=== PATIENT | male | born 1975 | race Hispanic/Latino ===

== ENCOUNTER 2022-10-10 19:33 | Inpatient (IN) | payer OTHER ==
[~2022-10-10] VITALS: Ht 154.9 cm; Wt 64.4 kg
[2022-10-10 21:52] LABS: BASOPHILS % (AUTO) 0.8 % (0.0-5.0); EOSINOPHILS % (AUTO) 1.4 % (0.0-8.0); HEMATOCRIT 35.3 % (42-54); LYMPHOCYTES % (AUTO) 22.4 % (21.0-51.0); MEAN CORPUSCULAR HEMOGLOBIN 28.6 pg (27.0-33.0); MEAN CORPUSCULAR HGB CONC 32.9 g/dL (32.0-36.0); MEAN CORPUSCULAR VOLUME 86.9 fL (79-99); MONOCYTES % (AUTO) 15.8 % (3.0-13.0); NEUTROPHILS % (AUTO) 57.5 % (40.0-77.0); PLATELET COUNT (AUTO) 124 K/uL (130-400); RED BLOOD CELL COUNT(AUTO) 4.06 MIL/uL (4.50-6.20); WHITE BLOOD COUNT (AUTO) 4.9 K/uL (4.8-10.8)
[2022-10-10 22:04] LABS: POTASSIUM 3.7 mmol/L (3.5-5.1)
[2022-10-10 22:06] LABS: INR 1.09 (0.85-1.15); PROTHROMBIN TIME 11.8 SEC (9.6-11.6)
[2022-10-10 22:08] LABS: ALBUMIN 1.9 g/dL (3.5-5.0); TOTAL PROTEIN, SERUM 8.1 g/dL (6.0-8.3)
[2022-10-10] MEDS ORDERED: IOHEXOL 350 MG/ML 100ML INFUS..BTL IV ONE (23:32)
[2022-10-11] MEDS ORDERED: HYDROCODONE/ACETAMINOPHEN 5/325 MG TAB PO PRN (00:30)
[2022-10-11] MEDS ORDERED: ACETAMINOPHEN 325 MG TAB PO PRN ×2 (00:30)
[2022-10-11] MEDS ORDERED: NITROGLYCERIN 0.4 MG SL TAB SL PRN (00:30)
[2022-10-11] MEDS ORDERED: ONDANSETRON 4MG INJ IV PRN (00:30)
[2022-10-11 00:48] LABS: HEMOGLOBIN A1C 4.8 % (4.0-6.0)
[2022-10-11 00:55] LABS: MAGNESIUM 1.6 mg/dL (1.80-2.40)
[2022-10-11] MEDS: 0.9%NACL 1000ML 1,000 ML IV SCH ×3 (00:59→19:52)
[2022-10-11] MEDS: MAGNESIUM 2GM PREMIX 50ML 50 ML IV SCH (03:44)
[2022-10-11 03:49] VITALS: BP 126/78
[2022-10-11] MEDS ORDERED: IPRATROPIUM/ALBUTEROL SULFATE 3 ML SOLUTION IH PRN (06:30)
[2022-10-11 08:05] LABS: ALBUMIN 1.8 g/dL (3.5-5.0); CREATININE 0.7 mg/dL (0.5-1.5); MAGNESIUM 1.8 mg/dL (1.80-2.40); POTASSIUM 3.8 mmol/L (3.5-5.1); TOTAL PROTEIN, SERUM 7.4 g/dL (6.0-8.3)
[2022-10-11 08:09] LABS: BASOPHILS % (AUTO) 0.8 % (0.0-5.0); EOSINOPHILS % (AUTO) 1.9 % (0.0-8.0); HEMATOCRIT 32.2 % (42-54); LYMPHOCYTES % (AUTO) 21.3 % (21.0-51.0); MEAN CORPUSCULAR HEMOGLOBIN 29.1 pg (27.0-33.0); MEAN CORPUSCULAR HGB CONC 33.2 g/dL (32.0-36.0); MEAN CORPUSCULAR VOLUME 87.5 fL (79-99); NEUTROPHILS % (AUTO) 61.3 % (40.0-77.0); PLATELET COUNT (AUTO) 113 K/uL (130-400); RED BLOOD CELL COUNT(AUTO) 3.68 MIL/uL (4.50-6.20); RED CELL DISTRIBUTION WIDTH 13.9 % (11.0-15.5); WHITE BLOOD COUNT (AUTO) 3.6 K/uL (4.8-10.8)
[2022-10-11 08:12] VITALS: BP 108/73
[2022-10-11] MEDS: ASPIRIN 81 MG EC TAB PO SCH (09:32)
[2022-10-11] MEDS: METOPROLOL TARTRATE 25 MG TAB PO SCH ×2 (09:32→20:46)
[2022-10-11] MEDS: FAMOTIDINE 20MG TAB PO SCH ×2 (09:32→20:46)
[2022-10-11 11:17] VITALS: BP 118/71
[2022-10-11] MEDS ORDERED: LORAZEPAM 2 MG/ML 1 ML VIAL IVP PRN (13:00)
[2022-10-11] MEDS ORDERED: CHLORDIAZEPOXIDE HCL 25 MG CAP PO PRN (13:00)
[2022-10-11] MEDS ORDERED: PHARMACY COMMUNICATION MISC PRN (13:00)
[2022-10-11 16:00] VITALS: BP 123/83
[2022-10-11 20:00] VITALS: BP 117/72
[2022-10-11] MEDS: HYDROCODONE/ACETAMINOPHEN 5/325 MG TAB PO PRN (20:47)
[2022-10-11 21:34] LABS: HEPATITIS A IGM ANTIBODY Non-Reactive (Nonreactive); HEPATITIS B CORE IGM ANTIBODY Non-Reactive (Negative); HEPATITIS B SURFACE ANTIGEN Non-Reactive (Nonreactive); HEPATITIS C ANTIBODY Non-Reactive (Nonreactive)
[2022-10-12] VITALS (18 sets, daily range): BP systolic 101–118; BP diastolic 49–80
[2022-10-12 05:29] LABS: EOSINOPHILS % (AUTO) 2.3 % (0.0-8.0); HEMATOCRIT 32.5 % (42-54); LYMPHOCYTES % (AUTO) 28.6 % (21.0-51.0); MEAN CORPUSCULAR HEMOGLOBIN 28.7 pg (27.0-33.0); MEAN CORPUSCULAR VOLUME 89.5 fL (79-99); MONOCYTES % (AUTO) 14.4 % (3.0-13.0); NEUTROPHILS % (AUTO) 51.8 % (40.0-77.0); PLATELET COUNT (AUTO) 126 K/uL (130-400); RED BLOOD CELL COUNT(AUTO) 3.63 MIL/uL (4.50-6.20); RED CELL DISTRIBUTION WIDTH 13.8 % (11.0-15.5); WHITE BLOOD COUNT (AUTO) 4.9 K/uL (4.8-10.8)
[2022-10-12 05:58] LABS: ALBUMIN 1.6 g/dL (3.5-5.0); CREATININE 0.7 mg/dL (0.5-1.5); POTASSIUM 3.5 mmol/L (3.5-5.1); TOTAL PROTEIN, SERUM 7.1 g/dL (6.0-8.3)
[2022-10-12] MEDS: 0.9%NACL 1000ML 1,000 ML IV SCH ×2 (06:50→17:26)
[2022-10-12] MEDS: FAMOTIDINE 20MG TAB PO SCH ×2 (09:00→21:01)
[2022-10-12] MEDS: FOLIC ACID 1 MG TABLET PO SCH (09:00)
[2022-10-12] MEDS: ASPIRIN 81 MG EC TAB PO SCH (09:00)
[2022-10-12] MEDS: MULTIVITAMIN TABLET PO SCH (09:00)
[2022-10-12] MEDS: METOPROLOL TARTRATE 25 MG TAB PO SCH ×2 (09:20→21:01)
[2022-10-12] MEDS: THIAMINE HCL 100 MG/ML 2ML VIAL IM SCH (09:20)
[2022-10-12] MEDS ORDERED: MORPHINE 2 MG SYG IVP PRN (12:07)
[2022-10-12] MEDS ORDERED: PROPOFOL 10 MG/ML 20ML VIAL IV ONE ×2 (17:50→19:06)
[2022-10-12] MEDS ORDERED: SUCCINYLCHOLINE 200MG/10ML SYR ONE (17:50)
[2022-10-12] MEDS ORDERED: LIDOCAINE PF 100MG/5ML (2%) SYRINGE 5ML ONE (17:50)
[2022-10-12] MEDS ORDERED: FENTANYL CITRATE PF 50 MCG/1 ML 2ML VIAL ONE ×2 (17:51→19:55)
[2022-10-12] MEDS ORDERED: ROCURONIUM 10MG/1ML SYR 10 MG/ML ML ONE (17:51)
[2022-10-12] MEDS ORDERED: MIDAZOLAM HCL 1 MG/ML 2ML VIAL ONE (17:51)
[2022-10-12] MEDS ORDERED: CEFAZOLIN SODIUM 2 GM VIAL IVPB ONE (18:10)
[2022-10-12] MEDS ORDERED: CEFAZOLIN SODIUM 2 GM VIAL ONE (18:17)
[2022-10-12] MEDS ORDERED: MEPERIDINE-PF 25 MG/ML SYG ONE (19:56)
[2022-10-12] MEDS ORDERED: IPRATROPIUM/ALBUTEROL SULFATE 3 ML SOLUTION IH SCH (20:00)
[2022-10-13] VITALS: BP 119/82
[2022-10-13] MEDS: HYDROCODONE/ACETAMINOPHEN 5/325 MG TAB PO PRN ×3 (01:03→16:30)
[2022-10-13] MEDS ORDERED: CEFAZOLIN SODIUM 2 GM VIAL IVPB SCH (02:00)
[2022-10-13 04:00] VITALS: BP 102/67
[2022-10-13 05:02] LABS: BASOPHILS % (AUTO) 0.7 % (0.0-5.0); EOSINOPHILS % (AUTO) 0.6 % (0.0-8.0); HEMATOCRIT 28.4 % (42-54); LYMPHOCYTES % (AUTO) 22.9 % (21.0-51.0); MEAN CORPUSCULAR HEMOGLOBIN 29.4 pg (27.0-33.0); MEAN CORPUSCULAR HGB CONC 33.1 g/dL (32.0-36.0); MEAN CORPUSCULAR VOLUME 88.8 fL (79-99); MONOCYTES % (AUTO) 13.6 % (3.0-13.0); NEUTROPHILS % (AUTO) 60.5 % (40.0-77.0); PLATELET COUNT (AUTO) 141 K/uL (130-400); WHITE BLOOD COUNT (AUTO) 8.6 K/uL (4.8-10.8)
[2022-10-13 05:28] LABS: ALBUMIN 1.6 g/dL (3.5-5.0); BILIRUBIN,DIRECT 1.3 mg/dL (0.0-0.3); POTASSIUM 3.8 mmol/L (3.5-5.1); TOTAL PROTEIN, SERUM 6.6 g/dL (6.0-8.3)
[2022-10-13 07:30] VITALS: BP 109/71
[2022-10-13] MEDS: METOPROLOL TARTRATE 25 MG TAB PO SCH ×2 (08:41→20:13)
[2022-10-13] MEDS: FAMOTIDINE 20MG TAB PO SCH ×2 (08:41→20:13)
[2022-10-13] MEDS: ASPIRIN 81 MG EC TAB PO SCH (08:41)
[2022-10-13] MEDS: FOLIC ACID 1 MG TABLET PO SCH (08:41)
[2022-10-13] MEDS: THIAMINE HCL 100 MG/ML 2ML VIAL IM SCH (08:41)
[2022-10-13] MEDS: MULTIVITAMIN TABLET PO SCH (08:41)
[2022-10-13 11:30] VITALS: BP 98/60
[2022-10-13 15:30] VITALS: BP 112/66
[2022-10-13] MEDS: CLINDAMYCIN IVPB 600MG/50ML 50 ML IV SCH (16:26)
[2022-10-13 20:00] VITALS: BP 105/71
[2022-10-14] VITALS: BP 120/67
[2022-10-14] MEDS: CLINDAMYCIN IVPB 600MG/50ML 50 ML IV SCH ×3 (00:36→17:17)
[2022-10-14] MEDS: HYDROCODONE/ACETAMINOPHEN 5/325 MG TAB PO PRN ×4 (00:46→20:52)
[2022-10-14 03:57] VITALS: BP 96/54
[2022-10-14 04:26] LABS: BASOPHILS % (AUTO) 0.8 % (0.0-5.0); EOSINOPHILS % (AUTO) 0.8 % (0.0-8.0); HEMATOCRIT 28.9 % (42-54); LYMPHOCYTES % (AUTO) 27.3 % (21.0-51.0); MEAN CORPUSCULAR HEMOGLOBIN 28.5 pg (27.0-33.0); MEAN CORPUSCULAR HGB CONC 32.2 g/dL (32.0-36.0); MEAN CORPUSCULAR VOLUME 88.7 fL (79-99); MONOCYTES % (AUTO) 12.3 % (3.0-13.0); NEUTROPHILS % (AUTO) 56.7 % (40.0-77.0); PLATELET COUNT (AUTO) 146 K/uL (130-400); RED BLOOD CELL COUNT(AUTO) 3.26 MIL/uL (4.50-6.20); RED CELL DISTRIBUTION WIDTH 13.8 % (11.0-15.5); WHITE BLOOD COUNT (AUTO) 8.5 K/uL (4.8-10.8)
[2022-10-14 05:01] LABS: ALBUMIN 1.7 g/dL (3.5-5.0); BILIRUBIN,DIRECT 1.2 mg/dL (0.0-0.3); CREATININE 0.9 mg/dL (0.5-1.5); POTASSIUM 3.6 mmol/L (3.5-5.1); TOTAL PROTEIN, SERUM 7.1 g/dL (6.0-8.3)
[2022-10-14] MEDS: MAGNESIUM 2GM PREMIX 50ML 50 ML IV SCH (05:45)
[2022-10-14 07:39] VITALS: BP 104/60
[2022-10-14] MEDS: ASPIRIN 81 MG EC TAB PO SCH (10:30)
[2022-10-14] MEDS: FAMOTIDINE 20MG TAB PO SCH ×2 (10:30→20:44)
[2022-10-14] MEDS: METOPROLOL TARTRATE 25 MG TAB PO SCH ×2 (10:30→20:47)
[2022-10-14] MEDS: FOLIC ACID 1 MG TABLET PO SCH (10:30)
[2022-10-14] MEDS: MULTIVITAMIN TABLET PO SCH (10:31)
[2022-10-14] MEDS: THIAMINE HCL 100 MG/ML 2ML VIAL IM SCH (10:31)
[2022-10-14] MEDS ORDERED: CLIN-141 PO (11:34)
[2022-10-14] MEDS ORDERED: MVIT PO (11:57)
[2022-10-14] MEDS ORDERED: METO25 PO (11:57)
[2022-10-14] MEDS ORDERED: AEC81 PO (11:57)
[2022-10-14 13:08] VITALS: BP 98/63
[2022-10-14 16:07] VITALS: BP 111/68
[2022-10-14 20:00] VITALS: BP 99/60
[2022-10-15] VITALS: BP 114/63
[2022-10-15] MEDS: CLINDAMYCIN IVPB 600MG/50ML 50 ML IV SCH (00:30)
[2022-10-15 04:00] VITALS: BP 110/73
[2022-10-15 04:45] LABS: BASOPHILS % (AUTO) 0.9 % (0.0-5.0); EOSINOPHILS % (AUTO) 3.7 % (0.0-8.0); LYMPHOCYTES % (AUTO) 29.9 % (21.0-51.0); MEAN CORPUSCULAR HEMOGLOBIN 29.2 pg (27.0-33.0); MEAN CORPUSCULAR HGB CONC 32.9 g/dL (32.0-36.0); MEAN CORPUSCULAR VOLUME 88.9 fL (79-99); MONOCYTES % (AUTO) 13.4 % (3.0-13.0); NEUTROPHILS % (AUTO) 48.9 % (40.0-77.0); PLATELET COUNT (AUTO) 168 K/uL (130-400); RED BLOOD CELL COUNT(AUTO) 3.15 MIL/uL (4.50-6.20); RED CELL DISTRIBUTION WIDTH 14.4 % (11.0-15.5)
[2022-10-15 05:08] LABS: ALBUMIN 1.7 g/dL (3.5-5.0); CREATININE 0.8 mg/dL (0.5-1.5); MAGNESIUM 1.9 mg/dL (1.80-2.40); POTASSIUM 3.4 mmol/L (3.5-5.1); TOTAL PROTEIN, SERUM 7.1 g/dL (6.0-8.3)
[2022-10-15 07:43] VITALS: BP 116/76
[2022-10-15] MEDS: HYDROCODONE/ACETAMINOPHEN 5/325 MG TAB PO PRN (08:05)
[2022-10-15] MEDS: ASPIRIN 81 MG EC TAB PO SCH (10:18)
[2022-10-15] MEDS: METOPROLOL TARTRATE 25 MG TAB PO SCH (10:18)
[2022-10-15] MEDS: FAMOTIDINE 20MG TAB PO SCH (10:19)
[2022-10-15] MEDS: MULTIVITAMIN TABLET PO SCH (10:19)
[2022-10-15 11:16] VITALS: BP 98/61
== END 2022-10-15 14:35 | disposition home or self-care (01) | DRG 480 ==
LOC: EDH 19:33 → EDHIP 19:34 → 4CH 10-11 02:02
PROVIDERS: ADMIT Internal Medicine; ATTEND Internal Medicine
PROC: 0QS604Z Reposition Right Upper Femur with Internal Fixation Device, Open Approach (ICD-10-PCS; principal; 2022-10-12 17:48)
DX: S72.141A Displaced intertrochanteric fracture of right femur, initial encounter for closed fracture (principal); J18.9 Pneumonia, unspecified organism; E87.1 Hypo-osmolality and hyponatremia; Z20.822 Contact with and (suspected) exposure to COVID-19; D69.6 Thrombocytopenia, unspecified; W11.XXXA Fall on and from ladder, initial encounter; Y93.89 Activity, other specified; Y92.89 Other specified places as the place of occurrence of the external cause; Y99.8 Other external cause status
CPT/HCPCS: 36415; 70450; 71250; 72190; 73503; 73552; 73562; 73590; 74176; 74177; 80048; 80053; 80061; 80074; 80076; 82550; 83036; 83735; 83874; 83880; 84145; 84484; 85025; 85610; 85730; 87040; 87635; 93005; 93306; 93356; 94640; 97039; G0378; J0330; J2001; J2175; J2250; J2704; J3010; J3411; J3475; J3490; Q9967

== ENCOUNTER 2023-01-13 22:05 | Inpatient (IN) | payer OTHER ==
[~2023-01-13] VITALS: Ht 157.5 cm; Wt 70.3 kg
[~2023-01-13 22:05] MED LIST: AEC81 PO; CLIN-141 PO; METO25 PO; MVIT PO
[2023-01-13] MEDS ORDERED: IBUPROFEN 600 MG TABLET PO ONE (23:30)
[2023-01-13] MEDS ORDERED: POTASSIUM CHLORIDE 10% ELIXIR 20 MEQ/15 ML UDCUP PO PRN (23:30)
[2023-01-13] MEDS ORDERED: ACETAMINOPHEN 325 MG TAB PO PRN ×2 (23:30)
[2023-01-13] MEDS ORDERED: KCL 20 MEQ ERTAB PO PRN (23:30)
[2023-01-13] MEDS ORDERED: POTASSIUM CHLORIDE 20MEQ/100ML 100 ML IV PRN ×2 (23:30)
[2023-01-13] MEDS ORDERED: MORPHINE 4 MG SYG ONE (23:40)
[2023-01-13] MEDS ORDERED: ONDANSETRON 4MG INJ ONE (23:40)
[2023-01-13] MEDS: LACTATED RINGERS 1000ML 1,000 ML IV SCH (23:56)
[2023-01-13] MEDS: MORPHINE 4 MG SYG IV PRN (23:56)
[2023-01-13] MEDS: ONDANSETRON 4MG INJ IV PRN (23:56)
[2023-01-14] VITALS (7 sets, daily range): BP systolic 100–132; BP diastolic 57–81; PULSE 71–86; RESP 16–20; O2SAT 96–97
[2023-01-14 00:02] LABS: EOSINOPHILS % (AUTO) 3.1 % (0.0-8.0); HEMATOCRIT 43.8 % (42-54); LYMPHOCYTES % (AUTO) 22.6 % (21.0-51.0); MEAN CORPUSCULAR HEMOGLOBIN 29.3 pg (27.0-33.0); MEAN CORPUSCULAR HGB CONC 32.9 g/dL (32.0-36.0); MEAN CORPUSCULAR VOLUME 89.2 fL (79-99); MONOCYTES % (AUTO) 5.4 % (3.0-13.0); PLATELET COUNT (AUTO) 188 K/uL (130-400); RED BLOOD CELL COUNT(AUTO) 4.91 MIL/uL (4.50-6.20); RED CELL DISTRIBUTION WIDTH 13.9 % (11.0-15.5); WHITE BLOOD COUNT (AUTO) 7.4 K/uL (4.8-10.8)
[2023-01-14 00:13] LABS: APPEARANCE,URINE CLEAR (CLEAR); BILIRUBIN,URINE NEGATIVE (NEGATIVE); COLOR,URINE LIGHT-YELLOW (YELLOW); GLUCOSE, URINE (UA) TRACE mg/dL (NEGATIVE); KETONES,URINE NEGATIVE (NEGATIVE); LEUKOCYTE ESTERASE ,URINE NEGATIVE Leu/uL (NEGATIVE); NITRATE,URINE NEGATIVE (NEGATIVE); OCCULT BLOOD,URINE NEGATIVE (NEGATIVE); PROTEIN,URINE NEGATIVE (NEGATIVE); UROBILINOGEN,URINE 0.2 mg/dL (0.2-1.0)
[2023-01-14 00:16] LABS: ALBUMIN 3.1 g/dL (3.5-5.0); CREATININE 0.7 mg/dL (0.5-1.5); MAGNESIUM 1.7 mg/dL (1.80-2.40); PHOSPHORUS 4.5 mg/dL (2.5-4.9); POTASSIUM 3.9 mmol/L (3.5-5.1); TOTAL PROTEIN, SERUM 7.7 g/dL (6.0-8.3)
[2023-01-14 00:19] LABS: INR 0.98 (0.85-1.15); PROTHROMBIN TIME 11.4 SEC (9.6-11.6)
[2023-01-14 00:21] LABS: MUCUS,URINE FEW LPF (None Seen); WBC,URINE 0-1 /HPF (0-1)
[2023-01-14] MEDS: MAGNESIUM 2GM PREMIX 50ML 50 ML IV PRN (04:09)
[2023-01-14] MEDS: MORPHINE 2 MG SYG IV PRN ×2 (04:43→16:24)
[2023-01-14 06:23] LABS: BASOPHILS % (AUTO) 0.7 % (0.0-5.0); EOSINOPHILS % (AUTO) 3.7 % (0.0-8.0); HEMATOCRIT 39.4 % (42-54); LYMPHOCYTES % (AUTO) 23.7 % (21.0-51.0); MEAN CORPUSCULAR HEMOGLOBIN 29.9 pg (27.0-33.0); MEAN CORPUSCULAR HGB CONC 33.2 g/dL (32.0-36.0); MONOCYTES % (AUTO) 8.1 % (3.0-13.0); PLATELET COUNT (AUTO) 152 K/uL (130-400); RED BLOOD CELL COUNT(AUTO) 4.38 MIL/uL (4.50-6.20); RED CELL DISTRIBUTION WIDTH 13.8 % (11.0-15.5); WHITE BLOOD COUNT (AUTO) 7.1 K/uL (4.8-10.8)
[2023-01-14 06:28] LABS: CREATININE 0.6 mg/dL (0.5-1.5)
[2023-01-14] MEDS: FAMOTIDINE 20MG VIAL IV SCH ×2 (09:57→20:33)
[2023-01-14] MEDS: ENOXAPARIN SODIUM 40 MG/0.4 ML SYRINGE SQ SCH (09:57)
[2023-01-14 10:10] LABS: ALBUMIN 2.9 g/dL (3.5-5.0); BILIRUBIN,DIRECT 0.3 mg/dL (0.0-0.3); TOTAL PROTEIN, SERUM 7.1 g/dL (6.0-8.3)
[2023-01-14] MEDS ORDERED: LORAZEPAM 2 MG/ML 1 ML VIAL IVP PRN (14:00)
[2023-01-14] MEDS ORDERED: CHLORDIAZEPOXIDE HCL 25 MG CAP PO PRN (14:00)
[2023-01-14] MEDS ORDERED: PHARMACY COMMUNICATION MISC PRN (14:00)
[2023-01-14] MEDS ORDERED: CEFAZOLIN SODIUM 2 GM VIAL IVPB PRN (15:00)
[2023-01-14] MEDS: MORPHINE 4 MG SYG IV PRN (20:33)
[2023-01-14] MEDS: LACTATED RINGERS 1000ML 1,000 ML IV SCH (20:34)
[2023-01-14 20:44] LABS: AMPHET/METH SCREEN,URINE NEGATIVE (NEGATIVE); BARBITURATE SCREEN, URINE NEGATIVE (NEGATIVE); BENZODIAZEPINES SCREEN,URINE NEGATIVE (NEGATIVE); CANNABINOID SCREEN,URINE NEGATIVE (NEGATIVE); COCAINE SCREEN,URINE NEGATIVE (NEGATIVE); OPIATE SCREEN,URINE POSITIVE (NEGATIVE); PHENCYCLIDINE SCREEN,URINE NEGATIVE (NEGATIVE)
[2023-01-15] VITALS (28 sets, daily range): BP systolic 110–139; BP diastolic 59–89; PULSE 66–94; RESP 15–20; O2SAT 96–99
[2023-01-15] MEDS: MORPHINE 4 MG SYG IV PRN ×2 (00:40→05:07)
[2023-01-15 05:04] LABS: BASOPHILS % (AUTO) 0.5 % (0.0-5.0); EOSINOPHILS % (AUTO) 8.9 % (0.0-8.0); LYMPHOCYTES % (AUTO) 23.5 % (21.0-51.0); MEAN CORPUSCULAR HEMOGLOBIN 29.7 pg (27.0-33.0); MEAN CORPUSCULAR HGB CONC 32.6 g/dL (32.0-36.0); MEAN CORPUSCULAR VOLUME 90.9 fL (79-99); NEUTROPHILS % (AUTO) 56.9 % (40.0-77.0); PLATELET COUNT (AUTO) 128 K/uL (130-400); RED BLOOD CELL COUNT(AUTO) 4.18 MIL/uL (4.50-6.20); RED CELL DISTRIBUTION WIDTH 13.6 % (11.0-15.5); WHITE BLOOD COUNT (AUTO) 6.5 K/uL (4.8-10.8)
[2023-01-15] MEDS: LACTATED RINGERS 1000ML 1,000 ML IV SCH (05:07)
[2023-01-15 05:15] LABS: INR 0.98 (0.85-1.15); PROTHROMBIN TIME 11.4 SEC (9.6-11.6)
[2023-01-15 05:17] LABS: PARTIAL THROMBOPLASTIN TIME 33.9 SEC (26.3-35.5)
[2023-01-15 05:26] LABS: ALBUMIN 2.4 g/dL (3.5-5.0); BILIRUBIN,DIRECT 0.4 mg/dL (0.0-0.3); CREATININE 0.7 mg/dL (0.5-1.5); MAGNESIUM 1.5 mg/dL (1.80-2.40); TOTAL PROTEIN, SERUM 6.3 g/dL (6.0-8.3)
[2023-01-15] MEDS: MAGNESIUM 2GM PREMIX 50ML 50 ML IV PRN (05:59)
[2023-01-15] MEDS: MORPHINE 2 MG SYG IV PRN (10:00)
[2023-01-15] MEDS: FAMOTIDINE 20MG VIAL IV SCH ×2 (10:00→20:46)
[2023-01-15] MEDS: THIAMINE HCL 100 MG, FOLIC ACID 1 MG, M.V.I. IV [ADULT] 10 ML in 0.9%NACL 1000ML 1,000 ML IV SCH (10:30)
[2023-01-15] MEDS ORDERED: KETAMINE 50MG/ML SYRINGE 50 MG/ML DISP.SYRIN ONE (10:43)
[2023-01-15] MEDS ORDERED: ROPIVACAINE 0.5% 5MG/ML 30ML IJ ONE ×2 (10:43→15:15)
[2023-01-15] MEDS ORDERED: PROPOFOL 10 MG/ML 20ML VIAL IV ONE (10:44)
[2023-01-15] MEDS ORDERED: SUCCINYLCHOLINE CHLORIDE 20 MG/ML 10 ML VIAL ONE (10:44)
[2023-01-15] MEDS ORDERED: FENTANYL CITRATE PF 50 MCG/1 ML 2ML VIAL ONE ×3 (10:44→15:19)
[2023-01-15] MEDS ORDERED: LIDOCAINE PF 100MG/5ML (2%) SYRINGE 5ML ONE (10:44)
[2023-01-15] MEDS ORDERED: MIDAZOLAM HCL 1 MG/ML 2ML VIAL ONE (10:45)
[2023-01-15] MEDS ORDERED: ROCURONIUM 10MG/1ML SYR 10 MG/ML ML ONE ×2 (10:46→13:22)
[2023-01-15] MEDS ORDERED: GLYCOPYRROLATE 1 MG/5 ML SYRINGE ONE ×2 (11:00→14:50)
[2023-01-15] MEDS ORDERED: CEFAZOLIN SODIUM 1 GM VIAL ONE (11:20)
[2023-01-15] MEDS ORDERED: PHENYLEPHRINE HCL 10 MG/ML 1ML VIAL IV ONE (13:30)
[2023-01-15 13:47] LABS: ABG BASE EXCESS -1.3 mmol/L (-2.0-3.0); ABG HCO3 24.4 mmol/L (21.0-28.0); ABG OXYGEN SATURATION 99.5 % (95.0-99.0); ABG PCO2 44 mmHg (35-48)
[2023-01-15] MEDS ORDERED: MEPERIDINE-PF 25 MG/ML SYG ONE (14:23)
[2023-01-15] MEDS ORDERED: NEOSTIGMINE 5MG/5ML SYR IV ONE (14:51)
[2023-01-15] MEDS ORDERED: ONDANSETRON 4MG INJ ONE (15:05)
[2023-01-15] MEDS ORDERED: LIDOCAINE HCL 1% 10 ML VIAL ONE (15:14)
[2023-01-15] MEDS ORDERED: POTASSIUM CHLORIDE 10% ELIXIR 20 MEQ/15 ML UDCUP PO PRN (15:30)
[2023-01-15] MEDS ORDERED: FERROUS FUMARATE 324 MG TABLET PO PRN (15:30)
[2023-01-15] MEDS ORDERED: 0.9%NACL 1000ML 1,000 ML IV SCH (15:30)
[2023-01-15] MEDS ORDERED: DIPHENHYDRAMINE HCL 25 MG CAPSULE PO PRN (15:30)
[2023-01-15] MEDS ORDERED: KCL 20 MEQ ERTAB PO PRN (15:30)
[2023-01-15] MEDS ORDERED: POTASSIUM CHLORIDE 20MEQ/100ML 100 ML IV PRN (15:30)
[2023-01-15] MEDS: ONDANSETRON 4MG INJ IV PRN (16:07)
[2023-01-15] MEDS: KETOROLAC 30MG VIAL (30MG/ML) IV PRN (17:09)
[2023-01-15] MEDS: CEFAZOLIN SODIUM 2 GM VIAL IVPB SCH (20:46)
[2023-01-15] MEDS: CALCIUM CARB 500MG PO PRN (20:47)
[2023-01-15] MEDS: CYCLOBENZAPRINE HCL 10 MG TABLET PO PRN (20:47)
[2023-01-15] MEDS: GABAPENTIN 100 MG CAPSULE PO SCH (20:47)
[2023-01-16] VITALS (8 sets, daily range): BP systolic 93–139; BP diastolic 53–76; PULSE 58–127; RESP 18–20; O2SAT 98
[2023-01-16] MEDS: HYDROCODONE/ACETAMINOPHEN 5/325 MG TAB PO PRN ×3 (01:15→19:31)
[2023-01-16] MEDS: CEFAZOLIN SODIUM 2 GM VIAL IVPB SCH (02:38)
[2023-01-16 04:55] LABS: BASOPHILS % (AUTO) 0.4 % (0.0-5.0); EOSINOPHILS % (AUTO) 2.8 % (0.0-8.0); HEMATOCRIT 25.8 % (42-54); LYMPHOCYTES % (AUTO) 24.1 % (21.0-51.0); MEAN CORPUSCULAR HEMOGLOBIN 29.8 pg (27.0-33.0); MEAN CORPUSCULAR HGB CONC 32.6 g/dL (32.0-36.0); MEAN CORPUSCULAR VOLUME 91.5 fL (79-99); MONOCYTES % (AUTO) 9.6 % (3.0-13.0); NEUTROPHILS % (AUTO) 61.3 % (40.0-77.0); PLATELET COUNT (AUTO) 108 K/uL (130-400); RED BLOOD CELL COUNT(AUTO) 2.82 MIL/uL (4.50-6.20); RED CELL DISTRIBUTION WIDTH 13.6 % (11.0-15.5); WHITE BLOOD COUNT (AUTO) 6.7 K/uL (4.8-10.8)
[2023-01-16 05:06] LABS: INR 1.01 (0.85-1.15); PROTHROMBIN TIME 11.7 SEC (9.6-11.6)
[2023-01-16 05:15] LABS: ALBUMIN 1.9 g/dL (3.5-5.0); BILIRUBIN,DIRECT 0.4 mg/dL (0.0-0.3); CREATININE 0.8 mg/dL (0.5-1.5); MAGNESIUM 1.6 mg/dL (1.80-2.40); TOTAL PROTEIN, SERUM 5.3 g/dL (6.0-8.3)
[2023-01-16] MEDS: TRAMADOL HCL 50 MG TABLET PO PRN (05:33)
[2023-01-16] MEDS: CALCIUM CARB 500MG PO PRN (05:33)
[2023-01-16] MEDS: MAGNESIUM 2GM PREMIX 50ML 50 ML IV PRN (05:33)
[2023-01-16] MEDS ORDERED: MAGNESIUM 2GM PREMIX 50ML 50 ML IV PRN (08:00)
[2023-01-16] MEDS ORDERED: CALCIUM CARB 500MG PO PRN (08:00)
[2023-01-16] MEDS: FAMOTIDINE 20MG VIAL IV SCH ×2 (08:20→19:29)
[2023-01-16] MEDS: GABAPENTIN 100 MG CAPSULE PO SCH ×3 (08:21→19:29)
[2023-01-16] MEDS: POLYETHYLENE GLYCOL 3350 17 GM POWD.PACK PO SCH (08:21)
[2023-01-16] MEDS ORDERED: COMPOUND IV REFRIGERATED 1 EACH IVSOLN MISC PRN (11:00)
[2023-01-16] MEDS: PSYLLIUM SEED 1 EACH PACKET PO SCH (11:58)
[2023-01-16] MEDS: THIAMINE HCL 100 MG, FOLIC ACID 1 MG, M.V.I. IV [ADULT] 10 ML in 0.9%NACL 1000ML 1,000 ML IV SCH (12:25)
[2023-01-16] MEDS: METOPROLOL TARTRATE 25 MG TAB PO SCH (23:35)
[2023-01-16] MEDS: KETOROLAC 30MG VIAL (30MG/ML) IV PRN (23:39)
[2023-01-16] MEDS: CYCLOBENZAPRINE HCL 10 MG TABLET PO PRN (23:39)
[2023-01-17] VITALS (9 sets, daily range): BP systolic 76–107; BP diastolic 47–72; PULSE 75–102; RESP 18–19; O2SAT 98–99
[2023-01-17 05:59] LABS: BASOPHILS % (AUTO) 0.9 % (0.0-5.0); EOSINOPHILS % (AUTO) 0.2 % (0.0-8.0); HEMATOCRIT 28.4 % (42-54); MEAN CORPUSCULAR HEMOGLOBIN 30.5 pg (27.0-33.0); MEAN CORPUSCULAR HGB CONC 32.7 g/dL (32.0-36.0); MEAN CORPUSCULAR VOLUME 93.1 fL (79-99); MONOCYTES % (AUTO) 10.4 % (3.0-13.0); NEUTROPHILS % (AUTO) 61.1 % (40.0-77.0); PLATELET COUNT (AUTO) 172 K/uL (130-400); RED BLOOD CELL COUNT(AUTO) 3.05 MIL/uL (4.50-6.20); RED CELL DISTRIBUTION WIDTH 14.2 % (11.0-15.5); WHITE BLOOD COUNT (AUTO) 12.8 K/uL (4.8-10.8)
[2023-01-17 06:10] LABS: INR 1.12 (0.85-1.15); PROTHROMBIN TIME 12.9 SEC (9.6-11.6)
[2023-01-17 06:22] LABS: ALBUMIN 2.4 g/dL (3.5-5.0); BILIRUBIN,DIRECT 0.8 mg/dL (0.0-0.3); CREATININE 1.7 mg/dL (0.5-1.5); POTASSIUM 4.4 mmol/L (3.5-5.1); TOTAL PROTEIN, SERUM 6.3 g/dL (6.0-8.3)
[2023-01-17] MEDS: METOPROLOL TARTRATE 25 MG TAB PO SCH ×2 (08:08→19:55)
[2023-01-17] MEDS: GABAPENTIN 100 MG CAPSULE PO SCH ×3 (10:08→19:55)
[2023-01-17] MEDS: POLYETHYLENE GLYCOL 3350 17 GM POWD.PACK PO SCH (10:08)
[2023-01-17] MEDS: FAMOTIDINE 20MG VIAL IV SCH ×2 (10:08→19:55)
[2023-01-17] MEDS: THIAMINE HCL 100 MG, FOLIC ACID 1 MG, M.V.I. IV [ADULT] 10 ML in 0.9%NACL 1000ML 1,000 ML IV SCH (10:09)
[2023-01-17] MEDS: ENOXAPARIN SODIUM 40 MG/0.4 ML SYRINGE SQ SCH (10:09)
[2023-01-17] MEDS ORDERED: MIDODRINE HCL 5 MG TABLET PO PRN (12:00)
[2023-01-17] MEDS: PSYLLIUM SEED 1 EACH PACKET PO SCH (12:32)
[2023-01-17] MEDS ORDERED: BISACODYL 5 MG TABLET.DR PO PRN (15:30)
[2023-01-17] MEDS: CALCIUM CARB 500MG PO PRN (19:59)
[2023-01-18] VITALS (8 sets, daily range): BP systolic 105–133; BP diastolic 60–75; PULSE 79–97; RESP 16–22; O2SAT 96
[2023-01-18 05:41] LABS: BASOPHILS % (AUTO) 0.6 % (0.0-5.0); EOSINOPHILS % (AUTO) 5.3 % (0.0-8.0); HEMATOCRIT 26.1 % (42-54); LYMPHOCYTES % (AUTO) 23.2 % (21.0-51.0); MEAN CORPUSCULAR HEMOGLOBIN 30.2 pg (27.0-33.0); MEAN CORPUSCULAR VOLUME 91.6 fL (79-99); NEUTROPHILS % (AUTO) 53.7 % (40.0-77.0); PLATELET COUNT (AUTO) 159 K/uL (130-400); RED BLOOD CELL COUNT(AUTO) 2.85 MIL/uL (4.50-6.20); RED CELL DISTRIBUTION WIDTH 14.6 % (11.0-15.5); WHITE BLOOD COUNT (AUTO) 7.2 K/uL (4.8-10.8)
[2023-01-18 05:56] LABS: INR 0.98 (0.85-1.15); PROTHROMBIN TIME 11.4 SEC (9.6-11.6)
[2023-01-18 06:41] LABS: ALBUMIN 2.3 g/dL (3.5-5.0); BILIRUBIN,DIRECT 0.6 mg/dL (0.0-0.3); CREATININE 0.9 mg/dL (0.5-1.5); POTASSIUM 3.7 mmol/L (3.5-5.1); TOTAL PROTEIN, SERUM 6.3 g/dL (6.0-8.3)
[2023-01-18] MEDS: POLYETHYLENE GLYCOL 3350 17 GM POWD.PACK PO SCH (09:00)
[2023-01-18] MEDS: METOPROLOL TARTRATE 25 MG TAB PO SCH (09:35)
[2023-01-18] MEDS: FAMOTIDINE 20MG VIAL IV SCH ×2 (09:35→20:56)
[2023-01-18] MEDS: GABAPENTIN 100 MG CAPSULE PO SCH ×3 (09:35→20:56)
[2023-01-18] MEDS: PSYLLIUM SEED 1 EACH PACKET PO SCH (12:09)
[2023-01-18] MEDS ORDERED: ENOXAPARIN SODIUM 40 MG/0.4 ML SYRINGE SQ ONE (12:42)
[2023-01-18] MEDS: ENOXAPARIN SODIUM 40 MG/0.4 ML SYRINGE SQ SCH (12:43)
[2023-01-18] MEDS: KETOROLAC 30MG VIAL (30MG/ML) IV PRN (13:09)
[2023-01-18] MEDS ORDERED: BISACODYL 10 MG SUPP.RECT RC PRN (15:30)
[2023-01-18] MEDS: TRAMADOL HCL 50 MG TABLET PO PRN (20:56)
[2023-01-19 04:00] VITALS: BP 113/74; PULSE 97; RESP 20
[2023-01-19 05:25] LABS: HEMATOCRIT 25.5 % (42-54); MEAN CORPUSCULAR HEMOGLOBIN 30.1 pg (27.0-33.0); MEAN CORPUSCULAR HGB CONC 31.8 g/dL (32.0-36.0); MEAN CORPUSCULAR VOLUME 94.8 fL (79-99); RED BLOOD CELL COUNT(AUTO) 2.69 MIL/uL (4.50-6.20); RED CELL DISTRIBUTION WIDTH 15.2 % (11.0-15.5); WHITE BLOOD COUNT (AUTO) 6.4 K/uL (4.8-10.8)
[2023-01-19 05:50] LABS: ALBUMIN 2.3 g/dL (3.5-5.0); CREATININE 0.9 mg/dL (0.5-1.5); POTASSIUM 3.6 mmol/L (3.5-5.1); TOTAL PROTEIN, SERUM 6.3 g/dL (6.0-8.3)
[2023-01-19 07:43] VITALS: BP 109/65; PULSE 82; RESP 19
[2023-01-19 07:45] VITALS: O2SAT 98
[2023-01-19] MEDS: FAMOTIDINE 20MG VIAL IV SCH (09:03)
[2023-01-19] MEDS: POLYETHYLENE GLYCOL 3350 17 GM POWD.PACK PO SCH (09:06)
[2023-01-19] MEDS: GABAPENTIN 100 MG CAPSULE PO SCH ×2 (09:07→14:27)
[2023-01-19] MEDS: ENOXAPARIN SODIUM 40 MG/0.4 ML SYRINGE SQ SCH (09:37)
[2023-01-19 11:34] VITALS: BP 120/73; PULSE 94; RESP 18
[2023-01-19] MEDS: PSYLLIUM SEED 1 EACH PACKET PO SCH (14:27)
== END 2023-01-19 17:32 | disposition home or self-care (01) | DRG 481 ==
LOC: EDH 22:05 → EDHIP 22:06 → 4DH 01-14 03:51
PROVIDERS: ADMIT Hospitalist; ATTEND Hospitalist
PROC: 0QP604Z Removal of Internal Fixation Device from Right Upper Femur, Open Approach (ICD-10-PCS; 2023-01-15)
PROC: 0QS604Z Reposition Right Upper Femur with Internal Fixation Device, Open Approach (ICD-10-PCS; principal; 2023-01-15 11:44)
DX: S72.141A Displaced intertrochanteric fracture of right femur, initial encounter for closed fracture (principal); D62 Acute posthemorrhagic anemia; M97.01XA Periprosthetic fracture around internal prosthetic right hip joint, initial encounter; E44.0 Moderate protein-calorie malnutrition; Z20.822 Contact with and (suspected) exposure to COVID-19; E83.42 Hypomagnesemia; I10 Essential (primary) hypertension; W01.0XXA Fall on same level from slipping, tripping and stumbling without subsequent striking against object, initial encounter; Y93.89 Activity, other specified; Z79.82 Long term (current) use of aspirin; Y92.89 Other specified places as the place of occurrence of the external cause; Y99.8 Other external cause status; Z68.28 Body mass index [BMI] 28.0-28.9, adult
CPT/HCPCS: 36415; 36600; 73502; 73552; 73562; 80048; 80053; 80076; 80305; 81001; 82140; 82435; 82803; 82947; 83605; 83735; 84100; 84132; 84295; 85018; 85025; 85027; 85610; 85730; 86850; 86900; 86901; 87040; 87635; 93005; 97039; G0378; J0330; J0690; J1650; J1885; J2001; J2175; J2250; J2270; J2371; J2405; J2704; J2710; J2795; J3010; J3411; J3475; J3490; J7030

== ENCOUNTER 2023-11-24 20:43 | Inpatient (IN) | payer OTHER ==
[~2023-11-24] VITALS: Ht 154.9 cm; Wt 70.9 kg
[2023-11-24 01:00] VITALS: BP 127/80; PULSE 81; RESP 19
[~2023-11-24 20:43] MED LIST changes: -CLIN-141 PO
[2023-11-24 22:01] LABS: BASOPHILS # (AUTO) 0.05 K/uL (0.00-0.20); BASOPHILS % (AUTO) 0.5 % (0.0-5.0); EOSINOPHILS # (AUTO) 0.18 K/uL (0.00-0.70); HEMATOCRIT 42.8 % (42-54); IMMATURE GRANULOCYTE ABSOLUTE 0.13 K/uL (0-1); LYMPHOCYTES # (AUTO) 2.9 K/uL (1.0-4.8); LYMPHOCYTES % (AUTO) 31.2 % (21.0-51.0); MEAN CORPUSCULAR HEMOGLOBIN 27.8 pg (27.0-33.0); MEAN CORPUSCULAR HGB CONC 32.5 g/dL (32.0-36.0); MEAN CORPUSCULAR VOLUME 85.6 fL (79-99); MONOCYTES % (AUTO) 10.6 % (3.0-13.0); NEUTROPHILS % (AUTO) 54.3 % (40.0-77.0); PLATELET COUNT (AUTO) 199 K/uL (130-400); RED CELL DISTRIBUTION WIDTH 13.9 % (11.0-15.5); WHITE BLOOD COUNT (AUTO) 9.2 K/uL (4.8-10.8)
[2023-11-24 22:08] LABS: CREATININE 1.1 mg/dL (0.5-1.3); POTASSIUM 3.3 mmol/L (3.5-5.1)
[2023-11-24 22:15] LABS: SARS-CoV-2, RNA, NAAT NEGATIVE SARS CoV-2 (NEGATIVE)
[2023-11-24 22:47] LABS: ABG HCO3 21.7 mmol/L (21.0-28.0); ABG OXYGEN SATURATION 97.3 % (95.0-99.0); ABG PCO2 38 mmHg (35-48); ABG PH 7.376 (7.35-7.450); PO2, ARTERIAL BG 96.6 mmHg (83.0-108.0); VENT MODE, BG ROOMAIR (ROOM AIR)
[2023-11-24 22:50] LABS: INFLUENZA TYPE A Negative For Type A (NEGATIVE); INFLUENZA TYPE B Negative For Type B (NEGATIVE)
[2023-11-24] MEDS: FUROSEMIDE 40MG VIAL IV ONE (23:19)
[2023-11-24] MEDS ORDERED: SOLU-MEDROL 125MG VIAL IVP ONE (23:30)
[2023-11-24] MEDS ORDERED: IPRATROPIUM/ALBUTEROL SULFATE 3 ML SOLUTION IH ONE (23:30)
[2023-11-25] VITALS (16 sets, daily range): BP systolic 107–124; BP diastolic 62–73; PULSE 58–84; RESP 18–20; O2SAT 94–98
[2023-11-25] MEDS ORDERED: ONDANSETRON 4MG INJ IV PRN
[2023-11-25] MEDS ORDERED: POTASSIUM CHLORIDE 20MEQ/100ML 100 ML IV PRN
[2023-11-25] MEDS ORDERED: MAGNESIUM 2GM PREMIX 50ML 50 ML IV PRN
[2023-11-25] MEDS ORDERED: ACETAMINOPHEN 325 MG TAB PO PRN ×2
[2023-11-25] MEDS ORDERED: POTASSIUM CHLORIDE 10% ELIXIR 20 MEQ/15 ML UDCUP PO PRN
[2023-11-25] MEDS: KCL 20 MEQ ERTAB PO PRN (00:10)
[2023-11-25] MEDS: IPRATROPIUM/ALBUTEROL SULFATE 3 ML SOLUTION IH SCH (02:07)
[2023-11-25 04:04] LABS: BASOPHILS # (AUTO) 0.03 K/uL (0.00-0.20); BASOPHILS % (AUTO) 0.6 % (0.0-5.0); EOSINOPHILS # (AUTO) 0.02 K/uL (0.00-0.70); EOSINOPHILS % (AUTO) 0.4 % (0.0-8.0); HEMATOCRIT 44.9 % (42-54); IMMATURE GRANULOCYTE ABSOLUTE 0.11 K/uL (0-1); LYMPHOCYTES # (AUTO) 0.9 K/uL (1.0-4.8); LYMPHOCYTES % (AUTO) 17.5 % (21.0-51.0); MEAN CORPUSCULAR HGB CONC 32.1 g/dL (32.0-36.0); MEAN CORPUSCULAR VOLUME 87.2 fL (79-99); MONOCYTES # (AUTO) 0.3 K/uL (0.1-1.0); MONOCYTES % (AUTO) 6.6 % (3.0-13.0); NEUTROPHILS # (AUTO) 3.8 K/uL (1.8-7.7); NEUTROPHILS % (AUTO) 72.8 % (40.0-77.0); PLATELET COUNT (AUTO) 178 K/uL (130-400); RED BLOOD CELL COUNT(AUTO) 5.15 MIL/uL (4.50-6.20); RED CELL DISTRIBUTION WIDTH 13.8 % (11.0-15.5); WHITE BLOOD COUNT (AUTO) 5.2 K/uL (4.8-10.8)
[2023-11-25 04:27] LABS: ALBUMIN 3.7 g/dL (3.5-5.0); BILIRUBIN,TOTAL 0.7 mg/dL (0.2-1.0); POTASSIUM 4.4 mmol/L (3.5-5.1); TOTAL PROTEIN, SERUM 8.1 g/dL (6.0-8.3)
[2023-11-25 04:32] LABS: B-TYPE NATRIURETIC PEPTIDE 408 pg/mL (0-100)
[2023-11-25] MEDS: FAMOTIDINE 20MG TAB PO SCH (10:17)
[2023-11-25] MEDS: FUROSEMIDE 20MG VIAL IV SCH (10:17)
[2023-11-25] MEDS: ENOXAPARIN SODIUM 30 MG/0.3 ML SQ SCH (10:18)
[2023-11-26] VITALS (15 sets, daily range): BP systolic 103–115; BP diastolic 60–73; PULSE 68–95; RESP 17–20; O2SAT 94–97
[2023-11-26 04:48] LABS: HEMATOCRIT 47.3 % (42-54); MEAN CORPUSCULAR HEMOGLOBIN 28.5 pg (27.0-33.0); MEAN CORPUSCULAR HGB CONC 32.1 g/dL (32.0-36.0); MEAN CORPUSCULAR VOLUME 88.7 fL (79-99); RED BLOOD CELL COUNT(AUTO) 5.33 MIL/uL (4.50-6.20); WHITE BLOOD COUNT (AUTO) 8.3 K/uL (4.8-10.8)
[2023-11-26 04:56] LABS: CREATININE 1.2 mg/dL (0.5-1.3); POTASSIUM 3.3 mmol/L (3.5-5.1)
[2023-11-26] MEDS ORDERED: CHLORDIAZEPOXIDE HCL 25 MG CAP PO PRN (09:30)
[2023-11-26] MEDS ORDERED: PHARMACY COMMUNICATION MISC PRN (09:30)
[2023-11-26 09:59] LABS: RETICULOCYTE % (AUTO) 2.69 % (0.42-2.23)
[2023-11-26 10:20] LABS: AMPHET/METH SCREEN,URINE NEGATIVE (NEGATIVE); BARBITURATE SCREEN, URINE NEGATIVE (NEGATIVE); BENZODIAZEPINES SCREEN,URINE NEGATIVE (NEGATIVE); CANNABINOID SCREEN,URINE NEGATIVE (NEGATIVE); COCAINE SCREEN,URINE NEGATIVE (NEGATIVE); OPIATE SCREEN,URINE NEGATIVE (NEGATIVE); PHENCYCLIDINE SCREEN,URINE NEGATIVE (NEGATIVE)
[2023-11-26 10:39] LABS: % IRON SATURATION 16.7 % (30-44)
[2023-11-26] MEDS: LACTATED RINGERS 1000ML 1,000 ML IV SCH (11:33)
[2023-11-26] MEDS: AZITHROMYCIN 500MG+NS 250ML 250 ML IVPB SCH (11:33)
[2023-11-26] MEDS ORDERED: IOHEXOL 350 MG/ML 100ML INFUS..BTL IV ONE (11:35)
[2023-11-27] VITALS (11 sets, daily range): BP systolic 103–119; BP diastolic 60–85; PULSE 72–85; RESP 18–21; O2SAT 93–97
[2023-11-27 05:12] LABS: HEMATOCRIT 47.1 % (42-54); MEAN CORPUSCULAR HEMOGLOBIN 27.9 pg (27.0-33.0); MEAN CORPUSCULAR HGB CONC 31.4 g/dL (32.0-36.0); MEAN CORPUSCULAR VOLUME 88.7 fL (79-99); RED BLOOD CELL COUNT(AUTO) 5.31 MIL/uL (4.50-6.20); RED CELL DISTRIBUTION WIDTH 14.1 % (11.0-15.5); WHITE BLOOD COUNT (AUTO) 7.5 K/uL (4.8-10.8)
[2023-11-27 05:34] LABS: CREATININE 1.3 mg/dL (0.5-1.3)
[2023-11-27] MEDS: FOLIC ACID 1 MG TABLET PO SCH (08:21)
[2023-11-27] MEDS: THIAMINE HCL 100 MG/ML 2ML VIAL IM SCH (08:22)
[2023-11-27] MEDS: MULTIVITAMIN TABLET PO SCH (08:22)
[2023-11-27] MEDS: IPRATROPIUM/ALBUTEROL SULFATE 3 ML SOLUTION IH SCH (18:30)
[2023-11-28] VITALS (12 sets, daily range): BP systolic 102–128; BP diastolic 64–78; PULSE 66–95; RESP 18–20; O2SAT 92–98
[2023-11-28 05:39] LABS: BASOPHILS # (AUTO) 0.05 K/uL (0.00-0.20); BASOPHILS % (AUTO) 0.7 % (0.0-5.0); EOSINOPHILS % (AUTO) 5.8 % (0.0-8.0); HEMATOCRIT 45.1 % (42-54); IMMATURE GRANULOCYTE ABSOLUTE 0.15 K/uL (0-1); LYMPHOCYTES # (AUTO) 1.7 K/uL (1.0-4.8); LYMPHOCYTES % (AUTO) 24.8 % (21.0-51.0); MEAN CORPUSCULAR HEMOGLOBIN 28.1 pg (27.0-33.0); MEAN CORPUSCULAR HGB CONC 31.9 g/dL (32.0-36.0); MEAN CORPUSCULAR VOLUME 87.9 fL (79-99); MONOCYTES # (AUTO) 0.7 K/uL (0.1-1.0); MONOCYTES % (AUTO) 10.7 % (3.0-13.0); NEUTROPHILS # (AUTO) 3.9 K/uL (1.8-7.7); NEUTROPHILS % (AUTO) 55.8 % (40.0-77.0); PLATELET COUNT (AUTO) 181 K/uL (130-400); RED BLOOD CELL COUNT(AUTO) 5.13 MIL/uL (4.50-6.20); RED CELL DISTRIBUTION WIDTH 13.9 % (11.0-15.5); WHITE BLOOD COUNT (AUTO) 6.9 K/uL (4.8-10.8)
[2023-11-28 05:48] LABS: CREATININE 0.8 mg/dL (0.5-1.3); POTASSIUM 4.1 mmol/L (3.5-5.1)
[2023-11-29] VITALS (8 sets, daily range): BP systolic 103–121; BP diastolic 60–75; PULSE 78–88; RESP 18–20; O2SAT 95–96
[2023-11-29 06:09] LABS: BASOPHILS # (AUTO) 0.06 K/uL (0.00-0.20); BASOPHILS % (AUTO) 0.9 % (0.0-5.0); EOSINOPHILS # (AUTO) 0.44 K/uL (0.00-0.70); EOSINOPHILS % (AUTO) 6.6 % (0.0-8.0); HEMATOCRIT 45.4 % (42-54); LYMPHOCYTES # (AUTO) 1.7 K/uL (1.0-4.8); LYMPHOCYTES % (AUTO) 25.3 % (21.0-51.0); MEAN CORPUSCULAR HEMOGLOBIN 27.9 pg (27.0-33.0); MEAN CORPUSCULAR HGB CONC 31.7 g/dL (32.0-36.0); MEAN CORPUSCULAR VOLUME 87.8 fL (79-99); MONOCYTES # (AUTO) 0.8 K/uL (0.1-1.0); MONOCYTES % (AUTO) 11.2 % (3.0-13.0); NEUTROPHILS # (AUTO) 3.7 K/uL (1.8-7.7); NEUTROPHILS % (AUTO) 54.5 % (40.0-77.0); PLATELET COUNT (AUTO) 179 K/uL (130-400); RED BLOOD CELL COUNT(AUTO) 5.17 MIL/uL (4.50-6.20); RED CELL DISTRIBUTION WIDTH 13.8 % (11.0-15.5); WHITE BLOOD COUNT (AUTO) 6.7 K/uL (4.8-10.8)
[2023-11-29 06:17] LABS: BILIRUBIN,TOTAL 0.6 mg/dL (0.2-1.0); CREATININE 0.8 mg/dL (0.5-1.3); POTASSIUM 3.8 mmol/L (3.5-5.1); TOTAL PROTEIN, SERUM 6.6 g/dL (6.0-8.3)
[2023-11-29] MEDS ORDERED: FAMO20TA8 PO (12:40)
[2023-11-29] MEDS ORDERED: AZIT500T4 PO (12:40)
[2023-11-29] MEDS ORDERED: IPRA3AMP24 IH (12:41)
[2023-11-29] MEDS ORDERED: FURO20TA4 PO (12:41)
[2023-11-29] MEDS ORDERED: MVIT PO (12:41)
== END 2023-11-29 15:40 | disposition home or self-care (01) | DRG 189 ==
LOC: EDH 20:43 → INTOOBSV 20:44 → EDHIP 20:44 → OBSVTOIN 20:44 → 3CH 11-25 00:42
PROVIDERS: ADMIT Internal Medicine; ATTEND Internal Medicine
DX: J96.01 Acute respiratory failure with hypoxia (principal); J18.9 Pneumonia, unspecified organism; J98.11 Atelectasis; Z20.822 Contact with and (suspected) exposure to COVID-19; I11.0 Hypertensive heart disease with heart failure; F10.20 Alcohol dependence, uncomplicated; I50.9 Heart failure, unspecified; J40 Bronchitis, not specified as acute or chronic; I27.20 Pulmonary hypertension, unspecified; Z82.49 Family history of ischemic heart disease and other diseases of the circulatory system
CPT/HCPCS: 36415; 36600; 71045; 71270; 80048; 80053; 80305; 82607; 82728; 82803; 83735; 83880; 84145; 85025; 85027; 85378; 87635; 87804; 87880; 93306; 93970; 94640; 94664; 94760; 96374; A4606; G0378; J0456; J1650; J1940; J3411; Q9967

== ENCOUNTER 2024-01-31 19:08 | Inpatient (IN) | payer SELFPAY ==
[~2024-01-31] VITALS: Ht 154.9 cm; Wt 68.1 kg
[~2024-01-31 19:08] MED LIST changes: -AEC81 PO; +AZIT500T4 PO; +FAMO20TA8 PO; +FURO20TA4 PO; +IPRA3AMP24 IH
[2024-01-31 20:02] LABS: BASOPHILS # (AUTO) 0.04 K/uL (0.00-0.20); BASOPHILS % (AUTO) 0.7 % (0.0-5.0); EOSINOPHILS # (AUTO) 0.24 K/uL (0.00-0.70); EOSINOPHILS % (AUTO) 4.4 % (0.0-8.0); HEMATOCRIT 41.1 % (42-54); IMMATURE GRANULOCYTE ABSOLUTE 0.02 K/uL (0-1); LYMPHOCYTES # (AUTO) 1.7 K/uL (1.0-4.8); LYMPHOCYTES % (AUTO) 30.9 % (21.0-51.0); MEAN CORPUSCULAR HGB CONC 32.1 g/dL (32.0-36.0); MEAN CORPUSCULAR VOLUME 87.1 fL (79-99); MONOCYTES # (AUTO) 0.6 K/uL (0.1-1.0); MONOCYTES % (AUTO) 11.8 % (3.0-13.0); NEUTROPHILS # (AUTO) 2.8 K/uL (1.8-7.7); NEUTROPHILS % (AUTO) 51.8 % (40.0-77.0); PLATELET COUNT (AUTO) 153 K/uL (130-400); RED BLOOD CELL COUNT(AUTO) 4.72 MIL/uL (4.50-6.20); RED CELL DISTRIBUTION WIDTH 14.2 % (11.0-15.5); WHITE BLOOD COUNT (AUTO) 5.4 K/uL (4.8-10.8)
[2024-01-31 20:16] LABS: SARS-CoV-2, RNA, NAAT NEGATIVE SARS CoV-2 (NEGATIVE)
[2024-01-31 20:17] LABS: POTASSIUM 3.4 mmol/L (3.5-5.1)
[2024-01-31 20:22] LABS: INFLUENZA TYPE A Negative For Type A (NEGATIVE); INFLUENZA TYPE B Negative For Type B (NEGATIVE)
[2024-01-31 20:24] LABS: ALBUMIN 3.6 g/dL (3.5-5.0); BILIRUBIN,TOTAL 0.9 mg/dL (0.2-1.0); TOTAL PROTEIN, SERUM 7.8 g/dL (6.0-8.3)
[2024-01-31 20:25] LABS: B-TYPE NATRIURETIC PEPTIDE 568 pg/mL (0-100)
[2024-01-31] MEDS: FUROSEMIDE 40MG VIAL IV ONE (21:35)
[2024-01-31] MEDS: KCL 20 MEQ ERTAB PO ONE (21:49)
[2024-01-31] MEDS: ALBUTEROL 0.083% 2.5 MG/3 ML INH IH PRN (21:53)
[2024-01-31] MEDS: IpraTROPium 0.5 MG/2.5 ML INH IH PRN (21:53)
[2024-01-31 21:55] LABS: ABG BASE EXCESS -3.8 mmol/L (-2.0-3.0); ABG HCO3 20.7 mmol/L (21.0-28.0); ABG OXYGEN SATURATION 94.9 % (95.0-99.0); ABG PCO2 36 mmHg (35-48); ABG PH 7.376 (7.35-7.450); DEVICE COMMENT LEFT RADIAL; PO2, ARTERIAL BG 75.1 mmHg (83.0-108.0)
[2024-01-31 21:58] VITALS: PULSE 85; RESP 18; O2SAT 96
[2024-01-31 21:59] VITALS: PULSE 85; RESP 18
[2024-01-31] MEDS ORDERED: DEXTROSE 50%-WATER 50 ML DISP.SYRIN IV PRN (22:00)
[2024-01-31] MEDS ORDERED: LACTULOSE 20 GM/30 ML UDCUP PO PRN (22:00)
[2024-01-31] MEDS ORDERED: acetaMINOPHEN 650 MG SUPPOSITORY RC PRN (22:00)
[2024-01-31] MEDS ORDERED: TEMAZEPAM 15 MG CAPSULE PO PRN (22:00)
[2024-01-31] MEDS ORDERED: ONDANSETRON 4MG INJ IVP PRN (22:00)
[2024-01-31] MEDS ORDERED: doCUSate SODIUM 100 MG CAP PO PRN (22:00)
[2024-01-31] MEDS ORDERED: hydrALAZine 20MG/ML VIAL IV PRN (22:00)
[2024-01-31] MEDS ORDERED: POTASSIUM CHLORIDE 20MEQ/100ML 100 ML IV PRN (22:00)
[2024-01-31] MEDS ORDERED: GLUCAGON 1MG KIT 1 MG ML IM PRN (22:00)
[2024-02-01] VITALS (14 sets, daily range): BP systolic 112–132; BP diastolic 71–82; PULSE 71–89; RESP 18–22; O2SAT 95–97
[2024-02-01] MEDS: HYDROcodone/APAP 5/325 1 TAB TABLET PO ONE (00:22)
[2024-02-01] MEDS ORDERED: MAGNESIUM 2GM PREMIX 50ML 50 ML IV SCH (00:30)
[2024-02-01] MEDS ORDERED: NITROGLYCERIN 0.4 MG SL TAB SL PRN (04:00)
[2024-02-01 04:55] LABS: BASOPHILS # (AUTO) 0.03 K/uL (0.00-0.20); BASOPHILS % (AUTO) 0.6 % (0.0-5.0); EOSINOPHILS # (AUTO) 0.27 K/uL (0.00-0.70); EOSINOPHILS % (AUTO) 5.4 % (0.0-8.0); HEMATOCRIT 40.2 % (42-54); IMMATURE GRANULOCYTE ABSOLUTE 0.02 K/uL (0-1); LYMPHOCYTES # (AUTO) 1.5 K/uL (1.0-4.8); LYMPHOCYTES % (AUTO) 29.7 % (21.0-51.0); MEAN CORPUSCULAR HEMOGLOBIN 27.7 pg (27.0-33.0); MEAN CORPUSCULAR HGB CONC 31.6 g/dL (32.0-36.0); MEAN CORPUSCULAR VOLUME 87.8 fL (79-99); MONOCYTES # (AUTO) 0.7 K/uL (0.1-1.0); NEUTROPHILS # (AUTO) 2.5 K/uL (1.8-7.7); NEUTROPHILS % (AUTO) 49.9 % (40.0-77.0); PLATELET COUNT (AUTO) 143 K/uL (130-400); RED BLOOD CELL COUNT(AUTO) 4.58 MIL/uL (4.50-6.20); RED CELL DISTRIBUTION WIDTH 14.2 % (11.0-15.5)
[2024-02-01 05:13] LABS: HEMOGLOBIN A1C 5.8 % (4.0-6.0)
[2024-02-01 05:20] LABS: CREATININE 1.1 mg/dL (0.5-1.3); MAGNESIUM 1.8 mg/dL (1.80-2.40); PHOSPHORUS 3.7 mg/dL (2.5-4.9); POTASSIUM 4.1 mmol/L (3.5-5.1); THYROID STIMULATING HORMONE 3.43 uIU/mL (0.36-3.74)
[2024-02-01] MEDS: INSULIN humuLIN R 100 UNIT/ML 3ML SQ SCH (06:13)
[2024-02-01] MEDS: FAMOTIDINE 20MG TAB PO SCH (08:28)
[2024-02-01] MEDS: ENOXAPARIN SODIUM 40 MG/0.4 ML SYRINGE SQ SCH (08:28)
[2024-02-01] MEDS: ASPIRIN 81MG CHEW TAB PO SCH (08:28)
[2024-02-01] MEDS: FUROSEMIDE 40MG VIAL IV SCH (08:28)
[2024-02-01] MEDS: MAGNESIUM 2GM PREMIX 50ML 50 ML IV PRN (08:29)
[2024-02-01 15:42] LABS: AMPHET/METH SCREEN,URINE NEGATIVE (NEGATIVE); BARBITURATE SCREEN, URINE NEGATIVE (NEGATIVE); BENZODIAZEPINES SCREEN,URINE NEGATIVE (NEGATIVE); CANNABINOID SCREEN,URINE NEGATIVE (NEGATIVE); COCAINE SCREEN,URINE NEGATIVE (NEGATIVE); OPIATE SCREEN,URINE NEGATIVE (NEGATIVE); PHENCYCLIDINE SCREEN,URINE NEGATIVE (NEGATIVE)
[2024-02-01] MEDS ORDERED: IOHEXOL-350 75 ML VIAL IV ONE (16:00)
[2024-02-01] MEDS: ATORVASTATIN 40 MG TABLET PO SCH (20:34)
[2024-02-02] VITALS (11 sets, daily range): BP systolic 105–123; BP diastolic 62–78; PULSE 71–88; RESP 18–20; O2SAT 94–98
[2024-02-02 03:45] LABS: HEMATOCRIT 40.6 % (42-54); MEAN CORPUSCULAR HEMOGLOBIN 27.9 pg (27.0-33.0); MEAN CORPUSCULAR HGB CONC 31.8 g/dL (32.0-36.0); MEAN CORPUSCULAR VOLUME 87.7 fL (79-99); RED BLOOD CELL COUNT(AUTO) 4.63 MIL/uL (4.50-6.20); RED CELL DISTRIBUTION WIDTH 14.2 % (11.0-15.5)
[2024-02-02 04:06] LABS: ALBUMIN 3.4 g/dL (3.5-5.0); BILIRUBIN,TOTAL 0.9 mg/dL (0.2-1.0); CREATININE 1.2 mg/dL (0.5-1.3); MAGNESIUM 1.8 mg/dL (1.80-2.40); POTASSIUM 3.4 mmol/L (3.5-5.1); TOTAL PROTEIN, SERUM 7.5 g/dL (6.0-8.3)
[2024-02-02] MEDS: KCL 20 MEQ ERTAB PO PRN (05:14)
[2024-02-02] MEDS ORDERED: METO50TA18 PO (08:31)
[2024-02-02] MEDS: KCL 20 MEQ ERTAB PO ONE (09:30)
[2024-02-02] MEDS ORDERED: LACE ASSESSMENT (SCORE > 11) MISC SCH (14:30)
[2024-02-03] VITALS (15 sets, daily range): BP systolic 103–123; BP diastolic 62–76; PULSE 71–91; RESP 17–20; O2SAT 87–99
[2024-02-03 03:46] LABS: HEMATOCRIT 40.8 % (42-54); MEAN CORPUSCULAR HEMOGLOBIN 27.3 pg (27.0-33.0); MEAN CORPUSCULAR HGB CONC 31.1 g/dL (32.0-36.0); MEAN CORPUSCULAR VOLUME 87.7 fL (79-99); RED BLOOD CELL COUNT(AUTO) 4.65 MIL/uL (4.50-6.20); RED CELL DISTRIBUTION WIDTH 13.9 % (11.0-15.5); WHITE BLOOD COUNT (AUTO) 5.6 K/uL (4.8-10.8)
[2024-02-03 03:58] LABS: ALBUMIN 3.2 g/dL (3.5-5.0); BILIRUBIN,TOTAL 0.8 mg/dL (0.2-1.0); CREATININE 1.1 mg/dL (0.5-1.3); MAGNESIUM 1.8 mg/dL (1.80-2.40); POTASSIUM 3.4 mmol/L (3.5-5.1); TOTAL PROTEIN, SERUM 7.3 g/dL (6.0-8.3)
[2024-02-03] MEDS: KCL 20 MEQ ERTAB PO ONE (08:52)
[2024-02-04] VITALS (10 sets, daily range): BP systolic 93–116; BP diastolic 54–72; PULSE 60–81; RESP 18–19; O2SAT 94–100
[2024-02-04 04:52] LABS: MEAN CORPUSCULAR HEMOGLOBIN 27.6 pg (27.0-33.0); MEAN CORPUSCULAR HGB CONC 31.6 g/dL (32.0-36.0); MEAN CORPUSCULAR VOLUME 87.4 fL (79-99); RED BLOOD CELL COUNT(AUTO) 4.92 MIL/uL (4.50-6.20); RED CELL DISTRIBUTION WIDTH 13.6 % (11.0-15.5); WHITE BLOOD COUNT (AUTO) 5.6 K/uL (4.8-10.8)
[2024-02-04 05:25] LABS: ALBUMIN 3.2 g/dL (3.5-5.0); BILIRUBIN,TOTAL 0.8 mg/dL (0.2-1.0); CREATININE 0.9 mg/dL (0.5-1.3); MAGNESIUM 1.9 mg/dL (1.80-2.40); POTASSIUM 3.2 mmol/L (3.5-5.1); TOTAL PROTEIN, SERUM 7.3 g/dL (6.0-8.3)
[2024-02-05] VITALS (9 sets, daily range): BP systolic 104–137; BP diastolic 67–78; PULSE 73–94; RESP 16–20; O2SAT 89–94
[2024-02-05 04:59] LABS: HEMATOCRIT 45.6 % (42-54); MEAN CORPUSCULAR HEMOGLOBIN 27.1 pg (27.0-33.0); MEAN CORPUSCULAR HGB CONC 31.1 g/dL (32.0-36.0); RED BLOOD CELL COUNT(AUTO) 5.24 MIL/uL (4.50-6.20); RED CELL DISTRIBUTION WIDTH 13.5 % (11.0-15.5); WHITE BLOOD COUNT (AUTO) 6.2 K/uL (4.8-10.8)
[2024-02-05 05:15] LABS: CREATININE 1.2 mg/dL (0.5-1.3); POTASSIUM 3.6 mmol/L (3.5-5.1)
[2024-02-06] VITALS (8 sets, daily range): BP systolic 99–115; BP diastolic 68–80; PULSE 82–94; RESP 18; O2SAT 94–96
[2024-02-07] VITALS (13 sets, daily range): BP systolic 105–123; BP diastolic 57–84; PULSE 71–101; RESP 18–30; O2SAT 94–97
[2024-02-07 04:48] LABS: BASOPHILS # (AUTO) 0.07 K/uL (0.00-0.20); EOSINOPHILS # (AUTO) 0.57 K/uL (0.00-0.70); EOSINOPHILS % (AUTO) 8.1 % (0.0-8.0); HEMATOCRIT 46.8 % (42-54); IMMATURE GRANULOCYTE ABSOLUTE 0.04 K/uL (0-1); LYMPHOCYTES # (AUTO) 2.3 K/uL (1.0-4.8); LYMPHOCYTES % (AUTO) 32.6 % (21.0-51.0); MEAN CORPUSCULAR HEMOGLOBIN 27.4 pg (27.0-33.0); MEAN CORPUSCULAR HGB CONC 32.3 g/dL (32.0-36.0); MEAN CORPUSCULAR VOLUME 84.9 fL (79-99); MONOCYTES # (AUTO) 0.9 K/uL (0.1-1.0); MONOCYTES % (AUTO) 12.5 % (3.0-13.0); NEUTROPHILS # (AUTO) 3.2 K/uL (1.8-7.7); NEUTROPHILS % (AUTO) 45.2 % (40.0-77.0); PLATELET COUNT (AUTO) 193 K/uL (130-400); RED BLOOD CELL COUNT(AUTO) 5.51 MIL/uL (4.50-6.20); RED CELL DISTRIBUTION WIDTH 13.3 % (11.0-15.5)
[2024-02-07 04:58] LABS: CREATININE 1.1 mg/dL (0.5-1.3); PHOSPHORUS 4.4 mg/dL (2.5-4.9); POTASSIUM 4.4 mmol/L (3.5-5.1)
[2024-02-07] MEDS: LIDOCAINE HCL 2% VISCOUS 15 ML UDCUP PO ONE (10:08)
[2024-02-07] MEDS: MIDAZOLAM HCL 1 MG/ML 2ML VIAL IVP ONE ×2 (11:17)
[2024-02-07] MEDS: FENTanyl CITRate PF 50 MCG/1 ML 2ML VIAL IVP ONE (11:18)
[2024-02-07 12:27] LABS: ALBUMIN 3.6 g/dL (3.5-5.0); BILIRUBIN,DIRECT 0.3 mg/dL (0.0-0.3); BILIRUBIN,TOTAL 0.8 mg/dL (0.2-1.0)
[2024-02-08] VITALS: BP 102/62; PULSE 88; RESP 19
[2024-02-08 03:49] LABS: BASOPHILS # (AUTO) 0.06 K/uL (0.00-0.20); BASOPHILS % (AUTO) 0.9 % (0.0-5.0); EOSINOPHILS # (AUTO) 0.58 K/uL (0.00-0.70); EOSINOPHILS % (AUTO) 8.6 % (0.0-8.0); HEMATOCRIT 47.8 % (42-54); IMMATURE GRANULOCYTE ABSOLUTE 0.03 K/uL (0-1); LYMPHOCYTES # (AUTO) 1.8 K/uL (1.0-4.8); LYMPHOCYTES % (AUTO) 26.9 % (21.0-51.0); MEAN CORPUSCULAR HEMOGLOBIN 27.3 pg (27.0-33.0); MEAN CORPUSCULAR HGB CONC 31.2 g/dL (32.0-36.0); MEAN CORPUSCULAR VOLUME 87.5 fL (79-99); MONOCYTES # (AUTO) 0.6 K/uL (0.1-1.0); MONOCYTES % (AUTO) 9.5 % (3.0-13.0); NEUTROPHILS # (AUTO) 3.6 K/uL (1.8-7.7); NEUTROPHILS % (AUTO) 53.7 % (40.0-77.0); PLATELET COUNT (AUTO) 185 K/uL (130-400); RED BLOOD CELL COUNT(AUTO) 5.46 MIL/uL (4.50-6.20); RED CELL DISTRIBUTION WIDTH 13.2 % (11.0-15.5); WHITE BLOOD COUNT (AUTO) 6.8 K/uL (4.8-10.8)
[2024-02-08 03:59] LABS: CREATININE 1.2 mg/dL (0.5-1.3); POTASSIUM 3.3 mmol/L (3.5-5.1)
[2024-02-08 04:00] VITALS: BP 105/60; PULSE 68; RESP 20
[2024-02-08 07:52] VITALS: BP 109/68; PULSE 83; RESP 18
[2024-02-08 11:53] VITALS: BP 100/68; PULSE 79; RESP 20
[2024-02-08 16:06] VITALS: BP 106/67; PULSE 74; RESP 16
[2024-02-08 20:00] VITALS: BP 113/80; PULSE 79; RESP 18; O2SAT 93
[2024-02-09] VITALS (12 sets, daily range): BP systolic 105–126; BP diastolic 63–85; PULSE 70–90; RESP 16–17; O2SAT 100
[2024-02-09 04:36] LABS: BASOPHILS # (AUTO) 0.06 K/uL (0.00-0.20); BASOPHILS % (AUTO) 0.9 % (0.0-5.0); EOSINOPHILS # (AUTO) 0.58 K/uL (0.00-0.70); HEMATOCRIT 48.3 % (42-54); IMMATURE GRANULOCYTE ABSOLUTE 0.04 K/uL (0-1); LYMPHOCYTES # (AUTO) 1.8 K/uL (1.0-4.8); LYMPHOCYTES % (AUTO) 27.8 % (21.0-51.0); MEAN CORPUSCULAR HEMOGLOBIN 27.6 pg (27.0-33.0); MEAN CORPUSCULAR HGB CONC 31.9 g/dL (32.0-36.0); MEAN CORPUSCULAR VOLUME 86.6 fL (79-99); MONOCYTES # (AUTO) 0.6 K/uL (0.1-1.0); MONOCYTES % (AUTO) 9.2 % (3.0-13.0); NEUTROPHILS # (AUTO) 3.4 K/uL (1.8-7.7); NEUTROPHILS % (AUTO) 52.5 % (40.0-77.0); PLATELET COUNT (AUTO) 179 K/uL (130-400); RED BLOOD CELL COUNT(AUTO) 5.58 MIL/uL (4.50-6.20); RED CELL DISTRIBUTION WIDTH 13.2 % (11.0-15.5); WHITE BLOOD COUNT (AUTO) 6.4 K/uL (4.8-10.8)
[2024-02-09 04:42] LABS: POTASSIUM 3.3 mmol/L (3.5-5.1)
[2024-02-09] MEDS: POTASSIUM CHLORIDE 10% ELIXIR 20 MEQ/15 ML UDCUP PO PRN (07:12)
[2024-02-09] MEDS ORDERED: FENTanyl CITRate PF 50 MCG/1 ML 2ML VIAL ONE (09:51)
[2024-02-09] MEDS ORDERED: MIDAZOLAM HCL 1 MG/ML 2ML VIAL ONE (09:51)
[2024-02-09] MEDS ORDERED: LIDOCAINE HCL 1% 20 ML VIAL ONE (11:28)
[2024-02-09] MEDS ORDERED: NITROGLYCERIN 50MG VIAL ONE (11:29)
[2024-02-09] MEDS ORDERED: HEParin-NS 1,000 UNIT/500 ML 1,000 ML IV ONE (11:29)
[2024-02-09] MEDS ORDERED: IOHEXOL 350 MG/ML 100ML INFUS..BTL IV ONE (11:29)
[2024-02-09] MEDS: 0.9%NACL 1000ML 1,000 ML IV SCH (11:48)
[2024-02-09] MEDS: acetaMINOPHEN 325 MG TAB PO PRN (11:49)
[2024-02-09] MEDS ORDERED: LEVO750T39 PO (16:08)
[2024-02-09] MEDS ORDERED: FURO40TA5 PO (16:08)
== END 2024-02-09 17:30 | disposition home or self-care (01) | DRG 287 ==
LOC: EDH 19:08 → EDHIP 19:09 → 2AH 02-01 00:04 → 4BH 02-03 14:25
PROVIDERS: ADMIT Internal Medicine; ATTEND Internal Medicine
PROC: 4A023N8 Measurement of Cardiac Sampling and Pressure, Bilateral, Percutaneous Approach (ICD-10-PCS; principal; 2024-02-09)
PROC: B2111ZZ Fluoroscopy of Multiple Coronary Arteries using Low Osmolar Contrast (ICD-10-PCS; 2024-02-09)
PROC: B2151ZZ Fluoroscopy of Left Heart using Low Osmolar Contrast (ICD-10-PCS; 2024-02-09)
DX: I27.20 Pulmonary hypertension, unspecified (principal); I13.0 Hypertensive heart and chronic kidney disease with heart failure and stage 1 through stage 4 chronic kidney disease, or unspecified chronic kidney disease; N17.9 Acute kidney failure, unspecified; Z20.822 Contact with and (suspected) exposure to COVID-19; N18.1 Chronic kidney disease, stage 1; J44.9 Chronic obstructive pulmonary disease, unspecified; E87.6 Hypokalemia; I50.9 Heart failure, unspecified; I07.1 Rheumatic tricuspid insufficiency; E87.70 Fluid overload, unspecified; R74.8 Abnormal levels of other serum enzymes; D64.9 Anemia, unspecified; R73.9 Hyperglycemia, unspecified; Z79.899 Other long term (current) drug therapy
CPT/HCPCS: 36415; 36600; 71045; 71270; 80048; 80053; 80076; 80305; 82550; 82803; 82948; 83036; 83735; 83880; 84100; 84443; 84484; 85025; 85027; 85378; 87635; 87804; 87880; 93005; 93306; 93312; 93325; 93460; 93970; 94640; 94664; 94760; 99156; 99157; C1760; C1769; C1894; G0378; J1644; J1650; J1815; J1940; J2250; J3010; J3475; J3490; Q9967; A4216; C1751; Q9965

== ENCOUNTER 2024-05-18 21:49 | Inpatient (IN) | payer SELFPAY ==
[~2024-05-18] VITALS: Ht 154.9 cm; Wt 73.0 kg
[~2024-05-18 21:49] MED LIST changes: -AZIT500T4 PO; -FURO20TA4 PO; +FURO40TA5 PO; -IPRA3AMP24 IH; +LEVO750T40 PO; -METO25 PO; +METO50TA18 PO
[2024-05-18 22:17] LABS: BASOPHILS # (AUTO) 0.04 K/uL (0.00-0.20); BASOPHILS % (AUTO) 0.5 % (0.0-5.0); EOSINOPHILS # (AUTO) 0.43 K/uL (0.00-0.70); EOSINOPHILS % (AUTO) 5.3 % (0.0-8.0); HEMATOCRIT 41.3 % (42-54); IMMATURE GRANULOCYTE ABSOLUTE 0.04 K/uL (0-1); LYMPHOCYTES # (AUTO) 1.2 K/uL (1.0-4.8); LYMPHOCYTES % (AUTO) 14.4 % (21.0-51.0); MEAN CORPUSCULAR HEMOGLOBIN 27.4 pg (27.0-33.0); MEAN CORPUSCULAR VOLUME 85.7 fL (79-99); MONOCYTES # (AUTO) 0.7 K/uL (0.1-1.0); MONOCYTES % (AUTO) 8.2 % (3.0-13.0); NEUTROPHILS # (AUTO) 5.8 K/uL (1.8-7.7); NEUTROPHILS % (AUTO) 71.1 % (40.0-77.0); PLATELET COUNT (AUTO) 148 K/uL (130-400); RED BLOOD CELL COUNT(AUTO) 4.82 MIL/uL (4.50-6.20); RED CELL DISTRIBUTION WIDTH 14.8 % (11.0-15.5); WHITE BLOOD COUNT (AUTO) 8.1 K/uL (4.8-10.8)
[2024-05-18] MEDS: LACTATED RINGERS 1000ML 1,000 ML IV ONE (22:20)
[2024-05-18 22:31] LABS: INR 1.11 (0.85-1.15); PROTHROMBIN TIME 11.9 SEC (9.6-11.6)
[2024-05-18 22:32] LABS: PARTIAL THROMBOPLASTIN TIME 29.1 SEC (26.3-35.5)
[2024-05-18 22:38] LABS: CREATININE 1.2 mg/dL (0.5-1.3); POTASSIUM 3.1 mmol/L (3.5-5.1)
[2024-05-18 22:40] LABS: MAGNESIUM 1.8 mg/dL (1.80-2.40)
[2024-05-18 22:44] LABS: B-TYPE NATRIURETIC PEPTIDE 558 pg/mL (0-100)
[2024-05-18] MEDS: Solu-medROL 125MG VIAL IVP ONE (22:45)
--- NOTE | 2024-05-18 22:53 | HMCIMG ---
CHEST 1VW HISTORY: Cough COMPARISON: None FINDINGS: A frontal projection of the chest was obtained. Mild bilateral pulmonary infiltrates are seen may be related to mild pulmonary vascular congestion with possible superimposed pneumonitis. The heart is normal in size. Degenerative changes are seen. No evidence of aortic calcification is seen. IMPRESSION: 1. Mild bilateral pulmonary infiltrates are seen may be related to mild pulmonary vascular congestion with possible superimposed pneumonitis.
[2024-05-18 22:54] VITALS: PULSE 90; RESP 19; O2SAT 99
[2024-05-18] MEDS: IpraTROPium/alBUTERol SULFATE 3 ML SOLUTION IH ONE (22:54)
[2024-05-18] MEDS: PoTASSium chloRIDE 20MEQ/100ML 100 ML IV SCH (23:06)
[2024-05-18] MEDS: PoTASSium BIcarbonate/CIT AC 25 MEQ TABLET.EFF PO ONE (23:06)
--- NOTE | 2024-05-18 23:08 | HMCIMG ---
CT HEAD/BRAIN W/O CONTRAST HISTORY: Status post fall COMPARISON: None TECHNIQUE: Multiple sequential axial images of the head were obtained from the base of the skull through vertex. Patient was not given contrast through intravenous route. FINDINGS: Posterior scalp soft tissue swelling is seen. The ventricles and extraventricular CSF spaces are nondilated for patient's age. There is no midline shift, mass effect or herniation. No acute intracranial bleed is seen. Visualized portion of the paranasal sinuses are grossly within normal limits. IMPRESSION: 1. No acute intracranial bleed is seen. Posterior scalp soft tissue swelling. CT was performed with one or more following dose reduction techniques: automated exposure control, adjustment of the mA and kv according to patient's size, or use of a iterative reconstruction technique.
[2024-05-18 23:12] LABS: SARS-CoV-2, RNA, NAAT NEGATIVE SARS CoV-2 (NEGATIVE)
[2024-05-18 23:15] LABS: INFLUENZA TYPE A Negative For Type A (NEGATIVE); INFLUENZA TYPE B Negative For Type B (NEGATIVE)
[2024-05-18 23:21] LABS: APPEARANCE,URINE CLEAR (CLEAR); BILIRUBIN,URINE NEGATIVE (NEGATIVE); COLOR,URINE LIGHT-YELLOW (YELLOW); GLUCOSE, URINE (UA) NEGATIVE (NEGATIVE); KETONES,URINE NEGATIVE (NEGATIVE); LEUKOCYTE ESTERASE ,URINE NEGATIVE Leu/uL (NEGATIVE); NITRATE,URINE NEGATIVE (NEGATIVE); OCCULT BLOOD,URINE NEGATIVE (NEGATIVE); PROTEIN,URINE NEGATIVE (NEGATIVE); UROBILINOGEN,URINE 0.2 mg/dL (0.2-1.0)
[2024-05-18 23:25] LABS: ADD UA MICROSCOPIC NO
--- NOTE | 2024-05-18 23:26 | ERN ---
General Chief Complaint: Trauma Activation Stated Complaint: FALL, SOB, CHEST PAIN Time Seen by MD: 21:54 Source: patient History of Present Illness Initial Comments 48-YEAR-OLD MALE COMING IN TO BE EVALUATED AFTER HE HAD A SYNCOPAL EPISODE YESTERDAY. PER PATIENT HE FELL YESTERDAY BEFORE FEELING VERY WEAK FELL DOWN. HE HAS BEEN HAVING A COUGH AND HE ATTRIBUTES THIS COUGH TO TEMPORARILY PASSING OUT. Allergies: Coded Allergies: No Known Allergies (Unverified Allergy, Unknown, 10/10/22) Home Meds Active Scripts Furosemide (Furosemide) 40 Mg Tablet, 1 TAB PO DAILY for 30 Days, #30 TAB 1 Refill Prov:JAEL LEO TAR POT WORKER 04/15/24 Levofloxacin (Levofloxacin) 750 Mg Tablet, 750 MG PO DAILY, #7 TAB Prov:AMY SALINAS MD 02/09/24 Furosemide (Furosemide) 40 Mg Tablet, 40 MG PO Q24H, #30 TAB Prov:AMY SALINAS MD 02/09/24 Multivitamins,Therapeutic (Multivitamin Tablet) 400 Mcg Tab, 1 TAB PO DAILY, #60 TAB Prov:ROOSEVELT KIM TRASH COLLECTOR 11/29/23 Famotidine (Famotidine) 20 Mg Tablet, 20 MG PO BID, #60 TAB Prov:ROOSEVELT KIM TRASH COLLECTOR 11/29/23 Reported Medications Metoprolol Tartrate (Metoprolol Tartrate) 50 Mg Tablet, 50 MG PO BID, TAB 02/02/24 Past Medical History Past Medical History: CHF, COPD, Hypertension, Other Medical History Other: RESPIRATORY FAILURE, POOR HISTORIAN Past Surgical History: Other Surgical History Other: RT HIP, RT LEG Social History Social History: Negative, Lives with family ROS Dictation CONSTITUTIONAL: NO CHILLS, NO FEVER, NO WEAKNESS, NO DIAPHORESIS, NO MALAISE. HEAD/FACE: NO SIGNS OF TRAUMA. EENT: NO EYE PAIN, NO BLURRED VISION, NO TEARING, NO DOUBLE VISION, NO EAR PAIN, NO EAR DISCHARGE, NO NOSE PAIN, NO NASAL CONGESTION, NO THROAT PAIN, NO THROAT SWELLING, NO MOUTH PAIN. RESPIRATORY: NO COUGH, NO ORTHOPNEA, NO SOB, NO STRIDOR, NO WHEEZING. CARDIOVASCULAR: NO CHEST PAIN, NO EDEMA, NO PALPITATIONS, NO SYNCOPE. GASTROINTESTINAL/ABDOMINAL: NO ABDOMINAL PAIN, NO CONSTIPATION, NO DIARRHEA, NO NAUSEA, NO VOMITING. GENITOURINARY: NO ABNORMAL DISCHARGE, NO DYSURIA, NO FREQUENT URINATION, NO HEMATURIA. NO COMPLAINTS OF PAIN IN THE GENITALS. MUSCULOSKELETAL: NO BACK PAIN, NO GOUT, NO JOINT PAIN, NO JOINT SWELLING, NO MUSCLE PAIN, NO MUSCLE STIFFNESS, NO NECK PAIN. INTEGUMENTARY: NO CHANGE IN COLOR, NO CHANGE IN HAIR/NAILS, NO DRYNESS, NO LESION, NO LUMPS, NO RASH. NEUROLOGICAL/PSYCH: NO ANXIETY, NOT DEPRESSED, NO EMOTIONAL PROBLEM, NO HEADACHE, NO NUMBNESS, NO PRE-EXISTING DEFICIT, NO HISTORY OF SEIZURES, NO TREMORS, NO WEAKNESS. HEMATOLOGIC/LYMPHATIC: NOT ANEMIC, NO HISTORY OF BLOOD CLOTS, NO APPARENT BLEEDING, NO BRUISING, GLANDS NOT SWOLLEN. ALL SYSTEMS NEGATIVE, EXCEPT NOTED. Physical Exam Physical Exam Dictation VITAL SIGNS: REVIEWED. GENERAL APPEARANCE: ALERT, ORIENTED X3, NO ACUTE DISTRESS, OBESE. HEAD AND FACE: NON-TRAUMATIC. EYES: PERRL, PINK CONJUNCTIVAS, EYELID NO TRAUMA, ANTERIOR CHAMBER CLEAR. EARS: PINNAS INTACT AND NO SIGNS OF TRAUMA OR ERYTHEMA. EAR CANALS CLEAR AND NO DISCHARGE. TMS NO ERYTHEMA. NOSE: NO DISCHARGE, NO BLEEDING. OROPHARYNX: MOUTH NORMAL, TEETH NO CARIES, TONGUE PINK. PHARYNX CLEAR, NO ERYTHEMA. TONSILS NO EXUDATES, NO ABSCESSES NOTED. MUCOUS MEMBRANE MOIST. NECK: SUPPLE, NON-TENDER, NO THYROMEGALY, NO MASSES, NO JVD, NO BRUITS. BREAST: DEFERRED. CHEST: NO TENDERNESS, NO CREPITUS, NO PARADOXICAL MOVEMENT, NO RETRACTIONS. LUNGS: CLEAR, WELL-VENTILATED, SYMMETRIC, RALES, NO WHEEZING, RHONCHI, NO STRIDOR, GOOD BREATH SOUNDS BILATERALLY. HEART: REGULAR RATE, REGULAR RHYTHM, NO MURMUR, NO GALLOPS. VASCULAR: NO PERIPHERAL EDEMA. ABDOMEN: SOFT, POSITIVE BOWEL SOUNDS, NONDISTENDED, NO GUARDING, NONTENDER, NO REBOUND, NO MASSES NO HEPATOMEGALY, NO SPLENOMEGALY, NO CORLEY'S SIGN, NO HERNIA S. RECTAL: DEFERRED. GENITAL: DEFERRED. NEUROLOGICAL: NORMAL SPEECH, GROSS MOTOR FUNCTION INTACT, GROSS SENSORY FUNCTION INTACT. MUSCULOSKELETAL: NECK NONTENDER, FULL RANGE OF MOTION, BACK NONTENDER, FULL RANGE OF MOTION. EXTREMITIES: NONTENDER, FULL RANGE OF MOTION. SKIN: COLOR PINK, DRY, NO TURGOR, NO RASH, NO LACERATIONS, NO ABRASIONS, NO CONTUSIONS. LYMPHATICS: DEFERRED. Results Laboratory and Microbiology Lab and Micro Result Laboratory Tests Test 05/18/24 22:06 05/18/24 22:50 05/18/24 23:10 White Blood Count 8.1 K/uL (4.8-10.8) Red Blood Count 4.82 MIL/uL (4.50-6.20) Hemoglobin 13.2 g/dL (14.0-18.0) L Hematocrit 41.3 % (42-54) L Mean Corpuscular Volume 85.7 fL (79-99) Mean Corpuscular Hemoglobin 27.4 pg (27.0-33.0) Mean Corpuscular Hemoglobin Concent 32.0 g/dL (32.0-36.0) Red Cell Distribution Width 14.8 % (11.0-15.5) Platelet Count 148 K/uL (130-400) Mean Platelet Volume 10.1 fL (7.5-10.5) Immature Granulocyte % (Auto) 0.5 % (0-1) Neutrophils (%) (Auto) 71.1 % (40.0-77.0) Lymphocytes (%) (Auto) 14.4 % (21.0-51.0) L Monocytes (%) (Auto) 8.2 % (3.0-13.0) Eosinophils (%) (Auto) 5.3 % (0.0-8.0) Basophils (%) (Auto) 0.5 % (0.0-5.0) Neutrophils # (Auto) 5.8 K/uL (1.8-7.7) Lymphocytes # (Auto) 1.2 K/uL (1.0-4.8) Monocytes # (Auto) 0.7 K/uL (0.1-1.0) Eosinophils # (Auto) 0.43 K/uL (0.00-0.70) Basophils # (Auto) 0.04 K/uL (0.00-0.20) Absolute Immature Granulocyte (auto 0.04 K/uL (0-1) Nucleated Red Blood Cells 0.0 % (0.0-0.19) Prothrombin Time 11.9 SEC (9.6-11.6) H Prothromb Time International Ratio 1.11 (0.85-1.15) Activated Partial Thromboplast Time 29.1 SEC (26.3-35.5) Sodium Level 136 mmol/L (136-145) Potassium Level 3.1 mmol/L (3.5-5.1) L Chloride Level 100 mmol/L (101-111) L Carbon Dioxide Level 26 mmol/L (21-32) Blood Urea Nitrogen 10 mg/dL (7-18) Creatinine 1.2 mg/dL (0.5-1.3) Glomerular Filtration Rate Calc 74 mL/min (>90) Random Glucose 108 mg/dL (70-105) H Total Calcium 8.4 mg/dL (8.5-10.1) L Magnesium Level 1.80 mg/dL (1.80-2.40) Total Creatine Kinase 300 U/L (21-232) #H Troponin I High Sensitivity 20 ng/L (4-75) B-Type Natriuretic Peptide 558 pg/mL (0-100) H Influenza Type A Antigen Negative For Type A Influenza Type B Antigen Negative For Type B SARS-CoV-2, RNA, NAAT NEGATIVE SARS CoV-2 Urine Color LIGHT-YELLOW (YELLOW) Urine Appearance CLEAR (CLEAR) Urine pH 6.0 (5.0-8.0) Urine Specific [place] 1.005 (1.001-1.031) Urine Protein NEGATIVE mg/dL (NEGATIVE) Urine Glucose (UA) NEGATIVE mg/dL (NEGATIVE) Urine Ketones NEGATIVE mg/dL (NEGATIVE) Urine Occult Blood NEGATIVE (NEGATIVE) Urine Nitrate NEGATIVE (NEGATIVE) Urine Bilirubin NEGATIVE mg/dL (NEGATIVE) Urine Urobilinogen 0.2 mg/dL (0.2-1.0) Urine Leukocyte Esterase NEGATIVE Efren/uL Labs Reviewed?: Yes EKG/XRAY/US/CT/MRI EKG Comment 05/18/2024 TIME 9:57 P.M. VENTRICULAR RATE 98 SINUS RHYTHM ME [address] WAVE ELEVATION OR DEPRESSION X-RAY Comment [id number] [id number] IMAGING REPORT Signed PATIENT: EDUARDO CLEARY MR#: [id number] : 1975 SEX: M AGE: 48 LOCATION: [facility] ORDER 57 STATUS: REG ER [facility] REPORT#: [id number] SERVICE 54 REASON: cough ORDERING PHYSICIAN: DENISE METZGER MD PROCEDURE: CXR1VW - CHEST 1VW CHEST 1VW HISTORY: Cough COMPARISON: None FINDINGS: A frontal projection of the chest was obtained. Mild bilateral pulmonary infiltrates are seen may be related to mild pulmonary vascular congestion with possible superimposed pneumonitis. The heart is normal in size. Degenerative changes are seen. No evidence of aortic calcification is seen. IMPRESSION: 1. Mild bilateral pulmonary infiltrates are seen may be related to mild pulmonary vascular congestion with possible superimposed pneumonitis. DICTATED BY: LORI MALDONADO MD DATE: 05/18/242241 ELECTRONICALLY SIGNED BY: LORI MALDONADO MD DATE: 05/18/242252 CT Scan Comment [address] [place] [id number] IMAGING REPORT Signed PATIENT: EDUARDO CLEARY MR#: [id number] : 1975 SEX: M AGE: 48 LOCATION: [facility] ORDER 57 STATUS: REG REPORT#: [id number] SERVICE 54 REASON: fall ORDERING PHYSICIAN: DENISE METZGER MD PROCEDURE: HEAD WO - CT HEAD/BRAIN W/O CONTRAST CT HEAD/BRAIN W/O CONTRAST HISTORY: Status post fall COMPARISON: None TECHNIQUE: Multiple sequential axial images of the head were obtained from the base of the skull through vertex. Patient was not given contrast through intravenous route. FINDINGS: Posterior scalp soft tissue swelling is seen. The ventricles and extraventricular CSF spaces are nondilated for patient's age. There is no midline shift, mass effect or herniation. No acute intracranial bleed is seen. Visualized portion of the paranasal sinuses are grossly within normal limits. IMPRESSION: 1. No acute intracranial bleed is seen. Posterior scalp soft tissue swelling. CT was performed with one or more following dose reduction techniques: automated exposure control, adjustment of the mA and kv according to patient's size, or use of a iterative reconstruction technique. DICTATED BY: LORI MALDONADO MD DATE: 05/18/242303 ELECTRONICALLY SIGNED BY: LORI MALDONADO MD DATE: 05/18/242307 MDM MDM: DIFFERENTIAL DIAGNOSIS: SYNCOPE AND COLLAPSE, PULMONARY INFILTRATES, CHF, RATIONALE: TESTS CONSIDERED AND ORDERED SECONDARY TO SHARED DECISION MAKING INCLUDE: LABS, ECG AND RADIOLOGY PREVIOUS OUTSIDE RECORDS REVIEWED: OLD ER VISITS. RISK OF COMPLICATION AND/OR MORBIDITY OR MORTALITY OF PATIENT MANAGEMENT: NONE MEDICATIONS-PER MEDICATION RECONCILIATION NEED FOR HOSPITALIZATION: PATIENT DOES MEET CRITERIA FOR HOSPITALIZATION. NEED FOR EMERGENCY MAJOR/MINOR SURGERY: NO THERE ARE NO SOCIAL CONCERNS WITH THIS PATIENT. PRESCRIPTION DRUG MANAGEMENT PRESCRIPTIONS WILL INCLUDE SYMPTOMATIC CARE PATIENT'S PRIOR EXTERNAL MEDICAL RECORDS FROM OTHER ER VISITS WERE REVIEWED BY ME INDICATED. PRIOR TESTING AND RESULTS FROM PREVIOUS VISITS WERE REVIEWED. PRIOR TESTS WERE TAKEN INTO ACCOUNT WITH MEDICAL DECISION MAKING AND RESOURCE UTILIZATION, INDEPENDENT HISTORIAN/HISTORIANS WERE USED TO OBTAIN COMPLETE MEDICAL HISTORY. I INDEPENDENTLY INTERPRETED THE TEST THAT WERE PERFORMED, RESULTS WERE REVIEWED BY ME AND CONSIDERED FINDINGS ON RADIOLOGY IF ORDERED. MEDICAL MANAGEMENT AND EXAMINATION INTERPRETATION DISCUSSIONS WERE HAD BY ME WITH OTHER QUALIFIED HEALTHCARE PROFESSIONALS INDICATED FOR THE PATIENT'S CARE. PATIENT IS A 48-YEAR-OLD MALE COMING IN TO BE EVALUATED AFTER HE HAD A SYNCOPAL EPISODE DAY BEFORE. PATIENT STATES THAT HE REMEMBERS COUGHING AND PASSING OUT. HE STATES HE WAS SOME ONLY COMPLAINT OF COUGH. PATIENT WILL BE ADMITTED UNDER THE CARE OF HOSPITALIST GROUP FOR ONGOING MANAGEMENT OF SYNCOPE. ED Course Orders Procedure Category Date Status Time Cbc With Differential LAB 05/18/24 Complete 21:55 Prothrombin Time With LAB 05/18/24 Complete INR 21:55 B-Type Natriuretic LAB 05/18/24 Complete Peptide 21:55 Chest 1vw RAD 05/18/24 Resulted 21:55 12 Lead Ekg Tracing- EKG 05/18/24 Logged Technical 21:55 Lactated Ringers PHA 05/18/24 Complete 1000ml (Lactated 22:00 Magnesium LAB 05/18/24 Complete 21:55 Creatine Kinase, Total LAB 05/18/24 Complete 21:55 Troponin I High LAB 05/18/24 Complete Sensitivity 21:55 Urinalysis Profile LAB 05/18/24 Complete 21:55 Partial LAB 05/18/24 Complete Thromboplastin Time 21:55 Basic Metabolic Panel LAB 05/18/24 Complete 21:55 Ct Head/Brain W/O CT 05/18/24 Resulted Contrast 21:55 Ipratropium/Albuterol PHA 05/18/24 Complete Neb (Duoneb) 23:00 Methylprednisolone PHA 05/18/24 Complete Succ 125mg (Solu-Medr 23:00 Covid Rna Naat LAB 05/18/24 Complete 22:34 Influenza Type A & B, LAB 05/18/24 Complete Rapid 22:34 Furosemide 40mg Vial PHA 05/18/24 Complete (Lasix 40mg Vial) 23:00 Potassium Bicarb/Cit PHA 05/18/24 Complete Ac 25meq (K-Lyte Ta 23:00 Potassium Chloride PHA 05/18/24 In Process 20meq/100ml ([place] 23:00 Vital Signs(Adult CPOE 05/18/24 Transmitted Hospitalist) 23:32 Nurse To Enter Home CPOE 05/18/24 Transmitted Medication 23:32 Admit Orders ADM 05/18/24 Transmitted 23:32 Edm Admit Bridge Order ADM 05/18/24 Transmitted 23:32 Current Medications Medications (Trade) Dose Ordered Sig/Ben Route PRN Reason Start Time Stop Time Status Last Admin Dose Admin Albuterol (DUOneb) 1 udvial ONCE ONCE IH 05/18/24 23:00 05/18/24 23:01 DC 05/18/24 22:54 Furosemide (LASix 40MG VIAL) 40 mg ONCE ONCE IV 05/18/24 23:00 05/18/24 23:01 DC Lactated Ringer's 1,000 ml @ 0 mls/hr ONCE ONCE IV 05/18/24 22:00 05/18/24 22:01 DC 05/18/24 22:20 Methylprednisolone Sodium Succinate (Solu-medROL 125MG) 125 mg ONCE ONCE IVP 05/18/24 23:00 05/18/24 23:01 DC 05/18/24 22:45 Potassium Bicarbonate (K-Lyte Tablet Eff 25 Meq Tablet.eff) 50 meq ONCE ONCE PO 05/18/24 23:00 05/18/24 23:01 DC 05/18/24 23:06 Potassium Chloride 100 ml @ 50 mls/hr PROTOCOL IV 05/18/24 23:00 06/17/24 22:59 05/18/24 23:06 Vital Signs Date Time Temp Pulse Resp B/P (MAP) Pulse Ox O2 Delivery O2 Flow Rate FiO2 05/18/24 22:54 90 19 Nasal Cannula 2.0 28 05/18/24 22:54 90 19 05/18/24 21:51 99.3 97 30 112/78 91 Room Air HEART Score Response (Comments) Value History: High suspicion (+2) 2 EKG: Normal 0 Age: 45-65yrs (+1) 1 Risk Factors: 1-2 risk factors (+1) 1 Initial Troponin: Normal limit (0) 0 HEART Score Risk: Low Risk for MACE (1-3) Total 4 Critical Care Note Comments CRITICAL CARE PROCEDURE NOTE AUTHORIZED AND PERFORMED BY: ME TOTAL CRITICAL CARE TIME: APPROXIMATELY 36 MINUTES DUE TO A HIGH PROBABILITY OF CLINICALLY SIGNIFICANT, LIFE THREATENING DETERIORATION, THE PATIENT REQUIRED MY HIGHEST LEVEL OF PREPAREDNESS TO INTERVENE EMERGENTLY AND I PERSONALLY SPENT THIS CRITICAL CARE TIME DIRECTLY AND PERSONALLY MANAGING THE PATIENT. THIS CRITICAL CARE TIME INCLUDED OBTAINING A HISTORY; EXAMINING THE PATIENT; PULSE OXIMETRY; ORDERING AND REVIEW OF STUDIES; ARRANGING URGENT TREATMENT WITH DEVELOPMENT OF A MANAGEMENT PLAN; EVALUATION OF PATIENT'S RESPONSE TO TREATMENT; FREQUENT REASSESSMENT; AND, DISCUSSIONS WITH OTHER PROVIDERS. THIS CRITICAL CARE TIME WAS PERFORMED TO ASSESS AND MANAGE THE HIGH PROBABILITY OF IMMINENT, LIFE-THREATENING DETERIORATION THAT COULD RESULT IN MULTI-ORGAN FAILURE. IT WAS EXCLUSIVE OF SEPARATELY BILLABLE PROCEDURES AND TREATING OTHER PATIENTS AND TEACHING TIME. PLEASE SEE MDM SECTION AND THE REST OF THE NOTE FOR FURTHER INFORMATION ON PATIENT ASSESSMENT AND TREATMENT. DX & DISP Disposition: Inpatient Decision to Admit Time: 23:30 Departure Impression: Primary Impression: Syncope and collapse Additional Impression: Acute on chronic diastolic CHF (congestive heart failure) Condition: Stable Referrals: SELF,REFERRAL (PCP) DENISE METZGER MD May 18, 2024 23:25
--- NOTE | 2024-05-18 23:33 | HP ---
[facility] Date of Service: May 18, 2024 Time of Service: 23:33 PCP: Self-referral HISTORY OF PRESENT ILLNESS: This is a 48-year-old male with past medical history of CHF and hypertension who presents to the ED for complaints of syncopal episode yesterday morning around 9:00 a.m.Patient states he was outside his house when was having a cough fit and he suddenly felt short of breath,felt weak and passed out .Patient states he fell backward.As per patient has been having persistent cough and shortness of breath edema to both lower extremities. is concerned that patyient is having seizure like episode because she noticed that patient's both hands are clenching and rigid and patient was shaky and had a tongue biting as well.Patient didnt come to the ED because he felt okay but towards the end of the day he felt very short of breath and weak so he decided to come to the ED for evaluation. Seen and examined patient in the ED awake,alert and coherent,moving all extremities and following commands.Patient denies headache,fever,chest pain,palpitation,abdominal pain,nausea and vomiting. Vital signs temperature 98.1 heart rate 73 blood pressure 115/80 saturation 96% on 2 L nasal cannula. Labs: WBC 8.1, hemoglobin 13.2, hematocrit 41.3 platelet count 148. Potassium 3.1 chloride 100 glucose 108, total calcium 8.4 magnesium 1.8 total CK 300 troponin 20 BNP 558 ECG result revealed sinus rhythm heart rate 98 chest x-ray result revealed mild bilateral pulmonary infiltrates are seen may be related to mild pulmonary vascular congestion with possible superimposed pneumonitis. CT head without contrast result revealed no acute intracranial bleed is seen posterior scalp soft tissue swelling. While in the ER patient received Rocephin 1 g IV azithromycin IV potassium replacement, furosemide 40 mg IV, Solu-Medrol 125 mg IV albuterol treatment and 1 L LR bolus given. We will admit patient for further medical management. REVIEW OF SYSTEMS CONSTITUTIONAL: Denies fevers, chills, or night sweats. No unintentional weight loss reported. NEUROLOGICAL: Denies headache, amaurosis fugax, motor weakness, sensory deficit, vertigo/spinning sensation, gait abnormalities, or tremors. ENT: No hearing loss, otalgia, otorrhea, rhinitis, rhinorrhea, hoarseness, or sore throat. CARDIOVASCULAR: Denies any exertional angina, dyspnea on exertion, orthopnea, paroxysmal nocturnal dyspnea, palpitations, life-threatening arrhythmias, claudication. PULMONARY: Complain of shortness of breaths productive cough Denies hemoptysis, pleuritic chest pain. SLEEP: Denies morning headaches, daytime somnolence or napping. Denies difficulty falling asleep, staying asleep, waking from sleep. Denies knowledge of snoring. GASTROINTESTINAL: Denies any type of dysphagia to either liquids or solids. Denies nausea, vomiting, pyrosis, early satiety, abdominal pain, diarrhea, constipation, or changes in stool consistency or caliber. Denies coffee-ground emesis, hematemesis, hematochezia, or melanotic stools. GENITOURINARY: Denies frequency, urgency, nocturia, hematuria or incontinence (Storage/Irritative symptoms.) Low urinary stream, straining to void, urinary intermittency or hesitancy, splitting of the voiding stream, terminal dribbling. ENDOCRINOLOGIC: Denies polyuria, polydipsia, polyphagia or heat/cold intolerances. HEMATOLOGIC: Denies thrombophilia/previous clots, or coagulopathy/bleeding disorders. ONCOLOGIC: Denies personal history of malignancy. DERMATOLOGIC: Denies rashes or pruritus. PSYCHIATRIC: Denies any suicidal or homicidal ideation. Denies hallucinations. PAST MEDICAL HISTORY: [CHF and hypertension ] PAST SURGICAL HISTORY: [Right hip surgery, right hip hardware removal by Dr. Lieberman January 15, 2023, right femur fracture ORIF by Dr. Sanchez October 06, 2022 ] PAST SOCIAL HISTORY: [Patient lives with . Patient denies cigarette and recreational drug use. Patient states he drinks three beers per day and he used to smoke one pack a day and quit 16 years ago ] FAMILY HISTORY: [Diabetes and cardiovascular disease ] Coded Allergies: No Known Allergies (Unverified Allergy, Unknown, 10/10/22) PHYSICAL EXAM GENERAL APPEARANCE: The patient is awake, alert, and oriented, in no acute cardiopulmonary distress. NEUROLOGICAL: Cranial nerves II-XII grossly intact. Motor is 5/5 in bilateral upper and lower extremities proximal to distal. No sensory deficits. HEENT: Face is symmetric. Pupils are equal and reactive. Extraocular movements are intact. NECK: Supple. No JVD. No thyromegaly. No submental, submandibular, pre-/ postauricular, occipital or supraclavicular lymphadenopathy. CHEST: Normal chest expansion. No Telemetry. LUNGS: Absence of any rales, rhonchi or any wheezing. CARDIOVASCULAR: Regular. S1 and S2 normal. No appreciable rubs, murmurs or gallops. ABDOMEN: Soft, nontender, and nondistended. There is no rebound, voluntary guarding, or rigidity. : Deferred. No Carpio. EXTREMITIES: Trace of edema to bilateral lower extremities SKIN: No skin breakdown. Vital Sign (Last 24 Hours) 05/18/24 21:51 Temp 99.3 B/P (MAP) 112/78 Pulse Ox 91 LABS: Laboratory: Test 05/18/24 23:10 05/18/24 22:50 05/18/24 22:06 Range/Units Urine Color LIGHT-YELLOW YELLOW Urine Appearance CLEAR CLEAR Urine pH 6.0 5.0-8.0 Urine Specific [place] 1.005 1.001-1.031 Urine Protein NEGATIVE NEGATIVE mg/dL Urine Glucose (UA) NEGATIVE NEGATIVE mg/dL Urine Ketones NEGATIVE NEGATIVE mg/dL Urine Occult Blood NEGATIVE NEGATIVE Urine Nitrate NEGATIVE NEGATIVE Urine Bilirubin NEGATIVE NEGATIVE mg/dL Urine Urobilinogen 0.2 0.2-1.0 mg/dL Urine Leukocyte Esterase NEGATIVE NEGATIVE Efren/uL Influenza Type A Antigen Negative For Type A NEGATIVE Influenza Type B Antigen Negative For Type B NEGATIVE SARS-CoV-2, RNA, NAAT NEGATIVE SARS CoV-2 NEGATIVE White Blood Count 8.1 4.8-10.8 K/uL Red Blood Count 4.82 4.50-6.20 MIL/uL Hemoglobin 13.2 L 14.0-18.0 g/dL Hematocrit 41.3 L 42-54 % Mean Corpuscular Volume 85.7 79-99 fL Mean Corpuscular Hemoglobin 27.4 27.0-33.0 pg Mean Corpuscular Hemoglobin Concent 32.0 32.0-36.0 g/dL Red Cell Distribution Width 14.8 11.0-15.5 % Platelet Count 148 130-400 K/uL Mean Platelet Volume 10.1 7.5-10.5 fL Immature Granulocyte % (Auto) 0.5 0-1 % Neutrophils (%) (Auto) 71.1 40.0-77.0 % Lymphocytes (%) (Auto) 14.4 L 21.0-51.0 % Monocytes (%) (Auto) 8.2 3.0-13.0 % Eosinophils (%) (Auto) 5.3 0.0-8.0 % Basophils (%) (Auto) 0.5 0.0-5.0 % Neutrophils # (Auto) 5.8 1.8-7.7 K/uL Lymphocytes # (Auto) 1.2 1.0-4.8 K/uL Monocytes # (Auto) 0.7 0.1-1.0 K/uL Eosinophils # (Auto) 0.43 0.00-0.70 K/uL Basophils # (Auto) 0.04 0.00-0.20 K/uL Absolute Immature Granulocyte (auto 0.04 0-1 K/uL Nucleated Red Blood Cells 0.0 0.0-0.19 % Prothrombin Time 11.9 H 9.6-11.6 SEC Prothromb Time International Ratio 1.11 0.85-1.15 Activated Partial Thromboplast Time 29.1 26.3-35.5 SEC Sodium Level 136 136-145 mmol/L Potassium Level 3.1 L 3.5-5.1 mmol/L Chloride Level 100 L 101-111 mmol/L Carbon Dioxide Level 26 21-32 mmol/L Blood Urea Nitrogen 10 7-18 mg/dL Creatinine 1.2 0.5-1.3 mg/dL Glomerular Filtration Rate Calc 74 >90 mL/min Random Glucose 108 H 70-105 mg/dL Total Calcium 8.4 L 8.5-10.1 mg/dL Magnesium Level 1.80 1.80-2.40 mg/dL Total Creatine Kinase 300 #H 21-232 U/L Troponin I High Sensitivity 20 4-75 ng/L B-Type Natriuretic Peptide 558 H 0-100 pg/mL Current Medications Medications (Trade) Dose Ordered Sig/Ben Route PRN Reason Start Time Stop Time Status Last Admin Dose Admin Potassium Chloride 100 ml @ 50 mls/hr PROTOCOL IV 05/18/24 23:00 06/17/24 22:59 05/18/24 23:06 50 MLS/HR DIAGNOSTICS / RADIOLOGY: [ ] ASSESSMENT: Syncope and collapse versus seizure episode POA Status post fall injury at home POA Acute on chronic CHF POA Acute respiratory failure Normocytic normochromic anemia POA Electrolyte derangement POA Suspected community-acquired pneumonia POA Hypertension POA PLAN: We will admit patient in PCCU We will start patient on heart healthy diet We will start patient on furosemide 20 mg IV b.i.d. We will start patient on Rocephin and azithromycin for broad-spectrum coverage for pneumonia We will start on Famotidine 20 mg p.o. bid for GI prophylaxis We will replace electrolytes as needed per protocol May continue oxygen supplementation and DuoNeb treatment We will add p.r.n. medication for fever cough nausea and vomiting We will request daily weight strict I&O and fluid restriction 1.5 L per day We will request neuro check every 4 hours per nursing Fall precaution We will check labs in a.m May consult Tele neurology We will seek Cardiology consultation Further recommendations to follow depending upon hospitalization course Case discussed with the attending MD and came up with the above treatment and plan of care ADVANCED CARE PLANNING 1. Which of the following were discussed? Hospice Care - No Therapeutic options - Yes Advance Directives - No Other discussions - 2. Discussed with who? Patient and Xin Ngo 3. Voluntary nature of this service was explained to the patient? Yes 4. Amount of time spent - _22 5. Reviewed by Physician? (if this service was performed by NPP) Yes ATTESTATION BY PHYSICIAN I have seen and examined the patient. I reviewed the documentation, medical decision making, and treatment plan as noted by the mid-level provider above. I agree with the findings and plan of care. Reynaldo Olmos MD, ROSEMARIE P IT SOFTWARE ENGINEER May 18, 2024 23:33 REYNALDO OLMOS MD May 20, 2024 20:35
[2024-05-18] MEDS: furoSEMIDE 40MG VIAL IV ONE (23:54)
[2024-05-18] MEDS: cefTRIAXone 1G VIAL IVPB ONE (23:54)
[2024-05-18] MEDS: AZITHROMYCIN 500MG+NS 250ML 250 ML IVPB STA (23:54)
[2024-05-19] VITALS (14 sets, daily range): BP systolic 106–123; BP diastolic 70–89; PULSE 64–100; RESP 16–20; TEMP 97.8–98.3; O2SAT 94–98
[2024-05-19] MEDS ORDERED: acetaMINOPHEN 325 MG TAB PO PRN (01:00)
[2024-05-19] MEDS ORDERED: NITROGLYCERIN 0.4 MG SL TAB SL PRN (01:00)
[2024-05-19] MEDS ORDERED: PoTASSium chl 10% ELIXIR 20MEQ 20 MEQ/15 ML UDCUP PO PRN (01:00)
[2024-05-19] MEDS ORDERED: PoTASSium chloRIDE 20MEQ/100ML 100 ML IV PRN (01:00)
[2024-05-19] MEDS ORDERED: ondanSETRON 4MG INJ IV PRN (01:00)
--- NOTE | 2024-05-19 01:37 | EKG ---
[facility] Test Date: 2024-05-18 Test Time: 21:57:17 Pat Name: EDUARDO CLEARY Department: [facility] Room: 232 Gender: M Front Office Attendant: [id number] : 1975 Requested By: DENISE METZGER Order Number: [id number] Reading MD: Radha Peter Measurements Intervals [place] Rate: 98 P: 40 MD: 182 QRS: 122 QRSD: 120 T: -28 QT: 365 QTc: 465 Interpretive Statements Sinus rhythm Nonspecific intraventricular conduction delay Inferior infarct, age indeterminate Borderline ST elevation, lateral leads Compared to ECG 02/01/2024 05:53:03 Intraventricular conduction delay now present Myocardial infarct finding now present ST (T wave) deviation now present Right ventricular hypertrophy no longer present Electronically Signed On 05-19-2024 11:36:12 TEACHERS AIDE by Radha Peter Please click the below link to view image of tracing.
--- NOTE | 2024-05-19 01:43 | NUR ---
REPORT RECEIVED FROM NAUN ESTRADA.
[2024-05-19] MEDS: IpraTROPium/alBUTERol SULFATE 3 ML SOLUTION IH SCH (01:47)
[2024-05-19 04:45] LABS: BASOPHILS # (AUTO) 0.01 K/uL (0.00-0.20); BASOPHILS % (AUTO) 0.2 % (0.0-5.0); EOSINOPHILS # (AUTO) 0.02 K/uL (0.00-0.70); EOSINOPHILS % (AUTO) 0.4 % (0.0-8.0); HEMATOCRIT 40.5 % (42-54); IMMATURE GRANULOCYTE ABSOLUTE 0.04 K/uL (0-1); LYMPHOCYTES # (AUTO) 0.5 K/uL (1.0-4.8); LYMPHOCYTES % (AUTO) 9.2 % (21.0-51.0); MEAN CORPUSCULAR HEMOGLOBIN 27.4 pg (27.0-33.0); MEAN CORPUSCULAR HGB CONC 31.9 g/dL (32.0-36.0); MONOCYTES # (AUTO) 0.1 K/uL (0.1-1.0); MONOCYTES % (AUTO) 1.4 % (3.0-13.0); NEUTROPHILS % (AUTO) 88.1 % (40.0-77.0); PLATELET COUNT (AUTO) 133 K/uL (130-400); RED BLOOD CELL COUNT(AUTO) 4.71 MIL/uL (4.50-6.20); WHITE BLOOD COUNT (AUTO) 5.6 K/uL (4.8-10.8)
[2024-05-19 05:06] LABS: ALBUMIN 3.4 g/dL (3.5-5.0); BILIRUBIN,TOTAL 1.1 mg/dL (0.2-1.0); CREATININE 1.1 mg/dL (0.5-1.3); MAGNESIUM 1.7 mg/dL (1.80-2.40); POTASSIUM 4.1 mmol/L (3.5-5.1); TOTAL PROTEIN, SERUM 7.4 g/dL (6.0-8.3)
[2024-05-19 05:27] LABS: B-TYPE NATRIURETIC PEPTIDE 445 pg/mL (0-100)
--- NOTE | 2024-05-19 07:47 | NUR ---
0508 Admited from ER to room 232. Oriented to room, call light, environment. Call light and needed items placed readily at hand. Encouraged to call prn.
[2024-05-19] MEDS ORDERED: hydrALAZine 20MG/ML VIAL IV PRN (08:00)
--- NOTE | 2024-05-19 08:05 | PN ---
[facility] PROGRESS NOTE Date of Service: May 19, 2024 Time of Service: 08:01 SUBJECTIVE: [ ] Seen and examined in room 232 PCP self-referral Admitting date 05/18/2024 Today on bedside evaluation patient was found awake alert and oriented x 3. The power chart reviewed, vital signs, laboratory tests, imaging test and medications have been reviewed. Latest vitals are stable, satting 98% on2 L nasal cannula. CBC is stable with a white count of 5.6 with negative left shift neutrophils 88.1, sodium 135, magnesium 1.7, BNP 445. Continue DuoNebs, continue IS, pending respiratory cultures, continue strict I&Os, daily weights, fluid restriction 1.5 L/daily. Continue IV Rocephin and azithromycin. We will follow Dr. Yousif's recommendations. REVIEW OF SYSTEMS CONSTITUTIONAL: Denies fevers, chills, or night sweats. No unintentional weight loss reported. NEUROLOGICAL: Denies headache, amaurosis fugax, motor weakness, sensory deficit, vertigo/spinning sensation, gait abnormalities, or tremors. ENT: No hearing loss, otalgia, otorrhea, rhinitis, rhinorrhea, hoarseness, or sore throat. CARDIOVASCULAR: Denies any exertional angina, dyspnea on exertion, orthopnea, paroxysmal nocturnal dyspnea, palpitations, life-threatening arrhythmias, claudication. PULMONARY: Complain of shortness of breaths productive cough Denies hemoptysis, pleuritic chest pain. SLEEP: Denies morning headaches, daytime somnolence or napping. Denies difficulty falling asleep, staying asleep, waking from sleep. Denies knowledge of snoring. GASTROINTESTINAL: Denies any type of dysphagia to either liquids or solids. Denies nausea, vomiting, pyrosis, early satiety, abdominal pain, diarrhea, constipation, or changes in stool consistency or caliber. Denies coffee-ground emesis, hematemesis, hematochezia, or melanotic stools. GENITOURINARY: Denies frequency, urgency, nocturia, hematuria or incontinence (Storage/Irritative symptoms.) Low urinary stream, straining to void, urinary intermittency or hesitancy, splitting of the voiding stream, terminal dribbling. ENDOCRINOLOGIC: Denies polyuria, polydipsia, polyphagia or heat/cold intolerances. HEMATOLOGIC: Denies thrombophilia/previous clots, or coagulopathy/bleeding disorders. ONCOLOGIC: Denies personal history of malignancy. DERMATOLOGIC: Denies rashes or pruritus. PSYCHIATRIC: Denies any suicidal or homicidal ideation. Denies hallucinations. PHYSICAL EXAM GENERAL APPEARANCE: The patient is awake, alert, and oriented, in no acute cardiopulmonary distress. NEUROLOGICAL: Cranial nerves II-XII grossly intact. Motor is 5/5 in bilateral upper and lower extremities proximal to distal. No sensory deficits. HEENT: Face is symmetric. Pupils are equal and reactive. Extraocular movements are intact. NECK: Supple. No JVD. No thyromegaly. No submental, submandibular, pre- /postauricular, occipital or supraclavicular lymphadenopathy. CHEST: Normal chest expansion. No Telemetry. LUNGS: Absence of any rales, rhonchi or any wheezing. CARDIOVASCULAR: Regular. S1 and S2 normal. No appreciable rubs, murmurs or ga llops. ABDOMEN: Soft, nontender, and nondistended. There is no rebound, voluntary guarding, or rigidity. : Deferred. No Carpio. EXTREMITIES: Trace of edema to bilateral lower extremities SKIN: No skin breakdown. Vital Signs (last 8hr) Date Time Temp Pulse Resp B/P (MAP) Pulse Ox O2 Delivery O2 Flow Rate FiO2 05/19/24 07:36 N/Cannula Low lpm 1.0 05/19/24 07:25 71 20 05/19/24 06:15 98 Nasal Cannula* 2 28 05/19/24 05:58 64 18 115/80 98 Nasal Cannula 2.0 05/19/24 05:08 98.2 77 20 119/89 98 Nasal Cannula 2.0 05/19/24 04:21 98.4 76 19 107/71 99 Nasal Cannula* 2 28 05/19/24 02:37 73 18 115/80 96 Nasal Cannula* 2 28 05/19/24 01:47 96 20 05/19/24 01:08 98.1 72 18 127/60 97 Nasal Cannula* 3 32 05/19/24 00:11 98.4 78 18 122/65 97 Room Air* 0 21 LABS: Laboratory: Test 05/19/24 04:38 05/18/24 23:10 05/18/24 22:50 05/18/24 22:06 Range/Units White Blood Count 5.6 # 4.8-10.8 K/uL Red Blood Count 4.71 4.50-6.20 MIL/uL Hemoglobin 12.9 L 14.0-18.0 g/dL Hematocrit 40.5 L 42-54 % Mean Corpuscular Volume 86.0 79-99 fL Mean Corpuscular Hemoglobin 27.4 27.0-33.0 pg Mean Corpuscular Hemoglobin Concent 31.9 L 32.0-36.0 g/dL Red Cell Distribution Width 15.0 11.0-15.5 % Platelet Count 133 130-400 K/uL Mean Platelet Volume 10.1 7.5-10.5 fL Immature Granulocyte % (Auto) 0.7 0-1 % Neutrophils (%) (Auto) 88.1 H 40.0-77.0 % Lymphocytes (%) (Auto) 9.2 L 21.0-51.0 % Monocytes (%) (Auto) 1.4 L 3.0-13.0 % Eosinophils (%) (Auto) 0.4 0.0-8.0 % Basophils (%) (Auto) 0.2 0.0-5.0 % Neutrophils # (Auto) 5.0 1.8-7.7 K/uL Lymphocytes # (Auto) 0.5 L 1.0-4.8 K/uL Monocytes # (Auto) 0.1 0.1-1.0 K/uL Eosinophils # (Auto) 0.02 0.00-0.70 K/uL Basophils # (Auto) 0.01 0.00-0.20 K/uL Absolute Immature Granulocyte (auto 0.04 0-1 K/uL Nucleated Red Blood Cells 0.0 0.0-0.19 % White Cell Morphology Comment See comments Sodium Level 135 L 136-145 mmol/L Potassium Level 4.1 3.5-5.1 mmol/L Chloride Level 100 L 101-111 mmol/L Carbon Dioxide Level 27 21-32 mmol/L Blood Urea Nitrogen 10 7-18 mg/dL Creatinine 1.1 0.5-1.3 mg/dL Glomerular Filtration Rate Calc 82 >90 mL/min Random Glucose 156 H 70-105 mg/dL Total Calcium 8.0 L 8.5-10.1 mg/dL Magnesium Level 1.70 L 1.80-2.40 mg/dL Total Bilirubin 1.1 H 0.2-1.0 mg/dL Aspartate Amino Transf (AST/SGOT) 29 10-37 U/L Alanine Aminotransferase (ALT/SGPT) 17 12-78 U/L Alkaline Phosphatase 181 H 50-136 U/L Troponin I High Sensitivity 10 4-75 ng/L B-Type Natriuretic Peptide 445 H 0-100 pg/mL Total Protein 7.4 6.0-8.3 g/dL Albumin 3.4 L 3.5-5.0 g/dL Urine Color LIGHT-YELLOW YELLOW Urine Appearance CLEAR CLEAR Urine pH 6.0 5.0-8.0 Urine Specific [place] 1.005 1.001-1.031 Urine Protein NEGATIVE NEGATIVE mg/dL Urine Glucose (UA) NEGATIVE NEGATIVE mg/dL Urine Ketones NEGATIVE NEGATIVE mg/dL Urine Occult Blood NEGATIVE NEGATIVE Urine Nitrate NEGATIVE NEGATIVE Urine Bilirubin NEGATIVE NEGATIVE mg/dL Urine Urobilinogen 0.2 0.2-1.0 mg/dL Urine Leukocyte Esterase NEGATIVE NEGATIVE Efren/uL Influenza Type A Antigen Negative For Type A NEGATIVE Influenza Type B Antigen Negative For Type B NEGATIVE SARS-CoV-2, RNA, NAAT NEGATIVE SARS CoV-2 NEGATIVE Prothrombin Time 11.9 H 9.6-11.6 SEC Prothromb Time International Ratio 1.11 0.85-1.15 Activated Partial Thromboplast Time 29.1 26.3-35.5 SEC Total Creatine Kinase 300 #H 21-232 U/L Current Medications Medications (Trade) Dose Ordered Sig/Ben Route PRN Reason Start Time Stop Time Status Last Admin Dose Admin Acetaminophen (TYLenol 325MG TAB) 650 mg Q4H PRN PO MILD PAIN (1-3) 05/19/24 01:00 06/18/24 00:59 Acetaminophen (TYLenol 325MG TAB) 650 mg Q6H PRN PO TEMPERATURE GREATER THAN 101.5 05/19/24 01:00 06/18/24 00:59 Albuterol (DUOneb) 1 udvial [id number] 05/19/24 02:00 05/19/24 07:41 DC 05/19/24 07:35 1 UDVIAL Albuterol (DUOneb) 1 udvial [id number] 05/19/24 12:00 06/18/24 01:59 Azithromycin 250 ml @ 250 mls/hr Q24H IVPB 05/20/24 00:30 05/30/24 00:29 Azithromycin 250 ml @ 250 mls/hr Q24H STAT IVPB 05/18/24 23:38 05/19/24 00:40 DC 05/18/24 23:54 250 MLS/HR Ceftriaxone Sodium (ROCEphine 1G INJ) 1 gm Q24H IVPB 05/20/24 00:30 05/30/24 00:29 Famotidine (Pepcid 20mg Tab) 20 mg BID PO 05/19/24 09:00 06/18/24 08:59 Furosemide (LASix 20MG VIAL) 20 mg BID IV 05/19/24 09:00 06/18/24 08:59 Guaifenesin/ Dextromethorphan (RobiTUSSin DM 200/20MG 10ML) 10 ml Q4H PRN PO COUGH 05/19/24 01:00 06/18/24 00:59 Hydralazine HCl (APRESOLine 20MG INJ) 20 mg Q6H PRN IV ADMINISTER FOR SBP > 160 05/19/24 08:00 06/18/24 07:59 Magnesium Sulfate 50 ml @ 0 mls/hr PROTOCOL PRN IV OTHER [SEE ORDER COMMENTS] 05/19/24 01:00 06/18/24 00:59 Nitroglycerin (Nitrostat) 0.4 mg PROTOCOL PRN SL CHEST PAIN 05/19/24 01:00 06/18/24 00:59 Ondansetron HCl (zoFRAN 4MG INJ) 4 mg Q6H PRN IV NAUSEA/VOMITING 05/19/24 01:00 06/18/24 00:59 Potassium Chloride 100 ml @ 50 mls/hr PROTOCOL IV 05/18/24 23:00 05/19/24 00:56 DC 05/18/24 23:06 50 MLS/HR Potassium Chloride 100 ml @ 100 mls/hr AD PRN IV POTASSIUM PROTOCOL 05/19/24 01:00 06/18/24 00:59 Potassium Chloride (K-Dur/Klor-Con 20meq) 20 meq AD PRN PO POTASSIUM PROTOCOL 05/19/24 01:00 06/18/24 00:59 Potassium Chloride (KCl 10% Elixir 20meq/15ml) 20 meq AD PRN PO POTASSIUM PROTOCOL 05/19/24 01:00 06/18/24 00:59 DIAGNOSTICS / RADIOLOGY: [ ] ASSESSMENT: Syncope and collapse versus seizure episode POA Status post fall injury at home POA Acute respiratory failure 2/2 HF, POA Acute on suspected chronic diastolic HF POA Normocytic normochromic anemia POA Electrolyte derangement POA Suspected pneumonitis, POA Hypertension POA PLAN: Continue admission in PCCU Continue heart healthy diet Continue furosemide 20 mg IV b.i.d. Continue Rocephin and azithromycin for broad-spectrum coverage for pneumonia We will replace electrolytes as needed per protocol Continue O2 supplementation to keep O2 saturations above 92%, currently satting 95% on 1 L nasal cannula Wean off O2 as tolerated. Decrease O2 by 0.5 L/min every shift. Document accurately supplemental oxygen. Continue IS hourly Continue DuoNebs Continue daily weight, strict I&O and fluid restriction 1.5 L per day neuro check every 4 hours per nursing Continue Fall precaution Cardiology consulted Monitor a.m. labs PRN Treatment - Add when necessary meds for nausea, vomiting, pain, const ipation, insomnia. DVT/GI prophylaxis- Continue SCDs and famotidine at current doses. Full CODE STATUS This document was generated in part using voice recognition software, occasional wrong word or sound alike substitutions may have occurred due to the inherent limitations of voice recognition software. Read the chart carefully and recognize using context, where the substitutions have occurred. Although every effort was made to edit the content, soil biology teacher and typing errors may occur 48-year-old male who fell and struck his head posteriorly with brief loss of consciousness. Patient is family members at the bedside who said that he had for seizure-like episodes with shaking of his arms and legs his eyes rolled back in his head which lasted for less than a minute each. There was tongue biting but no loss of bladder or bowel control This was after the fall with a head injury. Patient has two sisters who have epilepsy. On exam vital signs stable afebrile Examination of the skull reveals mild contusion posteriorly with minimal tenderness to palpation HEENT no visible bite sanches on the tongue. Assessment and plan to add to above likely seizure disorder we will go ahead and place the patient on seizure precaution and request tele neuro consult for antiseizure medications further orders to follow as needed. JAMILA MADERA May 19, 2024 08:05 REYNALDO OLMOS MD May 19, 2024 22:53
[2024-05-19] MEDS: furoSEMIDE 20MG VIAL IV SCH (09:12)
[2024-05-19] MEDS: FAMOTIDINE 20MG TAB PO SCH (09:12)
[2024-05-19] MEDS ORDERED: IpraTROPium/alBUTERol SULFATE 3 ML SOLUTION IH SCH (12:00)
[2024-05-19 15:20] LABS: AMPHET/METH SCREEN,URINE NEGATIVE (NEGATIVE); BARBITURATE SCREEN, URINE NEGATIVE (NEGATIVE); BENZODIAZEPINES SCREEN,URINE NEGATIVE (NEGATIVE); CANNABINOID SCREEN,URINE NEGATIVE (NEGATIVE); COCAINE SCREEN,URINE NEGATIVE (NEGATIVE); OPIATE SCREEN,URINE NEGATIVE (NEGATIVE); PHENCYCLIDINE SCREEN,URINE NEGATIVE (NEGATIVE)
--- NOTE | 2024-05-19 17:50 | NUR ---
DC PLAN VISITED WITH PATIENT. PATIENT LIVES WITH SPOUSE. INDEPENDENT ABLE TO PERFORM ADL'S. PATIENT HAS NO SERVICES OR DME'S. FEELS SAFE TO RETURN HOME. GAVE LOW INCOME CLINIC INFO AND ADVISE TO TRY TO GET PCP. Addendum: 05/19/24 at 1751 by PETRA ONEILL RN CM Amended: Links added.
--- NOTE | 2024-05-19 18:39 | EKG ---
[facility] Test Date: 2024-05-19 Test Time: 18:36:58 Pat Name: EDUARDO CLEARY Department: [facility] Room: 232 1 Gender: M Sensory Scientist: : 1975 Requested By: CARMINA MORELOS Order Number: [id number] Reading MD: Radha Peter Measurements Intervals [place] Rate: 93 P: 0 WV: 154 QRS: 150 QRSD: 108 T: -20 QT: 380 QTc: 472 Interpretive Statements Normal sinus rhythm Right ventricular hypertrophy Inferior infarct , age undetermined ST & T wave abnormality, consider anterior ischemia Compared to ECG 05/18/2024 21:57:17 Right ventricular hypertrophy now present Possible ischemia now present Intraventricular conduction delay no longer present Myocardial infarct finding still present ST (T wave) deviation still present Electronically Signed On 05-20-2024 01:26:17 FIXTURE REPAIRER FABRICATOR by Radha Peter Please click the below link to view image of tracing.
--- NOTE | 2024-05-19 19:59 | NUR ---
GREGORIO GLASS PROCESSING WORKER STATED THERE WAS A PSEUDOANEURYSM TO RIGHT GROIN. PENDING FINAL REPORT.
--- NOTE | 2024-05-19 20:45 | NUR ---
ATTEMPT MADE TO CONTACT DR. MORELOS THRU ANSWERING SERVICE.
[2024-05-19] MEDS: MAGNESIUM 2GM PREMIX 50ML 50 ML IV PRN (20:51)
[2024-05-19] MEDS: guaiFENesin-DM 200/20MG 10ML PO PRN (20:57)
--- NOTE | 2024-05-19 21:42 | HMCIMG ---
US VENOUS DOPPLER BILATERAL CLINICAL HISTORY: SWELLING COMPARISON: None FINDINGS: Bilateral lower extremity venous Doppler ultrasound was performed. The greater saphenous, common femoral, deep femoral, femoral , popliteal veins are widely patent and easily compressible with the ultrasound probe. Calf veins appear normal as well. There is normal response to compression and augmentation. IMPRESSION: Normal bilateral lower extremity venous Doppler ultrasound.
--- NOTE | 2024-05-19 21:42 | HMCIMG ---
US SOFT TISSUE GROIN HISTORY: RIGHT GROIN SWELLING R/O PSEUDOANEURYSM COMPARISON: None FINDINGS: Right carotid evaluation demonstrates a 5 x 3.2 x 2.3 cm pseudoaneurysm with a 5 mm diameter neck. The neck length was not measured. 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
--- NOTE | 2024-05-19 21:44 | HMCIMG ---
US ARTERIAL BILAT LOW EXT DUPL HISTORY: Swelling COMPARISON: None TECHNIQUE: Bilateral lower extremity arterial Doppler ultrasound study was performed. FINDINGS: Normal triphasic arterial waveforms are noted in the common femoral, deep femoral, superficial femoral, popliteal, posterior tibial and dorsalis pedal arteries. On the right, the peak systolic velocity of the common femoral artery is 117 cm/s, the proximal femoral artery is 79 cm/s, the mid femoral artery is 85 cm/s, the distal femoral artery is 1:30 cm/s, the popliteal artery is 104 cm/s, the anterior tibial artery is 70 cm/s, the posterior tibial artery artery is 68 cm/s. On the left, the peak systolic velocity of the common femoral artery is 111 cm/s, the proximal femoral artery is 129 cm/s, the mid femoral artery is 109 cm/s, the distal femoral artery is 148 cm/s, the popliteal artery is 96 cm/s, the anterior tibial artery is 76 cm/s, the posterior tibial artery artery is 103 cm/s. IMPRESSION: Patent outflow and runoff to the bilateral lower extremities.
--- NOTE | 2024-05-19 22:08 | NUR ---
@2135PM SPOKE TO DR MORELOS VIA TELEPHONE. MADE AWARE OF FINDINGS OF GROIN ULTRASOUND. STATED NO NEW ORDERS FOR NOW. HE WILL REVIEW IN AM.
--- NOTE | 2024-05-19 23:09 | NUR ---
@2240PM DR. OLMOS ROUNDED. ORDERED SEIZURE PRECAUTIONS. STATED TO ORDER TELE NEURO, ATIVAN 2MG IV PUSH X1 IF SEIZURE ACTIVITY, MAY REPEAT DOSE IN 10 MINUTES X1.
--- NOTE | 2024-05-19 23:11 | NUR ---
@1900PM DR. TAMY ALMAZAN. ORDERED ECHOCARDIOGRAM, VENOUS ULTRASOUND TO LOWER EXTREMITIES, ARTERIAL ULTRASOUND TO LOWER EXTREMITIES.
[2024-05-20] VITALS (11 sets, daily range): BP systolic 103–119; BP diastolic 69–89; PULSE 20–97; RESP 16–20; TEMP 96.6–98; O2SAT 95–98
--- NOTE | 2024-05-20 00:58 | NUR ---
SPOKE TO SHIREEN THOMPSON MD NEUROLOGIST VIA TELE NEURO. ASSESSED PATIENT. RECOMMENDS MRI OF BRAIN WITH AND WITHOUT CONTRAST AND EEG. STATED WILL MAKE RECOMMENDATIONS ON NOTE. WILL NOTIFY HOSPITALIST PRACTITIONER.
[2024-05-20] MEDS: cefTRIAXone 1G VIAL IVPB SCH (01:01)
--- NOTE | 2024-05-20 01:07 | CONS ---
CONSULT NOTE: [facility] # Demographics Consult Type: General Neurology Patient Location: Inpatient First Name: eduardo Last Name: pasquale Date of : 05/27/1976 Age: 47 Gender: Male Facility: [facility] Time of Initial Page (Central Time): 05/20/2024, 04:54 Time of Return Call (Central Time): 05/20/2024, 04:54 Phone Only Consult: 2 witnessed brief seizure Keppra 1500 mg IV x 1 then 500 mg BID Proceed with diagnostics per initial note. Phone Agreement: - phone consult deemed mutually sufficient for patient care # Plan Other: - If patient has any neurological deterioration please call me back immediately # Demographics First Name: eduardo Last Name: pasquale Facility: [facility] # Demographics Consult Type: General Neurology Patient Location: Inpatient First Name: EDUARDO Last Name: PASQUALE Date of : 1975 Age: 48 Gender: Male Facility: [facility] Time of Initial Page (Central Time): 05/19/2024, 23:46 Time of Return Call (Central Time): 05/19/2024, 23:46 # HPI History: 48 yo man with HTN, CHF, COPD admitted on 05/18 with syncope vs seizure. First event occurred 05/18 at 09:00 am in setting of coughing spell when he became woozy/dizzy and passed out with head trauma. Later that evening he had a total of 4 seizure like events witnessed by . She describes eyes rolled back, clenched fists, violent shaking and tongue biting lasting < 2 minutes. No prodrome or warning. At least 2 occurred while laying down. Although he was confused about what happened, there was no real postictal period. No prior history of seizure, new medications, recent illnesses, stroke or AIR SAMPLER infection. No recurrence in hospital. BP 112 on arrival. Glucose normal. # Exam Time of Exam (Central Time): 05/20/2024, 00:42 Mental Status: - awake - alert and oriented x 3 - follows commands Language: - normal speech Cranial Nerves: - normal Motor: - normal strength Cerebellar: - normal cerebellar exam # PMH-FH-SH Social History: - daily drinker - no drugs recently cut back on alcohol but no history withdrawal # Data Glucose: 156 Creatinine: 1.1 Other Labs: drug screen negative Head CT: - no bleed - per radiologist read posterior scalp soft tissue swelling # Assessment Impression: New onset seizure--possibly due to head trauma. It is unusual not to have more of a postictal period raising possibility of convulsive syncope, though patient had no prodrome and occurred while supine # Plan Labs: - B12 - TSH Imaging: (urgency: routine): - MRI Brain with AND without contrast Diagnostic Test: - EEG Medication: - Defer AED til after EEG (unless recurrent seizure), then start Keppra 500 mg PO BID Other: - If patient has any neurological deterioration please call me back immediately - seizure precautions Additional Recommendations: - Orthostatic vitals - Telemetry monitoring - Avoid dehydration - Monitor for alcohol withdrawal - F/U with outpatient neurology Disposition: continue admission # Logistics Attestation of consult completion: The patient is located at: [facility]. Facility staff participated in the visit. I performed this telemedicine visit from my offsite office utilizing interactive 2 way audio and visual telecommunication technology. Total time spent in telemedicine encounter: I spent 30 minutes reviewing clinical data and/or imaging, obtaining history, examining the patient, communicating with the onsite care team, and in preparation of this report. # Demographics First Name: EDUARDO Last Name: PASQUALE Facility: [facility] SHIREEN THOMPSON MD May 20, 2024 01:07
[2024-05-20] MEDS: AZITHROMYCIN 500MG+NS 250ML 250 ML IVPB SCH (01:33)
--- NOTE | 2024-05-20 01:57 | NUR ---
NOTIFIED JIMMY AYALA NP OF TELE NEURO RECOMMENDATIONS FOR EEG AND MRI OF HEAD WITH AND WITHOUT CONTRAST. PER SCRUB TECH, DARSHANA TO PROCEED WITH RECOMMENDATIONS. ORDERED TESTS TO BE DONE IN AM.
[2024-05-20] MEDS: LORazepam 2 MG/ML 1 ML VIAL IVP PRN (04:31)
[2024-05-20 04:55] LABS: BASOPHILS # (AUTO) 0.02 K/uL (0.00-0.20); BASOPHILS % (AUTO) 0.3 % (0.0-5.0); EOSINOPHILS # (AUTO) 0.06 K/uL (0.00-0.70); EOSINOPHILS % (AUTO) 0.9 % (0.0-8.0); HEMATOCRIT 39.4 % (42-54); IMMATURE GRANULOCYTE ABSOLUTE 0.04 K/uL (0-1); LYMPHOCYTES # (AUTO) 1.1 K/uL (1.0-4.8); LYMPHOCYTES % (AUTO) 16.9 % (21.0-51.0); MEAN CORPUSCULAR HEMOGLOBIN 27.3 pg (27.0-33.0); MEAN CORPUSCULAR HGB CONC 31.5 g/dL (32.0-36.0); MEAN CORPUSCULAR VOLUME 86.6 fL (79-99); MONOCYTES # (AUTO) 0.7 K/uL (0.1-1.0); MONOCYTES % (AUTO) 9.6 % (3.0-13.0); NEUTROPHILS # (AUTO) 4.8 K/uL (1.8-7.7); NEUTROPHILS % (AUTO) 71.7 % (40.0-77.0); PLATELET COUNT (AUTO) 143 K/uL (130-400); RED BLOOD CELL COUNT(AUTO) 4.55 MIL/uL (4.50-6.20); RED CELL DISTRIBUTION WIDTH 15.2 % (11.0-15.5); WHITE BLOOD COUNT (AUTO) 6.8 K/uL (4.8-10.8)
[2024-05-20 05:16] LABS: CREATININE 1.1 mg/dL (0.5-1.3); POTASSIUM 3.7 mmol/L (3.5-5.1)
[2024-05-20 05:22] LABS: B-TYPE NATRIURETIC PEPTIDE 504 pg/mL (0-100)
--- NOTE | 2024-05-20 05:37 | NUR ---
@6425am NOTIFIED JIMMY AYALA NP OF TELE NUERO RECOMMENDATIONS. TO GIVE KEPPRA 1,500MG IV X1 LOADING DOSE, THEN START ON KEPPRA 500MG PO BID. PER TELE NEURO DOC SHE CAN ONLY RECOMMEND BUT ATTENDING PHYSICIAN NEEDS TO ORDER MEDICATION. PER JIMMY AYALA NP DARSHANA TO ORDER MEDICATIONS.
[2024-05-20] MEDS: leveTIRACEtam 500 MG/5 ML SD V 1,500 MG in 0.9%NACL 100ML 100 ML IV ONE (05:50)
--- NOTE | 2024-05-20 06:31 | NUR ---
@0426AM AT THIS TIME SAW PATIENT COMING OUT OF PATIENT ROOM AND WALKING TOWARDS NURSES STATION. PT STATED " HE IS HAVING A SEIZURE". WHEN I STEPPED INTO ROOM NOTED PATIENT WITH SEIZURE ACTIVITY LASTING ABOUT 10 SECONDS IN DURATION. EYES WERE ROLLED BACK, PATIENT WITH SHAKING EPISODE. PLACED ON OXYGEN AT 2 LITERS PER MINUTE FOR COMFORT. SEIZURE PADS IN PLACE. NO INJURY SUSTAINED FROM SEIZURE. NO LOSS OF BOWEL OR BLADDER FUNCTION. @ @0432AM ADMINISTERED PRN ATIVAN. SHORTLY AFTER, ABOUT 5 MINUTES PATIENT BEGAN TO HAVE ANOTHER SEIZURE WHICH ONLY LASTED SIX SECONDS IN DURATION. EYES ROLLED BACK. NO LOSS OF BLADDER OR BOWEL FUNCTION. @0445AM PLACED CALL TO HOSPITALIST GROUP. SPOKE TO JIMMY AYALA NP. REQUESTED TO NOTIFY TELE [facility] OF SEIZURE ACTIVITY AND RECOMMENDATIONS FOR SEIZURE MEDICATION. @0524AM AFTER SPEKING TO SHIREEN THOMPSON MD. RECOMMENDED KEPPRA 1,500MG IV 1, THEN START ON KEPPRA 500MG BID.
[2024-05-20] MEDS: PoTASSium chloRIDE 20MEQ ER 20 MEQ ERTAB PO PRN (08:26)
[2024-05-20] MEDS: leveTIRACEtam 500 MG TABLET PO SCH (08:26)
--- NOTE | 2024-05-20 11:03 | HMCIMG ---
MR BRAIN WWO CON HISTORY: Seizures COMPARISON: None TECHNIQUE: MRI of the brain was performed utilizing multiple pulse sequences in axial, coronal and sagittal planes. Patient was given 50 cc of Clariscan through intravenous route. FINDINGS: There are motion artifacts degrading the image quality. There are bilateral mastoid effusion. The ventricles and extraventricular CSF spaces are nondilated for patient's age. There is no midline shift, mass effect or herniation. No subacute hemorrhage is seen. No MR evidence of acute infarct is seen in the diffusion weighted images. Cerebellar tonsils are in normal position. No evidence of mucoperiosteal thickening is seen of the visualized paranasal sinuses. No MR evidence of a mass lesion is seen in this noncontrast study. IMPRESSION: 1. No MR evidence of acute infarct is seen in the diffusion weighted images. Vision artifacts degrading the image quality. Bilateral mastoid effusion.
[2024-05-20] MEDS ORDERED: GADOTERATE MEGLUMINE 10 MMOL/20 ML VIAL IV ONE (12:02)
[2024-05-20] MEDS: PoTASSium chloRIDE 20MEQ ER 20 MEQ ERTAB PO ONE (12:32)
--- NOTE | 2024-05-20 12:32 | PN ---
[facility] PROGRESS NOTE Date of Service: May 20, 2024 Time of Service: 12:32 SUBJECTIVE: [ ] Seen and examined in room 232 PCP self-referral Admitting date 05/18/2024 Today on bedside evaluation patient was found awake alert and oriented x 3. The power chart reviewed, vital signs, laboratory tests, imaging test and medications have been reviewed. Latest vitals are stable, satting 98% on2 L nasal cannula. CBC is stable with a white count of 5.6 with negative left shift neutrophils 88.1, sodium 135, magnesium 1.7, BNP 445. Continue DuoNebs, continue IS, pending respiratory cultures, continue strict I&Os, daily weights, fluid restriction 1.5 L/daily. Continue IV Rocephin and azithromycin. We will follow Dr. Yousif's recommendations. 05/20 the patient has been seen and examined during my rounding, he is on Keppra IV, alert oriented x3, per discussion with the nurse, had short episode of s eizure today, no loss of consciousness, BP 119/89, afebrile, saturating normal on room air. Results of MRI unremarkable, no evidence of acute infarct, discussed with the patient. No family members at bedside. REVIEW OF SYSTEMS CONSTITUTIONAL: Denies fevers, chills, or night sweats. No unintentional weight loss reported. NEUROLOGICAL: Denies headache, amaurosis fugax, motor weakness, sensory deficit, vertigo/spinning sensation, gait abnormalities, or tremors. ENT: No hearing loss, otalgia, otorrhea, rhinitis, rhinorrhea, hoarseness, or so re throat. CARDIOVASCULAR: Denies any exertional angina, dyspnea on exertion, orthopnea, paroxysmal nocturnal dyspnea, palpitations, life-threatening arrhythmias, claudication. PULMONARY: Complain of shortness of breaths productive cough Denies hemoptysis, pleuritic chest pain. SLEEP: Denies morning headaches, daytime somnolence or napping. Denies difficulty falling asleep, staying asleep, waking from sleep. Denies knowledge of snoring. GASTROINTESTINAL: Denies any type of dysphagia to either liquids or solids. Denies nausea, vomiting, pyrosis, early satiety, abdominal pain, diarrhea, constipation, or changes in stool consistency or caliber. Denies coffee-ground emesis, hematemesis, hematochezia, or melanotic stools. GENITOURINARY: Denies frequency, urgency, nocturia, hematuria or incontinence (Storage/Irritative symptoms.) Low urinary stream, straining to void, urinary intermittency or hesitancy, splitting of the voiding stream, terminal dribbling. ENDOCRINOLOGIC: Denies polyuria, polydipsia, polyphagia or heat/cold intolerances. HEMATOLOGIC: Denies thrombophilia/previous clots, or coagulopathy/bleeding disorders. ONCOLOGIC: Denies personal history of malignancy. DERMATOLOGIC: Denies rashes or pruritus. PSYCHIATRIC: Denies any suicidal or homicidal ideation. Denies hallucinations. PHYSICAL EXAM GENERAL APPEARANCE: The patient is awake, alert, and oriented, in no acute cardiopulmonary distress. NEUROLOGICAL: Cranial nerves II-XII grossly intact. Motor is 5/5 in bilateral upper and lower extremities proximal to distal. No sensory deficits. HEENT: Face is symmetric. Pupils are equal and reactive. Extraocular movements are intact. NECK: Supple. No JVD. No thyromegaly. No submental, submandibular, pre- /postauricular, occipital or supraclavicular lymphadenopathy. CHEST: Normal chest expansion. No Telemetry. LUNGS: Absence of any rales, rhonchi or any wheezing. CARDIOVASCULAR: Regular. S1 and S2 normal. No appreciable rubs, murmurs or gallops. ABDOMEN: Soft, nontender, and nondistended. There is no rebound, voluntary guarding, or rigidity. : Deferred. No Carpio. EXTREMITIES: Trace of edema to bilateral lower extremities SKIN: No skin breakdown. Vital Signs (last 8hr) Date Time Temp Pulse Resp B/P (MAP) Pulse Ox O2 Delivery O2 Flow Rate FiO2 05/20/24 12:08 96.6 77 19 119/89 95 Room Air 05/20/24 07:55 97 Nasal Cannula* 1 24 05/20/24 07:22 97.9 75 20 107/71 97 Nasal Cannula 2.0 05/20/24 07:14 73 18 N/Cannula Low lpm 1.0 24 LABS: Laboratory: Test 05/20/24 04:26 05/19/24 04:38 05/18/24 23:10 05/18/24 22:50 Range/Units White Blood Count 6.8 4.8-10.8 K/uL Red Blood Count 4.55 4.50-6.20 MIL/uL Hemoglobin 12.4 L 14.0-18.0 g/dL Hematocrit 39.4 L 42-54 % Mean Corpuscular Volume 86.6 79-99 fL Mean Corpuscular Hemoglobin 27.3 27.0-33.0 pg Mean Corpuscular Hemoglobin Concent 31.5 L 32.0-36.0 g/dL Red Cell Distribution Width 15.2 11.0-15.5 % Platelet Count 143 130-400 K/uL Mean Platelet Volume 10.5 7.5-10.5 fL Immature Granulocyte % (Auto) 0.6 0-1 % Neutrophils (%) (Auto) 71.7 40.0-77.0 % Lymphocytes (%) (Auto) 16.9 L 21.0-51.0 % Monocytes (%) (Auto) 9.6 3.0-13.0 % Eosinophils (%) (Auto) 0.9 0.0-8.0 % Basophils (%) (Auto) 0.3 0.0-5.0 % Neutrophils # (Auto) 4.8 1.8-7.7 K/uL Lymphocytes # (Auto) 1.1 1.0-4.8 K/uL Monocytes # (Auto) 0.7 0.1-1.0 K/uL Eosinophils # (Auto) 0.06 0.00-0.70 K/uL Basophils # (Auto) 0.02 0.00-0.20 K/uL Absolute Immature Granulocyte (auto 0.04 0-1 K/uL Nucleated Red Blood Cells 0.0 0.0-0.19 % Sodium Level 143 136-145 mmol/L Potassium Level 3.7 3.5-5.1 mmol/L Chloride Level 106 101-111 mmol/L Carbon Dioxide Level 29 21-32 mmol/L Blood Urea Nitrogen 16 7-18 mg/dL Creatinine 1.1 0.5-1.3 mg/dL Glomerular Filtration Rate Calc 82 >90 mL/min Random Glucose 124 H 70-105 mg/dL Total Calcium 8.0 L 8.5-10.1 mg/dL B-Type Natriuretic Peptide 504 H 0-100 pg/mL White Cell Morphology Comment See comments Magnesium Level 1.70 L 1.80-2.40 mg/dL Total Bilirubin 1.1 H 0.2-1.0 mg/dL Aspartate Amino Transf (AST/SGOT) 29 10-37 U/L Alanine Aminotransferase (ALT/SGPT) 17 12-78 U/L Alkaline Phosphatase 181 H 50-136 U/L Troponin I High Sensitivity 10 4-75 ng/L Total Protein 7.4 6.0-8.3 g/dL Albumin 3.4 L 3.5-5.0 g/dL Urine Color LIGHT-YELLOW YELLOW Urine Appearance CLEAR CLEAR Urine pH 6.0 5.0-8.0 Urine Specific [place] 1.005 1.001-1.031 Urine Protein NEGATIVE NEGATIVE mg/dL Urine Glucose (UA) NEGATIVE NEGATIVE mg/dL Urine Ketones NEGATIVE NEGATIVE mg/dL Urine Occult Blood NEGATIVE NEGATIVE Urine Nitrate NEGATIVE NEGATIVE Urine Bilirubin NEGATIVE NEGATIVE mg/dL Urine Urobilinogen 0.2 0.2-1.0 mg/dL Urine Leukocyte Esterase NEGATIVE NEGATIVE Efren/uL Urine Opiates Screen NEGATIVE NEGATIVE Urine Barbiturates Screen NEGATIVE NEGATIVE Urine Phencyclidine Screen NEGATIVE NEGATIVE Urine Amphetamines Screen NEGATIVE NEGATIVE Urine Benzodiazepines Screen NEGATIVE NEGATIVE Urine Cocaine Screen NEGATIVE NEGATIVE Urine Marijuana (THC) Screen NEGATIVE NEGATIVE Influenza Type A Antigen Negative For Type A NEGATIVE Influenza Type B Antigen Negative For Type B NEGATIVE SARS-CoV-2, RNA, NAAT NEGATIVE SARS CoV-2 NEGATIVE Test 05/18/24 22:06 Range/Units Prothrombin Time 11.9 H 9.6-11.6 SEC Prothromb Time International Ratio 1.11 0.85-1.15 Activated Partial Thromboplast Time 29.1 26.3-35.5 SEC Total Creatine Kinase 300 #H 21-232 U/L Current Medications Medications (Trade) Dose Ordered Sig/Ben Route PRN Reason Start Time Stop Time Status Last Admin Dose Admin Acetaminophen (TYLenol 325MG TAB) 650 mg Q4H PRN PO MILD PAIN (1-3) 05/19/24 01:00 06/18/24 00:59 Acetaminophen (TYLenol 325MG TAB) 650 mg Q6H PRN PO TEMPERATURE GREATER THAN 101.5 05/19/24 01:00 06/18/24 00:59 Albuterol (DUOneb) 1 udvial [id number] IH 05/19/24 02:00 05/19/24 07:41 DC 05/19/24 07:35 1 UDVIAL Albuterol (DUOneb) 1 udvial Q6H PRN IH SHORTNESS OF BREATH 05/19/24 08:00 06/18/24 07:59 Albuterol (DUOneb) 1 udvial [id number] IH 05/19/24 12:00 05/19/24 11:02 DC Azithromycin 250 ml @ 250 mls/hr Q24H IVPB 05/20/24 00:30 05/30/24 00:29 05/20/24 01:33 250 MLS/HR Azithromycin 250 ml @ 250 mls/hr Q24H STAT IVPB 05/18/24 23:38 05/19/24 00:40 DC 05/18/24 23:54 250 MLS/HR Ceftriaxone Sodium (ROCEphine 1G INJ) 1 gm Q24H IVPB 05/20/24 00:30 05/30/24 00:29 05/20/24 01:01 1 GM Famotidine (Pepcid 20mg Tab) 20 mg BID PO 05/19/24 09:00 06/18/24 08:59 05/20/24 08:26 20 MG Furosemide (LASix 20MG VIAL) 20 mg BID IV 05/19/24 09:00 06/18/24 08:59 05/20/24 08:27 20 MG Guaifenesin/ Dextromethorphan (RobiTUSSin DM 200/20MG 10ML) 10 ml Q4H PRN PO COUGH 05/19/24 01:00 06/18/24 00:59 05/19/24 20:57 10 ML Hydralazine HCl (APRESOLine 20MG INJ) 20 mg Q6H PRN IV ADMINISTER FOR SBP > 160 05/19/24 08:00 06/18/24 07:59 Levetiracetam (kepPRA 500 MG TABLET) 500 mg BID PO 05/20/24 09:00 06/19/24 08:59 05/20/24 08:26 500 MG Lorazepam (AtiVAN) 2 mg AD PRN IVP SEIZURE 05/19/24 23:00 05/26/24 22:59 05/20/24 04:31 2 MG Magnesium Sulfate 50 ml @ 0 mls/hr PROTOCOL PRN IV OTHER [SEE ORDER COMMENTS] 05/19/24 01:00 06/18/24 00:59 05/19/24 20:51 25 MLS/HR Nitroglycerin (Nitrostat) 0.4 mg PROTOCOL PRN SL CHEST PAIN 05/19/24 01:00 06/18/24 00:59 Ondansetron HCl (zoFRAN 4MG INJ) 4 mg Q6H PRN IV NAUSEA/VOMITING 05/19/24 01:00 06/18/24 00:59 Potassium Chloride 100 ml @ 50 mls/hr PROTOCOL IV 05/18/24 23:00 05/19/24 00:56 DC 05/18/24 23:06 50 MLS/HR Potassium Chloride 100 ml @ 100 mls/hr AD PRN IV POTASSIUM PROTOCOL 05/19/24 01:00 06/18/24 00:59 Potassium Chloride (K-Dur/Klor-Con 20meq) 20 meq AD PRN PO POTASSIUM PROTOCOL 05/19/24 01:00 06/18/24 00:59 05/20/24 08:26 20 MEQ Potassium Chloride (KCl 10% Elixir 20meq/15ml) 20 meq AD PRN PO POTASSIUM PROTOCOL 05/19/24 01:00 06/18/24 00:59 DIAGNOSTICS / RADIOLOGY: [ ] ASSESSMENT: Syncope and collapse versus seizure episode POA Status post fall injury at home POA Acute respiratory failure 2/2 HF, POA Acute on suspected chronic diastolic HF POA Normocytic normochromic anemia POA Electrolyte derangement POA Suspected pneumonitis, POA Hypertension POA Possible seizures PLAN: Continue admission in PCCU Continue heart healthy diet Continue furosemide 20 mg IV b.i.d. Continue Rocephin and azithromycin for broad-spectrum coverage for pneumonia Continue to replace electrolytes IV per protocol Continue O2 supplementation to keep O2 saturations above 92%, currently satting 95% on 1 L nasal cannula Wean off O2 as tolerated. Decrease O2 by 0.5 L/min every shift. Document accurately supplemental oxygen. Continue IS hourly Continue DuoNebs Continue daily weight, strict I&O and fluid restriction 1.5 L per day neuro check every 4 hours per nursing Continue Fall precaution Cardiology consulted, follow input and recommendation Monitor a.m. labs PRN Treatment - Add when necessary meds for nausea, vomiting, pain, constipation, insomnia. DVT/GI prophylaxis- Continue SCDs and famotidine at current doses. Full CODE STATUS Plan of action discussed patient, all questions answered, agreed and understood the information provided. Total PCU greater 30 minutes. YARITZA TANG MD May 20, 2024 12:32
--- NOTE | 2024-05-20 12:33 | CONS ---
CARDIOLOGY CONSULTATION HISTORY OF PRESENT ILLNESS: This pleasant 48-year-old gentleman. He is well known to me. He underwent left heart catheterization a few months ago. He was admitted to the hospital with shortness of breath, found to have severe pulmonary hypertension with unknown cause. He underwent left heart catheterization, found to have minimal plaques in his LAD. Other vessels were small. The right coronary artery was dominant, it had no significant lesions. His right ventricular pressures were high and he was diagnosed with pulmonary hypertension with a pulmonary capillary wedge pressure of 64. He has done relatively well and has subsequently been admitted for episodes of shortness of breath. He is now admitted with shortness of breath followed by a syncopal episode. He does not remember the details; however, his notes that he was found on the floor. He did not know why he hit the floor. He has no recall of what happened. Apparently, this has happened twice. He has no prodrome, but he does have a family history of seizure disorder. His family did not notice any seizure-like activity. No posturing. No loss of bowel or bladder control. He seconds after his fall. He does have an electrocardiogram, which is nonischemic, but it shows finding of hypertension. He has a very large left atrium, but he is in sinus rhythm. He has RVH. He has had no significant chest discomfort. He has noted some swelling in his lower extremities that has been present for quite some time. He has exacerbations and worsens, he now has a cough. He says the cough is worse after his fall. I suspect he may have aspirated as well. He is ruled out for a stroke. Currently, he is comfortable and has no other significant issues. He is a poor historian. All of his history is obtained from his . Apparently, he has been compliant on his medications according to his . REVIEW OF SYSTEMS: Otherwise, difficult to determine. HEENT: Unremarkable. VITAL SIGNS: His blood pressure is currently 112/77. NECK: Neck veins are moderately elevated to about 7. I could not detect significant changes in venous pressures. LUNGS: Distant, but there are no crackles or wheezes. HEART: Regular. There is a soft midsystolic murmur. There is no S3. Point of maximum impulse is not displaced. There is some fixed splitting of the second sound. ABDOMEN: Obese. EXTREMITIES: He has a soft tissue swelling near the femoral artery, but does not appear to be aneurysmal. Nevertheless, it bothers him. He has some mild scrotal swelling. EXTREMITIES: His lower extremities have 1-2+ edema. Pulses are palpated. All extremities are warm. CURRENT LABORATORY: His white count is 5.6, H and H are 12.9 and 40. INR is 1.1. Chemistries: Sodium 135, potassium is 4.1, glucose 158. Total CK was elevated, likely due to his fall, but his troponins are not elevated. BNP is elevated, I suspect secondary to right heart failure. CURRENT MEDICATIONS: Include antibiotics; furosemide, which has helped the swelling; hydrochlorothiazide; hydralazine on a p.r.n. basis; and others. Chest x-ray shows bilateral pulmonary infiltrates and findings consistent with pneumonia, I suspect this is aspiration. ASSESSMENT AND PLAN: Syncope in a patient with what appears to be relatively severe pulmonary hypertension. I have discussed with him and recommended a pulmonary consult previously for his pulmonary hypertension. He may need specific therapy, whether this is secondary or primary is not clearly known, but I suspect this is primary, thus, a workup for primary pulmonary hypertension is in order. I discussed the above with him. In addition given 2 episodes of syncope that do not appear to be embolic, I have recommended that he be monitored. If nothing is found on the monitor, then he have an implantable loop recorder. He agrees. For now, he will be diuresed. His pneumonia will be treated. Thank you for allowing me to participate in management of this gentleman. He will be followed with you. TID: [id number] RECEIPT: [id number]
--- NOTE | 2024-05-20 13:24 | HMCSR ---
APPROVED REPORT EXAM: Two-dimensional and M-mode echocardiogram with Doppler and color Doppler. INDICATION ICD: pulmonary hypertension 2D Dimensions RVDd6.3 cmLVEF(%)64.0 (>50%)LVED Vol(simp.)58.4 mL IVSd0.8 (0.7-1.1cm)FS(%)34 %LVES Vol(simp.)23.8 mL LVDd3.8 (3.8-5.6cm)LA (2D)3.7 (1.6-4.0cm)LVEF(%, simp.)59 % PWd0.9 (0.7-1.1cm)Ao Root(2D)3.1 (2.0-3.7cm)LA ESV INDEX (4CH)12.60 mL/m2 IVSs0.9 cmLVOT diam2.2 (1.8-2.4cm)LA ESV INDEX (2CH)21.30 mL/m2 LVDs2.5 (2.5-4.0cm)IVC diam2.4 cmLA ESV INDEX (BP)17.10 mL/m2 PWs1.2 cm M-Mode Dimensions EPSS0.8 cm LA (MM)3.7 (1.6-4.0cm) Ao Root(MM)2.8 (2.0-3.7cm) Aortic Valve AoV VTI0.2 mAo Mean GR2.0 mmHgLVOT VTI0.14 m CATHERINE (VMAX)2.6 cm2AVA (VTI) 2.6 cm2 Mitral Valve MV E Vmax51.9 cm/sDECEL Ccpl407 ms MV A Vmax44.1 cm/sP 1/2 T63 ms E/A ratio1.2MVA (PHT)3.5 cm2 Pulmonary Valve PI End Naomy. Art 126.2 cm/s Tricuspid Valve TR Vmax3.4 m/sRAP (EST) 15 pyKeHBEW78.7 mmHg TR Peak GR45.7 mmHg Left Ventricle The left ventricle is normal size. D shaped left ventricle in systole suggesting right ventricular pr essure overload. Flattened septum consistent with right ventricular volume and/or pressure overload. There is normal left ventricular wall thickness. LVEF is 55-60%. The left ventricular diastolic funct ion is normal. Right Ventricle The right ventricle is severely dilated. Right ventricular systolic function is severely reduced. Atria The left atrium size is normal. The right atrium is severely dilated. Aortic Valve The aortic valve is normal in structure. No aortic regurgitation is present. There is no aortic valvu lar stenosis. Mitral Valve The mitral valve is normal in structure. There is no mitral valve regurgitation noted. There is no mi tral valve stenosis. Tricuspid Valve The tricuspid valve is normal in structure. There is moderate tricuspid valve regurgitation noted. Ri ght ventricular systolic pressure is estimage at 61mmHg. Pulmonic Valve The pulmonary valve is normal in structure. There is trivial pulmonic valvular regurgitation. Great Vessels The aortic root is normal in size. The inferior vena cava is mild to moderately dilated with a decrea se in inspiratory collapse. Pericardium Small pericardial effusion. Conclusion The left ventricle is normal size. D shaped left ventricle in systole suggesting right ventricular pressure overload. LVEF is 55-60%. The right ventricle is severely dilated. Right ventricular systolic function is severely reduced. The right atrium is severely dilated. There is moderate tricuspid valve regurgitation noted. Right ventricular systolic pressure is estimage at 61mmHg.
--- NOTE | 2024-05-20 15:26 | CONS ---
CONSULT NOTE: [facility] EEG Note # Demographics Type of EEG Read: - Routine EEG - without video Patient Location: Inpatient First Name: EDUARDO Last Name: MADIHA Date of : 1975 Age: 48 Gender: Male Facility: [facility] Time of Initial Page (Central Time): 05/20/2024, 10:12 Time of Return Call (Central Time): 05/20/2024, 10:13 # EEG Interpretation Start Time of EEG Read (Central Time): 05/20/2024, 09:06 Stop Time of EEG Read (Central Time): 05/20/2024, 09:32 Duration: 0h 26m Technical Details: - The EEG electrodes were placed using the standard International 10-20 system of electrode placement. Video and an accessory EKG lead were used during the course of this study. - This study was recorded using the [employer] EEG software Indication: - seizure - syncope # Description Photic Stimulation: Performed Hyperventilation: NOT performed Phases Captured: - awake - sleep mostly asleep Symmetry: symmetric Posterior Dominant Rhythm: absent Predominant Frequencies: - beta (>15 Hz) - abundant (50-89%) Superimposed Frequencies: - non-posterior dominant alpha (8-12 Hz) - frequent (10-49%) Amplitude: normal Reactivity: unclear Variability: yes Continuity: continuous EKG: NSR # Abnormalities Stimulation: - photic stimulation does NOT cause abnormalities Epileptiform Abnormalities: - NOT present Focal Slowing: no Seizure: - NOT present Artifact: Myogenic and electrode artifact rendered this EEG suboptimal in quality, thus limiting interpretation. If clinical concerns remain, repeat EEG should be considered. # Impression Impression: normal # Clinical Correlation Clinical Correlation: A normal EEG does not exclude nor support the diagnosis of epilepsy. # Logistics Telemedicine: remote EEG review: EEG reviewed remotely # Demographics First Name: EDUARDO Last Name: MADIHA Facility: [facility] JAIRO PARADA MD May 20, 2024 15:26
--- NOTE | 2024-05-20 20:31 | NUR ---
AT THIS TIME PAGED BENCHMARK TO NOTIFY OF PULMONOLOGY CONSULT. Addendum: 05/21/24 at 3925 by ARACELY HERRING RN RN spoke to yris ghotra np during shift. stated am practicioner will see patient.
[2024-05-21] VITALS (11 sets, daily range): BP systolic 94–132; BP diastolic 60–90; PULSE 62–99; RESP 18–20; TEMP 97.1–98.8; O2SAT 88–100
--- NOTE | 2024-05-21 02:09 | PN ---
SUBJECTIVE: He is currently stable. There is no family with him, but he has no complaints. His echo has been reviewed. He continued to worsen in terms of his pulmonary hypertension and his pulmonary pressures greater than 60 with severe tricuspid regurgitation. He has a thick right ventricle as well. He is being worked up for seizure disorder. There has been so far no significant ectopy. ____ still remains a cardiac cause of his syncope. If no cause is found on monitoring by Monday, a loop recorder with some time prior to his discharge should be offered. He has otherwise had no issues. There are no changes in his electrocardiogram and he otherwise is feeling well. No further passing out, but he has not been out of bed. TID: [id number] RECEIPT: [id number]
[2024-05-21 04:43] LABS: HEMATOCRIT 39.4 % (42-54); MEAN CORPUSCULAR HEMOGLOBIN 27.5 pg (27.0-33.0); MEAN CORPUSCULAR HGB CONC 31.2 g/dL (32.0-36.0); MEAN CORPUSCULAR VOLUME 87.9 fL (79-99); RED BLOOD CELL COUNT(AUTO) 4.48 MIL/uL (4.50-6.20); RED CELL DISTRIBUTION WIDTH 15.1 % (11.0-15.5); WHITE BLOOD COUNT (AUTO) 5.2 K/uL (4.8-10.8)
[2024-05-21 05:04] LABS: ALBUMIN 3.3 g/dL (3.5-5.0); BILIRUBIN,TOTAL 0.6 mg/dL (0.2-1.0); CREATININE 1.1 mg/dL (0.5-1.3); MAGNESIUM 2.1 mg/dL (1.80-2.40); POTASSIUM 3.7 mmol/L (3.5-5.1)
[2024-05-21] MEDS: acetaMINOPHEN 325 MG TAB PO PRN (05:48)
[2024-05-21] MEDS: IpraTROPium/alBUTERol SULFATE 3 ML SOLUTION IH PRN (07:46)
[2024-05-21] MEDS ORDERED: IOHEXOL-350 75 ML VIAL IV ONE (09:51)
--- NOTE | 2024-05-21 10:30 | HMCIMG ---
CT CHEST PE PROTOCOL WWO CONT HISTORY: Shortness of breath COMPARISON: None TECHNIQUE: CT angiography of the chest was performed. The study was performed using angiographic technique with maximum intensity projection reconstruction images. Patient was given 75 cc of Omnipaque through intravenous route. FINDINGS: No CT evidence of filling defect is seen to suggest pulmonary embolus. No CT evidence of aortic dissection is seen. Prominent interstitial markings are seen with early infiltrates not excluded. Small pericardial effusion is seen. There is mild to moderate right pleural effusion. The heart is enlarged. No evidence of adrenal mass is seen. Degenerative changes of the spine are noted. Fatty changes of the liver are noted. Tiny ascites is seen. IMPRESSION: 1. No CT evidence of acute pulmonary embolus is seen. Small to moderate right pleural effusion and small pericardial effusion. Tiny ascites is seen. CT was performed with one or more following dose reduction techniques: automated exposure control, adjustment of the mA and kv according to patient's size, or use of a iterative reconstruction technique.
--- NOTE | 2024-05-21 10:50 | NUR ---
ASKED PATIENT TO ASK FAMILY TO BRING HOME MEDICATIONS TO INPUT IN SYSTEM
--- NOTE | 2024-05-21 12:03 | PN ---
[facility] PROGRESS NOTE Date of Service: May 21, 2024 Time of Service: 12:03 SUBJECTIVE: [ ] Seen and examined in room 232 PCP self-referral Admitting date 05/18/2024 Today on bedside evaluation patient was found awake alert and oriented x 3. The power chart reviewed, vital signs, laboratory tests, imaging test and medications have been reviewed. Latest vitals are stable, satting 98% on2 L nasal cannula. CBC is stable with a white count of 5.6 with negative left shift neutrophils 88.1, sodium 135, magnesium 1.7, BNP 445. Continue DuoNebs, continue IS, pending respiratory cultures, continue strict I&Os, daily weights, fluid restriction 1.5 L/daily. Continue IV Rocephin and azithromycin. We will follow Dr. Yousif's recommendations. 05/20 the patient has been seen and examined during my rounding, he is on Keppra IV, alert oriented x3, per discussion with the nurse, had short episode of s eizure today, no loss of consciousness, BP 119/89, afebrile, saturating normal on room air. Results of MRI unremarkable, no evidence of acute infarct, discussed with the patient. No family members at bedside. 05/21 the patient has been seen and examined during my rounding, comfortably in bed, no acute events overnight, remains hemodynamically stable, no episodes of seizure activity throughout the night. Results of EEG unremarkable, discussed with the patient. REVIEW OF SYSTEMS CONSTITUTIONAL: Denies fevers, chills, or night sweats. No unintentional weight loss reported. NEUROLOGICAL: Denies headache, amaurosis fugax, motor weakness, sensory deficit, vertigo/spinning sensation, gait abnormalities, or tremors. ENT: No hearing loss, otalgia, otorrhea, rhinitis, rhinorrhea, hoarseness, or so re throat. CARDIOVASCULAR: Denies any exertional angina, dyspnea on exertion, orthopnea, paroxysmal nocturnal dyspnea, palpitations, life-threatening arrhythmias, claudication. PULMONARY: Complain of shortness of breaths productive cough Denies hemoptysis, pleuritic chest pain. SLEEP: Denies morning headaches, daytime somnolence or napping. Denies difficulty falling asleep, staying asleep, waking from sleep. Denies knowledge of snoring. GASTROINTESTINAL: Denies any type of dysphagia to either liquids or solids. Denies nausea, vomiting, pyrosis, early satiety, abdominal pain, diarrhea, constipation, or changes in stool consistency or caliber. Denies coffee-ground emesis, hematemesis, hematochezia, or melanotic stools. GENITOURINARY: Denies frequency, urgency, nocturia, hematuria or incontinence (Storage/Irritative symptoms.) Low urinary stream, straining to void, urinary intermittency or hesitancy, splitting of the voiding stream, terminal dribbling. ENDOCRINOLOGIC: Denies polyuria, polydipsia, polyphagia or heat/cold intolerances. HEMATOLOGIC: Denies thrombophilia/previous clots, or coagulopathy/bleeding disorders. ONCOLOGIC: Denies personal history of malignancy. DERMATOLOGIC: Denies rashes or pruritus. PSYCHIATRIC: Denies any suicidal or homicidal ideation. Denies hallucinations. PHYSICAL EXAM GENERAL APPEARANCE: The patient is awake, alert, and oriented, in no acute cardiopulmonary distress. NEUROLOGICAL: Cranial nerves II-XII grossly intact. Motor is 5/5 in bilateral upper and lower extremities proximal to distal. No sensory deficits. HEENT: Face is symmetric. Pupils are equal and reactive. Extraocular movements are intact. NECK: Supple. No JVD. No thyromegaly. No submental, submandibular, pre- /postauricular, occipital or supraclavicular lymphadenopathy. CHEST: Normal chest expansion. No Telemetry. LUNGS: Absence of any rales, rhonchi or any wheezing. CARDIOVASCULAR: Regular. S1 and S2 normal. No appreciable rubs, murmurs or gallops. ABDOMEN: Soft, nontender, and nondistended. There is no rebound, voluntary guarding, or rigidity. : Deferred. No [place]. EXTREMITIES: Trace of edema to bilateral lower extremities SKIN: No skin breakdown. Vital Signs (last 8hr) Date Time Temp Pulse Resp B/P (MAP) Pulse Ox O2 Delivery O2 Flow Rate FiO2 05/21/24 11:58 97.7 62 20 94/60 96 Room Air 05/21/24 11:34 80 20 05/21/24 10:23 97 Nasal Cannula* 1 05/21/24 07:47 82 18 N/Cannula Low lpm 1.0 05/21/24 07:46 82 18 05/21/24 07:42 98.8 63 20 112/66 99 Room Air 05/21/24 04:54 98.8 71 20 107/74 95 Room Air LABS: Laboratory: Test 05/21/24 08:20 05/21/24 04:21 05/20/24 04:26 05/19/24 22:06 Range/Units D-Dimer Quantitative (PE/DVT) 2207 *H 0-500 ng/mL White Blood Count 5.2 4.8-10.8 K/uL Red Blood Count 4.48 L 4.50-6.20 MIL/uL Hemoglobin 12.3 L 14.0-18.0 g/dL Hematocrit 39.4 L 42-54 % Mean Corpuscular Volume 87.9 79-99 fL Mean Corpuscular Hemoglobin 27.5 27.0-33.0 pg Mean Corpuscular Hemoglobin Concent 31.2 L 32.0-36.0 g/dL Red Cell Distribution Width 15.1 11.0-15.5 % Platelet Count 134 130-400 K/uL Mean Platelet Volume 10.4 7.5-10.5 fL Nucleated Red Blood Cells 0.0 0.0-0.19 % Sodium Level 141 136-145 mmol/L Potassium Level 3.7 3.5-5.1 mmol/L Chloride Level 104 101-111 mmol/L Carbon Dioxide Level 30 21-32 mmol/L Blood Urea Nitrogen 21 H 7-18 mg/dL Creatinine 1.1 0.5-1.3 mg/dL Glomerular Filtration Rate Calc 82 >90 mL/min Random Glucose 98 70-105 mg/dL Total Calcium 8.3 L 8.5-10.1 mg/dL Magnesium Level 2.10 1.80-2.40 mg/dL Total Bilirubin 0.6 0.2-1.0 mg/dL Aspartate Amino Transf (AST/SGOT) 25 10-37 U/L Alanine Aminotransferase (ALT/SGPT) 20 12-78 U/L Alkaline Phosphatase 154 H 50-136 U/L Total Protein 7.0 6.0-8.3 g/dL Albumin 3.3 L 3.5-5.0 g/dL Immature Granulocyte % (Auto) 0.6 0-1 % Neutrophils (%) (Auto) 71.7 40.0-77.0 % Lymphocytes (%) (Auto) 16.9 L 21.0-51.0 % Monocytes (%) (Auto) 9.6 3.0-13.0 % Eosinophils (%) (Auto) 0.9 0.0-8.0 % Basophils (%) (Auto) 0.3 0.0-5.0 % Neutrophils # (Auto) 4.8 1.8-7.7 K/uL Lymphocytes # (Auto) 1.1 1.0-4.8 K/uL Monocytes # (Auto) 0.7 0.1-1.0 K/uL Eosinophils # (Auto) 0.06 0.00-0.70 K/uL Basophils # (Auto) 0.02 0.00-0.20 K/uL Absolute Immature Granulocyte (auto 0.04 0-1 K/uL B-Type Natriuretic Peptide 504 H 0-100 pg/mL Prolactin 13.2 3.9-22.7 ng/mL Current Medications Medications (Trade) Dose Ordered Sig/Ben Route PRN Reason Start Time Stop Time Status Last Admin Dose Admin Acetaminophen (TYLenol 325MG TAB) 650 mg Q4H PRN PO MILD PAIN (1-3) 05/19/24 01:00 06/18/24 00:59 05/21/24 05:48 650 MG Acetaminophen (TYLenol 325MG TAB) 650 mg Q6H PRN PO TEMPERATURE GREATER THAN 101.5 05/19/24 01:00 06/18/24 00:59 Albuterol (DUOneb) 1 udvial [id number] IH 05/19/24 02:00 05/19/24 07:41 DC 05/19/24 07:35 1 UDVIAL Albuterol (DUOneb) 1 udvial Q6H PRN IH SHORTNESS OF BREATH 05/19/24 08:00 06/18/24 07:59 05/21/24 11:33 1 UDVIAL Albuterol (DUOneb) 1 udvial [id number] IH 05/19/24 12:00 05/19/24 11:02 DC Azithromycin 250 ml @ 250 mls/hr Q24H IVPB 05/20/24 00:30 05/30/24 00:29 05/21/24 00:43 250 MLS/HR Azithromycin 250 ml @ 250 mls/hr Q24H STAT IVPB 05/18/24 23:38 05/19/24 00:40 DC 05/18/24 23:54 250 MLS/HR Ceftriaxone Sodium (ROCEphine 1G INJ) 1 gm Q24H IVPB 05/20/24 00:30 05/30/24 00:29 05/21/24 00:03 1 GM Famotidine (Pepcid 20mg Tab) 20 mg BID PO 05/19/24 09:00 06/18/24 08:59 05/21/24 08:12 20 MG Furosemide (LASix 20MG VIAL) 20 mg BID IV 05/19/24 09:00 06/18/24 08:59 05/21/24 08:12 20 MG Guaifenesin/ Dextromethorphan (RobiTUSSin DM 200/20MG 10ML) 10 ml Q4H PRN PO COUGH 05/19/24 01:00 06/18/24 00:59 05/20/24 21:11 10 ML Hydralazine HCl (APRESOLine 20MG INJ) 20 mg Q6H PRN IV ADMINISTER FOR SBP > 160 05/19/24 08:00 06/18/24 07:59 Levetiracetam (kepPRA 500 MG TABLET) 500 mg BID PO 05/20/24 09:00 06/19/24 08:59 05/21/24 08:12 500 MG Lorazepam (AtiVAN) 2 mg AD PRN IVP SEIZURE 05/19/24 23:00 05/26/24 22:59 05/20/24 04:31 2 MG Magnesium Sulfate 50 ml @ 0 mls/hr PROTOCOL PRN IV OTHER [SEE ORDER COMMENTS] 05/19/24 01:00 06/18/24 00:59 05/19/24 20:51 25 MLS/HR Nitroglycerin (Nitrostat) 0.4 mg PROTOCOL PRN SL CHEST PAIN 05/19/24 01:00 06/18/24 00:59 Ondansetron HCl (zoFRAN 4MG INJ) 4 mg Q6H PRN IV NAUSEA/VOMITING 05/19/24 01:00 06/18/24 00:59 Potassium Chloride 100 ml @ 50 mls/hr PROTOCOL IV 05/18/24 23:00 05/19/24 00:56 DC 05/18/24 23:06 50 MLS/HR Potassium Chloride 100 ml @ 100 mls/hr AD PRN IV POTASSIUM PROTOCOL 05/19/24 01:00 06/18/24 00:59 Potassium Chloride (K-Dur/Klor-Con 20meq) 20 meq AD PRN PO POTASSIUM PROTOCOL 05/19/24 01:00 06/18/24 00:59 05/21/24 08:14 20 MEQ Potassium Chloride (KCl 10% Elixir 20meq/15ml) 20 meq AD PRN PO POTASSIUM PROTOCOL 05/19/24 01:00 06/18/24 00:59 DIAGNOSTICS / RADIOLOGY: [ ] ASSESSMENT: Syncope and collapse versus seizure episode POA Status post fall injury at home POA Acute respiratory failure 2/2 HF, POA Acute on suspected chronic diastolic HF POA Normocytic normochromic anemia POA Electrolyte derangement POA Suspected pneumonitis, POA Hypertension POA Possible seizures Large right groin pseudoaneurysm PLAN: Continue admission in PCCU Continue heart healthy diet Continue furosemide 20 mg IV b.i.d. Continue Rocephin and azithromycin for broad-spectrum coverage for pneumonia Continue to replace electrolytes IV per protocol Continue O2 supplementation to keep O2 saturations above 92%, currently satting 95% on 1 L nasal cannula Wean off O2 as tolerated. Decrease O2 by 0.5 L/min every shift. Document accurately supplemental oxygen. Continue IS hourly Continue DuoNebs Continue daily weight, strict I&O and fluid restriction 1.5 L per day neuro check every 4 hours per nursing Continue Fall precaution Cardiology consulted, follow input and recommendation Monitor a.m. labs PRN Treatment - Add when necessary meds for nausea, vomiting, pain, constipation, insomnia. DVT/GI prophylaxis- Continue SCDs and famotidine at current doses. Full CODE STATUS Disposition: Plan for left heart catheterization on implantable loop recorder tomorrow by type proof reproducer. The patient with a pseudo aneurysmal to the right groin area, we will request CV surgery consultation. EEG unremarkable, continue Keppra per Neurology recommendation. Plan of action discussed with the patient, all questions answered. Total PCU greater 30 minutes. YARITZA TANG MD May 21, 2024 12:03
--- NOTE | 2024-05-21 18:33 | CONS ---
[facility] CONSULTATION NOTE Date Patient Seen: May 21, 2024 Time of Visit: 18:33 Supervising Physician: Jean Paul Vuong MD Reason for Consultation: Pulmonary HTN Primary Care Physician: Self ReferraL Outpatient Specialists: Inpatient Consults: Attending: Keyla shaffer PROBLEM LIST: Acute hypoxic respiratory failure, POA Small to moderate right pleural effusion, POA Small pericardial effusion, POA Severe pulmonary hypertension, POA RVSP of 60 mm Hg pending rt and lt Heart Cath Syncope and collapse POA Normocytic and normochromic anemia, POA Electrolyte derangement, POA Suspected pneumonitis, POA Hypertension, POA Possible seizure, POA r/o EEG unremarkable, continue Keppra per Neurology Marked right groin pseudoaneurysm, POA Tiny ascites, POA Former heavy smoker, quit 16 years ago HPI: This is a 48 obese year old male with a past medical history of CHF and hypertension who presented to the ED on 05/18/24 for complaints of syncopal episode and a proximally nine in the morning. Patient reports this happened after cough spell in which progressed to shortness of breath calcium to pass out as per patient. Patient was admitted by catalyst team to PCCU for syncopal episode versus suspected seizure. Tele neurology was consulted which recommended EEG that was unremarkable, into start Keppra 500 p.o. b.i.d.. No further episodes during this hospitalization of any seizure-like activity. When we were consulted for severe pulmonary hypertension. on 2D echo on 05/20/24 which showed an RVSP of 60.7 mm Hg the left ventricle is normal size, D shaped left ventricle in systole suggesting right ventricle pressure overload. LVEF is 55-60% the right ventricle is severely dilated there is moderate tricuspid valve regurgitation noted right ventricular systolic pressure is estimated at 61 mm Hg. CTA of the chest for PE protocol was performed today with no evidence of acute pulmonary embolism. Small moderate right pleural effusion and small pericardial effusion. Tiny ascites seen. Patient assessed in room 232 awake alert and oriented x3 on 1 L via nasal cannula saturating 97% hemodynamically stable with blood pressure 132/87 heart rate in the 80s respiratory of 20 breaths per minute with no apparent distress. Patient has been afebrile since admission. On laboratory WBCs are 5.2 H&H is 12.3/39.4 platelet count is normal. Chemistries sodium 141 BUN 21 creatinine 1.1 GFR of 82 albumin 3.3. On sputum culture oral ritchie. We will await to left and right heart catheterization for further recommendations which is already planned for tomorrow per Cardiology. For now patient continue on Lasix 20 mg b.i.d. IV push. Patient may also continue on CAP coverage as already is with Rocephin and azithromycin. PAST MEDICAL HX: CHF Hypertension PAST SURGICAL HX: Right hip surgery Right hip hardware removal by Dr. Lieberman on 01/15/23 Right femur fracture or by Dr. Sanchez in 10/06/22 SOCIAL HISTORY: Lives with Former heavy tobacco smoker for many years approximately one pack a day quit 16 years ago. Drinks three beers daily Coded Allergies: No Known Allergies (Unverified Allergy, Unknown, 10/10/22) REVIEW OF SYSTEMS: 12 point ROS reviewed with patient. Pertinent positives mentioned above. Otherwise negative. PHYSICAL EXAM: GENERAL: alert, weak, awake oriented x 3 HEENT: EOMI, Sclera non icteric, moist mucosa NECK: Supple, no JVD, trachea midline LUNGS: Clear breath sounds bilaterally. No wheezes HEART: Regular rate and rhythm. Normal S1 and S2, without murmurs ABD: Abdomen soft, nontender. Bowel sounds present EXT: No clubbing cyanosis or edema NEURO: Alert and oriented to person, follows commands Vital Signs (last 8hr) Date Time Temp Pulse Resp B/P (MAP) Pulse Ox O2 Delivery O2 Flow Rate FiO2 05/21/24 17:08 98.6 99 20 132/87 97 Room Air 05/21/24 11:58 97.7 62 20 94/60 96 Room Air 05/21/24 11:34 80 20 LABS: Hematology Labs: Test 05/21/24 04:21 05/20/24 04:26 Range/Units White Blood Count 5.2 4.8-10.8 K/uL Red Blood Count 4.48 L 4.50-6.20 MIL/uL Hemoglobin 12.3 L 14.0-18.0 g/dL Hematocrit 39.4 L 42-54 % Mean Corpuscular Volume 87.9 79-99 fL Mean Corpuscular Hemoglobin 27.5 27.0-33.0 pg Mean Corpuscular Hemoglobin Concent 31.2 L 32.0-36.0 g/dL Red Cell Distribution Width 15.1 11.0-15.5 % Platelet Count 134 130-400 K/uL Mean Platelet Volume 10.4 7.5-10.5 fL Nucleated Red Blood Cells 0.0 0.0-0.19 % Immature Granulocyte % (Auto) 0.6 0-1 % Neutrophils (%) (Auto) 71.7 40.0-77.0 % Lymphocytes (%) (Auto) 16.9 L 21.0-51.0 % Monocytes (%) (Auto) 9.6 3.0-13.0 % Eosinophils (%) (Auto) 0.9 0.0-8.0 % Basophils (%) (Auto) 0.3 0.0-5.0 % Neutrophils # (Auto) 4.8 1.8-7.7 K/uL Lymphocytes # (Auto) 1.1 1.0-4.8 K/uL Monocytes # (Auto) 0.7 0.1-1.0 K/uL Eosinophils # (Auto) 0.06 0.00-0.70 K/uL Basophils # (Auto) 0.02 0.00-0.20 K/uL Absolute Immature Granulocyte (auto 0.04 0-1 K/uL Chemistry Labs: Test 05/21/24 04:21 05/20/24 04:26 05/19/24 22:06 Range/Units Sodium Level 141 136-145 mmol/L Potassium Level 3.7 3.5-5.1 mmol/L Chloride Level 104 101-111 mmol/L Carbon Dioxide Level 30 21-32 mmol/L Blood Urea Nitrogen 21 H 7-18 mg/dL Creatinine 1.1 0.5-1.3 mg/dL Glomerular Filtration Rate Calc 82 >90 mL/min Random Glucose 98 70-105 mg/dL Total Calcium 8.3 L 8.5-10.1 mg/dL Magnesium Level 2.10 1.80-2.40 mg/dL Total Bilirubin 0.6 0.2-1.0 mg/dL Aspartate Amino Transf (AST/SGOT) 25 10-37 U/L Alanine Aminotransferase (ALT/SGPT) 20 12-78 U/L Alkaline Phosphatase 154 H 50-136 U/L Total Protein 7.0 6.0-8.3 g/dL Albumin 3.3 L 3.5-5.0 g/dL B-Type Natriuretic Peptide 504 H 0-100 pg/mL Prolactin 13.2 3.9-22.7 ng/mL Coagulation Labs: Test 05/21/24 08:20 Range/Units D-Dimer Quantitative (PE/DVT) 2207 *H 0-500 ng/mL DIAGNOSTICS / RADIOLOGY RESULTS: IMAGING REPORT Signed PATIENT: EDUARDO CLEARY MR#: [id number] : 1975 SEX: M AGE: 48 LOCATION: 2AH ORDER 4 STATUS: ADM IN REPORT#: [id number] SERVICE REASON: R/O PE ORDERING PHYSICIAN: ROLAN ROBERSON PROCEDURE: CHES PE - CT CHEST PE PROTOCOL WWO CONT CT CHEST PE PROTOCOL WWO CONT HISTORY: Shortness of breath COMPARISON: None TECHNIQUE: CT angiography of the chest was performed. The study was performed using angiographic technique with maximum intensity projection reconstruction images. Patient was given 75 cc of Omnipaque through intravenous route. FINDINGS: No CT evidence of filling defect is seen to suggest pulmonary embolus. No CT evidence of aortic dissection is seen. Prominent interstitial markings are seen with early infiltrates not excluded. Small pericardial effusion is seen. There is mild to moderate right pleural effusion. The heart is enlarged. No evidence of adrenal mass is seen. Degenerative changes of the spine are noted. Fatty changes of the liver are noted. Tiny ascites is seen. IMPRESSION: 1. No CT evidence of acute pulmonary embolus is seen. Small to moderate right pleural effusion and small pericardial effusion. Tiny ascites is seen. CT was performed with one or more following dose reduction techniques: automated exposure control, adjustment of the mA and kv according to patient's size, or use of a iterative reconstruction technique. DICTATED BY: LORI MALDONADO MD DATE: 05/21/24 1019 ELECTRONICALLY SIGNED BY: LORI MALDONADO MD DATE: 05/21/24 1030 PLAN await left and rt heart cath which is planned for tomorrow per Cardiology for now line diuresis with Lasix 20 mg IV q.12 hours. Sildenafil not recommended due to this is likely not group 1 pulmonary hypertension NEURO: Minimize central acting medications as possible. Maintain fall precautions, adequate lighting during the day Seizure precautions Continue AED per neurology recommendations PULMONARY: Supplemental 02 as needed. Maintain aspiration precautions at all times Singulair 10 mg p.o. q.h.s. Pulmicort q.12 hours Duo nebs p.r.n. CARDIOVASCULAR: Follow hemodynamics. Vital signs per facility protocol Telemetry monitoring Lasix 20 mg IV q.12 hours GI & NUTRITION: Continue with nutritional support. Continue stool softeners and laxatives as needed. KIDNEYS & ELECTROLYTES: Strict monitoring of intake, output and overall fluid balance. Avoid nephrotoxic medications to the extent possible. Medications to be dosed according to renal function. Monitor electrolytes and replace as needed ENDOCRINE: Maintain blood glucose between 100-180 at all times. Hypoglycemia protocol in place INFECTIOUS DISEASE: Trend temperature, WBC and procalcitonin level Follow cultures, deescalate antibiotics as soon as possible. Panculture if new onset fever Cap coverage with Rocephin and azithromycin ONCOLOGY/HEMATOLOGY/COAGULATION: Monitor for s/s of bleeding Monitor hemoglobin, coagulation studies as needed SKIN: Pressure ulcer prevention per facility protocol Specialty mattress ORTHO/REHAB: Continue PT/OT Prophylaxis: Continue GI and DVT prophylaxis Code Status: Full Resuscitation Disposition: Per primary team. Other: Total patient care time exceeds 35 minutes excluding all procedures. ROLAN ROBERSON [facility] May 21, 2024 18:33
[2024-05-21] MEDS: cefTRIAXone 1G VIAL IVPB SCH (23:11)
[2024-05-22] VITALS (25 sets, daily range): BP systolic 107–126; BP diastolic 62–94; PULSE 64–80; RESP 13–23; TEMP 97.7–98.2; O2SAT 94–100
--- NOTE | 2024-05-22 00:01 | CONS ---
HISTORY OF PRESENT ILLNESS: This is a 48-year-old gentleman who underwent a cardiac catheterization back in January and has developed a right groin pseudoaneurysm, measuring 3.2 x 2.3 cm. The patient is to have a cardiac catheterization tomorrow to rule out pulmonary hypertension. PHYSICAL EXAMINATION: He has got a pulsatile mass, but no acute pain and no hematoma. IMPRESSION: I have had the opportunity to review the films and the history and my recommendation is to repeat the ultrasound to make sure that the ultrasound is still patent and attempt a thrombin injection. If this fails, then surgery should be indicated. TID: [id number] RECEIPT: [id number]
[2024-05-22 04:37] LABS: HEMATOCRIT 38.8 % (42-54); MEAN CORPUSCULAR HEMOGLOBIN 27.3 pg (27.0-33.0); MEAN CORPUSCULAR HGB CONC 31.2 g/dL (32.0-36.0); MEAN CORPUSCULAR VOLUME 87.4 fL (79-99); RED BLOOD CELL COUNT(AUTO) 4.44 MIL/uL (4.50-6.20); WHITE BLOOD COUNT (AUTO) 5.5 K/uL (4.8-10.8)
[2024-05-22 04:54] LABS: ALBUMIN 3.3 g/dL (3.5-5.0); BILIRUBIN,TOTAL 0.7 mg/dL (0.2-1.0); CREATININE 1.2 mg/dL (0.5-1.3); INR 1.08 (0.85-1.15); POTASSIUM 3.9 mmol/L (3.5-5.1); PROTHROMBIN TIME 11.6 SEC (9.6-11.6)
[2024-05-22 04:56] LABS: PARTIAL THROMBOPLASTIN TIME 28.4 SEC (26.3-35.5)
[2024-05-22] MEDS: BUDESONIDE 0.5 MG/2 ML INH IH SCH (06:48)
[2024-05-22] MEDS: metoCLOPRAmide 10 MG/2 ML VIAL IVP ONE (09:03)
[2024-05-22] MEDS: monteLUKAST sodIUM 10 MG TAB PO SCH (09:04)
--- NOTE | 2024-05-22 10:42 | PN ---
[facility] PROGRESS NOTE Date of Service: May 22, 2024 Time of Service: 10:42 SUBJECTIVE: [ ] Seen and examined in room 232 PCP self-referral Admitting date 05/18/2024 Today on bedside evaluation patient was found awake alert and oriented x 3. The power chart reviewed, vital signs, laboratory tests, imaging test and medications have been reviewed. Latest vitals are stable, satting 98% on2 L nasal cannula. CBC is stable with a white count of 5.6 with negative left shift neutrophils 88.1, sodium 135, magnesium 1.7, BNP 445. Continue DuoNebs, continue IS, pending respiratory cultures, continue strict I&Os, daily weights, fluid restriction 1.5 L/daily. Continue IV Rocephin and azithromycin. We will follow Dr. Yousif's recommendations. 05/20 the patient has been seen and examined during my rounding, he is on Keppra IV, alert oriented x3, per discussion with the nurse, had short episode of s eizure today, no loss of consciousness, BP 119/89, afebrile, saturating normal on room air. Results of MRI unremarkable, no evidence of acute infarct, discussed with the patient. No family members at bedside. 05/21 the patient has been seen and examined during my rounding, comfortably in bed, no acute events overnight, remains hemodynamically stable, no episodes of seizure activity throughout the night. Results of EEG unremarkable, discussed with the patient. REVIEW OF SYSTEMS CONSTITUTIONAL: Denies fevers, chills, or night sweats. No unintentional weight loss reported. NEUROLOGICAL: Denies headache, amaurosis fugax, motor weakness, sensory deficit, vertigo/spinning sensation, gait abnormalities, or tremors. ENT: No hearing loss, otalgia, otorrhea, rhinitis, rhinorrhea, hoarseness, or so re throat. CARDIOVASCULAR: Denies any exertional angina, dyspnea on exertion, orthopnea, paroxysmal nocturnal dyspnea, palpitations, life-threatening arrhythmias, claudication. PULMONARY: Complain of shortness of breaths productive cough Denies hemoptysis, pleuritic chest pain. SLEEP: Denies morning headaches, daytime somnolence or napping. Denies difficulty falling asleep, staying asleep, waking from sleep. Denies knowledge of snoring. GASTROINTESTINAL: Denies any type of dysphagia to either liquids or solids. Denies nausea, vomiting, pyrosis, early satiety, abdominal pain, diarrhea, constipation, or changes in stool consistency or caliber. Denies coffee-ground emesis, hematemesis, hematochezia, or melanotic stools. GENITOURINARY: Denies frequency, urgency, nocturia, hematuria or incontinence (Storage/Irritative symptoms.) Low urinary stream, straining to void, urinary intermittency or hesitancy, splitting of the voiding stream, terminal dribbling. ENDOCRINOLOGIC: Denies polyuria, polydipsia, polyphagia or heat/cold intolerances. HEMATOLOGIC: Denies thrombophilia/previous clots, or coagulopathy/bleeding disorders. ONCOLOGIC: Denies personal history of malignancy. DERMATOLOGIC: Denies rashes or pruritus. PSYCHIATRIC: Denies any suicidal or homicidal ideation. Denies hallucinations. PHYSICAL EXAM GENERAL APPEARANCE: The patient is awake, alert, and oriented, in no acute cardiopulmonary distress. NEUROLOGICAL: Cranial nerves II-XII grossly intact. Motor is 5/5 in bilateral upper and lower extremities proximal to distal. No sensory deficits. HEENT: Face is symmetric. Pupils are equal and reactive. Extraocular movements are intact. NECK: Supple. No JVD. No thyromegaly. No submental, submandibular, pre- /postauricular, occipital or supraclavicular lymphadenopathy. CHEST: Normal chest expansion. No Telemetry. LUNGS: Absence of any rales, rhonchi or any wheezing. CARDIOVASCULAR: Regular. S1 and S2 normal. No appreciable rubs, murmurs or gallops. ABDOMEN: Soft, nontender, and nondistended. There is no rebound, voluntary guarding, or rigidity. : Deferred. No [place]. EXTREMITIES: Trace of edema to bilateral lower extremities SKIN: No skin breakdown. Vital Signs (last 8hr) Date Time Temp Pulse Resp B/P (MAP) Pulse Ox O2 Delivery O2 Flow Rate FiO2 05/22/24 07:00 98.2 73 22 118/77 99 Nasal Cannula 2.0 05/22/24 06:51 72 18 05/22/24 06:51 72 18 N/Cannula Low lpm 3.0 05/22/24 03:50 97.7 74 20 121/81 98 Room Air LABS: Laboratory: Test 05/22/24 04:25 05/21/24 08:20 Range/Units White Blood Count 5.5 4.8-10.8 K/uL Red Blood Count 4.44 L 4.50-6.20 MIL/uL Hemoglobin 12.1 L 14.0-18.0 g/dL Hematocrit 38.8 L 42-54 % Mean Corpuscular Volume 87.4 79-99 fL Mean Corpuscular Hemoglobin 27.3 27.0-33.0 pg Mean Corpuscular Hemoglobin Concent 31.2 L 32.0-36.0 g/dL Red Cell Distribution Width 15.0 11.0-15.5 % Platelet Count 123 L 130-400 K/uL Mean Platelet Volume 9.9 7.5-10.5 fL Nucleated Red Blood Cells 0.0 0.0-0.19 % Prothrombin Time 11.6 9.6-11.6 SEC Prothromb Time International Ratio 1.08 0.85-1.15 Activated Partial Thromboplast Time 28.4 26.3-35.5 SEC Sodium Level 142 136-145 mmol/L Potassium Level 3.9 3.5-5.1 mmol/L Chloride Level 105 101-111 mmol/L Carbon Dioxide Level 31 21-32 mmol/L Blood Urea Nitrogen 21 H 7-18 mg/dL Creatinine 1.2 0.5-1.3 mg/dL Glomerular Filtration Rate Calc 74 >90 mL/min Random Glucose 107 H 70-105 mg/dL Total Calcium 8.3 L 8.5-10.1 mg/dL Magnesium Level 2.00 1.80-2.40 mg/dL Total Bilirubin 0.7 0.2-1.0 mg/dL Aspartate Amino Transf (AST/SGOT) 26 10-37 U/L Alanine Aminotransferase (ALT/SGPT) 21 12-78 U/L Alkaline Phosphatase 164 H 50-136 U/L Total Protein 7.0 6.0-8.3 g/dL Albumin 3.3 L 3.5-5.0 g/dL D-Dimer Quantitative (PE/DVT) 2207 *H 0-500 ng/mL Current Medications Medications (Trade) Dose Ordered Sig/Ben Route PRN Reason Start Time Stop Time Status Last Admin Dose Admin Acetaminophen (TYLenol 325MG TAB) 650 mg Q4H PRN PO MILD PAIN (1-3) 05/19/24 01:00 06/18/24 00:59 05/21/24 05:48 650 MG Acetaminophen (TYLenol 325MG TAB) 650 mg Q6H PRN PO TEMPERATURE GREATER THAN 101.5 05/19/24 01:00 06/18/24 00:59 Albuterol (DUOneb) 1 udvial [id number] IH 05/19/24 02:00 05/19/24 07:41 DC 05/19/24 07:35 1 UDVIAL Albuterol (DUOneb) 1 udvial Q6H PRN IH SHORTNESS OF BREATH 05/19/24 08:00 06/18/24 07:59 05/22/24 06:48 1 UDVIAL Albuterol (DUOneb) 1 udvial [id number] IH 05/19/24 12:00 05/19/24 11:02 DC Azithromycin 250 ml @ 250 mls/hr Q24H IVPB 05/20/24 00:30 05/30/24 00:29 05/21/24 23:11 250 MLS/HR Azithromycin 250 ml @ 250 mls/hr Q24H STAT IVPB 05/18/24 23:38 05/19/24 00:40 DC 05/18/24 23:54 250 MLS/HR Budesonide (Pulmicort 0.5 Mg/2ml) 0.5 mg BIDRESP IH 05/22/24 06:00 06/21/24 05:59 05/22/24 06:48 0.5 MG Ceftriaxone Sodium (ROCEphine 1G INJ) 1 gm Q24H IVPB 05/20/24 00:30 05/21/24 18:52 DC 05/21/24 00:03 1 GM Ceftriaxone Sodium (ROCEphine 1G INJ) 2 gm Q24H IVPB 05/22/24 00:30 05/22/24 08:57 DC 05/21/24 23:11 2 GM Ceftriaxone Sodium (Rocephin 2gm Inj) 2 gm Q24H IVPB 05/23/24 00:30 06/01/24 00:29 Famotidine (Pepcid 20mg Tab) 20 mg BID PO 05/19/24 09:00 06/18/24 08:59 05/22/24 09:04 20 MG Furosemide (LASix 20MG VIAL) 20 mg BID IV 05/19/24 09:00 06/18/24 08:59 12/4/24 09:03 20 MG Guaifenesin/ Dextromethorphan (RobiTUSSin DM 200/20MG 10ML) 10 ml Q4H PRN PO COUGH 05/19/24 01:00 06/18/24 00:59 05/22/24 02:33 10 ML Hydralazine HCl (APRESOLine 20MG INJ) 20 mg Q6H PRN IV ADMINISTER FOR SBP > 160 05/19/24 08:00 06/18/24 07:59 Levetiracetam (kepPRA 500 MG TABLET) 500 mg BID PO 05/20/24 09:00 06/19/24 08:59 05/22/24 09:04 500 MG Lorazepam (AtiVAN) 2 mg AD PRN IVP SEIZURE 05/19/24 23:00 05/26/24 22:59 05/20/24 04:31 2 MG Magnesium Sulfate 50 ml @ 0 mls/hr PROTOCOL PRN IV OTHER [SEE ORDER COMMENTS] 05/19/24 01:00 06/18/24 00:59 05/19/24 20:51 25 MLS/HR Montelukast Sodium (SinguLAIR) 10 mg DAILY PO 05/22/24 09:00 06/21/24 08:59 05/22/24 09:04 10 MG Nitroglycerin (Nitrostat) 0.4 mg PROTOCOL PRN SL CHEST PAIN 05/19/24 01:00 06/18/24 00:59 Ondansetron HCl (zoFRAN 4MG INJ) 4 mg Q6H PRN IV NAUSEA/VOMITING 05/19/24 01:00 06/18/24 00:59 Potassium Chloride 100 ml @ 50 mls/hr PROTOCOL IV 05/18/24 23:00 05/19/24 00:56 DC 05/18/24 23:06 50 MLS/HR Potassium Chloride 100 ml @ 100 mls/hr AD PRN IV POTASSIUM PROTOCOL 05/19/24 01:00 06/18/24 00:59 Potassium Chloride (K-Dur/Klor-Con 20meq) 20 meq AD PRN PO POTASSIUM PROTOCOL 05/19/24 01:00 06/18/24 00:59 05/21/24 23:11 20 MEQ Potassium Chloride (KCl 10% Elixir 20meq/15ml) 20 meq AD PRN PO POTASSIUM PROTOCOL 05/19/24 01:00 06/18/24 00:59 DIAGNOSTICS / RADIOLOGY: [ ] ASSESSMENT: Syncope and collapse versus seizure episode POA Status post fall injury at home POA Acute respiratory failure 2/2 HF, POA Acute on suspected chronic diastolic HF POA Normocytic normochromic anemia POA Electrolyte derangement POA Suspected pneumonitis, POA Hypertension POA Possible seizures Large right groin pseudoaneurysm PLAN: Continue admission in PCCU Continue heart healthy diet Continue furosemide 20 mg IV b.i.d. Continue Rocephin and azithromycin for broad-spectrum coverage for pneumonia Continue to replace electrolytes IV per protocol Continue O2 supplementation to keep O2 saturations above 92%, currently satting 95% on 1 L nasal cannula Wean off O2 as tolerated. Decrease O2 by 0.5 L/min every shift. Document accurately supplemental oxygen. Continue IS hourly Continue DuoNebs Continue daily weight, strict I&O and fluid restriction 1.5 L per day neuro check every 4 hours per nursing Continue Fall precaution Cardiology consulted, follow input and recommendation Monitor a.m. labs PRN Treatment - Add when necessary meds for nausea, vomiting, pain, constipation, insomnia. DVT/GI prophylaxis- Continue SCDs and famotidine at current doses. Full CODE STATUS Disposition: Plan for left heart catheterization on implantable loop recorder tomorrow by visual artist. The patient with a pseudo aneurysmal to the right groin area, we will request CV surgery consultation. EEG unremarkable, continue Keppra per Neurology recommendation. Plan of action discussed with the patient, all questions answered. Total PCU greater 30 minutes. YARITZA TANG MD May 22, 2024 10:42
--- NOTE | 2024-05-22 14:46 | PN ---
[facility] PROGRESS NOTE Date Patient Seen: May 22, 2024 Time of Visit: 1107 Supervising Physician: Dr. [place] Primary Care Physician: Self ReferraL Outpatient Specialists: Inpatient Consults: Attending: Keyla team PROBLEM LIST: Acute hypoxic respiratory failure, POA Small to moderate right pleural effusion, POA Small pericardial effusion, POA Severe pulmonary hypertension, POA RVSP of 60 mm Hg pending rt and lt Heart Cath Syncope and collapse POA Normocytic and normochromic anemia, POA Electrolyte derangement, POA Suspected pneumonitis, POA Hypertension, POA Possible seizure, POA r/o EEG unremarkable, continue Keppra per Neurology Marked right groin pseudoaneurysm, POA Tiny ascites, POA Former heavy smoker, quit 16 years ago INTERVAL HISTORY: 05/22 patient was seen and examined at bedside no family present. Patient is awake alert able to answer simple questions appropriately patient currently on2 L nasal cannula appears to be tolerating well. Patient does not use home oxygen. Patient denies any chest pain or shortness of breadth. Patient denies nausea abdominal pain. Patient is currently pending left heart catheterization to be done today. We will continue to follow patient with left heart catheter ization results. REVIEW OF SYSTEMS: 12 point ROS reviewed with patient. Pertinent positives mentioned above. Otherwise negative. PHYSICAL EXAM: GENERAL: alert, weak, awake oriented x 3 HEENT: EOMI, Sclera non icteric, moist mucosa NECK: Supple, no JVD, trachea midline LUNGS: Clear breath sounds bilaterally. No wheezes HEART: Regular rate and rhythm. Normal S1 and S2, without murmurs ABD: Abdomen soft, nontender. Bowel sounds present EXT: No clubbing cyanosis or edema NEURO: Alert and oriented to person, follows commands Vital Signs (last 8hr) Date Time Temp Pulse Resp B/P (MAP) Pulse Ox O2 Delivery O2 Flow Rate FiO2 05/22/24 11:26 100 Nasal Cannula* 3 32 05/22/24 11:00 98.2 64 22 115/62 98 Nasal Cannula 2.0 05/22/24 07:00 98.2 73 22 118/77 99 Nasal Cannula 2.0 05/22/24 06:51 72 18 05/22/24 06:51 72 18 N/Cannula Low lpm 3.0 LABS: Hematology Labs: Test 05/22/24 04:25 Range/Units White Blood Count 5.5 4.8-10.8 K/uL Red Blood Count 4.44 L 4.50-6.20 MIL/uL Hemoglobin 12.1 L 14.0-18.0 g/dL Hematocrit 38.8 L 42-54 % Mean Corpuscular Volume 87.4 79-99 fL Mean Corpuscular Hemoglobin 27.3 27.0-33.0 pg Mean Corpuscular Hemoglobin Concent 31.2 L 32.0-36.0 g/dL Red Cell Distribution Width 15.0 11.0-15.5 % Platelet Count 123 L 130-400 K/uL Mean Platelet Volume 9.9 7.5-10.5 fL Nucleated Red Blood Cells 0.0 0.0-0.19 % Chemistry Labs: Test 05/22/24 04:25 Range/Units Sodium Level 142 136-145 mmol/L Potassium Level 3.9 3.5-5.1 mmol/L Chloride Level 105 101-111 mmol/L Carbon Dioxide Level 31 21-32 mmol/L Blood Urea Nitrogen 21 H 7-18 mg/dL Creatinine 1.2 0.5-1.3 mg/dL Glomerular Filtration Rate Calc 74 >90 mL/min Random Glucose 107 H 70-105 mg/dL Total Calcium 8.3 L 8.5-10.1 mg/dL Magnesium Level 2.00 1.80-2.40 mg/dL Total Bilirubin 0.7 0.2-1.0 mg/dL Aspartate Amino Transf (AST/SGOT) 26 10-37 U/L Alanine Aminotransferase (ALT/SGPT) 21 12-78 U/L Alkaline Phosphatase 164 H 50-136 U/L Total Protein 7.0 6.0-8.3 g/dL Albumin 3.3 L 3.5-5.0 g/dL Coagulation Labs: Test 05/22/24 04:25 05/21/24 08:20 Range/Units Prothrombin Time 11.6 9.6-11.6 SEC Prothromb Time International Ratio 1.08 0.85-1.15 Activated Partial Thromboplast Time 28.4 26.3-35.5 SEC D-Dimer Quantitative (PE/DVT) 2207 *H 0-500 ng/mL DIAGNOSTICS / RADIOLOGY RESULTS: na PLAN await left and rt heart cath which is planned for tomorrow per Cardiology, scheduled for today 05/22/2024 for now line diuresis with Lasix 20 mg IV q.12 hours. Sildenafil not recommended due to this is likely not group 1 pulmonary hypertension NEURO: Minimize central acting medications as possible. Maintain fall precautions, adequate lighting during the day Seizure precautions Continue AED per neurology recommendations PULMONARY: Supplemental 02 as needed. Maintain aspiration precautions at all times Singulair 10 mg p.o. q.h.s. Pulmicort q.12 hours Duo nebs p.r.n. CARDIOVASCULAR: Follow hemodynamics. Vital signs per facility protocol Telemetry monitoring Lasix 20 mg IV q.12 hours GI & NUTRITION: Continue with nutritional support. Continue stool softeners and laxatives as needed. KIDNEYS & ELECTROLYTES: Strict monitoring of intake, output and overall fluid balance. Avoid nephrotoxic medications to the extent possible. Medications to be dosed according to renal function. Monitor electrolytes and replace as needed ENDOCRINE: Maintain blood glucose between 100-180 at all times. Hypoglycemia protocol in place INFECTIOUS DISEASE: Trend temperature, WBC and procalcitonin level Follow cultures, deescalate antibiotics as soon as possible. Panculture if new onset fever Cap coverage with Rocephin and azithromycin ONCOLOGY/HEMATOLOGY/COAGULATION: Monitor for s/s of bleeding Monitor hemoglobin, coagulation studies as needed SKIN: Pressure ulcer prevention per facility protocol Specialty mattress ORTHO/REHAB: Continue PT/OT Prophylaxis: Continue GI and DVT prophylaxis Code Status: Full Resuscitation Disposition: Per primary team. Other: Case discussed with supervising physician plan of care agreed MARTITA PENDLETON May 22, 2024 14:46
[2024-05-22] MEDS ORDERED: MIDAZOLAM HCL 1 MG/ML 2ML VIAL ONE (16:21)
[2024-05-22] MEDS ORDERED: LIDOCAINE HCL 400MG/20ML VIAL ONE ×3 (16:21→18:38)
[2024-05-22] MEDS ORDERED: IOHEXOL-350 50ML VIAL IV ONE (16:21)
[2024-05-22] MEDS ORDERED: IOHEXOL 350 MG/ML 100ML INFUS..BTL IV ONE (16:21)
[2024-05-22] MEDS ORDERED: FENTanyl CITRate PF 50 MCG/1 ML 2ML VIAL ONE (16:21)
[2024-05-22] MEDS ORDERED: HEParin 10,000 UNIT/10ML (1,000 UNIT/ML) VIAL ONE (16:22)
[2024-05-22] MEDS ORDERED: VERAPAMIL HCL 2.5 MG/ML VIAL ONE (16:22)
[2024-05-22] MEDS ORDERED: HEParin-NS 1,000 UNIT/500 ML 1,000 ML IV ONE (16:22)
[2024-05-22] MEDS ORDERED: NITROGLYCERIN 50MG VIAL ONE (16:46)
[2024-05-22] MEDS ORDERED: HEParin-NS 1,000 UNIT/500 ML 500 ML IV ONE ×2 (17:56→18:24)
[2024-05-22] MEDS: 0.9%NACL 10ML VIAL IVP SCH (18:30)
--- NOTE | 2024-05-22 19:59 | HMCIMG ---
CHEST 1VW HISTORY: Respiratory failure COMPARISON: None FINDINGS: A frontal projection of the chest was obtained. Mild bilateral pulmonary infiltrates are seen may be related to mild pulmonary vascular congestion with possible superimposed pneumonitis. The heart is enlarged. Degenerative changes are seen. No evidence of aortic calcification is seen. IMPRESSION: 1. Mild bilateral pulmonary infiltrates are seen may be related to mild pulmonary vascular congestion with possible superimposed pneumonitis.
--- NOTE | 2024-05-22 20:54 | CCATH ---
CARDIOLOGY PROCEDURE PROCEDURES: 1. Left heart catheterization with selective coronary artery angiography. 2. Right heart catheterization with measurements of pulmonary capillary wedge pressure and pulmonary pressures. INDICATIONS: This is a pleasant 48-year-old gentleman who has had 2 admissions for heart failure. He was subsequently treated and felt better and was discharged. He is now treated again with severe shortness of breath and inability to walk more than several feet. An echocardiogram previously had showed moderate pulmonary hypertension with normal left ventricular systolic function. However, on his current admission, pulmonary pressures appeared to be increased. In addition, he has a D-shaped septum with evidence of RV overload. He was brought at this time for evaluation. He also has a history of syncope of unknown etiology and will require an implantable loop recorder. He has had no dysrhythmia while in the hospital. DESCRIPTION OF PROCEDURE: After informed consent was obtained, including all risks, options and alternatives, he was prepped and draped in the usual fashion. Entry into the right radial artery was made without difficulty with ultrasound guidance. A sheath was placed. A previously placed IV was placed in the arm. It was exchanged out for a sheath and right heart catheterization was placed with intention to leave it overnight for titration of possible medications. Left heart catheterization was carried out. He was found to have no significant epicardial disease in the right coronary arteries, but very slow flow. Left heart catheterization was carried out. Initial injection showed diffuse disease of the distal LAD and moderate proximal disease of a very large circumflex. Additional lesions were done, which again confirmed the above. However, on the third injection, the patient had developed ventricular fibrillation requiring DC cardioversion. The patient tolerated the procedure well. He was ambulated and had no sequelae after the event. However, because of the VT event, LV gram was not done and no further images of the coronaries were done ____ likely to find any lesion, which should be amenable to treatment as the images were relatively benign in appearance. Other than the above, the patient tolerated the procedure well. He is going to the Intensive Care Unit where anti-pulmonary hypertension drugs will be initiated. Case was discussed with ____. Other than the brief VF, there were no complications. TID: [id number] RECEIPT: [id number]
[2024-05-22] MEDS: SILDENAFIL CITRATE 20 MG TABLET PO SCH (21:49)
[2024-05-23] VITALS (38 sets, daily range): BP systolic 96–131; BP diastolic 59–81; PULSE 63–106; RESP 15–34; TEMP 98.1–99.4; O2SAT 95–97
[2024-05-23] MEDS: CEFTRIAXONE 2GM VIAL IVPB SCH (01:17)
[2024-05-23 03:55] LABS: HEMATOCRIT 40.3 % (42-54); MEAN CORPUSCULAR HEMOGLOBIN 27.3 pg (27.0-33.0); MEAN CORPUSCULAR HGB CONC 31.3 g/dL (32.0-36.0); MEAN CORPUSCULAR VOLUME 87.4 fL (79-99); RED BLOOD CELL COUNT(AUTO) 4.61 MIL/uL (4.50-6.20); RED CELL DISTRIBUTION WIDTH 14.9 % (11.0-15.5)
[2024-05-23 04:17] LABS: ALBUMIN 3.4 g/dL (3.5-5.0); MAGNESIUM 2.2 mg/dL (1.80-2.40); POTASSIUM 3.9 mmol/L (3.5-5.1)
[2024-05-23] MEDS: AZITHROMYCIN 500MG+NS 250ML 250 ML IVPB SCH (04:44)
--- NOTE | 2024-05-23 09:13 | PN ---
[facility] PROGRESS NOTE Date Patient Seen: May 23, 2024 Time of Visit: 09:12 Supervising Physician: Rd Montana MD Primary Care Physician: Self ReferraL Outpatient Specialists: Inpatient Consults: Attending: Keyla team PROBLEM LIST: Acute hypoxic respiratory failure, POA Small to moderate right pleural effusion, POA Small pericardial effusion, POA Severe pulmonary hypertension, POA RVSP of 60 mm Hg S/P left and right heart catheterization yesterday with a an episode of V-tach status post DC cardioversion 05/22/24 S/P Roderfield-Naresh catheter placement 05/22/24 Wedge pressure of 4 Syncope and collapse POA Normocytic and normochromic anemia, POA Electrolyte derangement, POA Suspected pneumonitis, POA Hypertension, POA Possible seizure, POA r/o EEG unremarkable, continue Keppra per Neurology Marked right groin pseudoaneurysm, POA Tiny ascites, POA Former heavy smoker, quit 16 years ago PLAN Nitric oxide not available for vaso reactivity test. For now Sildenafil 20 mg p.o. q.8 hours in attempt to decrease pulmonary hypertension Monitor pulmonary hypertension per Roderfield-Naresh, we will follow pulmonary pressures and if decrease in the next few days patient may be discharged and follow up outpatient at pulmonary hypertension Center. This has been explained to patient and he is in agreement with plan of care. Maintain O2 sats above 92% Monitor respiratory status Continue Lasix INTERVAL HISTORY: 05/22 patient was seen and examined at bedside no family present. Patient is awake alert able to answer simple questions appropriately patient currently on2 L nasal cannula appears to be tolerating well. Patient does not use home oxygen. Patient denies any chest pain or shortness of breadth. Patient denies nausea abdominal pain. Patient is currently pending left heart catheterization to be done today. We will continue to follow patient with left heart catheterization results. 05/23/24-patient is awake alert and oriented x3, denies any chest pain, increased shortness of breath or palpitations. He has no complaints at this time. I explained to patient with Dr. Yousif at bedside the findings and plan of care patient is in agreement transferred to the ICU post loop recorder and Roderfield-Naresh placement per cardiology. Patient is status post left and right heart catheterization yesterday with a an episode of V-tach status post DC cardioversion. Per Cardiology report patient had a wedge pressure of 4. Currently with a Roderfield-Naresh pulmonary pressure 91/24, CVP of 8, heart rate 94 sinus rhythm with a blood pressure of 106/67 saturating 94% with 2 L via nasal cannula. Patient has had good urine output 3 L in the last 24 hours. On CBC white count is normal H&H is 12.6/40.3 platelet count is [id number] decreased from yesterday which was 123 1000. Chemistry unremarkable. Chest x-ray with mild pulmonary vascular congestion and mild right pleural effusion. We will try sildenafil 20 mg p.o. q.8 hours and monitor pulmonary pressors for now here in the ICU. REVIEW OF SYSTEMS: Const: No fever, fatigue or weight changes Eyes:[ no recent vision problems] ENT: [No congestion, ear pain, or sore throat] C/V: [no chest pain, palpitations or edema] Resp: No cough, congestion, wheezing yes to dyspnea with minimal exertion GI: [No abdominal pain, nausea, vomiting, constipation, or diarrhea] : [No incontinence of or dysuria] M/S: [No joint or pain swelling] Skin: [No rash] Neuro: [no headache, focal numbness, or weakness, dizziness or seizures] Psych: [no depression or anxiety] Heme: [no abnormal bruising or bleeding] Lymph: [no swollen glands] PHYSICAL EXAM: GENERAL: alert, weak, awake oriented x 3 HEENT: EOMI, Sclera non icteric, moist mucosa NECK: Supple, no JVD, trachea midline LUNGS: Clear breath sounds bilaterally. No wheezes HEART: Regular rate and rhythm. Normal S1 and S2, without murmurs ABD: Abdomen soft, nontender. Bowel sounds present EXT: No clubbing cyanosis or edema, right upper extremity Roderfield-Naresh NEURO: Alert and oriented to person, follows commands Vital Signs (last 8hr) Date Time Temp Pulse Resp B/P (MAP) Pulse Ox O2 Delivery O2 Flow Rate FiO2 05/23/24 07:21 71 18 N/Cannula Low lpm 2.0 05/23/24 07:18 71 15 05/23/24 06:30 67 20 110/79 (89) 95 28 05/23/24 06:00 69 20 111/79 (90) 95 28 05/23/24 05:30 68 19 110/78 (89) 95 05/23/24 05:00 67 19 106/71 (83) 96 28 05/23/24 04:30 63 18 113/71 (85) 96 28 05/23/24 04:00 98.1 67 19 108/69 (82) 95 28 05/23/24 04:00 95 Nasal Cannula* 3 32 05/23/24 03:30 68 20 109/70 (83) 94 28 05/23/24 03:00 71 17 105/75 (85) 94 28 05/23/24 02:30 65 18 97/65 (76) 96 28 05/23/24 02:00 67 19 100/72 (81) 95 28 05/23/24 01:30 68 19 100/73 (82) 95 28 LABS: Hematology Labs: Test 05/23/24 03:44 Range/Units White Blood Count 5.0 4.8-10.8 K/uL Red Blood Count 4.61 4.50-6.20 MIL/uL Hemoglobin 12.6 L 14.0-18.0 g/dL Hematocrit 40.3 L 42-54 % Mean Corpuscular Volume 87.4 79-99 fL Mean Corpuscular Hemoglobin 27.3 27.0-33.0 pg Mean Corpuscular Hemoglobin Concent 31.3 L 32.0-36.0 g/dL Red Cell Distribution Width 14.9 11.0-15.5 % Platelet Count 121 L 130-400 K/uL Mean Platelet Volume 10.6 H 7.5-10.5 fL Nucleated Red Blood Cells 0.0 0.0-0.19 % Chemistry Labs: Test 05/23/24 03:44 Range/Units Sodium Level 142 136-145 mmol/L Potassium Level 3.9 3.5-5.1 mmol/L Chloride Level 105 101-111 mmol/L Carbon Dioxide Level 32 21-32 mmol/L Blood Urea Nitrogen 17 7-18 mg/dL Creatinine 1.0 0.5-1.3 mg/dL Glomerular Filtration Rate Calc 92 >90 mL/min Random Glucose 94 70-105 mg/dL Total Calcium 8.9 8.5-10.1 mg/dL Magnesium Level 2.20 1.80-2.40 mg/dL Total Bilirubin 1.0 # 0.2-1.0 mg/dL Aspartate Amino Transf (AST/SGOT) 24 10-37 U/L Alanine Aminotransferase (ALT/SGPT) 15 # 12-78 U/L Alkaline Phosphatase 147 H 50-136 U/L Total Protein 7.0 6.0-8.3 g/dL Albumin 3.4 L 3.5-5.0 g/dL Coagulation Labs: Test 05/22/24 04:25 Range/Units Prothrombin Time 11.6 9.6-11.6 SEC Prothromb Time International Ratio 1.08 0.85-1.15 Activated Partial Thromboplast Time 28.4 26.3-35.5 SEC DIAGNOSTICS / RADIOLOGY RESULTS: IMAGING REPORT Signed PATIENT: EDUARDO CLEARY MR#: [id number] : 1975 SEX: M AGE: 48 LOCATION: [facility] ORDER 2300 STATUS: ADM IN REPORT#: [id number] SERVICE [id number] REASON: hypoxic resp failure ORDERING PHYSICIAN: ROLAN ROBERSON PROCEDURE: CXR1VW - CHEST 1VW CHEST 1VW HISTORY: Respiratory failure COMPARISON: None FINDINGS: A frontal projection of the chest was obtained. Mild bilateral pulmonary infiltrates are seen may be related to mild pulmonary vascular congestion with possible superimposed pneumonitis. The heart is enlarged. Degenerative changes are seen. No evidence of aortic calcification is seen. IMPRESSION: 1. Mild bilateral pulmonary infiltrates are seen may be related to mild pulmonary vascular congestion with possible superimposed pneumonitis. DICTATED BY: LORI MALDONADO MD DATE: 05/22/241955 ELECTRONICALLY SIGNED BY: LORI MALDONADO MD DATE: 05/22/241958 PLAN Nitric oxide not available for vaso reactivity test. For now Sildenafil 20 mg p.o. q.8 hours in attempt to decrease pulmonary hypertension Monitor pulmonary hypertension per Roderfield-Naresh, we will follow pulmonary pressures and if decrease in the next few days patient may be discharged and follow up outpatient at pulmonary hypertension Center. This has been explained to patient and he is in agreement with plan of care. Maintain O2 sats above 92% Monitor respiratory status Continue Lasix NEURO: Minimize central acting medications as possible. Fall Precautions. Well lighted room through the day and minimize interruptions through the night to prevent acute delirium. PULMONARY: Supplemental 02 as needed Titrate Fio2 to keep Spo2 > or = 90% DuoNebs and CPT as needed IS hourly while awake for pulmonary hygiene Out of bed to chair as tolerated VAP Bundle CARDIOVASCULAR: Follow hemodynamics. Titrate vasopressor to keep MAP >65 or systolic blood pressure >95mmHg Pulmonary pressure monitoring per Roderfield-Naresh Drips: None LINES: PIV Roderfield-Naresh catheter GI & NUTRITION: Continue nutritional support Aspirations precautions Prokinetic agents and laxatives as needed KIDNEYS & ELECTROLYTES: Strict monitoring of intake and output Daily weights Avoid nephrotoxic agents Monitor electrolytes and replace as needed Goal urine output of 30mL/hr or 0.5mL/kg/hr Urine output: 3 L Fluid Balance: -2.7 L ENDOCRINE: Maintain blood glucose between 100-180 at all times. Insulin sliding scale for blood glucose management INFECTIOUS DISEASE: Trend temperature. Maurice-culture if febrile. Micro: [ ] Sputum culture 05/20/24 normal oropharyngeal Antibiotics: [ ] Rocephin Azithromycin HEMATOLOGY & COAGULATION: Monitor H&H. Keep Hgb > 7 Transfuse 1 unit of PRBC for Hgb < 7 Transfuse 1 pack of platelets of platelets < 20, 000 Watch for any signs and symptoms of bleeding SKIN: Pressure ulcer prevention per facility protocol Rehab: PT/OT Prophylaxis: GI: Pepcid DVT: SCD Code Status: Full Resuscitation Disposition: ICU Other: Total patient care time exceeds 35 minutes excluding all procedures. Case was discussed and seen with my supervising physician. The above plan was formulated and agreed upon. ROLAN ROBERSON May 23, 2024 09:13
--- NOTE | 2024-05-23 09:14 | PN ---
[facility] PROGRESS NOTE Date of Service: May 23, 2024 Time of Service: 09:14 SUBJECTIVE: [ ] Seen and examined in room 232 PCP self-referral Admitting date 05/18/2024 Today on bedside evaluation patient was found awake alert and oriented x 3. The power chart reviewed, vital signs, laboratory tests, imaging test and medications have been reviewed. Latest vitals are stable, satting 98% on2 L nasal cannula. CBC is stable with a white count of 5.6 with negative left shift neutrophils 88.1, sodium 135, magnesium 1.7, BNP 445. Continue DuoNebs, continue IS, pending respiratory cultures, continue strict I&Os, daily weights, fluid restriction 1.5 L/daily. Continue IV Rocephin and azithromycin. We will follow Dr. Yousif's recommendations. 05/20 the patient has been seen and examined during my rounding, he is on Keppra IV, alert oriented x3, per discussion with the nurse, had short episode of s eizure today, no loss of consciousness, BP 119/89, afebrile, saturating normal on room air. Results of MRI unremarkable, no evidence of acute infarct, discussed with the patient. No family members at bedside. 05/21 the patient has been seen and examined during my rounding, comfortably in bed, no acute events overnight, remains hemodynamically stable, no episodes of seizure activity throughout the night. Results of EEG unremarkable, discussed with the patient. 05/23 the patient has been seen and examined during my rounding earlier this morning, the patient is currently in the ICU, he is alert oriented x3, hemodynamically stable, on supplemental oxygen via nasal cannula at 2 L, saturating 98%. The patient underwent successful left heart catheterization yes terday by Cardiovascular physician, with the finding of severe pulmonary hypertension, reason for why the patient was upgraded to the ICU, he is has been evaluated by pulmonary physician, [place]-Naresh catheter inserted, the patient is started on sildenafil. He denied chest pain, shortness shortness for breath, no nausea, no vomiting, no abdominal discomfort. REVIEW OF SYSTEMS CONSTITUTIONAL: Denies fevers, chills, or night sweats. No unintentional weight loss reported. NEUROLOGICAL: Denies headache, amaurosis fugax, motor weakness, sensory deficit, vertigo/spinning sensation, gait abnormalities, or tremors. ENT: No hearing loss, otalgia, otorrhea, rhinitis, rhinorrhea, hoarseness, or sore throat. CARDIOVASCULAR: Denies any exertional angina, dyspnea on exertion, orthopnea, paroxysmal nocturnal dyspnea, palpitations, life-threatening arrhythmias, claudication. PULMONARY: Complain of shortness of breaths productive cough Denies hemoptysis, pleuritic chest pain. SLEEP: Denies morning headaches, daytime somnolence or napping. Denies difficulty falling asleep, staying asleep, waking from sleep. Denies knowledge of snoring. GASTROINTESTINAL: Denies any type of dysphagia to either liquids or solids. Denies nausea, vomiting, pyrosis, early satiety, abdominal pain, diarrhea, constipation, or changes in stool consistency or caliber. Denies coffee-ground emesis, hematemesis, hematochezia, or melanotic stools. GENITOURINARY: Denies frequency, urgency, nocturia, hematuria or incontinence (Storage/Irritative symptoms.) Low urinary stream, straining to void, urinary intermittency or hesitancy, splitting of the voiding stream, terminal dribbling. ENDOCRINOLOGIC: Denies polyuria, polydipsia, polyphagia or heat/cold intolerances. HEMATOLOGIC: Denies thrombophilia/previous clots, or coagulopathy/bleeding disorders. ONCOLOGIC: Denies personal history of malignancy. DERMATOLOGIC: Denies rashes or pruritus. PSYCHIATRIC: Denies any suicidal or homicidal ideation. Denies hallucinations. PHYSICAL EXAM GENERAL APPEARANCE: The patient is awake, alert, and oriented, in no acute cardiopulmonary distress. NEUROLOGICAL: Cranial nerves II-XII grossly intact. Motor is 5/5 in bilateral upper and lower extremities proximal to distal. No sensory deficits. HEENT: Face is symmetric. Pupils are equal and reactive. Extraocular movements are intact. NECK: Supple. No JVD. No thyromegaly. No submental, submandibular, pre- /postauricular, occipital or supraclavicular lymphadenopathy. CHEST: Normal chest expansion. No Telemetry. LUNGS: Absence of any rales, rhonchi or any wheezing. CARDIOVASCULAR: Regular. S1 and S2 normal. No appreciable rubs, murmurs or gallops. ABDOMEN: Soft, nontender, and nondistended. There is no rebound, voluntary guarding, or rigidity. : Deferred. No [place]. EXTREMITIES: Trace of edema to bilateral lower extremities SKIN: No skin breakdown. Vital Signs (last 8hr) Date Time Temp Pulse Resp B/P (MAP) Pulse Ox O2 Delivery O2 Flow Rate FiO2 05/23/24 07:21 71 18 N/Cannula Low lpm 2.0 05/23/24 07:18 71 15 05/23/24 06:30 67 20 110/79 (89) 95 28 05/23/24 06:00 69 20 111/79 (90) 95 28 05/23/24 05:30 68 19 110/78 (89) 95 28 05/23/24 05:00 67 19 106/71 (83) 96 28 05/23/24 04:30 63 18 113/71 (85) 96 05/23/24 04:00 98.1 67 19 108/69 (82) 95 05/23/24 04:00 95 Nasal Cannula* 3 32 05/23/24 03:30 68 20 109/70 (83) 94 05/23/24 03:00 71 17 105/75 (85) 94 28 05/23/24 02:30 65 18 97/65 (76) 96 05/23/24 02:00 67 19 100/72 (81) 95 28 05/23/24 01:30 68 19 100/73 (82) 95 28 LABS: Laboratory: Test 05/23/24 03:44 05/22/24 04:25 Range/Units White Blood Count 5.0 4.8-10.8 K/uL Red Blood Count 4.61 4.50-6.20 MIL/uL Hemoglobin 12.6 L 14.0-18.0 g/dL Hematocrit 40.3 L 42-54 % Mean Corpuscular Volume 87.4 79-99 fL Mean Corpuscular Hemoglobin 27.3 27.0-33.0 pg Mean Corpuscular Hemoglobin Concent 31.3 L 32.0-36.0 g/dL Red Cell Distribution Width 14.9 11.0-15.5 % Platelet Count 121 L 130-400 K/uL Mean Platelet Volume 10.6 H 7.5-10.5 fL Nucleated Red Blood Cells 0.0 0.0-0.19 % Sodium Level 142 136-145 mmol/L Potassium Level 3.9 3.5-5.1 mmol/L Chloride Level 105 101-111 mmol/L Carbon Dioxide Level 32 21-32 mmol/L Blood Urea Nitrogen 17 7-18 mg/dL Creatinine 1.0 0.5-1.3 mg/dL Glomerular Filtration Rate Calc 92 >90 mL/min Random Glucose 94 70-105 mg/dL Total Calcium 8.9 8.5-10.1 mg/dL Magnesium Level 2.20 1.80-2.40 mg/dL Total Bilirubin 1.0 # 0.2-1.0 mg/dL Aspartate Amino Transf (AST/SGOT) 24 10-37 U/L Alanine Aminotransferase (ALT/SGPT) 15 # 12-78 U/L Alkaline Phosphatase 147 H 50-136 U/L Total Protein 7.0 6.0-8.3 g/dL Albumin 3.4 L 3.5-5.0 g/dL Prothrombin Time 11.6 9.6-11.6 SEC Prothromb Time International Ratio 1.08 0.85-1.15 Activated Partial Thromboplast Time 28.4 26.3-35.5 SEC Current Medications Medications (Trade) Dose Ordered Sig/Ben Route PRN Reason Start Time Stop Time Status Last Admin Dose Admin Acetaminophen (TYLenol 325MG TAB) 650 mg Q4H PRN PO MILD PAIN (1-3) 05/19/24 01:00 06/18/24 00:59 05/21/24 05:48 650 MG Acetaminophen (TYLenol 325MG TAB) 650 mg Q6H PRN PO TEMPERATURE GREATER THAN 101.5 05/19/24 01:00 06/18/24 00:59 Albuterol (DUOneb) 1 udvial T3IFBNS IH 05/19/24 02:00 05/19/24 07:41 DC 05/19/24 07:35 1 UDVIAL Albuterol (DUOneb) 1 udvial Q6H PRN IH SHORTNESS OF BREATH 05/19/24 08:00 06/18/24 07:59 05/22/24 06:48 1 UDVIAL Albuterol (DUOneb) 1 udvial T5URPHV IH 05/19/24 12:00 05/19/24 11:02 DC Azithromycin 250 ml @ 250 mls/hr Q24H IVPB 05/20/24 00:30 05/22/24 22:40 DC 05/21/24 23:11 250 MLS/HR Azithromycin 250 ml @ 250 mls/hr Q24H IVPB 05/23/24 04:00 05/30/24 03:59 05/23/24 04:44 250 MLS/HR Azithromycin 250 ml @ 250 mls/hr Q24H STAT IVPB 05/18/24 23:38 05/19/24 00:40 DC 05/18/24 23:54 250 MLS/HR Budesonide (Pulmicort 0.5 Mg/2ml) 0.5 mg BIDRESP IH 05/22/24 06:00 06/21/24 05:59 05/23/24 07:18 0.5 MG Ceftriaxone Sodium (ROCEphine 1G INJ) 1 gm Q24H IVPB 05/20/24 00:30 05/21/24 18:52 DC 05/21/24 00:03 1 GM Ceftriaxone Sodium (ROCEphine 1G INJ) 2 gm Q24H IVPB 05/22/24 00:30 05/22/24 08:57 DC 05/21/24 23:11 2 GM Ceftriaxone Sodium (Rocephin 2gm Inj) 2 gm Q24H IVPB 05/23/24 00:30 06/01/24 00:29 05/23/24 01:17 2 GM Famotidine (Pepcid 20mg Tab) 20 mg BID PO 05/19/24 09:00 06/18/24 08:59 05/22/24 21:50 20 MG Furosemide (LASix 20MG VIAL) 20 mg BID IV 05/19/24 09:00 06/18/24 08:59 05/22/24 22:29 20 MG Guaifenesin/ Dextromethorphan (RobiTUSSin DM 200/20MG 10ML) 10 ml Q4H PRN PO COUGH 05/19/24 01:00 06/18/24 00:59 05/22/24 02:33 10 ML Hydralazine HCl (APRESOLine 20MG INJ) 20 mg Q6H PRN IV ADMINISTER FOR SBP > 160 05/19/24 08:00 06/18/24 07:59 Levetiracetam (kepPRA 500 MG TABLET) 500 mg BID PO 05/20/24 09:00 06/19/24 08:59 05/22/24 21:49 500 MG Lorazepam (AtiVAN) 2 mg AD PRN IVP SEIZURE 05/19/24 23:00 05/26/24 22:59 05/20/24 04:31 2 MG Magnesium Sulfate 50 ml @ 0 mls/hr PROTOCOL PRN IV OTHER [SEE ORDER COMMENTS] 05/19/24 01:00 06/18/24 00:59 05/19/24 20:51 25 MLS/HR Montelukast Sodium (SinguLAIR) 10 mg DAILY PO 05/22/24 09:00 06/21/24 08:59 05/22/24 09:04 10 MG Nitroglycerin (Nitrostat) 0.4 mg PROTOCOL PRN SL CHEST PAIN 05/19/24 01:00 05/22/24 18:32 DC Ondansetron HCl (zoFRAN 4MG INJ) 4 mg Q6H PRN IV NAUSEA/VOMITING 05/19/24 01:00 06/18/24 00:59 Potassium Chloride 100 ml @ 50 mls/hr PROTOCOL IV 05/18/24 23:00 05/19/24 00:56 DC 05/18/24 23:06 50 MLS/HR Potassium Chloride 100 ml @ 100 mls/hr AD PRN IV POTASSIUM PROTOCOL 05/19/24 01:00 06/18/24 00:59 Potassium Chloride (K-Dur/Klor-Con 20meq) 20 meq AD PRN PO POTASSIUM PROTOCOL 05/19/24 01:00 06/18/24 00:59 05/21/24 23:11 20 MEQ Potassium Chloride (KCl 10% Elixir 20meq/15ml) 20 meq AD PRN PO POTASSIUM PROTOCOL 05/19/24 01:00 06/18/24 00:59 Sildenafil Citrate (Revatio) 20 mg TID PO 05/22/24 21:00 06/21/24 20:59 05/22/24 21:49 20 MG Sodium Chloride (NS Flush 10ml) 10 ml Q8H IVP 05/22/24 18:30 06/21/24 18:29 05/23/24 02:30 10 ML DIAGNOSTICS / RADIOLOGY: [ ] ASSESSMENT: Syncope and collapse versus seizure episode POA Status post fall injury at home POA Acute respiratory failure 2/2 HF, POA Acute on suspected chronic diastolic HF POA Normocytic normochromic anemia POA Electrolyte derangement POA Suspected pneumonitis, POA Hypertension POA Possible seizures Large right groin pseudoaneurysm Severe pulmonary hypertension PLAN: Patient has been downgraded to the ICU Continue heart healthy diet Continue monitor technician Continue Rocephin and azithromycin for broad-spectrum coverage for pneumonia Continue to replace electrolytes IV per protocol Continue O2 supplementation to keep O2 saturations above 92%, currently satting 95% on 1 L nasal cannula Wean off O2 as tolerated. Decrease O2 by 0.5 L/min every shift. Document accurately supplemental oxygen. Continue IS hourly Continue DuoNebs Continue daily weight, strict I&O and fluid restriction 1.5 L per day neuro check every 4 hours per nursing Continue Fall precaution Cardiology consulted, follow input and recommendation Monitor a.m. labs PRN Treatment - Add when necessary meds for nausea, vomiting, pain, constipation, insomnia. DVT/GI prophylaxis- Continue SCDs and famotidine at current doses. Full CODE STATUS Disposition: Patient upgraded to the ICU, status post left heart catheterization 07/23/2023 with severe pulmonary hypertension, patient was one scans catheter in place, pulmonary consultation requested, the patient is started on sildenafil. Continue to follow Cardiology and Pulmonary input and recommendations. Follow vascular input and recommendation in terms of growing p seudo aneurysma. Plan of action discussed with the patient, all questions answered. Total ICU greater 30 minutes. YARITZA TANG MD May 23, 2024 09:14
[2024-05-23] MEDS: LIDOCAINE 1%-EPI 1:100,000 20 ML VIAL IJ ONE (13:30)
[2024-05-23] MEDS: SILDENAFIL CITRATE 20 MG TABLET PO SCH (18:16)
--- NOTE | 2024-05-23 18:17 | PN ---
SUBJECTIVE: This gentlemen is a patient of Dr. Yousif, underwent a cardiac catheterization with pulmonary hypertension protocol. He does have a right groin pseudoaneurysm, which has been there for the last 4/5 months. He is asymptomatic. I talked to him and it does not hurt him. RECOMMENDATION: My recommendation is to proceed with thrombin injection to try to obliterate the pseudoaneurysm. TID: [id number] RECEIPT: [id number]
[2024-05-23] MEDS: HEParin-NS 1,000 UNIT/500 ML 500 ML IV SCH (23:48)
[2024-05-24] VITALS (27 sets, daily range): BP systolic 95–113; BP diastolic 53–69; PULSE 68–99; RESP 18–33; TEMP 98–98.8; O2SAT 93–98
--- NOTE | 2024-05-24 00:08 | NUR ---
[id number] Report given to nurse Kyle. Patient status unchanged. Care of patient endorsed to Kyle
--- NOTE | 2024-05-24 00:23 | PN ---
SUBJECTIVE: He is currently doing well. He has no complaints. He was started on sildenafil. However, his pulmonary pressures have yet to change. He has no evidence of short of breath. He does have a very low pulmonary capillary wedge pressure secondary to restricted flow into the LV. He is preparing to have trials of various vasoactive drugs to reduce his pulmonary hypertension. Other issues, he has a small pseudoaneurysm, which was quite small and currently asymptomatic. Given his high venous pressures, fixing this surgically would be difficult. Given his asymptomatic status, we would defer this process for the time being. PHYSICAL EXAMINATION: VITAL SIGNS: His blood pressure is 110/78. LUNGS: Clear. HEART: Regular. EXTREMITIES: He has no significant edema. PLAN: Further plan as per the sourcing specialist. TID: [id number] RECEIPT: [id number]
--- NOTE | 2024-05-24 10:49 | PN ---
[facility] PROGRESS NOTE Date Patient Seen: May 24, 2024 Time of Visit: 10:49 Supervising Physician: Rd Montana MD Primary Care Physician: Self ReferraL Outpatient Specialists: Inpatient Consults: Attending: Keyla team PROBLEM LIST: Acute hypoxic respiratory failure, POA Small to moderate right pleural effusion, POA Small pericardial effusion, POA Severe pulmonary hypertension, POA RVSP of 60 mm Hg S/P left and right heart catheterization yesterday with a an episode of V-tach status post DC cardioversion 05/22/24 S/P [place]resh catheter placement 05/22/24 Wedge pressure of 4 Syncope and collapse POA Normocytic and normochromic anemia, POA Electrolyte derangement, POA Suspected pneumonitis, POA Hypertension, POA Possible seizure, POA r/o EEG unremarkable, continue Keppra per Neurology Marked right groin pseudoaneurysm, POA Tiny ascites, POA Former heavy smoker, quit 16 years ago PLAN Nitric oxide not available for vaso reactivity test. For now Sildenafil 20 mg p.o. q.8 hours DC [place] Naresh autoimmune work up HIV test hepatitis panel 6min walk before DC follow up outpatient at pulmonary Dr Loc Mujica MD in 1-2 weeks This has been explained to patient and he is in agreement with plan of care. Maintain O2 sats above 92% Monitor respiratory status Continue Lasix PO INTERVAL HISTORY: 05/22 patient was seen and examined at bedside no family present. Patient is awake alert able to answer simple questions appropriately patient currently on2 L nasal cannula appears to be tolerating well. Patient does not use home oxygen. Patient denies any chest pain or shortness of breadth. Patient denies nausea abdominal pain. Patient is currently pending left heart catheterization to be done today. We will continue to follow patient with left heart catheterization results. 05/23/24-patient is awake alert and oriented x3, denies any chest pain, increased shortness of breath or palpitations. He has no complaints at this time. I explained to patient with Dr. Yousif at bedside the findings and plan of care patient is in agreement transferred to the ICU post loop recorder and [place]-Naresh placement per cardiology. Patient is status post left and right heart catheterization yesterday with a an episode of V-tach status post DC cardioversion. Per Cardiology report patient had a wedge pressure of 4. Currently with a [place] pulmonary pressure 91/24, CVP of 8, heart rate 94 sinus rhythm with a blood pressure of 106/67 saturating 94% with 2 L via nasal cannula. Patient has had good urine output 3 L in the last 24 hours. On CBC white count is normal H&H is 12.6/40.3 platelet count is [id number] decreased from yesterday which was 123 1000. Chemistry unremarkable. Chest x-ray with mild pulmonary vascular congestion and mild right pleural effusion. We will try sildenafil 20 mg p.o. q.8 hours and monitor pulmonary pressors for now here in the ICU. 05/24-no major overnight events per RN. Patient is awake alert and oriented x3 on 2 L of O2 saturating 95% heart rate in the 80s respiratory rate of 23 unlabored, hemodynamically stable with a blood pressure of 105/60 this morning. Pulmonary pressure between 60s and 70s today decreased from yesterday which was 90s via swan Naresh. If okay with Cardiology we may discontinue [place] catheter. Patient diuresing well with 3 L of output with a balance of-3.1 L today you may start weaning Lasix from IV to p.o.. On laboratory today CBC unremarkable. Chemistry had a potassium of 3.4 covered per protocol carbon di oxide of 34 BUN 17 creatinine of 1.0 and GFR of 92 glucose 137 mg/dL with alkaline phosphatase of 177 albumin 3.2 ferritin level 34. HIV antibody nonreactive. Patient may downgrade to PCCU once swan Naresh catheter is removed. REVIEW OF SYSTEMS: Const: No fever, fatigue or weight changes Eyes:[ no recent vision problems] ENT: [No congestion, ear pain, or sore throat] C/V: [no chest pain, palpitations or edema] Resp: No cough, congestion, wheezing yes to dyspnea with minimal exertion GI: [No abdominal pain, nausea, vomiting, constipation, or diarrhea] : [No incontinence of or dysuria] M/S: [No joint or pain swelling] Skin: [No rash] Neuro: [no headache, focal numbness, or weakness, dizziness or seizures] Psych: [no depression or anxiety] Heme: [no abnormal bruising or bleeding] Lymph: [no swollen glands] PHYSICAL EXAM: GENERAL: alert, weak, awake oriented x 3 HEENT: EOMI, Sclera non icteric, moist mucosa NECK: Supple, no JVD, trachea midline LUNGS: Clear breath sounds bilaterally. No wheezes HEART: Regular rate and rhythm. Normal S1 and S2, without murmurs ABD: Abdomen soft, nontender. Bowel sounds present EXT: No clubbing cyanosis or edema, right upper extremity [place] NEURO: Alert and oriented to person, follows commands Vital Signs (last 8hr) Date Time Temp Pulse Resp B/P (MAP) Pulse Ox O2 Delivery O2 Flow Rate FiO2 05/24/24 07:24 68 18 05/24/24 07:23 68 18 N/Cannula Low lpm 2.0 28 05/24/24 06:00 72 20 98/58 (71) 97 28 05/24/24 05:00 68 19 95/61 (72) 96 28 05/24/24 04:00 95 Nasal Cannula* 3 32 05/24/24 04:00 98.8 72 20 99/54 (69) 98 28 05/24/24 03:00 80 21 99/64 (76) 96 28 LABS: Hematology Labs: Test 05/23/24 03:44 Range/Units White Blood Count 5.0 4.8-10.8 K/uL Red Blood Count 4.61 4.50-6.20 MIL/uL Hemoglobin 12.6 L 14.0-18.0 g/dL Hematocrit 40.3 L 42-54 % Mean Corpuscular Volume 87.4 79-99 fL Mean Corpuscular Hemoglobin 27.3 27.0-33.0 pg Mean Corpuscular Hemoglobin Concent 31.3 L 32.0-36.0 g/dL Red Cell Distribution Width 14.9 11.0-15.5 % Platelet Count 121 L 130-400 K/uL Mean Platelet Volume 10.6 H 7.5-10.5 fL Nucleated Red Blood Cells 0.0 0.0-0.19 % Chemistry Labs: Test 05/23/24 11:36 05/23/24 03:44 Range/Units Whole Blood Glucose 104 70-110 MG/DL Sodium Level 142 136-145 mmol/L Potassium Level 3.9 3.5-5.1 mmol/L Chloride Level 105 101-111 mmol/L Carbon Dioxide Level 32 21-32 mmol/L Blood Urea Nitrogen 17 7-18 mg/dL Creatinine 1.0 0.5-1.3 mg/dL Glomerular Filtration Rate Calc 92 >90 mL/min Random Glucose 94 70-105 mg/dL Total Calcium 8.9 8.5-10.1 mg/dL Magnesium Level 2.20 1.80-2.40 mg/dL Total Bilirubin 1.0 # 0.2-1.0 mg/dL Aspartate Amino Transf (AST/SGOT) 24 10-37 U/L Alanine Aminotransferase (ALT/SGPT) 15 # 12-78 U/L Alkaline Phosphatase 147 H 50-136 U/L Total Protein 7.0 6.0-8.3 g/dL Albumin 3.4 L 3.5-5.0 g/dL DIAGNOSTICS / RADIOLOGY RESULTS: IMAGING REPORT Signed PATIENT: EDUARDO CLEARY MR#: [id number] : 1975 SEX: M AGE: 48 LOCATION: [facility] ORDER [id number] STATUS: ADM IN REPORT#: [id number] SERVICE 1044 REASON: hypoxic resp failure ORDERING PHYSICIAN: ROLAN ROBERSON PROCEDURE: [id number] - CHEST 1VW CHEST 1VW HISTORY: Hypoxic respiratory failure COMPARISON: 05/22/2024 FINDINGS: A frontal projection of the chest was obtained. Mild bilateral pulmonary infiltrates are seen may be related to mild pulmonary vascular congestion with possible superimposed pneumonitis. The heart is borderline enlarged. Degenerative changes are seen. No evidence of aortic calcification is seen. IMPRESSION: 1. Mild bilateral pulmonary infiltrates are seen may be related to mild pulmonary vascular congestion with possible superimposed pneumonitis. DICTATED BY: LORI MALDONADO MD DATE: 05/24/24 1129 ELECTRONICALLY SIGNED BY: LORI MALDONADO MD DATE: 05/24/24 1133 PLAN NEURO: Minimize central acting medications as possible. Fall Precautions. Well lighted room through the day and minimize interruptions through the night to prevent acute delirium. PULMONARY: Supplemental 02 as needed Titrate Fio2 to keep Spo2 > or = 90% DuoNebs and CPT as needed IS hourly while awake for pulmonary hygiene Out of bed to chair as tolerated VAP Bundle CARDIOVASCULAR: Follow hemodynamics. Titrate vasopressor to keep MAP >65 or systolic blood pressure >95mmHg Pulmonary pressure monitoring per [place] Drips: None LINES: PIV [place] catheter GI & NUTRITION: Continue nutritional support Aspirations precautions Prokinetic agents and laxatives as needed KIDNEYS & ELECTROLYTES: Strict monitoring of intake and output Daily weights Avoid nephrotoxic agents Monitor electrolytes and replace as needed Goal urine output of 30mL/hr or 0.5mL/kg/hr ENDOCRINE: Maintain blood glucose between 100-180 at all times. Insulin sliding scale for blood glucose management INFECTIOUS DISEASE: Trend temperature. Maurice-culture if febrile. Micro: [ ] Sputum culture 05/20/24 normal oropharyngeal Antibiotics: [ ] Rocephin Azithromycin HEMATOLOGY & COAGULATION: Monitor H&H. Keep Hgb > 7 Transfuse 1 unit of PRBC for Hgb < 7 Transfuse 1 pack of platelets of platelets < 20, 000 Watch for any signs and symptoms of bleeding SKIN: Pressure ulcer prevention per facility protocol Rehab: PT/OT Prophylaxis: GI: Pepcid DVT: SCD Code Status: Full Resuscitation Disposition: ICU Other: Total patient care time exceeds 35 minutes excluding all procedures. Case was discussed and seen with my supervising physician. The above plan was formulated and agreed upon. ROLAN ROBERSON [facility] May 24, 2024 10:49
[2024-05-24 10:58] LABS: BASOPHILS # (AUTO) 0.02 K/uL (0.00-0.20); BASOPHILS % (AUTO) 0.4 % (0.0-5.0); EOSINOPHILS # (AUTO) 0.32 K/uL (0.00-0.70); EOSINOPHILS % (AUTO) 5.9 % (0.0-8.0); HEMATOCRIT 40.8 % (42-54); IMMATURE GRANULOCYTE ABSOLUTE 0.04 K/uL (0-1); LYMPHOCYTES % (AUTO) 18.9 % (21.0-51.0); MEAN CORPUSCULAR HEMOGLOBIN 27.4 pg (27.0-33.0); MEAN CORPUSCULAR HGB CONC 31.9 g/dL (32.0-36.0); MEAN CORPUSCULAR VOLUME 85.9 fL (79-99); MONOCYTES # (AUTO) 0.7 K/uL (0.1-1.0); MONOCYTES % (AUTO) 12.7 % (3.0-13.0); NEUTROPHILS # (AUTO) 3.4 K/uL (1.8-7.7); NEUTROPHILS % (AUTO) 61.4 % (40.0-77.0); PLATELET COUNT (AUTO) 126 K/uL (130-400); RED BLOOD CELL COUNT(AUTO) 4.75 MIL/uL (4.50-6.20); RED CELL DISTRIBUTION WIDTH 14.6 % (11.0-15.5); WHITE BLOOD COUNT (AUTO) 5.5 K/uL (4.8-10.8)
[2024-05-24 11:07] LABS: ALBUMIN 3.2 g/dL (3.5-5.0); BILIRUBIN,TOTAL 0.8 mg/dL (0.2-1.0); POTASSIUM 3.4 mmol/L (3.5-5.1)
--- NOTE | 2024-05-24 11:32 | HMCIMG ---
CHEST 1VW HISTORY: Hypoxic respiratory failure COMPARISON: 05/22/2024 FINDINGS: A frontal projection of the chest was obtained. Mild bilateral pulmonary infiltrates are seen may be related to mild pulmonary vascular congestion with possible superimposed pneumonitis. The heart is borderline enlarged. Degenerative changes are seen. No evidence of aortic calcification is seen. IMPRESSION: 1. Mild bilateral pulmonary infiltrates are seen may be related to mild pulmonary vascular congestion with possible superimposed pneumonitis.
--- NOTE | 2024-05-24 11:48 | PN ---
[facility] PROGRESS NOTE Date of Service: May 24, 2024 Time of Service: 11:45 SUBJECTIVE: [ ] Seen and examined in room 232 PCP self-referral Admitting date 05/18/2024 Today on bedside evaluation patient was found awake alert and oriented x 3. The power chart reviewed, vital signs, laboratory tests, imaging test and medications have been reviewed. Latest vitals are stable, satting 98% on2 L nasal cannula. CBC is stable with a white count of 5.6 with negative left shift neutrophils 88.1, sodium 135, magnesium 1.7, BNP 445. Continue DuoNebs, continue IS, pending respiratory cultures, continue strict I&Os, daily weights, fluid restriction 1.5 L/daily. Continue IV Rocephin and azithromycin. We will follow Dr. Yousif's recommendations. 05/20 the patient has been seen and examined during my rounding, he is on Keppra IV, alert oriented x3, per discussion with the nurse, had short episode of s eizure today, no loss of consciousness, BP 119/89, afebrile, saturating normal on room air. Results of MRI unremarkable, no evidence of acute infarct, discussed with the patient. No family members at bedside. 05/21 the patient has been seen and examined during my rounding, comfortably in bed, no acute events overnight, remains hemodynamically stable, no episodes of seizure activity throughout the night. Results of EEG unremarkable, discussed with the patient. 05/23 the patient has been seen and examined during my rounding earlier this morning, the patient is currently in the ICU, he is alert oriented x3, hemodynamically stable, on supplemental oxygen via nasal cannula at 2 L, saturating 98%. The patient underwent successful left heart catheterization yes terday by Cardiovascular physician, with the finding of severe pulmonary hypertension, reason for why the patient was upgraded to the ICU, he is has been evaluated by pulmonary physician, [place]-Naresh catheter inserted, the patient is started on sildenafil. He denied chest pain, shortness shortness for breath, no nausea, no vomiting, no abdominal discomfort. 05/24 the patient has been seen and examined during my rounding earlier this morning, he remains admitted to the ICU, he is status post interval placement of [place]-Naresh catheter, still with a elevated PA wedge pressures. He is currently on supplemental oxygen via nasal cannula at 2 L, saturating 98%, he remains alert oriented x3, no chest pain, no shortness a breath, no nausea, no vomiting. No family members at bedside during my visit. REVIEW OF SYSTEMS CONSTITUTIONAL: Denies fevers, chills, or night sweats. No unintentional weight loss reported. NEUROLOGICAL: Denies headache, amaurosis fugax, motor weakness, sensory deficit, vertigo/spinning sensation, gait abnormalities, or tremors. ENT: No hearing loss, otalgia, otorrhea, rhinitis, rhinorrhea, hoarseness, or sore throat. CARDIOVASCULAR: Denies any exertional angina, dyspnea on exertion, orthopnea, paroxysmal nocturnal dyspnea, palpitations, life-threatening arrhythmias, claudication. PULMONARY: Complain of shortness of breaths productive cough Denies hemoptysis, pleuritic chest pain. SLEEP: Denies morning headaches, daytime somnolence or napping. Denies diff iculty falling asleep, staying asleep, waking from sleep. Denies knowledge of snoring. GASTROINTESTINAL: Denies any type of dysphagia to either liquids or solids. Denies nausea, vomiting, pyrosis, early satiety, abdominal pain, diarrhea, constipation, or changes in stool consistency or caliber. Denies coffee-ground emesis, hematemesis, hematochezia, or melanotic stools. GENITOURINARY: Denies frequency, urgency, nocturia, hematuria or incontinence (Storage/Irritative symptoms.) Low urinary stream, straining to void, urinary intermittency or hesitancy, splitting of the voiding stream, terminal dribbling. ENDOCRINOLOGIC: Denies polyuria, polydipsia, polyphagia or heat/cold in tolerances. HEMATOLOGIC: Denies thrombophilia/previous clots, or coagulopathy/bleeding disorders. ONCOLOGIC: Denies personal history of malignancy. DERMATOLOGIC: Denies rashes or pruritus. PSYCHIATRIC: Denies any suicidal or homicidal ideation. Denies hallucinations. PHYSICAL EXAM GENERAL APPEARANCE: The patient is awake, alert, and oriented, in no acute cardiopulmonary distress. NEUROLOGICAL: Cranial nerves II-XII grossly intact. Motor is 5/5 in bilateral upper and lower extremities proximal to distal. No sensory deficits. HEENT: Face is symmetric. Pupils are equal and reactive. Extraocular movements are intact. NECK: Supple. No JVD. No thyromegaly. No submental, submandibular, pre- /postauricular, occipital or supraclavicular lymphadenopathy. CHEST: Normal chest expansion. No Telemetry. LUNGS: Absence of any rales, rhonchi or any wheezing. CARDIOVASCULAR: Regular. S1 and S2 normal. No appreciable rubs, murmurs or gallops. ABDOMEN: Soft, nontender, and nondistended. There is no rebound, voluntary guarding, or rigidity. : Deferred. No [place]io. EXTREMITIES: Trace of edema to bilateral lower extremities SKIN: No skin breakdown. Vital Signs (last 8hr) Date Time Temp Pulse Resp B/P (MAP) Pulse Ox O2 Delivery O2 Flow Rate FiO2 05/24/24 07:24 68 18 05/24/24 07:23 68 18 N/Cannula Low lpm 2.0 28 05/24/24 06:00 72 20 98/58 (71) 97 28 05/24/24 05:00 68 19 95/61 (72) 96 28 05/24/24 04:00 95 Nasal Cannula* 3 32 05/24/24 04:00 98.8 72 20 99/54 (69) 98 28 LABS: Laboratory: Test 05/24/24 10:25 05/23/24 11:36 05/23/24 03:44 Range/Units White Blood Count 5.5 4.8-10.8 K/uL Red Blood Count 4.75 4.50-6.20 MIL/uL Hemoglobin 13.0 L 14.0-18.0 g/dL Hematocrit 40.8 L 42-54 % Mean Corpuscular Volume 85.9 79-99 fL Mean Corpuscular Hemoglobin 27.4 27.0-33.0 pg Mean Corpuscular Hemoglobin Concent 31.9 L 32.0-36.0 g/dL Red Cell Distribution Width 14.6 11.0-15.5 % Platelet Count 126 L 130-400 K/uL Mean Platelet Volume 10.8 H 7.5-10.5 fL Immature Granulocyte % (Auto) 0.7 0-1 % Neutrophils (%) (Auto) 61.4 40.0-77.0 % Lymphocytes (%) (Auto) 18.9 L 21.0-51.0 % Monocytes (%) (Auto) 12.7 3.0-13.0 % Eosinophils (%) (Auto) 5.9 0.0-8.0 % Basophils (%) (Auto) 0.4 0.0-5.0 % Neutrophils # (Auto) 3.4 1.8-7.7 K/uL Lymphocytes # (Auto) 1.0 1.0-4.8 K/uL Monocytes # (Auto) 0.7 0.1-1.0 K/uL Eosinophils # (Auto) 0.32 0.00-0.70 K/uL Basophils # (Auto) 0.02 0.00-0.20 K/uL Absolute Immature Granulocyte (auto 0.04 0-1 K/uL Nucleated Red Blood Cells 0.0 0.0-0.19 % Sodium Level 145 136-145 mmol/L Potassium Level 3.4 L 3.5-5.1 mmol/L Chloride Level 104 101-111 mmol/L Carbon Dioxide Level 34 H 21-32 mmol/L Blood Urea Nitrogen 17 7-18 mg/dL Creatinine 1.0 0.5-1.3 mg/dL Glomerular Filtration Rate Calc 92 >90 mL/min Random Glucose 137 H 70-105 mg/dL Total Calcium 8.7 8.5-10.1 mg/dL Total Bilirubin 0.8 0.2-1.0 mg/dL Aspartate Amino Transf (AST/SGOT) 31 10-37 U/L Alanine Aminotransferase (ALT/SGPT) 23 12-78 U/L Alkaline Phosphatase 177 H 50-136 U/L Total Protein 7.0 6.0-8.3 g/dL Albumin 3.2 L 3.5-5.0 g/dL Whole Blood Glucose 104 70-110 MG/DL Magnesium Level 2.20 1.80-2.40 mg/dL Current Medications Medications (Trade) Dose Ordered Sig/Ben Route PRN Reason Start Time Stop Time Status Last Admin Dose Admin Acetaminophen (TYLenol 325MG TAB) 650 mg Q4H PRN PO MILD PAIN (1-3) 05/19/24 01:00 06/18/24 00:59 05/21/24 05:48 650 MG Acetaminophen (TYLenol 325MG TAB) 650 mg Q6H PRN PO TEMPERATURE GREATER THAN 101.5 05/19/24 01:00 06/18/24 00:59 Albuterol (DUOneb) 1 udvial [id number] IH 05/19/24 02:00 05/19/24 07:41 DC 05/19/24 07:35 1 UDVIAL Albuterol (DUOneb) 1 udvial Q6H PRN IH SHORTNESS OF BREATH 05/19/24 08:00 06/18/24 07:59 05/22/24 06:48 1 UDVIAL Albuterol (DUOneb) 1 udvial [id number] IH 05/19/24 12:00 05/19/24 11:02 DC Azithromycin 250 ml @ 250 mls/hr Q24H IVPB 05/20/24 00:30 05/22/24 22:40 DC 05/21/24 23:11 250 MLS/HR Azithromycin 250 ml @ 250 mls/hr Q24H IVPB 05/23/24 04:00 05/30/24 03:59 05/24/24 05:03 250 MLS/HR Azithromycin 250 ml @ 250 mls/hr Q24H STAT IVPB 05/18/24 23:38 05/19/24 00:40 DC 05/18/24 23:54 250 MLS/HR Budesonide (Pulmicort 0.5 Mg/2ml) 0.5 mg BIDRESP IH 05/22/24 06:00 06/21/24 05:59 05/24/24 07:24 0.5 MG Ceftriaxone Sodium (ROCEphine 1G INJ) 1 gm Q24H IVPB 05/20/24 00:30 05/21/24 18:52 DC 05/21/24 00:03 1 GM Ceftriaxone Sodium (ROCEphine 1G INJ) 2 gm Q24H IVPB 05/22/24 00:30 05/22/24 08:57 DC 05/21/24 23:11 2 GM Ceftriaxone Sodium (Rocephin 2gm Inj) 2 gm Q24H IVPB 05/23/24 00:30 06/01/24 00:29 05/24/24 00:22 2 GM Famotidine (Pepcid 20mg Tab) 20 mg BID PO 05/19/24 09:00 06/18/24 08:59 05/24/24 09:39 20 MG Furosemide (LASix 20MG TAB) 20 mg DAILY PO 05/25/24 09:00 06/24/24 08:59 Furosemide (LASix 20MG VIAL) 20 mg BID IV 05/19/24 09:00 05/24/24 10:50 DC 05/24/24 09:40 20 MG Guaifenesin/ Dextromethorphan (RobiTUSSin DM 200/20MG 10ML) 10 ml Q4H PRN PO COUGH 05/19/24 01:00 06/18/24 00:59 05/22/24 02:33 10 ML Heparin Sodium/ Sodium Chloride 500 ml @ 0 mls/hr AD IV 05/23/24 19:30 06/22/24 19:29 05/23/24 23:48 0 MLS/HR Hydralazine HCl (APRESOLine 20MG INJ) 20 mg Q6H PRN IV ADMINISTER FOR SBP > 160 05/19/24 08:00 06/18/24 07:59 Levetiracetam (kepPRA 500 MG TABLET) 500 mg BID PO 05/20/24 09:00 06/19/24 08:59 05/24/24 09:39 500 MG Lorazepam (AtiVAN) 2 mg AD PRN IVP SEIZURE 05/19/24 23:00 05/26/24 22:59 05/20/24 04:31 2 MG Magnesium Sulfate 50 ml @ 0 mls/hr PROTOCOL PRN IV OTHER [SEE ORDER COMMENTS] 05/19/24 01:00 06/18/24 00:59 05/19/24 20:51 25 MLS/HR Montelukast Sodium (SinguLAIR) 10 mg DAILY PO 05/22/24 09:00 06/21/24 08:59 05/24/24 09:40 10 MG Nitroglycerin (Nitrostat) 0.4 mg PROTOCOL PRN SL CHEST PAIN 05/19/24 01:00 05/22/24 18:32 DC Ondansetron HCl (zoFRAN 4MG INJ) 4 mg Q6H PRN IV NAUSEA/VOMITING 05/19/24 01:00 06/18/24 00:59 Potassium Chloride 100 ml @ 50 mls/hr PROTOCOL IV 05/18/24 23:00 05/19/24 00:56 DC 05/18/24 23:06 50 MLS/HR Potassium Chloride 100 ml @ 100 mls/hr AD PRN IV POTASSIUM PROTOCOL 05/19/24 01:00 06/18/24 00:59 Potassium Chloride (K-Dur/Klor-Con 20meq) 20 meq AD PRN PO POTASSIUM PROTOCOL 05/19/24 01:00 06/18/24 00:59 05/21/24 23:11 20 MEQ Potassium Chloride (KCl 10% Elixir 20meq/15ml) 20 meq AD PRN PO POTASSIUM PROTOCOL 05/19/24 01:00 06/18/24 00:59 Sildenafil Citrate (Revatio) 20 mg Q8H PO 05/23/24 17:00 06/21/24 20:59 05/24/24 09:40 20 MG Sildenafil Citrate (Revatio) 20 mg TID PO 05/22/24 21:00 05/23/24 09:16 DC 05/23/24 09:15 20 MG Sodium Chloride (NS Flush 10ml) 10 ml Q8H IVP 05/22/24 18:30 06/21/24 18:29 05/24/24 09:49 10 ML DIAGNOSTICS / RADIOLOGY: [ ] ASSESSMENT: Syncope and collapse versus seizure episode POA Status post fall injury at home POA Acute respiratory failure 2/2 HF, POA Acute on suspected chronic diastolic HF POA Normocytic normochromic anemia POA Electrolyte derangement POA Suspected pneumonitis, POA Hypertension POA Possible seizures Large right groin pseudoaneurysm Severe pulmonary hypertension Status post left heart catheterization 05/22/2024 PLAN: Patient has been downgraded to the ICU Continue heart healthy diet Continue pvc monitor Continue Rocephin and azithromycin for broad-spectrum coverage for pneumonia Continue to replace electrolytes IV per protocol Continue O2 supplementation to keep O2 saturations above 92%, currently satting 95% on 1 L nasal cannula Wean off O2 as tolerated. Decrease O2 by 0.5 L/min every shift. Document accurately supplemental oxygen. Continue IS hourly Continue DuoNebs Continue daily weight, strict I&O and fluid restriction 1.5 L per day neuro check every 4 hours per nursing Continue Fall precaution Cardiology consulted, follow input and recommendation Monitor a.m. labs PRN Treatment - Add when necessary meds for nausea, vomiting, pain, constipation, insomnia. DVT/GI prophylaxis- Continue SCDs and famotidine at current doses. Full CODE STATUS Disposition: Patient remains upgraded to the ICU, status post interval placement of [place]-Naresh catheter for monitoring of pulmonary artery pressure as the patient with severe pulmonary arterial hypertension on [facility] done 05/22/2024. Patient evaluated by critical Care, started on sildenafil 20 mg p.o. q.8 hours. Patient also furosemide 20 mg p.o. daily. PA pressure still elevated. Continue to follow recommendations. Continue to follow Cardiology input and rec ommendations. Plan of action discussed with the patient, all questions answered. Total ICU greater 30 minutes. YARITZA TANG MD May 24, 2024 11:48
[2024-05-24 11:53] LABS: B-TYPE NATRIURETIC PEPTIDE 152 pg/mL (0-100)
[2024-05-24 15:26] LABS: HIV 1&2 ANTIBODY Non-Reactive (Negative); HIV-1 p24 Antigen Non-Reactive (Negative)
--- NOTE | 2024-05-24 17:46 | NUR ---
[id number] Yousif, pending response. [phone] Karl Yousif office at this time, no answer, voicemail not available. [phone] Yousif's office at this time, spoke with Faith, states she will inform Dr. Yousif of request for follow up on [place] Naresh catheter, pending call back.
[2024-05-24 19:51] LABS: HEPATITIS A IGM ANTIBODY Non-Reactive (Nonreactive)
[2024-05-24 19:52] LABS: HEPATITIS B CORE IGM ANTIBODY Non-Reactive (Negative); HEPATITIS B SURFACE ANTIGEN Non-Reactive (Nonreactive); HEPATITIS C ANTIBODY Non-Reactive (Nonreactive)
[2024-05-25] VITALS (20 sets, daily range): BP systolic 93–121; BP diastolic 55–75; PULSE 61–91; RESP 18–26; TEMP 97.9–98.9; O2SAT 96–98
[2024-05-25] MEDS: SILDENAFIL CITRATE 20 MG TABLET PO SCH (00:35)
--- NOTE | 2024-05-25 01:10 | PN ---
He is currently stable. He has no significant shortness of breath. His blood pressure has been stable. He seems to be tolerating without difficulty. His pulmonary pressures had been elevated briefly, but have normalized. They are now relatively back at baseline. His [place]-Naresh catheter will be removed, as he is currently asymptomatic, and we will titrate his pulmonary hypertension drugs as an outpatient. There is no change in his exam and the patient is comfortable. TID: [id number] RECEIPT: [id number]
--- NOTE | 2024-05-25 08:25 | PN ---
[facility] PROGRESS NOTE Date of Service: May 25, 2024 Time of Service: 08:24 SUBJECTIVE: [ ] Seen and examined in room 232 PCP self-referral Admitting date 05/18/2024 Today on bedside evaluation patient was found awake alert and oriented x 3. The power chart reviewed, vital signs, laboratory tests, imaging test and medications have been reviewed. Latest vitals are stable, satting 98% on2 L nasal cannula. CBC is stable with a white count of 5.6 with negative left shift neutrophils 88.1, sodium 135, magnesium 1.7, BNP 445. Continue DuoNebs, continue IS, pending respiratory cultures, continue strict I&Os, daily weights, fluid restriction 1.5 L/daily. Continue IV Rocephin and azithromycin. We will follow Dr. Yousif's recommendations. 05/20 the patient has been seen and examined during my rounding, he is on Keppra IV, alert oriented x3, per discussion with the nurse, had short episode of s eizure today, no loss of consciousness, BP 119/89, afebrile, saturating normal on room air. Results of MRI unremarkable, no evidence of acute infarct, discussed with the patient. No family members at bedside. 05/21 the patient has been seen and examined during my rounding, comfortably in bed, no acute events overnight, remains hemodynamically stable, no episodes of seizure activity throughout the night. Results of EEG unremarkable, discussed with the patient. 05/23 the patient has been seen and examined during my rounding earlier this morning, the patient is currently in the ICU, he is alert oriented x3, hemodynamically stable, on supplemental oxygen via nasal cannula at 2 L, saturating 98%. The patient underwent successful left heart catheterization yes terday by Cardiovascular physician, with the finding of severe pulmonary hypertension, reason for why the patient was upgraded to the ICU, he is has been evaluated by pulmonary physician, [place]-Naresh catheter inserted, the patient is started on sildenafil. He denied chest pain, shortness shortness for breath, no nausea, no vomiting, no abdominal discomfort. 05/24 the patient has been seen and examined during my rounding earlier this morning, he remains admitted to the ICU, he is status post interval placement of [place]-Naresh catheter, still with a elevated PA wedge pressures. He is currently on supplemental oxygen via nasal cannula at 2 L, saturating 98%, he remains alert oriented x3, no chest pain, no shortness a breath, no nausea, no vomiting. No family members at bedside during my visit. REVIEW OF SYSTEMS CONSTITUTIONAL: Denies fevers, chills, or night sweats. No unintentional weight loss reported. NEUROLOGICAL: Denies headache, amaurosis fugax, motor weakness, sensory deficit, vertigo/spinning sensation, gait abnormalities, or tremors. ENT: No hearing loss, otalgia, otorrhea, rhinitis, rhinorrhea, hoarseness, or sore throat. CARDIOVASCULAR: Denies any exertional angina, dyspnea on exertion, orthopnea, paroxysmal nocturnal dyspnea, palpitations, life-threatening arrhythmias, claudication. PULMONARY: Complain of shortness of breaths productive cough Denies hemoptysis, pleuritic chest pain. SLEEP: Denies morning headaches, daytime somnolence or napping. Denies diff iculty falling asleep, staying asleep, waking from sleep. Denies knowledge of snoring. GASTROINTESTINAL: Denies any type of dysphagia to either liquids or solids. Denies nausea, vomiting, pyrosis, early satiety, abdominal pain, diarrhea, constipation, or changes in stool consistency or caliber. Denies coffee-ground emesis, hematemesis, hematochezia, or melanotic stools. GENITOURINARY: Denies frequency, urgency, nocturia, hematuria or incontinence (Storage/Irritative symptoms.) Low urinary stream, straining to void, urinary intermittency or hesitancy, splitting of the voiding stream, terminal dribbling. ENDOCRINOLOGIC: Denies polyuria, polydipsia, polyphagia or heat/cold in tolerances. HEMATOLOGIC: Denies thrombophilia/previous clots, or coagulopathy/bleeding disorders. ONCOLOGIC: Denies personal history of malignancy. DERMATOLOGIC: Denies rashes or pruritus. PSYCHIATRIC: Denies any suicidal or homicidal ideation. Denies hallucinations. PHYSICAL EXAM GENERAL APPEARANCE: The patient is awake, alert, and oriented, in no acute cardiopulmonary distress. NEUROLOGICAL: Cranial nerves II-XII grossly intact. Motor is 5/5 in bilateral upper and lower extremities proximal to distal. No sensory deficits. HEENT: Face is symmetric. Pupils are equal and reactive. Extraocular movements are intact. NECK: Supple. No JVD. No thyromegaly. No submental, submandibular, pre- /postauricular, occipital or supraclavicular lymphadenopathy. CHEST: Normal chest expansion. No Telemetry. LUNGS: Absence of any rales, rhonchi or any wheezing. CARDIOVASCULAR: Regular. S1 and S2 normal. No appreciable rubs, murmurs or gallops. ABDOMEN: Soft, nontender, and nondistended. There is no rebound, voluntary guarding, or rigidity. : Deferred. No Carpio. EXTREMITIES: Trace of edema to bilateral lower extremities SKIN: No skin breakdown. Vital Signs (last 8hr) Date Time Temp Pulse Resp B/P (MAP) Pulse Ox O2 Delivery O2 Flow Rate FiO2 05/25/24 07:29 67 18 05/25/24 07:28 66 18 N/Cannula Low lpm 2.0 28 05/25/24 07:00 64 19 93/63 (73) 98 28 05/25/24 06:00 65 18 102/74 (83) 98 28 05/25/24 05:00 74 23 101/67 (78) 97 28 05/25/24 04:00 96 Nasal Cannula* 2 28 05/25/24 04:00 98.4 61 21 94/55 (68) 99 28 05/25/24 03:00 70 20 102/64 (77) 97 28 05/25/24 02:00 70 22 111/64 (80) 98 28 05/25/24 01:00 75 20 109/63 (78) 98 28 LABS: Laboratory: Test 05/24/24 14:21 05/24/24 10:25 05/23/24 11:36 Range/Units Erythrocyte Sedimentation Rate 8 0-15 MM/HR Ferritin 34 30-400 ng/mL C-Reactive Protein, Quantitative 1.30 0.5-3.0 mg/L HIV (1&2) Antibody Non-Reactive Negative HIV P24 Antigen, Qualitative Non-Reactive Negative White Blood Count 5.5 4.8-10.8 K/uL Red Blood Count 4.75 4.50-6.20 MIL/uL Hemoglobin 13.0 L 14.0-18.0 g/dL Hematocrit 40.8 L 42-54 % Mean Corpuscular Volume 85.9 79-99 fL Mean Corpuscular Hemoglobin 27.4 27.0-33.0 pg Mean Corpuscular Hemoglobin Concent 31.9 L 32.0-36.0 g/dL Red Cell Distribution Width 14.6 11.0-15.5 % Platelet Count 126 L 130-400 K/uL Mean Platelet Volume 10.8 H 7.5-10.5 fL Immature Granulocyte % (Auto) 0.7 0-1 % Neutrophils (%) (Auto) 61.4 40.0-77.0 % Lymphocytes (%) (Auto) 18.9 L 21.0-51.0 % Monocytes (%) (Auto) 12.7 3.0-13.0 % Eosinophils (%) (Auto) 5.9 0.0-8.0 % Basophils (%) (Auto) 0.4 0.0-5.0 % Neutrophils # (Auto) 3.4 1.8-7.7 K/uL Lymphocytes # (Auto) 1.0 1.0-4.8 K/uL Monocytes # (Auto) 0.7 0.1-1.0 K/uL Eosinophils # (Auto) 0.32 0.00-0.70 K/uL Basophils # (Auto) 0.02 0.00-0.20 K/uL Absolute Immature Granulocyte (auto 0.04 0-1 K/uL Nucleated Red Blood Cells 0.0 0.0-0.19 % Sodium Level 145 136-145 mmol/L Potassium Level 3.4 L 3.5-5.1 mmol/L Chloride Level 104 101-111 mmol/L Carbon Dioxide Level 34 H 21-32 mmol/L Blood Urea Nitrogen 17 7-18 mg/dL Creatinine 1.0 0.5-1.3 mg/dL Glomerular Filtration Rate Calc 92 >90 mL/min Random Glucose 137 H 70-105 mg/dL Total Calcium 8.7 8.5-10.1 mg/dL Total Bilirubin 0.8 0.2-1.0 mg/dL Aspartate Amino Transf (AST/SGOT) 31 10-37 U/L Alanine Aminotransferase (ALT/SGPT) 23 12-78 U/L Alkaline Phosphatase 177 H 50-136 U/L B-Type Natriuretic Peptide 152 H 0-100 pg/mL Total Protein 7.0 6.0-8.3 g/dL Albumin 3.2 L 3.5-5.0 g/dL Hepatitis A IgM Antibody Non-Reactive Nonreactive Hepatitis B Surface Antigen. Non-Reactive Nonreactive Hepatitis B Core IgM Antibody Non-Reactive Negative Hepatitis C Antibody Non-Reactive Nonreactive Whole Blood Glucose 104 70-110 MG/DL Current Medications Medications (Trade) Dose Ordered Sig/Ben Route PRN Reason Start Time Stop Time Status Last Admin Dose Admin Acetaminophen (TYLenol 325MG TAB) 650 mg Q4H PRN PO MILD PAIN (1-3) 05/19/24 01:00 06/18/24 00:59 05/21/24 05:48 650 MG Acetaminophen (TYLenol 325MG TAB) 650 mg Q6H PRN PO TEMPERATURE GREATER THAN 101.5 05/19/24 01:00 06/18/24 00:59 Albuterol (DUOneb) 1 udvial [id number] IH 05/19/24 02:00 05/19/24 07:41 DC 05/19/24 07:35 1 UDVIAL Albuterol (DUOneb) 1 udvial Q6H PRN IH SHORTNESS OF BREATH 05/19/24 08:00 06/18/24 07:59 05/22/24 06:48 1 UDVIAL Albuterol (DUOneb) 1 udvial [id number] IH 05/19/24 12:00 05/19/24 11:02 DC Azithromycin 250 ml @ 250 mls/hr Q24H IVPB 05/20/24 00:30 05/22/24 22:40 DC 05/21/24 23:11 250 MLS/HR Azithromycin 250 ml @ 250 mls/hr Q24H IVPB 05/23/24 04:00 05/30/24 03:59 05/25/24 04:17 250 MLS/HR Azithromycin 250 ml @ 250 mls/hr Q24H STAT IVPB 05/18/24 23:38 05/19/24 00:40 DC 05/18/24 23:54 250 MLS/HR Budesonide (Pulmicort 0.5 Mg/2ml) 0.5 mg BIDRESP IH 05/22/24 06:00 06/21/24 05:59 05/25/24 07:29 0.5 MG Ceftriaxone Sodium (ROCEphine 1G INJ) 1 gm Q24H IVPB 05/20/24 00:30 05/21/24 18:52 DC 05/21/24 00:03 1 GM Ceftriaxone Sodium (ROCEphine 1G INJ) 2 gm Q24H IVPB 05/22/24 00:30 05/22/24 08:57 DC 05/21/24 23:11 2 GM Ceftriaxone Sodium (Rocephin 2gm Inj) 2 gm Q24H IVPB 05/23/24 00:30 06/01/24 00:29 05/25/24 00:34 2 GM Famotidine (Pepcid 20mg Tab) 20 mg BID PO 05/19/24 09:00 06/18/24 08:59 05/24/24 21:24 20 MG Furosemide (LASix 20MG TAB) 20 mg DAILY PO 05/25/24 09:00 06/24/24 08:59 Furosemide (LASix 20MG VIAL) 20 mg BID IV 05/19/24 09:00 05/24/24 10:50 DC 05/24/24 09:40 20 MG Guaifenesin/ Dextromethorphan (RobiTUSSin DM 200/20MG 10ML) 10 ml Q4H PRN PO COUGH 05/19/24 01:00 06/18/24 00:59 05/22/24 02:33 10 ML Heparin Sodium/ Sodium Chloride 500 ml @ 0 mls/hr AD IV 05/23/24 19:30 06/22/24 19:29 05/23/24 23:48 0 MLS/HR Hydralazine HCl (APRESOLine 20MG INJ) 20 mg Q6H PRN IV ADMINISTER FOR SBP > 160 05/19/24 08:00 06/18/24 07:59 Levetiracetam (kepPRA 500 MG TABLET) 500 mg BID PO 05/20/24 09:00 06/19/24 08:59 05/24/24 21:24 500 MG Lorazepam (AtiVAN) 2 mg AD PRN IVP SEIZURE 05/19/24 23:00 05/26/24 22:59 05/20/24 04:31 2 MG Magnesium Sulfate 50 ml @ 0 mls/hr PROTOCOL PRN IV OTHER [SEE ORDER COMMENTS] 05/19/24 01:00 06/18/24 00:59 05/19/24 20:51 25 MLS/HR Montelukast Sodium (SinguLAIR) 10 mg DAILY PO 05/22/24 09:00 06/21/24 08:59 05/24/24 09:40 10 MG Nitroglycerin (Nitrostat) 0.4 mg PROTOCOL PRN SL CHEST PAIN 05/19/24 01:00 05/22/24 18:32 DC Ondansetron HCl (zoFRAN 4MG INJ) 4 mg Q6H PRN IV NAUSEA/VOMITING 05/19/24 01:00 06/18/24 00:59 Potassium Chloride 100 ml @ 50 mls/hr PROTOCOL IV 05/18/24 23:00 05/19/24 00:56 DC 05/18/24 23:06 50 MLS/HR Potassium Chloride 100 ml @ 100 mls/hr AD PRN IV POTASSIUM PROTOCOL 05/19/24 01:00 06/18/24 00:59 Potassium Chloride (K-Dur/Klor-Con 20meq) 20 meq AD PRN PO POTASSIUM PROTOCOL 05/19/24 01:00 06/18/24 00:59 05/24/24 17:15 20 MEQ Potassium Chloride (KCl 10% Elixir 20meq/15ml) 20 meq AD PRN PO POTASSIUM PROTOCOL 05/19/24 01:00 06/18/24 00:59 Sildenafil Citrate (Revatio) 20 mg Q8H PO 05/23/24 17:00 05/24/24 19:11 DC 05/24/24 17:15 20 MG Sildenafil Citrate (Revatio) 20 mg TID PO 05/22/24 21:00 05/23/24 09:16 DC 05/23/24 09:15 20 MG Sildenafil Citrate (Revatio) 30 mg Q8H PO 05/25/24 01:00 06/24/24 00:59 05/25/24 00:35 30 MG Sodium Chloride (NS Flush 10ml) 10 ml Q8H IVP 05/22/24 18:30 06/21/24 18:29 05/25/24 02:36 10 ML DIAGNOSTICS / RADIOLOGY: [ ] ASSESSMENT: Syncope and collapse versus seizure episode POA Status post fall injury at home POA Acute respiratory failure 2/2 HF, POA Acute on suspected chronic diastolic HF POA Normocytic normochromic anemia POA Electrolyte derangement POA Suspected pneumonitis, POA Hypertension POA Possible seizures Large right groin pseudoaneurysm Severe pulmonary hypertension Status post left heart catheterization 05/22/2024 PLAN: Patient has been downgraded to the ICU Continue heart healthy diet Continue media monitor Continue Rocephin and azithromycin for broad-spectrum coverage for pneumonia Continue to replace electrolytes IV per protocol Continue O2 supplementation to keep O2 saturations above 92%, currently satting 95% on 1 L nasal cannula Wean off O2 as tolerated. Decrease O2 by 0.5 L/min every shift. Document accurately supplemental oxygen. Continue IS hourly Continue DuoNebs Continue daily weight, strict I&O and fluid restriction 1.5 L per day neuro check every 4 hours per nursing Continue Fall precaution Cardiology consulted, follow input and recommendation Monitor a.m. labs PRN Treatment - Add when necessary meds for nausea, vomiting, pain, constipation, insomnia. DVT/GI prophylaxis- Continue SCDs and famotidine at current doses. Full CODE STATUS Disposition: Patient remains upgraded to the ICU, status post interval placement of [place]-Naresh catheter for monitoring of pulmonary artery pressure as the patient with severe pulmonary arterial hypertension on [facility] done 05/22/2024. Patient evaluated by critical Care, started on sildenafil 20 mg p.o. q.8 hours. Patient also furosemide 20 mg p.o. daily. PA pressure still elevated. Continue to follow recommendations. Continue to follow Cardiology input and recommendat ions. Plan of action discussed with the patient, all questions answered. Total ICU greater 30 minutes. YARITZA TANG MD May 25, 2024 08:25
[2024-05-25 09:14] LABS: ANTI-SCLERODERMA 70 0.4 AI (0.0-0.9); RHEUMATOID ARTHRITIS FACTOR 10.2 IU/mL (<14.0)
[2024-05-25] MEDS: furoSEMIDE 20 MG TABLET PO SCH (09:18)
[2024-05-25 11:22] LABS: BASOPHILS # (AUTO) 0.04 K/uL (0.00-0.20); BASOPHILS % (AUTO) 0.8 % (0.0-5.0); EOSINOPHILS % (AUTO) 7.6 % (0.0-8.0); IMMATURE GRANULOCYTE ABSOLUTE 0.04 K/uL (0-1); LYMPHOCYTES % (AUTO) 18.3 % (21.0-51.0); MEAN CORPUSCULAR HEMOGLOBIN 27.7 pg (27.0-33.0); MEAN CORPUSCULAR HGB CONC 31.8 g/dL (32.0-36.0); MEAN CORPUSCULAR VOLUME 87.1 fL (79-99); MONOCYTES # (AUTO) 0.8 K/uL (0.1-1.0); MONOCYTES % (AUTO) 14.4 % (3.0-13.0); NEUTROPHILS # (AUTO) 3.1 K/uL (1.8-7.7); NEUTROPHILS % (AUTO) 58.1 % (40.0-77.0); PLATELET COUNT (AUTO) 117 K/uL (130-400); RED BLOOD CELL COUNT(AUTO) 4.48 MIL/uL (4.50-6.20); RED CELL DISTRIBUTION WIDTH 14.3 % (11.0-15.5); WHITE BLOOD COUNT (AUTO) 5.3 K/uL (4.8-10.8)
[2024-05-25 11:44] LABS: B-TYPE NATRIURETIC PEPTIDE 159 pg/mL (0-100)
[2024-05-25 11:48] LABS: ALBUMIN 2.9 g/dL (3.5-5.0); BILIRUBIN,TOTAL 0.7 mg/dL (0.2-1.0); CREATININE 0.9 mg/dL (0.5-1.3); POTASSIUM 3.6 mmol/L (3.5-5.1); TOTAL PROTEIN, SERUM 6.7 g/dL (6.0-8.3)
--- NOTE | 2024-05-25 12:08 | PN ---
[facility] PROGRESS NOTE Date of Service: May 25, 2024 Time of Service: 12:06 SUBJECTIVE: [ ] Seen and examined in room 232 PCP self-referral Admitting date 05/18/2024 Today on bedside evaluation patient was found awake alert and oriented x 3. The power chart reviewed, vital signs, laboratory tests, imaging test and medications have been reviewed. Latest vitals are stable, satting 98% on2 L nasal cannula. CBC is stable with a white count of 5.6 with negative left shift neutrophils 88.1, sodium 135, magnesium 1.7, BNP 445. Continue DuoNebs, continue IS, pending respiratory cultures, continue strict I&Os, daily weights, fluid restriction 1.5 L/daily. Continue IV Rocephin and azithromycin. We will follow Dr. Yousif's recommendations. 05/20 the patient has been seen and examined during my rounding, he is on Keppra IV, alert oriented x3, per discussion with the nurse, had short episode of s eizure today, no loss of consciousness, BP 119/89, afebrile, saturating normal on room air. Results of MRI unremarkable, no evidence of acute infarct, discussed with the patient. No family members at bedside. 05/21 the patient has been seen and examined during my rounding, comfortably in bed, no acute events overnight, remains hemodynamically stable, no episodes of seizure activity throughout the night. Results of EEG unremarkable, discussed with the patient. 05/23 the patient has been seen and examined during my rounding earlier this morning, the patient is currently in the ICU, he is alert oriented x3, hemodynamically stable, on supplemental oxygen via nasal cannula at 2 L, saturating 98%. The patient underwent successful left heart catheterization yes terday by Cardiovascular physician, with the finding of severe pulmonary hypertension, reason for why the patient was upgraded to the ICU, he is has been evaluated by pulmonary physician, Trilla-Naresh catheter inserted, the patient is started on sildenafil. He denied chest pain, shortness shortness for breath, no nausea, no vomiting, no abdominal discomfort. 05/24 the patient has been seen and examined during my rounding earlier this morning, he remains admitted to the ICU, he is status post interval placement of Trilla-Naresh catheter, still with a elevated PA wedge pressures. He is currently on supplemental oxygen via nasal cannula at 2 L, saturating 98%, he remains alert oriented x3, no chest pain, no shortness a breath, no nausea, no vomiting. No family members at bedside during my visit. 05/25 the patient has been seen and examined earlier this morning during my rounding, no acute events over tonight, during my visit the patient is comfortably in bed, hemodynamically stable, alert oriented x3, following comm ands, he is dose of sildenafil increased to 30 mg p.o. q.8 hours, he remains on furosemide 20 mg p.o. daily. During my visit he is getting broad-spectrum IV antibiotics. No family members at bedside. REVIEW OF SYSTEMS CONSTITUTIONAL: Denies fevers, chills, or night sweats. No unintentional weight loss reported. NEUROLOGICAL: Denies headache, amaurosis fugax, motor weakness, sensory deficit, vertigo/spinning sensation, gait abnormalities, or tremors. ENT: No hearing loss, otalgia, otorrhea, rhinitis, rhinorrhea, hoarseness, or sore throat. CARDIOVASCULAR: Denies any exertional angina, dyspnea on exertion, orthopnea, paroxysmal nocturnal dyspnea, palpitations, life-threatening arrhythmias, claudication. PULMONARY: Complain of shortness of breaths productive cough Denies hemoptysis, pleuritic chest pain. SLEEP: Denies morning headaches, daytime somnolence or napping. Denies difficulty falling asleep, staying asleep, waking from sleep. Denies knowledge of snoring. GASTROINTESTINAL: Denies any type of dysphagia to either liquids or solids. Denies nausea, vomiting, pyrosis, early satiety, abdominal pain, diarrhea, constipation, or changes in stool consistency or caliber. Denies coffee-ground emesis, hematemesis, hematochezia, or melanotic stools. GENITOURINARY: Denies frequency, urgency, nocturia, hematuria or incontinence (Storage/Irritative symptoms.) Low urinary stream, straining to void, urinary intermittency or hesitancy, splitting of the voiding stream, terminal dribbling. ENDOCRINOLOGIC: Denies polyuria, polydipsia, polyphagia or heat/cold intolerances. HEMATOLOGIC: Denies thrombophilia/previous clots, or coagulopathy/bleeding disorders. ONCOLOGIC: Denies personal history of malignancy. DERMATOLOGIC: Denies rashes or pruritus. PSYCHIATRIC: Denies any suicidal or homicidal ideation. Denies hallucinations. PHYSICAL EXAM GENERAL APPEARANCE: The patient is awake, alert, and oriented, in no acute cardiopulmonary distress. NEUROLOGICAL: Cranial nerves II-XII grossly intact. Motor is 5/5 in bilateral upper and lower extremities proximal to distal. No sensory deficits. HEENT: Face is symmetric. Pupils are equal and reactive. Extraocular movements are intact. NECK: Supple. No JVD. No thyromegaly. No submental, submandibular, pre-/ postauricular, occipital or supraclavicular lymphadenopathy. CHEST: Normal chest expansion. No Telemetry. LUNGS: Absence of any rales, rhonchi or any wheezing. CARDIOVASCULAR: Regular. S1 and S2 normal. No appreciable rubs, murmurs or gallops. ABDOMEN: Soft, nontender, and nondistended. There is no rebound, voluntary guarding, or rigidity. : Deferred. No Carpio. EXTREMITIES: Trace of edema to bilateral lower extremities SKIN: No skin breakdown. Vital Signs (last 8hr) Date Time Temp Pulse Resp B/P (MAP) Pulse Ox O2 Delivery O2 Flow Rate FiO2 05/25/24 08:00 98.2 72 20 105/62 97 Nasal Cannula 2.0 05/25/24 08:00 97 Nasal Cannula* 2 28 05/25/24 07:29 67 18 05/25/24 07:28 66 18 N/Cannula Low lpm 2.0 28 05/25/24 07:00 64 19 93/63 (73) 98 28 05/25/24 06:00 65 18 102/74 (83) 98 28 05/25/24 05:00 74 23 101/67 (78) 97 28 LABS: Laboratory: Test 05/25/24 10:44 05/24/24 14:21 05/24/24 10:25 Range/Units White Blood Count 5.3 4.8-10.8 K/uL Red Blood Count 4.48 L 4.50-6.20 MIL/uL Hemoglobin 12.4 L 14.0-18.0 g/dL Hematocrit 39.0 L 42-54 % Mean Corpuscular Volume 87.1 79-99 fL Mean Corpuscular Hemoglobin 27.7 27.0-33.0 pg Mean Corpuscular Hemoglobin Concent 31.8 L 32.0-36.0 g/dL Red Cell Distribution Width 14.3 11.0-15.5 % Platelet Count 117 L 130-400 K/uL Mean Platelet Volume 11.1 H 7.5-10.5 fL Immature Granulocyte % (Auto) 0.8 0-1 % Neutrophils (%) (Auto) 58.1 40.0-77.0 % Lymphocytes (%) (Auto) 18.3 L 21.0-51.0 % Monocytes (%) (Auto) 14.4 H 3.0-13.0 % Eosinophils (%) (Auto) 7.6 0.0-8.0 % Basophils (%) (Auto) 0.8 0.0-5.0 % Neutrophils # (Auto) 3.1 1.8-7.7 K/uL Lymphocytes # (Auto) 1.0 1.0-4.8 K/uL Monocytes # (Auto) 0.8 0.1-1.0 K/uL Eosinophils # (Auto) 0.40 0.00-0.70 K/uL Basophils # (Auto) 0.04 0.00-0.20 K/uL Absolute Immature Granulocyte (auto 0.04 0-1 K/uL Nucleated Red Blood Cells 0.0 0.0-0.19 % Sodium Level 142 136-145 mmol/L Potassium Level 3.6 3.5-5.1 mmol/L Chloride Level 106 101-111 mmol/L Carbon Dioxide Level 33 H 21-32 mmol/L Blood Urea Nitrogen 14 7-18 mg/dL Creatinine 0.9 0.5-1.3 mg/dL Glomerular Filtration Rate Calc 105 >90 mL/min Random Glucose 140 H 70-105 mg/dL Total Calcium 8.5 8.5-10.1 mg/dL Total Bilirubin 0.7 0.2-1.0 mg/dL Aspartate Amino Transf (AST/SGOT) 31 10-37 U/L Alanine Aminotransferase (ALT/SGPT) 24 12-78 U/L Alkaline Phosphatase 172 H 50-136 U/L B-Type Natriuretic Peptide 159 H 0-100 pg/mL Total Protein 6.7 6.0-8.3 g/dL Albumin 2.9 L 3.5-5.0 g/dL Erythrocyte Sedimentation Rate 8 0-15 MM/HR Ferritin 34 30-400 ng/mL C-Reactive Protein, Quantitative 1.30 0.5-3.0 mg/L Rheumatoid Factor 10.2 <14.0 IU/mL Anti-Nuclear Antibody Screen Positive H Negative Anti-Nuclear Antibody Interpret Comment . SONJA-1 Antibody >8.0 H 0.0-0.9 AI SS-A/Ro Antibody >8.0 H 0.0-0.9 AI SS-B/La Antibody <0.2 0.0-0.9 AI Sm (Jackson) IgG Antibody, Quant <0.2 0.0-0.9 AI PIGMENT FURNACE TENDER IgG Antibody, Quantitative 0.3 0.0-0.9 AI Scl-70 (Scleroderma) Antibody 0.4 0.0-0.9 AI Anti-Double Strand DNA Antibody <1 0-9 IU/mL Chromatin Antibody <0.2 0.0-0.9 AI Anti-Centromere IgG Antibody <0.2 0.0-0.9 AI HIV (1&2) Antibody Non-Reactive Negative HIV P24 Antigen, Qualitative Non-Reactive Negative Hepatitis A IgM Antibody Non-Reactive Nonreactive Hepatitis B Surface Antigen. Non-Reactive Nonreactive Hepatitis B Core IgM Antibody Non-Reactive Negative Hepatitis C Antibody Non-Reactive Nonreactive Current Medications Medications (Trade) Dose Ordered Sig/Ben Route PRN Reason Start Time Stop Time Status Last Admin Dose Admin Acetaminophen (TYLenol 325MG TAB) 650 mg Q4H PRN PO MILD PAIN (1-3) 05/19/24 01:00 06/18/24 00:59 05/21/24 05:48 650 MG Acetaminophen (TYLenol 325MG TAB) 650 mg Q6H PRN PO TEMPERATURE GREATER THAN 101.5 05/19/24 01:00 06/18/24 00:59 Albuterol (DUOneb) 1 udvial [id number] IH 05/19/24 02:00 05/19/24 07:41 DC 05/19/24 07:35 1 UDVIAL Albuterol (DUOneb) 1 udvial Q6H PRN IH SHORTNESS OF BREATH 05/19/24 08:00 06/18/24 07:59 05/22/24 06:48 1 UDVIAL Albuterol (DUOneb) 1 udvial [id number] IH 05/19/24 12:00 05/19/24 11:02 DC Azithromycin 250 ml @ 250 mls/hr Q24H IVPB 05/20/24 00:30 05/22/24 22:40 DC 05/21/24 23:11 250 MLS/HR Azithromycin 250 ml @ 250 mls/hr Q24H IVPB 05/23/24 04:00 05/30/24 03:59 05/25/24 04:17 250 MLS/HR Azithromycin 250 ml @ 250 mls/hr Q24H STAT IVPB 05/18/24 23:38 05/19/24 00:40 DC 05/18/24 23:54 250 MLS/HR Budesonide (Pulmicort 0.5 Mg/2ml) 0.5 mg BIDRESP IH 05/22/24 06:00 06/21/24 05:59 05/25/24 07:29 0.5 MG Ceftriaxone Sodium (ROCEphine 1G INJ) 1 gm Q24H IVPB 05/20/24 00:30 05/21/24 18:52 DC 05/21/24 00:03 1 GM Ceftriaxone Sodium (ROCEphine 1G INJ) 2 gm Q24H IVPB 05/22/24 00:30 05/22/24 08:57 DC 05/21/24 23:11 2 GM Ceftriaxone Sodium (Rocephin 2gm Inj) 2 gm Q24H IVPB 05/23/24 00:30 06/01/24 00:29 05/25/24 00:34 2 GM Famotidine (Pepcid 20mg Tab) 20 mg BID PO 05/19/24 09:00 06/18/24 08:59 05/25/24 09:18 20 MG Furosemide (LASix 20MG TAB) 20 mg DAILY PO 05/25/24 09:00 06/24/24 08:59 05/25/24 09:18 20 MG Furosemide (LASix 20MG VIAL) 20 mg BID IV 05/19/24 09:00 05/24/24 10:50 DC 05/24/24 09:40 20 MG Guaifenesin/ Dextromethorphan (RobiTUSSin DM 200/20MG 10ML) 10 ml Q4H PRN PO COUGH 05/19/24 01:00 06/18/24 00:59 05/22/24 02:33 10 ML Heparin Sodium/ Sodium Chloride 500 ml @ 0 mls/hr AD IV 05/23/24 19:30 06/22/24 19:29 05/23/24 23:48 0 MLS/HR Hydralazine HCl (APRESOLine 20MG INJ) 20 mg Q6H PRN IV ADMINISTER FOR SBP > 160 05/19/24 08:00 06/18/24 07:59 Levetiracetam (kepPRA 500 MG TABLET) 500 mg BID PO 05/20/24 09:00 06/19/24 08:59 05/25/24 09:18 500 MG Lorazepam (AtiVAN) 2 mg AD PRN IVP SEIZURE 05/19/24 23:00 05/26/24 22:59 05/20/24 04:31 2 MG Magnesium Sulfate 50 ml @ 0 mls/hr PROTOCOL PRN IV OTHER [SEE ORDER COMMENTS] 05/19/24 01:00 06/18/24 00:59 05/19/24 20:51 25 MLS/HR Montelukast Sodium (SinguLAIR) 10 mg DAILY PO 05/22/24 09:00 06/21/24 08:59 05/25/24 09:18 10 MG Nitroglycerin (Nitrostat) 0.4 mg PROTOCOL PRN SL CHEST PAIN 05/19/24 01:00 05/22/24 18:32 DC Ondansetron HCl (zoFRAN 4MG INJ) 4 mg Q6H PRN IV NAUSEA/VOMITING 05/19/24 01:00 06/18/24 00:59 Potassium Chloride 100 ml @ 50 mls/hr PROTOCOL IV 05/18/24 23:00 05/19/24 00:56 DC 05/18/24 23:06 50 MLS/HR Potassium Chloride 100 ml @ 100 mls/hr AD PRN IV POTASSIUM PROTOCOL 05/19/24 01:00 06/18/24 00:59 Potassium Chloride (K-Dur/Klor-Con 20meq) 20 meq AD PRN PO POTASSIUM PROTOCOL 05/19/24 01:00 06/18/24 00:59 05/24/24 17:15 20 MEQ Potassium Chloride (KCl 10% Elixir 20meq/15ml) 20 meq AD PRN PO POTASSIUM PROTOCOL 05/19/24 01:00 06/18/24 00:59 Sildenafil Citrate (Revatio) 20 mg Q8H PO 05/23/24 17:00 05/24/24 19:11 DC 05/24/24 17:15 20 MG Sildenafil Citrate (Revatio) 20 mg TID PO 05/22/24 21:00 05/23/24 09:16 DC 05/23/24 09:15 20 MG Sildenafil Citrate (Revatio) 30 mg Q8H PO 05/25/24 01:00 06/24/24 00:59 05/25/24 09:18 30 MG Sodium Chloride (NS Flush 10ml) 10 ml Q8H IVP 05/22/24 18:30 06/21/24 18:29 05/25/24 10:59 10 ML DIAGNOSTICS / RADIOLOGY: [ ] ASSESSMENT: Syncope and collapse versus seizure episode POA Status post fall injury at home POA Acute respiratory failure 2/2 HF, POA Acute on suspected chronic diastolic HF POA Normocytic normochromic anemia POA Electrolyte derangement POA Suspected pneumonitis, POA Hypertension POA Possible seizures Large right groin pseudoaneurysm Severe pulmonary hypertension Status post left heart catheterization 05/22/2024 PLAN: Patient has been downgraded to the ICU Continue heart healthy diet Continue bottle house pumper Continue Rocephin and azithromycin for broad-spectrum coverage for pneumonia Continue to replace electrolytes IV per protocol Continue O2 supplementation to keep O2 saturations above 92%, currently satting 95% on 1 L nasal cannula Wean off O2 as tolerated. Decrease O2 by 0.5 L/min every shift. Document accurately supplemental oxygen. Continue IS hourly Continue DuoNebs Continue daily weight, strict I&O and fluid restriction 1.5 L per day neuro check every 4 hours per nursing Continue Fall precaution Cardiology consulted, follow input and recommendation Monitor a.m. labs PRN Treatment - Add when necessary meds for nausea, vomiting, pain, constipation, insomnia. DVT/GI prophylaxis- Continue SCDs and famotidine at current doses. Full CODE STATUS Disposition: Patient remains upgraded to the ICU, status post interval placement of Trilla-Naresh catheter for monitoring of pulmonary artery pressure as the patient with severe pulmonary arterial hypertension on [facility] done 05/22/2024. The dose of sildenafil increased from 20 mg p.o. q.8 hours to 30 mg p.o. q.8 hours. Patient also furosemide 20 mg p.o. daily. Continue to monitor PA pressu res. Continue to follow Pulmonary input and recommendation. Continue to follow Cardiology input and recommendations. Plan of action discussed with the patient, all questions answered. Total ICU greater 30 minutes. YARITZA TANG MD May 25, 2024 12:08
--- NOTE | 2024-05-25 13:20 | NUR ---
Right brachial swan pedro luis discontinued at bedside by Kyle ESTRADA. Patient tolerated intervention well with minimal discomfort, patient did not experience no episodes of ectopy or bleeding from access site. Dry dressing with tegaderm applied over access site. No further needs noted.
--- NOTE | 2024-05-25 21:05 | PN ---
[facility] PROGRESS NOTE Date Patient Seen: May 25, 2024 Time of Visit: 09:20 Supervising Physician: Rd [place] MD Primary Care Physician: Self ReferraL Outpatient Specialists: Inpatient Consults: Attending: Keyla team PROBLEM LIST: Acute hypoxic respiratory failure, POA Small to moderate right pleural effusion, POA Small pericardial effusion, POA Severe pulmonary hypertension, POA RVSP of 60 mm Hg S/P left and right heart catheterization yesterday with a an episode of V-tach status post DC cardioversion 05/22/24 S/P Lindsay-Naresh catheter placement RUE 05/22/24 removed 05/25/24 Wedge pressure of 4 Syncope and collapse POA Normocytic and normochromic anemia, POA Electrolyte derangement, POA Suspected pneumonitis, POA Hypertension, POA Possible seizure, POA r/o EEG unremarkable, continue Keppra per Neurology Marked right groin pseudoaneurysm, POA Tiny ascites, POA Former heavy smoker, quit 16 years ago PLAN Nitric oxide not available for vaso reactivity test. For now Sildenafil 20 mg p.o. q.8 hours DC Lindsay Naresh autoimmune work up HIV test hepatitis panel 6min walk before DC follow up outpatient at pulmonary Dr Loc Mujica MD in 1-2 weeks This has been explained to patient and he is in agreement with plan of care. Maintain O2 sats above 92% Monitor respiratory status INTERVAL HISTORY: 05/22 patient was seen and examined at bedside no family present. Patient is awake alert able to answer simple questions appropriately patient currently on2 L nasal cannula appears to be tolerating well. Patient does not use home oxygen. Patient denies any chest pain or shortness of breadth. Patient denies nausea abdominal pain. Patient is currently pending left heart catheterization to be done today. We will continue to follow patient with left heart catheterization results. 05/23/24-patient is awake alert and oriented x3, denies any chest pain, increased shortness of breath or palpitations. He has no complaints at this time. I explained to patient with Dr. Yousif at bedside the findings and plan of care patient is in agreement transferred to the ICU post loop recorder and Lindsay-Naresh placement per cardiology. Patient is status post left and right heart catheterization yesterday with a an episode of V-tach status post DC cardioversion. Per Cardiology report patient had a wedge pressure of 4. Currently with a Lindsay-Naresh pulmonary pressure 91/24, CVP of 8, heart rate 94 sinus rhythm with a blood pressure of 106/67 saturating 94% with 2 L via nasal cannula. Patient has had good urine output 3 L in the last 24 hours. On CBC white count is normal H&H is 12.6/40.3 platelet count is [id number] decreased from yesterday which was 123 1000. Chemistry unremarkable. Chest x-ray with mild pulmonary vascular congestion and mild right pleural effusion. We will try sildenafil 20 mg p.o. q.8 hours and monitor pulmonary pressors for now here in the ICU. 05/24-no major overnight events per RN. Patient is awake alert and oriented x3 on 2 L of O2 saturating 95% heart rate in the 80s respiratory rate of 23 unlabored, hemodynamically stable with a blood pressure of 105/60 this morning. Pulmonary pressure between 60s and 70s today decreased from yesterday which was 90s via swan Naresh. If okay with Cardiology we may discontinue Lindsay-Naresh catheter. Patient diuresing well with 3 L of output with a balance of-3.1 L today you may start weaning Lasix from IV to p.o.. On laboratory today CBC unremarkable. Chemistry had a potassium of 3.4 covered per protocol carbon d ioxide of 34 BUN 17 creatinine of 1.0 and GFR of 92 glucose 137 mg/dL with alkaline phosphatase of 177 albumin 3.2 ferritin level 34. HIV antibody nonreactive. Patient may downgrade to PCCU once swan Naresh catheter is removed. 05/25/24-no major overnight events. Patient is awake alert and oriented x3 continues on O2 at 2 L via nasal cannula saturating 97% in no apparent distress. Blood pressure 104/65 with a heart rate in the 70s respiratory rate of 21 unlabored and afebrile. Lindsay-Naresh we will be removed today and patient may be downgraded to PCCU. Patient tolerated schedule sildenafil well, pulmonary pressures trending down patient is asymptomatic. We will do a 6 minute walk before discharge and patient may follow up with pulmonology of choice for t itration pulmonary hypertension drugs. CBC unremarkable. Chemistry unremarkable. Mild bilateral pulmonary infiltrates are seen may be related to mild pulmonary vascular congestion with possible superimposed pneumonitis. REVIEW OF SYSTEMS: Const: No fever, fatigue or weight changes Eyes:[ no recent vision problems] ENT: [No congestion, ear pain, or sore throat] C/V: [no chest pain, palpitations or edema] Resp: No cough, congestion, wheezing yes to dyspnea with minimal exertion GI: [No abdominal pain, nausea, vomiting, constipation, or diarrhea] : [No incontinence of or dysuria] M/S: [No joint or pain swelling] Skin: [No rash] Neuro: [no headache, focal numbness, or weakness, dizziness or seizures] Psych: [no depression or anxiety] Heme: [no abnormal bruising or bleeding] Lymph: [no swollen glands] PHYSICAL EXAM: GENERAL: alert, weak, awake oriented x 3 HEENT: EOMI, Sclera non icteric, moist mucosa NECK: Supple, no JVD, trachea midline LUNGS: Clear breath sounds bilaterally. No wheezes HEART: Regular rate and rhythm. Normal S1 and S2, without murmurs ABD: Abdomen soft, nontender. Bowel sounds present EXT: No clubbing cyanosis or edema, right upper extremity Lindsay-Naresh NEURO: Alert and oriented to person, follows commands Vital Signs (last 8hr) Date Time Temp Pulse Resp B/P (MAP) Pulse Ox O2 Delivery O2 Flow Rate FiO2 05/25/24 20:02 98.1 78 18 100/70 97 Room Air 05/25/24 19:32 69 18 05/25/24 16:16 99.0 74 22 95/66 98 Nasal Cannula 2.0 LABS: Hematology Labs: Test 05/25/24 10:44 05/24/24 14:21 Range/Units White Blood Count 5.3 4.8-10.8 K/uL Red Blood Count 4.48 L 4.50-6.20 MIL/uL Hemoglobin 12.4 L 14.0-18.0 g/dL Hematocrit 39.0 L 42-54 % Mean Corpuscular Volume 87.1 79-99 fL Mean Corpuscular Hemoglobin 27.7 27.0-33.0 pg Mean Corpuscular Hemoglobin Concent 31.8 L 32.0-36.0 g/dL Red Cell Distribution Width 14.3 11.0-15.5 % Platelet Count 117 L 130-400 K/uL Mean Platelet Volume 11.1 H 7.5-10.5 fL Immature Granulocyte % (Auto) 0.8 0-1 % Neutrophils (%) (Auto) 58.1 40.0-77.0 % Lymphocytes (%) (Auto) 18.3 L 21.0-51.0 % Monocytes (%) (Auto) 14.4 H 3.0-13.0 % Eosinophils (%) (Auto) 7.6 0.0-8.0 % Basophils (%) (Auto) 0.8 0.0-5.0 % Neutrophils # (Auto) 3.1 1.8-7.7 K/uL Lymphocytes # (Auto) 1.0 1.0-4.8 K/uL Monocytes # (Auto) 0.8 0.1-1.0 K/uL Eosinophils # (Auto) 0.40 0.00-0.70 K/uL Basophils # (Auto) 0.04 0.00-0.20 K/uL Absolute Immature Granulocyte (auto 0.04 0-1 K/uL Nucleated Red Blood Cells 0.0 0.0-0.19 % Erythrocyte Sedimentation Rate 8 0-15 MM/HR Chemistry Labs: Test 05/25/24 10:44 05/24/24 14:21 Range/Units Sodium Level 142 136-145 mmol/L Potassium Level 3.6 3.5-5.1 mmol/L Chloride Level 106 101-111 mmol/L Carbon Dioxide Level 33 H 21-32 mmol/L Blood Urea Nitrogen 14 7-18 mg/dL Creatinine 0.9 0.5-1.3 mg/dL Glomerular Filtration Rate Calc 105 >90 mL/min Random Glucose 140 H 70-105 mg/dL Total Calcium 8.5 8.5-10.1 mg/dL Magnesium Level 2.10 1.80-2.40 mg/dL Total Bilirubin 0.7 0.2-1.0 mg/dL Aspartate Amino Transf (AST/SGOT) 31 10-37 U/L Alanine Aminotransferase (ALT/SGPT) 24 12-78 U/L Alkaline Phosphatase 172 H 50-136 U/L B-Type Natriuretic Peptide 159 H 0-100 pg/mL Total Protein 6.7 6.0-8.3 g/dL Albumin 2.9 L 3.5-5.0 g/dL Ferritin 34 30-400 ng/mL C-Reactive Protein, Quantitative 1.30 0.5-3.0 mg/L DIAGNOSTICS / RADIOLOGY RESULTS: Signed PATIENT: EDUARDO CLEARY MR#: [id number] : 1975 SEX: M AGE: 48 LOCATION: 2BH ORDER [id number] STATUS: ADM IN REPORT#: [id number] SERVICE 104 REASON: hypoxic resp failure ORDERING PHYSICIAN: ROLAN ROBERSON PROCEDURE: CXR1VW - CHEST 1VW CHEST 1VW HISTORY: Hypoxic respiratory failure COMPARISON: 05/22/2024 FINDINGS: A frontal projection of the chest was obtained. Mild bilateral pulmonary infiltrates are seen may be related to mild pulmonary vascular congestion with possible superimposed pneumonitis. The heart is borderline enlarged. Degenerative changes are seen. No evidence of aortic calcification is seen. IMPRESSION: 1. Mild bilateral pulmonary infiltrates are seen may be related to mild pulmonary vascular congestion with possible superimposed pneumonitis. DICTATED BY: LORI MALDONADO MD DATE: 05/24/24 112 ELECTRONICALLY SIGNED BY: LORI MALDONADO MD DATE: 05/24/24 113 PLAN NEURO: Minimize central acting medications as possible. Fall Precautions. Well lighted room through the day and minimize interruptions through the night to prevent acute delirium. PULMONARY: Supplemental 02 as needed Titrate Fio2 to keep Spo2 > or = 90% DuoNebs and CPT as needed IS hourly while awake for pulmonary hygiene Out of bed to chair as tolerated VAP Bundle CARDIOVASCULAR: Follow hemodynamics. Titrate vasopressor to keep MAP >65 or systolic blood pressure >95mmHg Pulmonary pressure monitoring per Lindsay-Naresh Drips: None LINES: PIV Lindsay-Naresh catheter GI & NUTRITION: Continue nutritional support Aspirations precautions Prokinetic agents and laxatives as needed KIDNEYS & ELECTROLYTES: Strict monitoring of intake and output Daily weights Avoid nephrotoxic agents Monitor electrolytes and replace as needed Goal urine output of 30mL/hr or 0.5mL/kg/hr ENDOCRINE: Maintain blood glucose between 100-180 at all times. Insulin sliding scale for blood glucose management INFECTIOUS DISEASE: Trend temperature. Maurice-culture if febrile. Micro: [ ] Sputum culture 05/20/24 normal oropharyngeal Antibiotics: [ ] Rocephin Azithromycin HEMATOLOGY & COAGULATION: Monitor H&H. Keep Hgb > 7 Transfuse 1 unit of PRBC for Hgb < 7 Transfuse 1 pack of platelets of platelets < 20, 000 Watch for any signs and symptoms of bleeding SKIN: Pressure ulcer prevention per facility protocol Rehab: PT/OT Prophylaxis: GI: Pepcid DVT: SCD Code Status: Full Resuscitation Disposition: ICU Other: Total patient care time exceeds 35 minutes excluding all procedures. Case was discussed and seen with my supervising physician. The above plan was formulated and agreed upon. ROLAN ROBERSON May 25, 2024 21:05
[2024-05-26] VITALS (13 sets, daily range): BP systolic 103–114; BP diastolic 63–73; PULSE 72–89; RESP 16–20; TEMP 98.2–98.6; O2SAT 88–97
--- NOTE | 2024-05-26 04:33 | CCATH ---
SUBJECTIVE: The patient was admitted for pulmonary hypertension, underwent a cardiac catheterization by Dr. Yousif. He has a history of small pseudoaneurysm of the right groin, which has been there for quite some time. Plan to proceed with thrombin injection electively. TID: [id number] RECEIPT: [id number]
--- NOTE | 2024-05-26 08:16 | PN ---
[facility] PROGRESS NOTE Date of Service: May 26, 2024 Time of Service: 08:16 SUBJECTIVE: [ ] Seen and examined in room 232 PCP self-referral Admitting date 05/18/2024 Today on bedside evaluation patient was found awake alert and oriented x 3. The power chart reviewed, vital signs, laboratory tests, imaging test and medications have been reviewed. Latest vitals are stable, satting 98% on2 L nasal cannula. CBC is stable with a white count of 5.6 with negative left shift neutrophils 88.1, sodium 135, magnesium 1.7, BNP 445. Continue DuoNebs, continue IS, pending respiratory cultures, continue strict I&Os, daily weights, fluid restriction 1.5 L/daily. Continue IV Rocephin and azithromycin. We will follow Dr. Yousif's recommendations. 05/20 the patient has been seen and examined during my rounding, he is on Keppra IV, alert oriented x3, per discussion with the nurse, had short episode of s eizure today, no loss of consciousness, BP 119/89, afebrile, saturating normal on room air. Results of MRI unremarkable, no evidence of acute infarct, discussed with the patient. No family members at bedside. 05/21 the patient has been seen and examined during my rounding, comfortably in bed, no acute events overnight, remains hemodynamically stable, no episodes of seizure activity throughout the night. Results of EEG unremarkable, discussed with the patient. 05/23 the patient has been seen and examined during my rounding earlier this morning, the patient is currently in the ICU, he is alert oriented x3, hemodynamically stable, on supplemental oxygen via nasal cannula at 2 L, saturating 98%. The patient underwent successful left heart catheterization yes terday by Cardiovascular physician, with the finding of severe pulmonary hypertension, reason for why the patient was upgraded to the ICU, he is has been evaluated by pulmonary physician, [place] catheter inserted, the patient is started on sildenafil. He denied chest pain, shortness shortness for breath, no nausea, no vomiting, no abdominal discomfort. 05/24 the patient has been seen and examined during my rounding earlier this morning, he remains admitted to the ICU, he is status post interval placement of [place]resh catheter, still with a elevated PA wedge pressures. He is currently on supplemental oxygen via nasal cannula at 2 L, saturating 98%, he remains alert oriented x3, no chest pain, no shortness a breath, no nausea, no vomiting. No family members at bedside during my visit. 05/25 the patient has been seen and examined earlier this morning during my rounding, no acute events over tonight, during my visit the patient is comfortably in bed, hemodynamically stable, alert oriented x3, following comm ands, he is dose of sildenafil increased to 30 mg p.o. q.8 hours, he remains on furosemide 20 mg p.o. daily. During my visit he is getting broad-spectrum IV antibiotics. No family members at bedside. 05/26 the patient has been seen and examined earlier this morning during my rounding, no acute events over tonight, he remains on supplemental oxygen via nasal cannula at 2 L, saturating 98%, he is alert oriented x3, denied chest pain, no shortness a breath, no nausea, vomiting, no abdominal discomfort. To b e has been downgraded to the PCU. No family members at bedside during my visit. REVIEW OF SYSTEMS CONSTITUTIONAL: Denies fevers, chills, or night sweats. No unintentional weight loss reported. NEUROLOGICAL: Denies headache, amaurosis fugax, motor weakness, sensory deficit, vertigo/spinning sensation, gait abnormalities, or tremors. ENT: No hearing loss, otalgia, otorrhea, rhinitis, rhinorrhea, hoarseness, or sore throat. CARDIOVASCULAR: Denies any exertional angina, dyspnea on exertion, orthopnea, paroxysmal nocturnal dyspnea, palpitations, life-threatening arrhythmias, claudication. PULMONARY: Complain of shortness of breaths productive cough Denies hemoptysis, pleuritic chest pain. SLEEP: Denies morning headaches, daytime somnolence or napping. Denies difficulty falling asleep, staying asleep, waking from sleep. Denies knowledge of snoring. GASTROINTESTINAL: Denies any type of dysphagia to either liquids or solids. Denies nausea, vomiting, pyrosis, early satiety, abdominal pain, diarrhea, constipation, or changes in stool consistency or caliber. Denies coffee-ground emesis, hematemesis, hematochezia, or melanotic stools. GENITOURINARY: Denies frequency, urgency, nocturia, hematuria or incontinence (Storage/Irritative symptoms.) Low urinary stream, straining to void, urinary intermittency or hesitancy, splitting of the voiding stream, terminal dribbling. ENDOCRINOLOGIC: Denies polyuria, polydipsia, polyphagia or heat/cold intolerances. HEMATOLOGIC: Denies thrombophilia/previous clots, or coagulopathy/bleeding disorders. ONCOLOGIC: Denies personal history of malignancy. DERMATOLOGIC: Denies rashes or pruritus. PSYCHIATRIC: Denies any suicidal or homicidal ideation. Denies hallucinations. PHYSICAL EXAM GENERAL APPEARANCE: The patient is awake, alert, and oriented, in no acute cardiopulmonary distress. NEUROLOGICAL: Cranial nerves II-XII grossly intact. Motor is 5/5 in bilateral upper and lower extremities proximal to distal. No sensory deficits. HEENT: Face is symmetric. Pupils are equal and reactive. Extraocular movements are intact. NECK: Supple. No JVD. No thyromegaly. No submental, submandibular, pre- /postauricular, occipital or supraclavicular lymphadenopathy. CHEST: Normal chest expansion. No Telemetry. LUNGS: Absence of any rales, rhonchi or any wheezing. CARDIOVASCULAR: Regular. S1 and S2 normal. No appreciable rubs, murmurs or gallops. ABDOMEN: Soft, nontender, and nondistended. There is no rebound, voluntary guarding, or rigidity. : Deferred. No [place]. EXTREMITIES: Trace of edema to bilateral lower extremities SKIN: No skin breakdown. Vital Signs (last 8hr) Date Time Temp Pulse Resp B/P (MAP) Pulse Ox O2 Delivery O2 Flow Rate FiO2 05/26/24 07:27 88 18 21 05/26/24 07:23 98.4 86 20 103/63 98 Room Air 05/26/24 07:17 72 18 05/26/24 07:16 72 18 N/Cannula Low lpm 2.0 28 05/26/24 07:00 97 Nasal Cannula* 2 28 05/26/24 04:30 98.4 79 18 110/70 95 Room Air LABS: Laboratory: Test 05/25/24 10:44 05/24/24 14:21 05/24/24 10:25 Range/Units White Blood Count 5.3 4.8-10.8 K/uL Red Blood Count 4.48 L 4.50-6.20 MIL/uL Hemoglobin 12.4 L 14.0-18.0 g/dL Hematocrit 39.0 L 42-54 % Mean Corpuscular Volume 87.1 79-99 fL Mean Corpuscular Hemoglobin 27.7 27.0-33.0 pg Mean Corpuscular Hemoglobin Concent 31.8 L 32.0-36.0 g/dL Red Cell Distribution Width 14.3 11.0-15.5 % Platelet Count 117 L 130-400 K/uL Mean Platelet Volume 11.1 H 7.5-10.5 fL Immature Granulocyte % (Auto) 0.8 0-1 % Neutrophils (%) (Auto) 58.1 40.0-77.0 % Lymphocytes (%) (Auto) 18.3 L 21.0-51.0 % Monocytes (%) (Auto) 14.4 H 3.0-13.0 % Eosinophils (%) (Auto) 7.6 0.0-8.0 % Basophils (%) (Auto) 0.8 0.0-5.0 % Neutrophils # (Auto) 3.1 1.8-7.7 K/uL Lymphocytes # (Auto) 1.0 1.0-4.8 K/uL Monocytes # (Auto) 0.8 0.1-1.0 K/uL Eosinophils # (Auto) 0.40 0.00-0.70 K/uL Basophils # (Auto) 0.04 0.00-0.20 K/uL Absolute Immature Granulocyte (auto 0.04 0-1 K/uL Nucleated Red Blood Cells 0.0 0.0-0.19 % Sodium Level 142 136-145 mmol/L Potassium Level 3.6 3.5-5.1 mmol/L Chloride Level 106 101-111 mmol/L Carbon Dioxide Level 33 H 21-32 mmol/L Blood Urea Nitrogen 14 7-18 mg/dL Creatinine 0.9 0.5-1.3 mg/dL Glomerular Filtration Rate Calc 105 >90 mL/min Random Glucose 140 H 70-105 mg/dL Total Calcium 8.5 8.5-10.1 mg/dL Magnesium Level 2.10 1.80-2.40 mg/dL Total Bilirubin 0.7 0.2-1.0 mg/dL Aspartate Amino Transf (AST/SGOT) 31 10-37 U/L Alanine Aminotransferase (ALT/SGPT) 24 12-78 U/L Alkaline Phosphatase 172 H 50-136 U/L B-Type Natriuretic Peptide 159 H 0-100 pg/mL Total Protein 6.7 6.0-8.3 g/dL Albumin 2.9 L 3.5-5.0 g/dL Erythrocyte Sedimentation Rate 8 0-15 MM/HR Ferritin 34 30-400 ng/mL C-Reactive Protein, Quantitative 1.30 0.5-3.0 mg/L Rheumatoid Factor 10.2 <14.0 IU/mL Anti-Nuclear Antibody Screen Positive H Negative Anti-Nuclear Antibody Interpret Comment . SONJA-1 Antibody >8.0 H 0.0-0.9 AI SS-A/Ro Antibody >8.0 H 0.0-0.9 AI SS-B/La Antibody <0.2 0.0-0.9 AI Sm (Jackson) IgG Antibody, Quant <0.2 0.0-0.9 AI HAIR MACHINE OPERATOR IgG Antibody, Quantitative 0.3 0.0-0.9 AI Scl-70 (Scleroderma) Antibody 0.4 0.0-0.9 AI Anti-Double Strand DNA Antibody <1 0-9 IU/mL Chromatin Antibody <0.2 0.0-0.9 AI Anti-Centromere IgG Antibody <0.2 0.0-0.9 AI HIV (1&2) Antibody Non-Reactive Negative HIV P24 Antigen, Qualitative Non-Reactive Negative Hepatitis A IgM Antibody Non-Reactive Nonreactive Hepatitis B Surface Antigen. Non-Reactive Nonreactive Hepatitis B Core IgM Antibody Non-Reactive Negative Hepatitis C Antibody Non-Reactive Nonreactive Current Medications Medications (Trade) Dose Ordered Sig/Ben Route PRN Reason Start Time Stop Time Status Last Admin Dose Admin Acetaminophen (TYLenol 325MG TAB) 650 mg Q4H PRN PO MILD PAIN (1-3) 05/19/24 01:00 06/18/24 00:59 05/21/24 05:48 650 MG Acetaminophen (TYLenol 325MG TAB) 650 mg Q6H PRN PO TEMPERATURE GREATER THAN 101.5 05/19/24 01:00 06/18/24 00:59 Albuterol (DUOneb) 1 udvial [id number] IH 05/19/24 02:00 05/19/24 07:41 DC 05/19/24 07:35 1 UDVIAL Albuterol (DUOneb) 1 udvial Q6H PRN IH SHORTNESS OF BREATH 05/19/24 08:00 06/18/24 07:59 05/22/24 06:48 1 UDVIAL Albuterol (DUOneb) 1 udvial [id number] 05/19/24 12:00 05/19/24 11:02 DC Azithromycin 250 ml @ 250 mls/hr Q24H IVPB 05/20/24 00:30 05/22/24 22:40 DC 05/21/24 23:11 250 MLS/HR Azithromycin 250 ml @ 250 mls/hr Q24H IVPB 05/23/24 04:00 05/30/24 03:59 05/26/24 03:38 250 MLS/HR Azithromycin 250 ml @ 250 mls/hr Q24H STAT IVPB 05/18/24 23:38 05/19/24 00:40 DC 05/18/24 23:54 250 MLS/HR Budesonide (Pulmicort 0.5 Mg/2ml) 0.5 mg BIDRESP 05/22/24 06:00 06/21/24 05:59 05/26/24 07:14 0.5 MG Ceftriaxone Sodium (ROCEphine 1G INJ) 1 gm Q24H IVPB 05/20/24 00:30 05/21/24 18:52 DC 05/21/24 00:03 1 GM Ceftriaxone Sodium (ROCEphine 1G INJ) 2 gm Q24H IVPB 05/22/24 00:30 05/22/24 08:57 DC 05/21/24 23:11 2 GM Ceftriaxone Sodium (Rocephin 2gm Inj) 2 gm Q24H IVPB 05/23/24 00:30 06/01/24 00:29 05/26/24 00:19 2 GM Famotidine (Pepcid 20mg Tab) 20 mg BID PO 05/19/24 09:00 06/18/24 08:59 05/26/24 07:54 20 MG Furosemide (LASix 20MG TAB) 20 mg DAILY PO 05/25/24 09:00 05/25/24 21:06 DC 05/25/24 09:18 20 MG Furosemide (LASix 20MG VIAL) 20 mg BID IV 05/19/24 09:00 05/24/24 10:50 DC 05/24/24 09:40 20 MG Guaifenesin/ Dextromethorphan (RobiTUSSin DM 200/20MG 10ML) 10 ml Q4H PRN PO COUGH 05/19/24 01:00 06/18/24 00:59 05/22/24 02:33 10 ML Heparin Sodium/ Sodium Chloride 500 ml @ 0 mls/hr AD IV 05/23/24 19:30 06/22/24 19:29 05/23/24 23:48 0 MLS/HR Hydralazine HCl (APRESOLine 20MG INJ) 20 mg Q6H PRN IV ADMINISTER FOR SBP > 160 05/19/24 08:00 06/18/24 07:59 Levetiracetam (kepPRA 500 MG TABLET) 500 mg BID PO 05/20/24 09:00 06/19/24 08:59 05/26/24 07:54 500 MG Lorazepam (AtiVAN) 2 mg AD PRN IVP SEIZURE 05/19/24 23:00 05/26/24 22:59 05/20/24 04:31 2 MG Magnesium Sulfate 50 ml @ 0 mls/hr PROTOCOL PRN IV OTHER [SEE ORDER COMMENTS] 05/19/24 01:00 06/18/24 00:59 05/19/24 20:51 25 MLS/HR Montelukast Sodium (SinguLAIR) 10 mg DAILY PO 05/22/24 09:00 06/21/24 08:59 05/26/24 07:54 10 MG Nitroglycerin (Nitrostat) 0.4 mg PROTOCOL PRN SL CHEST PAIN 05/19/24 01:00 05/22/24 18:32 DC Ondansetron HCl (zoFRAN 4MG INJ) 4 mg Q6H PRN IV NAUSEA/VOMITING 05/19/24 01:00 06/18/24 00:59 Potassium Chloride 100 ml @ 50 mls/hr PROTOCOL IV 05/18/24 23:00 05/19/24 00:56 DC 05/18/24 23:06 50 MLS/HR Potassium Chloride 100 ml @ 100 mls/hr AD PRN IV POTASSIUM PROTOCOL 05/19/24 01:00 06/18/24 00:59 Potassium Chloride (K-Dur/Klor-Con 20meq) 20 meq AD PRN PO POTASSIUM PROTOCOL 05/19/24 01:00 06/18/24 00:59 05/26/24 00:19 20 MEQ Potassium Chloride (KCl 10% Elixir 20meq/15ml) 20 meq AD PRN PO POTASSIUM PROTOCOL 05/19/24 01:00 06/18/24 00:59 Sildenafil Citrate (Revatio) 20 mg Q8H PO 05/23/24 17:00 05/24/24 19:11 DC 05/24/24 17:15 20 MG Sildenafil Citrate (Revatio) 20 mg TID PO 05/22/24 21:00 05/23/24 09:16 DC 05/23/24 09:15 20 MG Sildenafil Citrate (Revatio) 30 mg Q8H PO 05/25/24 01:00 06/24/24 00:59 05/26/24 07:54 30 MG Sodium Chloride (NS Flush 10ml) 10 ml Q8H IVP 05/22/24 18:30 06/21/24 18:29 05/25/24 10:59 10 ML DIAGNOSTICS / RADIOLOGY: [ ] ASSESSMENT: Syncope and collapse versus seizure episode POA Status post fall injury at home POA Acute respiratory failure 2/2 HF, POA Acute on suspected chronic diastolic HF POA Normocytic normochromic anemia POA Electrolyte derangement POA Suspected pneumonitis, POA Hypertension POA Possible seizures Large right groin pseudoaneurysm Severe pulmonary hypertension Status post left heart catheterization 05/22/2024 PLAN: Patient has been downgraded to the ICU Continue heart healthy diet Continue playground monitor Continue Rocephin and azithromycin for broad-spectrum coverage for pneumonia Continue to replace electrolytes IV per protocol Continue O2 supplementation to keep O2 saturations above 92%, currently satting 95% on 1 L nasal cannula Wean off O2 as tolerated. Decrease O2 by 0.5 L/min every shift. Document accurately supplemental oxygen. Continue IS hourly Continue DuoNebs Continue daily weight, strict I&O and fluid restriction 1.5 L per day neuro check every 4 hours per nursing Continue Fall precaution Cardiology consulted, follow input and recommendation Monitor a.m. labs PRN Treatment - Add when necessary meds for nausea, vomiting, pain, constipation, insomnia. DVT/GI prophylaxis- Continue SCDs and famotidine at current doses. Full CODE STATUS Disposition: Remains admitted to the PCU. Status post left heart catheterization done 05/22/2024, with the findings of severe pulmonary artery hypertension. Patient was upgraded to the ICU, critical Care consulted, [place] catheter started, patient is started on sildenafil and diuretics, now downgraded to the PCU. Remains on supplemental oxygen via nasal cannula, 6 minute walk done, patient will require to be discharged on home oxygen. Case management consulted to make arrangements. Plan of action discussed with the patient, all questions answered. Total PCU greater 30 minutes. YARITZA TANG MD May 26, 2024 08:16
[2024-05-26] MEDS ORDERED: MONT-46 PO (09:08)
[2024-05-26] MEDS ORDERED: SILD20TA PO (09:08)
[2024-05-26] MEDS ORDERED: LEVE-43 PO (09:08)
[2024-05-26] MEDS: PoTASSium chloRIDE 20MEQ ER 20 MEQ ERTAB PO ONE (09:47)
[2024-05-26 11:24] LABS: BASOPHILS # (AUTO) 0.04 K/uL (0.00-0.20); BASOPHILS % (AUTO) 0.7 % (0.0-5.0); EOSINOPHILS # (AUTO) 0.46 K/uL (0.00-0.70); HEMATOCRIT 38.4 % (42-54); IMMATURE GRANULOCYTE ABSOLUTE 0.07 K/uL (0-1); LYMPHOCYTES # (AUTO) 1.1 K/uL (1.0-4.8); LYMPHOCYTES % (AUTO) 18.8 % (21.0-51.0); MEAN CORPUSCULAR HEMOGLOBIN 26.9 pg (27.0-33.0); MEAN CORPUSCULAR HGB CONC 31.5 g/dL (32.0-36.0); MEAN CORPUSCULAR VOLUME 85.3 fL (79-99); MONOCYTES # (AUTO) 0.8 K/uL (0.1-1.0); NEUTROPHILS # (AUTO) 3.4 K/uL (1.8-7.7); NEUTROPHILS % (AUTO) 58.3 % (40.0-77.0); PLATELET COUNT (AUTO) 137 K/uL (130-400); RED CELL DISTRIBUTION WIDTH 14.4 % (11.0-15.5); WHITE BLOOD COUNT (AUTO) 5.8 K/uL (4.8-10.8)
--- NOTE | 2024-05-26 11:28 | HMCIMG ---
CHEST 1VW CLINICAL HISTORY: hypoxic resp failure COMPARISON: 05/24/2024 TECHNIQUE: Single view of the chest was obtained. FINDINGS: There is persistent underlying congestion or interstitial infiltrates. The cardiac size at the upper limits of normal to mildly enlarged but stable. The bony structures are unchanged. There is been interval removal of the central venous catheter which extended into a branch of the left pulmonary artery. IMPRESSION: Mild improved respiratory effort. Interval removal of previously identified central venous catheter.
[2024-05-26 11:32] LABS: ALBUMIN 2.9 g/dL (3.5-5.0); BILIRUBIN,TOTAL 0.5 mg/dL (0.2-1.0); CREATININE 0.9 mg/dL (0.5-1.3); POTASSIUM 4.2 mmol/L (3.5-5.1); TOTAL PROTEIN, SERUM 6.5 g/dL (6.0-8.3)
[2024-05-26 11:44] LABS: B-TYPE NATRIURETIC PEPTIDE 205 pg/mL (0-100)
--- NOTE | 2024-05-26 12:26 | PN ---
[facility] PROGRESS NOTE Date Patient Seen: May 26, 2024 Time of Visit: 1053 Supervising Physician: Dr. [place] Primary Care Physician: Self ReferraL Outpatient Specialists: Inpatient Consults: Attending: [facility] team PROBLEM LIST: Acute hypoxic respiratory failure, POA Small to moderate right pleural effusion, POA Small pericardial effusion, POA Severe pulmonary hypertension, POA RVSP of 60 mm Hg S/P left and right heart catheterization yesterday with a an episode of V-tach status post DC cardioversion 05/22/24 S/P [place]resh catheter placement RUE 05/22/24 removed 05/25/24 Wedge pressure of 4 Syncope and collapse POA Normocytic and normochromic anemia, POA Electrolyte derangement, POA Suspected pneumonitis, POA Hypertension, POA Possible seizure, POA r/o EEG unremarkable, continue Keppra per Neurology Marked right groin pseudoaneurysm, POA Tiny ascites, POA Former heavy smoker, quit 16 years ago PLAN Nitric oxide not available for vaso reactivity test. Continue Sildenafil 20 mg p.o. q.8 hours 6min walk before DC, failed case management to arrange for home oxygen prior to discharge follow up outpatient at pulmonary Dr Loc Mujica MD in 1-2 weeks This has been explained to patient and he is in agreement with plan of care. Maintain O2 sats above 92% Monitor respiratory status INTERVAL HISTORY: 05/22 patient was seen and examined at bedside no family present. Patient is awake alert able to answer simple questions appropriately patient currently on2 L nasal cannula appears to be tolerating well. Patient does not use home oxygen. Patient denies any chest pain or shortness of breadth. Patient denies nausea abdominal pain. Patient is currently pending left heart catheterization to be done today. We will continue to follow patient with left heart catheterization results. 05/23/24-patient is awake alert and oriented x3, denies any chest pain, increased shortness of breath or palpitations. He has no complaints at this time. I explained to patient with Dr. Yousif at bedside the findings and plan of care patient is in agreement transferred to the ICU post loop recorder and [place]-Naresh placement per cardiology. Patient is status post left and right heart catheteri zation yesterday with a an episode of V-tach status post DC cardioversion. Per Cardiology report patient had a wedge pressure of 4. Currently with a [place] pulmonary pressure 91/24, CVP of 8, heart rate 94 sinus rhythm with a blood pressure of 106/67 saturating 94% with 2 L via nasal cannula. Patient has had good urine output 3 L in the last 24 hours. On CBC white count is normal H&H is 12.6/40.3 platelet count is [id number] decreased from yesterday which was 123 1000. Chemistry unremarkable. Chest x-ray with mild pulmonary vascular congestion and mild right pleural effusion. We will try sildenafil 20 mg p.o. q.8 hours and monitor pulmonary pressors for now here in the ICU. 05/24-no major overnight events per RN. Patient is awake alert and oriented x3 on 2 L of O2 saturating 95% heart rate in the 80s respiratory rate of 23 unlabored, hemodynamically stable with a blood pressure of 105/60 this morning. Pulmonary pressure between 60s and 70s today decreased from yesterday which was 90s via swan Naresh. If okay with Cardiology we may discontinue [place]-Naresh catheter. Patient diuresing well with 3 L of output with a balance of-3.1 L today you may start weaning Lasix from IV to p.o.. On laboratory today CBC unremarkable. Chemistry had a potassium of 3.4 covered per protocol carbon dioxide of 34 BUN 17 creatinine of 1.0 and GFR of 92 glucose 137 mg/dL with alkaline phosphatase of 177 albumin 3.2 ferritin level 34. HIV antibody nonreactive. Patient may downgrade to PCCU once swan Naresh catheter is removed. 05/25/24-no major overnight events. Patient is awake alert and oriented x3 continues on O2 at 2 L via nasal cannula saturating 97% in no apparent distress. Blood pressure 104/65 with a heart rate in the 70s respiratory rate of 21 unlabored and afebrile. [place]-Naresh we will be removed today and patient may be downgraded to PCCU. Patient tolerated schedule sildenafil well, pulmonary pressures trending down patient is asymptomatic. We will do a 6 minute walk before discharge and patient may follow up with pulmonology of choice for titration pulmonary hypertension drugs. CBC unremarkable. Chemistry unremarkable. Mild bilateral pulmonary infiltrates are seen may be related to mild pulmonary vascular congestion with possible superimposed pneumonitis. 05/26 patient was seen and examined by bedside no family present. Patient remains on2 L nasal cannula appears to be tolerating well. Patient failed 6 minute walk case management to arrange for home oxygen prior to discharge at time visit patient has no specific complaints. Denies chest pain or shortness of breadth. Denies nausea abdominal pain. As per primary nurse no acute events to be reported at this time. REVIEW OF SYSTEMS: Const: No fever, fatigue or weight changes Eyes:[ no recent vision problems] ENT: [No congestion, ear pain, or sore throat] C/V: [no chest pain, palpitations or edema] Resp: No cough, congestion, wheezing yes to dyspnea with minimal exertion GI: [No abdominal pain, nausea, vomiting, constipation, or diarrhea] : [No incontinence of or dysuria] M/S: [No joint or pain swelling] Skin: [No rash] Neuro: [no headache, focal numbness, or weakness, dizziness or seizures] Psych: [no depression or anxiety] Heme: [no abnormal bruising or bleeding] Lymph: [no swollen glands] PHYSICAL EXAM: GENERAL: alert, weak, awake oriented x 3 HEENT: EOMI, Sclera non icteric, moist mucosa NECK: Supple, no JVD, trachea midline LUNGS: Clear breath sounds bilaterally. No wheezes HEART: Regular rate and rhythm. Normal S1 and S2, without murmurs ABD: Abdomen soft, nontender. Bowel sounds present EXT: No clubbing cyanosis or edema, right upper extremity [place] NEURO: Alert and oriented to person, follows commands Vital Signs (last 8hr) Date Time Temp Pulse Resp B/P (MAP) Pulse Ox O2 Delivery O2 Flow Rate FiO2 05/26/24 11:35 98.6 85 20 110/72 98 Nasal Cannula 05/26/24 07:27 88 18 21 05/26/24 07:23 98.4 86 20 103/63 98 Room Air 05/26/24 07:17 72 18 05/26/24 07:16 72 18 N/Cannula Low lpm 2.0 28 05/26/24 07:00 97 Nasal Cannula* 2 28 05/26/24 04:30 98.4 79 18 110/70 95 Room Air LABS: Hematology Labs: Test 05/26/24 10:53 05/24/24 14:21 Range/Units White Blood Count 5.8 4.8-10.8 K/uL Red Blood Count 4.50 4.50-6.20 MIL/uL Hemoglobin 12.1 L 14.0-18.0 g/dL Hematocrit 38.4 L 42-54 % Mean Corpuscular Volume 85.3 79-99 fL Mean Corpuscular Hemoglobin 26.9 L 27.0-33.0 pg Mean Corpuscular Hemoglobin Concent 31.5 L 32.0-36.0 g/dL Red Cell Distribution Width 14.4 11.0-15.5 % Platelet Count 137 130-400 K/uL Mean Platelet Volume 10.9 H 7.5-10.5 fL Immature Granulocyte % (Auto) 1.2 H 0-1 % Neutrophils (%) (Auto) 58.3 40.0-77.0 % Lymphocytes (%) (Auto) 18.8 L 21.0-51.0 % Monocytes (%) (Auto) 13.0 3.0-13.0 % Eosinophils (%) (Auto) 8.0 0.0-8.0 % Basophils (%) (Auto) 0.7 0.0-5.0 % Neutrophils # (Auto) 3.4 1.8-7.7 K/uL Lymphocytes # (Auto) 1.1 1.0-4.8 K/uL Monocytes # (Auto) 0.8 0.1-1.0 K/uL Eosinophils # (Auto) 0.46 0.00-0.70 K/uL Basophils # (Auto) 0.04 0.00-0.20 K/uL Absolute Immature Granulocyte (auto 0.07 0-1 K/uL Nucleated Red Blood Cells 0.0 0.0-0.19 % Erythrocyte Sedimentation Rate 8 0-15 MM/HR Chemistry Labs: Test 05/26/24 10:53 05/25/24 10:44 05/24/24 14:21 Range/Units Sodium Level 140 136-145 mmol/L Potassium Level 4.2 3.5-5.1 mmol/L Chloride Level 107 101-111 mmol/L Carbon Dioxide Level 31 21-32 mmol/L Blood Urea Nitrogen 13 7-18 mg/dL Creatinine 0.9 0.5-1.3 mg/dL Glomerular Filtration Rate Calc 105 >90 mL/min Random Glucose 99 70-105 mg/dL Total Calcium 8.6 8.5-10.1 mg/dL Total Bilirubin 0.5 0.2-1.0 mg/dL Aspartate Amino Transf (AST/SGOT) 31 10-37 U/L Alanine Aminotransferase (ALT/SGPT) 24 12-78 U/L Alkaline Phosphatase 181 H 50-136 U/L B-Type Natriuretic Peptide 205 H 0-100 pg/mL Total Protein 6.5 6.0-8.3 g/dL Albumin 2.9 L 3.5-5.0 g/dL Magnesium Level 2.10 1.80-2.40 mg/dL Ferritin 34 30-400 ng/mL C-Reactive Protein, Quantitative 1.30 0.5-3.0 mg/L DIAGNOSTICS / RADIOLOGY RESULTS: na PLAN NEURO: Minimize central acting medications as possible. Maintain fall precautions, adequate lighting during the day Seizure precautions Continue AED per neurology recommendations PULMONARY: Supplemental 02 as needed. Maintain aspiration precautions at all times Singulair 10 mg p.o. q.h.s. Pulmicort q.12 hours Duo nebs p.r.n. CARDIOVASCULAR: Follow hemodynamics. Vital signs per facility protocol Telemetry monitoring Lasix 20 mg IV q.12 hours GI & NUTRITION: Continue with nutritional support. Continue stool softeners and laxatives as needed. KIDNEYS & ELECTROLYTES: Strict monitoring of intake, output and overall fluid balance. Avoid nephrotoxic medications to the extent possible. Medications to be dosed according to renal function. Monitor electrolytes and replace as needed ENDOCRINE: Maintain blood glucose between 100-180 at all times. Hypoglycemia protocol in place INFECTIOUS DISEASE: Trend temperature, WBC and procalcitonin level Follow cultures, deescalate antibiotics as soon as possible. Panculture if new onset fever Cap coverage with Rocephin and azithromycin ONCOLOGY/HEMATOLOGY/COAGULATION: Monitor for s/s of bleeding Monitor hemoglobin, coagulation studies as needed SKIN: Pressure ulcer prevention per facility protocol Specialty mattress ORTHO/REHAB: Continue PT/OT Prophylaxis: Continue GI and DVT prophylaxis Code Status: Full Resuscitation Disposition: Per primary team. Other: Case discussed with supervising physician plan of care agreed MARTITA PENDLETON May 26, 2024 12:26
[2024-05-27] VITALS (11 sets, daily range): BP systolic 95–141; BP diastolic 65–75; PULSE 73–93; RESP 16–21; TEMP 97.9–98.5; O2SAT 95–98
--- NOTE | 2024-05-27 02:13 | PN ---
SUBJECTIVE: Status post admission to the hospital with a groin pseudoaneurysm and pulmonary hypertension, underwent a cardiac catheterization. Please see Dr. Yousif's findings on the cardiac catheterization. The pseudoaneurysm has been chronic finding, it too small and it should be treated as an outpatient with thrombin injection. We will follow if necessary. TID: [id number] RECEIPT: [id number]
[2024-05-27 04:25] LABS: HEMATOCRIT 38.2 % (42-54); MEAN CORPUSCULAR HEMOGLOBIN 27.1 pg (27.0-33.0); MEAN CORPUSCULAR HGB CONC 31.2 g/dL (32.0-36.0); PLATELET COUNT (AUTO) 127 K/uL (130-400); RED BLOOD CELL COUNT(AUTO) 4.39 MIL/uL (4.50-6.20); RED CELL DISTRIBUTION WIDTH 14.4 % (11.0-15.5); WHITE BLOOD COUNT (AUTO) 5.6 K/uL (4.8-10.8)
[2024-05-27 10:11] LABS: BASOPHILS # (AUTO) 0.02 K/uL (0.00-0.20); BASOPHILS % (AUTO) 0.4 % (0.0-5.0); BILIRUBIN,TOTAL 0.4 mg/dL (0.2-1.0); CREATININE 0.9 mg/dL (0.5-1.3); EOSINOPHILS # (AUTO) 0.42 K/uL (0.00-0.70); EOSINOPHILS % (AUTO) 7.7 % (0.0-8.0); IMMATURE GRANULOCYTE ABSOLUTE 0.09 K/uL (0-1); LYMPHOCYTES # (AUTO) 1.2 K/uL (1.0-4.8); LYMPHOCYTES % (AUTO) 22.2 % (21.0-51.0); MONOCYTES # (AUTO) 0.7 K/uL (0.1-1.0); MONOCYTES % (AUTO) 13.2 % (3.0-13.0); NEUTROPHILS % (AUTO) 54.8 % (40.0-77.0); TOTAL PROTEIN, SERUM 6.5 g/dL (6.0-8.3)
--- NOTE | 2024-05-27 12:57 | PN ---
[facility] PROGRESS NOTE Date Patient Seen: May 27, 2024 Time of Visit: 1014 Supervising Physician: Dr. Bryan Primary Care Physician: Self ReferraL Outpatient Specialists: Inpatient Consults: Attending: [employer] team PROBLEM LIST: Acute hypoxic respiratory failure, POA Small to moderate right pleural effusion, POA Small pericardial effusion, POA Severe pulmonary hypertension, POA RVSP of 60 mm Hg S/P left and right heart catheterization yesterday with a an episode of V-tach status post DC cardioversion 05/22/24 S/P [place] catheter placement RUE 05/22/24 removed 05/25/24 Wedge pressure of 4 Syncope and collapse POA Normocytic and normochromic anemia, POA Electrolyte derangement, POA Suspected pneumonitis, POA Hypertension, POA Possible seizure, POA r/o EEG unremarkable, continue Keppra per Neurology Marked right groin pseudoaneurysm, POA Tiny ascites, POA Former heavy smoker, quit 16 years ago PLAN Nitric oxide not available for vaso reactivity test. Continue Sildenafil 20 mg p.o. q.8 hours 6min walk before DC, failed case management to arrange for home oxygen prior to discharge follow up outpatient at pulmonary Dr Loc Mujica MD in 1-2 weeks This has been explained to patient and he is in agreement with plan of care. Maintain O2 sats above 92% Monitor respiratory status INTERVAL HISTORY: 05/22 patient was seen and examined at bedside no family present. Patient is awake alert able to answer simple questions appropriately patient currently on2 L nasal cannula appears to be tolerating well. Patient does not use home oxygen. Patient denies any chest pain or shortness of breadth. Patient denies nausea abdominal pain. Patient is currently pending left heart catheterization to be done today. We will continue to follow patient with left heart catheterization results. 05/23/24-patient is awake alert and oriented x3, denies any chest pain, increased shortness of breath or palpitations. He has no complaints at this time. I explained to patient with Dr. Yousif at bedside the findings and plan of care patient is in agreement transferred to the ICU post loop recorder and [place] placement per cardiology. Patient is status post left and right heart catheterization yesterday with a an episode of V-tach status post DC cardioversion. Per Cardiology report patient had a wedge pressure of 4. Currently with a [place] pulmonary pressure 91/24, CVP of 8, heart rate 94 sinus rhythm with a blood pressure of 106/67 saturating 94% with 2 L via nasal cannula. Patient has had good urine output 3 L in the last 24 hours. On CBC white count is normal H&H is 12.6/40.3 platelet count is [id number] decreased from yesterday which was 123 1000. Chemistry unremarkable. Chest x-ray with mild pulmonary vascular congestion and mild right pleural effusion. We will try sildenafil 20 mg p.o. q.8 hours and monitor pulmonary pressors for now here in the ICU. 05/24-no major overnight events per RN. Patient is awake alert and oriented x3 on 2 L of O2 saturating 95% heart rate in the 80s respiratory rate of 23 unlabored, hemodynamically stable with a blood pressure of 105/60 this morning. Pulmonary pressure between 60s and 70s today decreased from yesterday which was 90s via swan Naresh. If okay with Cardiology we may discontinue [place] catheter. Patient diuresing well with 3 L of output with a balance of-3.1 L today you may start weaning Lasix from IV to p.o.. On laboratory today CBC unremarkable. Chemistry had a potassium of 3.4 covered per protocol carbon dioxide of 34 BUN 17 creatinine of 1.0 and GFR of 92 glucose 137 mg/dL with alkaline phosphatase of 177 albumin 3.2 ferritin level 34. HIV antibody nonreactive. Patient may downgrade to PCCU once swan [place] catheter is removed. 05/25/24-no major overnight events. Patient is awake alert and oriented x3 continues on O2 at 2 L via nasal cannula saturating 97% in no apparent distress. Blood pressure 104/65 with a heart rate in the 70s respiratory rate of 21 unlabored and afebrile. [place] we will be removed today and patient may be downgraded to PCCU. Patient tolerated schedule sildenafil well, pulmonary pre ssures trending down patient is asymptomatic. We will do a 6 minute walk before discharge and patient may follow up with pulmonology of choice for titration pulmonary hypertension drugs. CBC unremarkable. Chemistry unremarkable. Mild bilateral pulmonary infiltrates are seen may be related to mild pulmonary vascular congestion with possible superimposed pneumonitis. 05/26 patient was seen and examined by bedside no family present. Patient remains on2 L nasal cannula appears to be tolerating well. Patient failed 6 minute walk case management to arrange for home oxygen prior to discharge at time visit patient has no specific complaints. Denies chest pain or shortness of breadth. Denies nausea abdominal pain. As per primary nurse no acute events to be reported at this time. 05/27 patient was seen and examined by bedside with no family present. Patient currently on2 L nasal cannula tolerating well. Patient is still pending home oxygen to be arranged prior to discharge. At time of visit patient has no specific complaints. Remains hemodynamically stable. As per primary nurse no acute events to be reported. REVIEW OF SYSTEMS: Const: No fever, fatigue or weight changes Eyes:[ no recent vision problems] ENT: [No congestion, ear pain, or sore throat] C/V: [no chest pain, palpitations or edema] Resp: No cough, congestion, wheezing yes to dyspnea with minimal exertion GI: [No abdominal pain, nausea, vomiting, constipation, or diarrhea] : [No incontinence of or dysuria] M/S: [No joint or pain swelling] Skin: [No rash] Neuro: [no headache, focal numbness, or weakness, dizziness or seizures] Psych: [no depression or anxiety] Heme: [no abnormal bruising or bleeding] Lymph: [no swollen glands] PHYSICAL EXAM: GENERAL: alert, weak, awake oriented x 3 HEENT: EOMI, Sclera non icteric, moist mucosa NECK: Supple, no JVD, trachea midline LUNGS: Clear breath sounds bilaterally. No wheezes HEART: Regular rate and rhythm. Normal S1 and S2, without murmurs ABD: Abdomen soft, nontender. Bowel sounds present EXT: No clubbing cyanosis or edema, right upper extremity [place] NEURO: Alert and oriented to person, follows commands Vital Signs (last 8hr) Date Time Temp Pulse Resp B/P (MAP) Pulse Ox O2 Delivery O2 Flow Rate FiO2 05/27/24 12:41 97.9 93 16 103/73 90 Room Air 05/27/24 08:15 98.1 74 16 95/65 97 Room Air 05/27/24 08:00 97 Nasal Cannula* 2 28 05/27/24 07:03 73 21 N/Cannula Low lpm 2.0 05/27/24 07:01 73 21 LABS: Hematology Labs: Test 05/27/24 03:58 Range/Units White Blood Count 5.6 4.8-10.8 K/uL Red Blood Count 4.39 L 4.50-6.20 MIL/uL Hemoglobin 11.9 L 14.0-18.0 g/dL Hematocrit 38.2 L 42-54 % Mean Corpuscular Volume 87.0 79-99 fL Mean Corpuscular Hemoglobin 27.1 27.0-33.0 pg Mean Corpuscular Hemoglobin Concent 31.2 L 32.0-36.0 g/dL Red Cell Distribution Width 14.4 11.0-15.5 % Platelet Count 127 L 130-400 K/uL Mean Platelet Volume 10.7 H 7.5-10.5 fL Immature Granulocyte % (Auto) 1.7 H 0-1 % Neutrophils (%) (Auto) 54.8 40.0-77.0 % Lymphocytes (%) (Auto) 22.2 21.0-51.0 % Monocytes (%) (Auto) 13.2 H 3.0-13.0 % Eosinophils (%) (Auto) 7.7 0.0-8.0 % Basophils (%) (Auto) 0.4 0.0-5.0 % Neutrophils # (Auto) 3.0 1.8-7.7 K/uL Lymphocytes # (Auto) 1.2 1.0-4.8 K/uL Monocytes # (Auto) 0.7 0.1-1.0 K/uL Eosinophils # (Auto) 0.42 0.00-0.70 K/uL Basophils # (Auto) 0.02 0.00-0.20 K/uL Absolute Immature Granulocyte (auto 0.09 0-1 K/uL Nucleated Red Blood Cells 0.0 0.0-0.19 % Chemistry Labs: Test 05/27/24 03:58 Range/Units Sodium Level 140 136-145 mmol/L Potassium Level 4.0 3.5-5.1 mmol/L Chloride Level 105 101-111 mmol/L Carbon Dioxide Level 25 21-32 mmol/L Blood Urea Nitrogen 8 7-18 mg/dL Creatinine 0.9 0.5-1.3 mg/dL Glomerular Filtration Rate Calc 105 >90 mL/min Random Glucose 109 H 70-105 mg/dL Total Calcium 8.8 8.5-10.1 mg/dL Magnesium Level 1.90 1.80-2.40 mg/dL Total Bilirubin 0.4 0.2-1.0 mg/dL Aspartate Amino Transf (AST/SGOT) 41 H 10-37 U/L Alanine Aminotransferase (ALT/SGPT) 26 12-78 U/L Alkaline Phosphatase 195 H 50-136 U/L B-Type Natriuretic Peptide 262 H 0-100 pg/mL Total Protein 6.5 6.0-8.3 g/dL Albumin 3.0 L 3.5-5.0 g/dL DIAGNOSTICS / RADIOLOGY RESULTS: na PLAN NEURO: Minimize central acting medications as possible. Maintain fall precautions, adequate lighting during the day Seizure precautions Continue AED per neurology recommendations PULMONARY: Supplemental 02 as needed. Maintain aspiration precautions at all times Singulair 10 mg p.o. q.h.s. Pulmicort q.12 hours Duo nebs p.r.n. CARDIOVASCULAR: Follow hemodynamics. Vital signs per facility protocol Telemetry monitoring Lasix 20 mg IV q.12 hours GI & NUTRITION: Continue with nutritional support. Continue stool softeners and laxatives as needed. KIDNEYS & ELECTROLYTES: Strict monitoring of intake, output and overall fluid balance. Avoid nephrotoxic medications to the extent possible. Medications to be dosed according to renal function. Monitor electrolytes and replace as needed ENDOCRINE: Maintain blood glucose between 100-180 at all times. Hypoglycemia protocol in place INFECTIOUS DISEASE: Trend temperature, WBC and procalcitonin level Follow cultures, deescalate antibiotics as soon as possible. Panculture if new onset fever Cap coverage with Rocephin and azithromycin ONCOLOGY/HEMATOLOGY/COAGULATION: Monitor for s/s of bleeding Monitor hemoglobin, coagulation studies as needed SKIN: Pressure ulcer prevention per facility protocol Specialty mattress ORTHO/REHAB: Continue PT/OT Prophylaxis: Continue GI and DVT prophylaxis Code Status: Full Resuscitation Disposition: Per primary team. Other: Case discussed with supervising physician plan of care agreed MARTITA PENDLETON May 27, 2024 12:57
--- NOTE | 2024-05-27 14:35 | PN ---
[facility] PROGRESS NOTE Date of Service: May 27, 2024 Time of Service: 14:24 SUBJECTIVE: [ ] Seen and examined in room 232 PCP self-referral Admitting date 05/18/2024 Today on bedside evaluation patient was found awake alert and oriented x 3. The power chart reviewed, vital signs, laboratory tests, imaging test and medications have been reviewed. Latest vitals are stable, satting 98% on2 L nasal cannula. CBC is stable with a white count of 5.6 with negative left shift neutrophils 88.1, sodium 135, magnesium 1.7, BNP 445. Continue DuoNebs, continue IS, pending respiratory cultures, continue strict I&Os, daily weights, fluid restriction 1.5 L/daily. Continue IV Rocephin and azithromycin. We will follow Dr. Yousif's recommendations. 05/20 the patient has been seen and examined during my rounding, he is on Keppra IV, alert oriented x3, per discussion with the nurse, had short episode of s eizure today, no loss of consciousness, BP 119/89, afebrile, saturating normal on room air. Results of MRI unremarkable, no evidence of acute infarct, discussed with the patient. No family members at bedside. 05/21 the patient has been seen and examined during my rounding, comfortably in bed, no acute events overnight, remains hemodynamically stable, no episodes of seizure activity throughout the night. Results of EEG unremarkable, discussed with the patient. 05/23 the patient has been seen and examined during my rounding earlier this morning, the patient is currently in the ICU, he is alert oriented x3, hemodynamically stable, on supplemental oxygen via nasal cannula at 2 L, saturating 98%. The patient underwent successful left heart catheterization yes terday by Cardiovascular physician, with the finding of severe pulmonary hypertension, reason for why the patient was upgraded to the ICU, he is has been evaluated by pulmonary physician, Paloma-Naresh catheter inserted, the patient is started on sildenafil. He denied chest pain, shortness shortness for breath, no nausea, no vomiting, no abdominal discomfort. 05/24 the patient has been seen and examined during my rounding earlier this morning, he remains admitted to the ICU, he is status post interval placement of Paloma-Naresh catheter, still with a elevated PA wedge pressures. He is currently on supplemental oxygen via nasal cannula at 2 L, saturating 98%, he remains alert oriented x3, no chest pain, no shortness a breath, no nausea, no vomiting. No family members at bedside during my visit. 05/25 the patient has been seen and examined earlier this morning during my rounding, no acute events over tonight, during my visit the patient is comfortably in bed, hemodynamically stable, alert oriented x3, following comm ands, he is dose of sildenafil increased to 30 mg p.o. q.8 hours, he remains on furosemide 20 mg p.o. daily. During my visit he is getting broad-spectrum IV antibiotics. No family members at bedside. 05/26 the patient has been seen and examined earlier this morning during my rounding, no acute events over tonight, he remains on supplemental oxygen via nasal cannula at 2 L, saturating 98%, he is alert oriented x3, denied chest pain, no shortness a breath, no nausea, vomiting, no abdominal discomfort. To b e has been downgraded to the PCU. No family members at bedside during my visit. 05/27 patient seen at bedside, no acute events overnight. Discussed case with cardiovascular surgery regarding pseudoaneurysm they are recommending pressure therapy with FemoStop for proximally 45 minutes. We will get repeat ultrasound to assess flow. We will also place consult to IR for thrombin injection if this pseudoaneurysm does not resolve with just pressure therapy. Vitals and labs relatively unremarkable. REVIEW OF SYSTEMS 12 point review of systems negative unless noted in HPI PHYSICAL EXAM GENERAL APPEARANCE: The patient is awake, alert, and oriented, in no acute cardiopulmonary distress. NEUROLOGICAL: Cranial nerves II-XII grossly intact. Motor is 5/5 in bilateral upper and lower extremities proximal to distal. No sensory deficits. HEENT: Face is symmetric. Pupils are equal and reactive. Extraocular movements are intact. NECK: Supple. No JVD. No thyromegaly. No submental, submandibular, pre- /postauricular, occipital or supraclavicular lymphadenopathy. CHEST: Normal chest expansion. No Telemetry. LUNGS: Absence of any rales, rhonchi or any wheezing. CARDIOVASCULAR: Regular. S1 and S2 normal. No appreciable rubs, murmurs or gallops. ABDOMEN: Soft, nontender, and nondistended. There is no rebound, voluntary guarding, or rigidity. : Deferred. No Carpio. EXTREMITIES: Trace of edema to bilateral lower extremities SKIN: No skin breakdown. Vital Signs (last 8hr) Date Time Temp Pulse Resp B/P (MAP) Pulse Ox O2 Delivery O2 Flow Rate FiO2 05/27/24 12:41 97.9 93 16 103/73 90 Room Air 05/27/24 08:15 98.1 74 16 95/65 97 Room Air 05/27/24 08:00 97 Nasal Cannula* 2 28 05/27/24 07:03 73 21 N/Cannula Low lpm 2.0 05/27/24 07:01 73 21 LABS: Laboratory: Test 05/27/24 03:58 Range/Units White Blood Count 5.6 4.8-10.8 K/uL Red Blood Count 4.39 L 4.50-6.20 MIL/uL Hemoglobin 11.9 L 14.0-18.0 g/dL Hematocrit 38.2 L 42-54 % Mean Corpuscular Volume 87.0 79-99 fL Mean Corpuscular Hemoglobin 27.1 27.0-33.0 pg Mean Corpuscular Hemoglobin Concent 31.2 L 32.0-36.0 g/dL Red Cell Distribution Width 14.4 11.0-15.5 % Platelet Count 127 L 130-400 K/uL Mean Platelet Volume 10.7 H 7.5-10.5 fL Immature Granulocyte % (Auto) 1.7 H 0-1 % Neutrophils (%) (Auto) 54.8 40.0-77.0 % Lymphocytes (%) (Auto) 22.2 21.0-51.0 % Monocytes (%) (Auto) 13.2 H 3.0-13.0 % Eosinophils (%) (Auto) 7.7 0.0-8.0 % Basophils (%) (Auto) 0.4 0.0-5.0 % Neutrophils # (Auto) 3.0 1.8-7.7 K/uL Lymphocytes # (Auto) 1.2 1.0-4.8 K/uL Monocytes # (Auto) 0.7 0.1-1.0 K/uL Eosinophils # (Auto) 0.42 0.00-0.70 K/uL Basophils # (Auto) 0.02 0.00-0.20 K/uL Absolute Immature Granulocyte (auto 0.09 0-1 K/uL Nucleated Red Blood Cells 0.0 0.0-0.19 % Sodium Level 140 136-145 mmol/L Potassium Level 4.0 3.5-5.1 mmol/L Chloride Level 105 101-111 mmol/L Carbon Dioxide Level 25 21-32 mmol/L Blood Urea Nitrogen 8 7-18 mg/dL Creatinine 0.9 0.5-1.3 mg/dL Glomerular Filtration Rate Calc 105 >90 mL/min Random Glucose 109 H 70-105 mg/dL Total Calcium 8.8 8.5-10.1 mg/dL Magnesium Level 1.90 1.80-2.40 mg/dL Total Bilirubin 0.4 0.2-1.0 mg/dL Aspartate Amino Transf (AST/SGOT) 41 H 10-37 U/L Alanine Aminotransferase (ALT/SGPT) 26 12-78 U/L Alkaline Phosphatase 195 H 50-136 U/L B-Type Natriuretic Peptide 262 H 0-100 pg/mL Total Protein 6.5 6.0-8.3 g/dL Albumin 3.0 L 3.5-5.0 g/dL Current Medications Medications (Trade) Dose Ordered Sig/Ben Route PRN Reason Start Time Stop Time Status Last Admin Dose Admin Acetaminophen (TYLenol 325MG TAB) 650 mg Q4H PRN PO MILD PAIN (1-3) 05/19/24 01:00 06/18/24 00:59 05/21/24 05:48 650 MG Acetaminophen (TYLenol 325MG TAB) 650 mg Q6H PRN PO TEMPERATURE GREATER THAN 101.5 05/19/24 01:00 06/18/24 00:59 Albuterol (DUOneb) 1 udvial O2LUCUV IH 05/19/24 02:00 05/19/24 07:41 DC 05/19/24 07:35 1 UDVIAL Albuterol (DUOneb) 1 udvial Q6H PRN IH SHORTNESS OF BREATH 05/19/24 08:00 06/18/24 07:59 05/22/24 06:48 1 UDVIAL Albuterol (DUOneb) 1 udvial Q3KEZEI IH 05/19/24 12:00 05/19/24 11:02 DC Azithromycin 250 ml @ 250 mls/hr Q24H IVPB 05/20/24 00:30 05/22/24 22:40 DC 05/21/24 23:11 250 MLS/HR Azithromycin 250 ml @ 250 mls/hr Q24H IVPB 05/23/24 04:00 05/30/24 03:59 05/27/24 03:33 250 MLS/HR Azithromycin 250 ml @ 250 mls/hr Q24H STAT IVPB 05/18/24 23:38 05/19/24 00:40 DC 05/18/24 23:54 250 MLS/HR Budesonide (Pulmicort 0.5 Mg/2ml) 0.5 mg BIDRESP IH 05/22/24 06:00 06/21/24 05:59 05/27/24 07:01 0.5 MG Ceftriaxone Sodium (ROCEphine 1G INJ) 1 gm Q24H IVPB 05/20/24 00:30 05/21/24 18:52 DC 05/21/24 00:03 1 GM Ceftriaxone Sodium (ROCEphine 1G INJ) 2 gm Q24H IVPB 05/22/24 00:30 05/22/24 08:57 DC 05/21/24 23:11 2 GM Ceftriaxone Sodium (Rocephin 2gm Inj) 2 gm Q24H IVPB 05/23/24 00:30 06/01/24 00:29 05/27/24 00:36 2 GM Famotidine (Pepcid 20mg Tab) 20 mg BID PO 05/19/24 09:00 06/18/24 08:59 05/27/24 08:28 20 MG Furosemide (LASix 20MG TAB) 20 mg DAILY PO 05/25/24 09:00 05/25/24 21:06 DC 05/25/24 09:18 20 MG Furosemide (LASix 20MG VIAL) 20 mg BID IV 05/19/24 09:00 05/24/24 10:50 DC 05/24/24 09:40 20 MG Guaifenesin/ Dextromethorphan (RobiTUSSin DM 200/20MG 10ML) 10 ml Q4H PRN PO COUGH 05/19/24 01:00 06/18/24 00:59 05/22/24 02:33 10 ML Heparin Sodium/ Sodium Chloride 500 ml @ 0 mls/hr AD IV 05/23/24 19:30 06/22/24 19:29 05/23/24 23:48 0 MLS/HR Hydralazine HCl (APRESOLine 20MG INJ) 20 mg Q6H PRN IV ADMINISTER FOR SBP > 160 05/19/24 08:00 06/18/24 07:59 Levetiracetam (kepPRA 500 MG TABLET) 500 mg BID PO 05/20/24 09:00 06/19/24 08:59 05/27/24 08:28 500 MG Lorazepam (AtiVAN) 2 mg AD PRN IVP SEIZURE 05/19/24 23:00 05/26/24 22:59 DC 05/20/24 04:31 2 MG Magnesium Sulfate 50 ml @ 0 mls/hr PROTOCOL PRN IV OTHER [SEE ORDER COMMENTS] 05/19/24 01:00 06/18/24 00:59 05/19/24 20:51 25 MLS/HR Montelukast Sodium (SinguLAIR) 10 mg DAILY PO 05/22/24 09:00 06/21/24 08:59 05/27/24 08:28 10 MG Nitroglycerin (Nitrostat) 0.4 mg PROTOCOL PRN SL CHEST PAIN 05/19/24 01:00 05/22/24 18:32 DC Ondansetron HCl (zoFRAN 4MG INJ) 4 mg Q6H PRN IV NAUSEA/VOMITING 05/19/24 01:00 06/18/24 00:59 Potassium Chloride 100 ml @ 50 mls/hr PROTOCOL IV 05/18/24 23:00 05/19/24 00:56 DC 05/18/24 23:06 50 MLS/HR Potassium Chloride 100 ml @ 100 mls/hr AD PRN IV POTASSIUM PROTOCOL 05/19/24 01:00 06/18/24 00:59 Potassium Chloride (K-Dur/Klor-Con 20meq) 20 meq AD PRN PO POTASSIUM PROTOCOL 05/19/24 01:00 06/18/24 00:59 05/26/24 00:19 20 MEQ Potassium Chloride (KCl 10% Elixir 20meq/15ml) 20 meq AD PRN PO POTASSIUM PROTOCOL 05/19/24 01:00 06/18/24 00:59 Sildenafil Citrate (Revatio) 20 mg Q8H PO 05/23/24 17:00 05/24/24 19:11 DC 05/24/24 17:15 20 MG Sildenafil Citrate (Revatio) 20 mg TID PO 05/22/24 21:00 05/23/24 09:16 DC 05/23/24 09:15 20 MG Sildenafil Citrate (Revatio) 30 mg Q8H PO 05/25/24 01:00 06/24/24 00:59 05/27/24 08:27 30 MG Sodium Chloride (NS Flush 10ml) 10 ml Q8H IVP 05/22/24 18:30 06/21/24 18:29 05/27/24 10:36 10 ML DIAGNOSTICS / RADIOLOGY: [ ] ASSESSMENT: Syncope and collapse versus seizure episode POA Status post fall injury at home POA Acute respiratory failure 2/2 HF, POA Acute on suspected chronic diastolic HF POA Normocytic normochromic anemia POA Electrolyte derangement POA Suspected pneumonitis, POA Hypertension POA Possible seizures Right groin pseudoaneurysm Severe pulmonary hypertension Status post left heart catheterization 05/22/2024 PLAN: Patient has been downgraded to the ICU Start pressure therapy for pseudoanerysm Repeat groin ultrasound to assess for resolution IR consult for thrombin injection if pseudoaneurysm doesn't resolve Continue heart healthy diet Continue traffic monitor specialist Continue Rocephin and azithromycin for broad-spectrum coverage for pneumonia Continue to replace electrolytes IV per protocol Continue O2 supplementation to keep O2 saturations above 92%, currently satting 95% on 1 L nasal cannula Wean off O2 as tolerated. Decrease O2 by 0.5 L/min every shift. Document accurately supplemental oxygen. Continue IS hourly Continue DuoNebs Continue daily weight, strict I&O and fluid restriction 1.5 L per day neuro check every 4 hours per nursing Continue Fall precaution Cardiology consulted, follow input and recommendation Monitor a.m. labs PRN Treatment - Add when necessary meds for nausea, vomiting, pain, constipation, insomnia. DVT/GI prophylaxis- Continue SCDs and famotidine at current doses. Full CODE STATUS Disposition: Pending pressure therapy, repeat ultrasound, possible thrombin injection if pseudoaneurysm not resolved AMY SALINAS MD May 27, 2024 14:35
[2024-05-27 15:12] LABS: ATYPICAL P-ANCA AB <1:20 titer (Neg:<1:20); CYTOPLASMIC (C-ANCA) AB, IGG <1:20 titer (Neg:<1:20)
--- NOTE | 2024-05-27 20:54 | NUR ---
PT LAYING IN BED WITH THE HEAD OF THE BED ELEVATED.PT DOES NOT APPEAR TO BE IN ANY DISTRESS.INSTRUCTED PT TO USE THE CALL LIGHT FOR ANY ASSISTANCE WHEN NEEDED. PT UNDERSTOOD BED IS LOW AND LOCKED CALL LIGHT WITHIN REACH .
[2024-05-28 03:16] VITALS: BP 104/66; PULSE 76; RESP 16; TEMP 98.1
[2024-05-28 07:07] VITALS: PULSE 84; RESP 21; O2SAT 96
[2024-05-28 07:48] VITALS: BP 109/76; PULSE 75; RESP 16; TEMP 98.1
--- NOTE | 2024-05-28 09:27 | HMCIMG ---
US SOFT TISSUE GROIN REASON: Assess right groin pseudoaneurysm resolution after pressure therapy COMPARISON: None TECHNIQUE: Right groin ultrasound was performed. Vascular evaluation was performed with spectral analysis and color flow imaging. FINDINGS: Images show patent right common femoral artery. There is a focal cystic lesion adjacent to the artery measuring 2.1 x 3.2 cm. This is consistent with hematoma, there is no vascular Doppler evidence of pseudoaneurysm. IMPRESSION: 1. No evidence of pseudoaneurysm, there is a small focal hematoma present adjacent to the right femoral artery.
[2024-05-28 09:28] VITALS: O2SAT 96
[2024-05-28 11:54] VITALS: BP 105/74; PULSE 76; RESP 16; TEMP 97.7
--- NOTE | 2024-05-28 13:00 | NUR ---
CM NOTE CM spoke to patient regarding home o2. Explained that hospital will lend concentrator and he will need to return it if he obtains DME on his own. Notified patient that he will be discharging home with a script for home o2. CM obtained pricing for portable tank setup at [facility]. Per Alexus at [facility], portable tank setup is $255 and $70 to refill each tank. CM advised patient of cost and notified that each tank last about 4 hours if flow is at 2LPM. Verbalized understanding. States he will be speaking to his sister to assist with purchase. CM also encouraged patient to obtain pricing at other pharmacies. States he will look into this. CM discussed case with CM director. Obtained approval for [facility] coverage of EMS transport to home. Primary nurse updated. LORETTA also notified RT to provide teaching on home concentrator use. Addendum: 05/28/24 at 1711 by MANUELITO TEMPLETON CM Amended: Links added.
--- NOTE | 2024-05-28 13:20 | HMCIMG ---
CHEST 1VW REASON: hypoxic resp failure COMPARISON: 05/26/2024 FINDINGS: There are bibasilar infiltrates which are unchanged. Upper lungs are clear. Heart size is stable. There is no vascular congestion. IMPRESSION: 1. Bibasilar infiltrates, unchanged.
--- NOTE | 2024-05-28 15:10 | NUR ---
NOTE DISCHARGE INSTRUCTIONS GIVEN TO PATIENT. HE STATED UNDERSTANDING. ALL QUESTIONS ANSWERED. O2 CONCENTRATOR WITH PATIENT AT BEDSIDE. EMS CALLED FOR TRANSPORT TO PATIENT HOME IN [place].
--- NOTE | 2024-05-28 16:15 | NUR ---
NOTE EMS TRANSPORT HERE TO TAKE PATIENT HOME
--- NOTE | 2024-05-28 18:18 | PN ---
[facility] PROGRESS NOTE Date Patient Seen: May 28, 2024 Time of Visit: 18:12 Supervising Physician: [ KRISHNA BRYAN MD ] Primary Care Physician: Self ReferraL Outpatient Specialists: Inpatient Consults: Attending: Keyla team PROBLEM LIST: Acute hypoxic respiratory failure on admission Acute decompensated diastolic heart failure Severe pulmonary hypertension Obstructive coronary artery disease Status post [facility] Essential hypertension Hypertensive heart disease Morbid obesity class I, BMI 30.4 Tobacco use disorder Essential hypertension Moderate pleural effusion to the right lung Syncope on admission INTERVAL HISTORY: 05/28/24 Patient doing well, no complaints At rest, he is on room air With physical exertion, O2 drops to the low 80's He has qualified for home O2 Pending discharge Today, no fevers, no chills, no chest pain Denies palpitations Occasional dry cough, no congestion REVIEW OF SYSTEMS: Const: No fever, fatigue or weight changes Eyes:[ no recent vision problems] ENT: [No congestion, ear pain, or sore throat] C/V: [no chest pain, palpitations or edema] Resp: No cough, congestion, fatigue on exertion GI: [No abdominal pain, nausea, vomiting, constipation, or diarrhea] : [No incontinence of or dysuria] M/S: [No joint or pain swelling] Skin: [No rash] Neuro: [no headache, focal numbness, or weakness, dizziness or seizures] Psych: [no depression or anxiety] Heme: [no abnormal bruising or bleeding] Lymph: [no swollen glands] PHYSICAL EXAM: GENERAL: alert, weak, awake oriented x 3 HEENT: EOMI, Sclera non icteric, moist mucosa NECK: Supple, no JVD, trachea midline LUNGS: Clear breath sounds bilaterally. No wheezes HEART: Regular rate and rhythm. Normal S1 and S2, without murmurs ABD: Abdomen soft, nontender. Bowel sounds present EXT: No clubbing cyanosis or edema NEURO: Alert and oriented to person, follows commands Vital Signs (last 8hr) Date Time Temp Pulse Resp B/P (MAP) Pulse Ox O2 Delivery O2 Flow Rate FiO2 05/28/24 11:54 97.7 76 16 105/74 95 Nasal Cannula 2.0 LABS: Hematology Labs: Test 05/27/24 03:58 Range/Units White Blood Count 5.6 4.8-10.8 K/uL Red Blood Count 4.39 L 4.50-6.20 MIL/uL Hemoglobin 11.9 L 14.0-18.0 g/dL Hematocrit 38.2 L 42-54 % Mean Corpuscular Volume 87.0 79-99 fL Mean Corpuscular Hemoglobin 27.1 27.0-33.0 pg Mean Corpuscular Hemoglobin Concent 31.2 L 32.0-36.0 g/dL Red Cell Distribution Width 14.4 11.0-15.5 % Platelet Count 127 L 130-400 K/uL Mean Platelet Volume 10.7 H 7.5-10.5 fL Immature Granulocyte % (Auto) 1.7 H 0-1 % Neutrophils (%) (Auto) 54.8 40.0-77.0 % Lymphocytes (%) (Auto) 22.2 21.0-51.0 % Monocytes (%) (Auto) 13.2 H 3.0-13.0 % Eosinophils (%) (Auto) 7.7 0.0-8.0 % Basophils (%) (Auto) 0.4 0.0-5.0 % Neutrophils # (Auto) 3.0 1.8-7.7 K/uL Lymphocytes # (Auto) 1.2 1.0-4.8 K/uL Monocytes # (Auto) 0.7 0.1-1.0 K/uL Eosinophils # (Auto) 0.42 0.00-0.70 K/uL Basophils # (Auto) 0.02 0.00-0.20 K/uL Absolute Immature Granulocyte (auto 0.09 0-1 K/uL Nucleated Red Blood Cells 0.0 0.0-0.19 % Chemistry Labs: Test 05/27/24 03:58 Range/Units Sodium Level 140 136-145 mmol/L Potassium Level 4.0 3.5-5.1 mmol/L Chloride Level 105 101-111 mmol/L Carbon Dioxide Level 25 21-32 mmol/L Blood Urea Nitrogen 8 7-18 mg/dL Creatinine 0.9 0.5-1.3 mg/dL Glomerular Filtration Rate Calc 105 >90 mL/min Random Glucose 109 H 70-105 mg/dL Total Calcium 8.8 8.5-10.1 mg/dL Magnesium Level 1.90 1.80-2.40 mg/dL Total Bilirubin 0.4 0.2-1.0 mg/dL Aspartate Amino Transf (AST/SGOT) 41 H 10-37 U/L Alanine Aminotransferase (ALT/SGPT) 26 12-78 U/L Alkaline Phosphatase 195 H 50-136 U/L B-Type Natriuretic Peptide 262 H 0-100 pg/mL Total Protein 6.5 6.0-8.3 g/dL Albumin 3.0 L 3.5-5.0 g/dL DIAGNOSTICS / RADIOLOGY RESULTS: [ Reviewed at bedside with nurse ] PLAN Patient is hemodynamically stable for safe medical discharge from pulmonary standpoint Patient to resume home medications Will follow up at [facility] for pulmonology follow up Fall precautions Aspiration precautions Instructed on home O2 Slowly resume activities of daily living as tolerated ATTESTATION BY PHYSICIAN The clinical note was scribed by Jermaine Farnsworth BSc and I attest to the c linical accuracy of the note. Krishna Bryan MD I personally scribed for KRISHNA BRYAN MD ([email or web address]) on 05/28/24 at 18:18. Electronically submitted by Jermaine Farnsworth ([email or web address]). KRISHNA BRYAN MD May 28, 2024 18:18
--- NOTE | 2024-05-29 00:09 | PN ---
The patient has a right femoral artery pseudoaneurysm. This underwent compression therapy and the preliminary report on the ultrasound this morning shows there appears to be no pseudoaneurysm remaining. This was confirmed by Radiology. The patient will not need a surgical intervention and we will follow henrietta TID: [id number] RECEIPT: [id number]
== END 2024-05-28 16:15 | disposition home or self-care (01) | DRG 286 ==
LOC: EDH 21:49 → EDHIP 23:33 → 2AH 05-19 07:30 → 2BH 05-22 17:10 → 2AH 05-25 19:14
PROVIDERS: ADMIT Internal Medicine; ATTEND Internal Medicine
PROC: 4A023N7 Measurement of Cardiac Sampling and Pressure, Left Heart, Percutaneous Approach (ICD-10-PCS; principal; 2024-05-22)
PROC: B2111ZZ Fluoroscopy of Multiple Coronary Arteries using Low Osmolar Contrast (ICD-10-PCS; 2024-05-22)
DX: I11.0 Hypertensive heart disease with heart failure (principal); I50.33 Acute on chronic diastolic (congestive) heart failure; J96.01 Acute respiratory failure with hypoxia; J18.9 Pneumonia, unspecified organism; J44.0 Chronic obstructive pulmonary disease with (acute) lower respiratory infection; I47.20 Ventricular tachycardia, unspecified; I31.39 Other pericardial effusion (noninflammatory); D64.9 Anemia, unspecified; I27.20 Pulmonary hypertension, unspecified; I72.8 Aneurysm of other specified arteries; Z79.899 Other long term (current) drug therapy; R26.2 Difficulty in walking, not elsewhere classified; E66.01 Morbid (severe) obesity due to excess calories; F17.200 Nicotine dependence, unspecified, uncomplicated; I25.10 Atherosclerotic heart disease of native coronary artery without angina pectoris; Z68.30 Body mass index [BMI] 30.0-30.9, adult; Z82.0 Family history of epilepsy and other diseases of the nervous system; Z82.49 Family history of ischemic heart disease and other diseases of the circulatory system; Z83.3 Family history of diabetes mellitus
CPT/HCPCS: 33285; 36415; 70450; 70553; 71045; 71270; 76882; 80048; 80053; 80074; 80305; 81003; 82550; 82728; 82948; 83735; 83880; 84146; 84484; 85025; 85027; 85378; 85610; 85651; 85730; 86038; 86140; 86215; 86235; 86255; 86431; 86701; 87071; 87205; 87390; 87635; 87804; 93005; 93306; 93456; 93925; 93970; 94640; 94664; 94667; 94668; 94760; 96375; 99156; 99157; 99291; C1769; C1894; G0378; J0456; J0696; J1644; J1940; J1953; J2060; J2250; J2765; J2919; J3010; J3475; J3480; J3490; J7120; Q9967; A4600; A4649; A9575; C1764; Q9965

== ENCOUNTER 2024-08-09 20:03 | Inpatient (IN) | payer SELFPAY ==
[~2024-08-09] VITALS: Ht 154.9 cm; Wt 73.5 kg
[2024-08-09] MEDS: ZOSYN 3.375GM +NS 50ML IV SCH (17:00)
[~2024-08-09 20:03] MED LIST changes: -FURO40TA5 PO; +LEVE-43 PO; -LEVO750T40 PO; -METO50TA18 PO; +MONT-46 PO; +SILD20TA PO
--- NOTE | 2024-08-09 20:09 | NUR ---
REPORT TO MAGGIE ESTRADA
--- NOTE | 2024-08-09 20:29 | ERN ---
ED Note History of Present Illness Stated Complaint: FEVER,COUGH Chief Complaint: Sepsis Time Seen by MD: 20:04 Time Seen by Midlevel: 20:04 Dictation: 49-year-old male with a history of CHF, COPD, hypertension, who presents ED for evaluation of cough that he has had for the past three days. Patient he reports associated fever and shortness of breath. Per family member patient uses 2 L oxygen at home normally. Patient reports multiple family members at home are sick with similar symptoms. Allergies: Coded Allergies: No Known Allergies (Unverified Allergy, Unknown, 10/10/22) Home Meds Active Scripts Sildenafil Citrate (Revatio) 20 Mg Tablet, 30 MG PO Q8H for 30 Days, #90 TAB 2 Refills Prov:YARITZA TANG MD 05/26/24 Montelukast Sodium (Singulair 10Mg) 10 Mg Tab, 10 MG PO DAILY for 30 Days, #30 TAB 2 Refills Prov:YARITZA TANG MD 05/26/24 Levetiracetam (Keppra) 500 Mg Tablet, 500 MG PO BID for 30 Days, #60 TAB 2 Refills Prov:YARITZA TANG MD 05/26/24 Multivitamins,Therapeutic (Multivitamin Tablet) 400 Mcg Tab, 1 TAB PO DAILY, #60 TAB Prov:[employer]N 11/29/23 Famotidine (Famotidine) 20 Mg Tablet, 20 MG PO BID, #60 TAB Prov:[employer] INTERN 11/29/23 Past Medical History Past Medical History: CHF, COPD, Hypertension, Other Additional Past Medical Hx: RESPIRATORY FAILURE, PULMONARY HYPERTENSION POOR HISTORIAN Surgical History: Other Surgical History Other: RT HIP, RT LEG, LOOP RECORDER Social History: Negative, Lives with family RN Note Reviewed/Agreed w/PFSH: Yes Review of System Dictation Constitutional: Negative for weight loss Eyes: Negative for injury, pain,redness, and discharge ENT: Negative for injury,pain or swelling Cardiovascular: Negative for chest pain, palpitations, and edema Respiratory: Negative for wheezing, Abdomen/GI: Negative for abdominal pain, nausea, vomiting, diarrhea, and constipation Back: Negative for injury and pain : Negative for injury, bleeding and discharge MS/Extremity: Negative for injury and deformity Skin: Negative for rash, and discoloration Neuro: Negative for headache, weakness, numbness, tingling, and seizure Psych: Negative for suicide ideation, homicidal ideation, and hallucinations Review of Systems: was completed Initial Vital Sign VS Vital Signs Date Time Temp Pulse Resp B/P (MAP) Pulse Ox O2 Delivery O2 Flow Rate FiO2 08/09/24 20:04 101.5 112 22 116/65 87 Room Air 08/09/24 20:50 2 28 Physical Exam Dictation General: awake, alert, NAD Head/Face: Normocephalic, atraumatic Eyes: PERRL, EOMI, vision at baseline ENT: oral cavity clear, TMs clear, no signs of infection Neck: Trachea midline, supple, no nuchal rigidity Cardiovascular: RRR, normal S1/S2, No MRGs, no JVD Respiratory: CTAB, no respiratory distress, No rales or wheezes Abdomen: Soft, non-tender, non-distended, normal bowel sounds, no guarding or rebound. Skin: Warm, dry, normal turgor, no rash MS/Extremity: Pulses equal, no cyanosis, neurovascular intact, FROM Neuro: COAx4, GCS 15, strength 5/5, CN 2-12 intact, normal cerebellar exam, normal gait, Psych: Normal behavior, mood, and affect normal Results (Laboratory/Radiology) Laboratory/Radiology Laboratory Tests Test 08/09/24 20:32 08/09/24 20:41 08/09/24 20:46 08/09/24 21:05 Urine Color YELLOW (YELLOW) Urine Appearance CLEAR (CLEAR) Urine pH 5.5 (5.0-8.0) Urine Specific Boyd 1.031 (1.001-1.031) Urine Protein 30 mg/dL (NEGATIVE) H Urine Glucose (UA) NEGATIVE mg/dL (NEGATIVE) Urine Ketones NEGATIVE mg/dL (NEGATIVE) Urine Occult Blood +- (TRACE) (NEGATIVE) H Urine Nitrate NEGATIVE (NEGATIVE) Urine Bilirubin NEGATIVE mg/dL (NEGATIVE) Urine Urobilinogen 2.0 mg/dL (0.2-1.0) H Urine Leukocyte Esterase NEGATIVE Efren/uL Urine RBC 0-1 /HPF (0-1) Urine WBC 2-5 /HPF (0-1) H Urine Squamous Epithelial Cells RARE /HPF (0-2) Urine Bacteria None /HPF (None Seen) White Blood Count 3.1 K/uL (4.8-10.8) L Red Blood Count 5.00 MIL/uL (4.50-6.20) Hemoglobin 13.7 g/dL (14.0-18.0) L Hematocrit 42.8 % (42-54) Mean Corpuscular Volume 85.6 fL (79-99) Mean Corpuscular Hemoglobin 27.4 pg (27.0-33.0) Mean Corpuscular Hemoglobin Concent 32.0 g/dL (32.0-36.0) Red Cell Distribution Width 13.9 % (11.0-15.5) Platelet Count 133 K/uL (130-400) Mean Platelet Volume 10.3 fL (7.5-10.5) Immature Granulocyte % (Auto) 1.0 % (0-1) Neutrophils (%) (Auto) 54.1 % (40.0-77.0) Lymphocytes (%) (Auto) 27.7 % (21.0-51.0) Monocytes (%) (Auto) 15.0 % (3.0-13.0) H Eosinophils (%) (Auto) 1.9 % (0.0-8.0) Basophils (%) (Auto) 0.3 % (0.0-5.0) Neutrophils # (Auto) 1.7 K/uL (1.8-7.7) L Lymphocytes # (Auto) 0.9 K/uL (1.0-4.8) L Monocytes # (Auto) 0.5 K/uL (0.1-1.0) Eosinophils # (Auto) 0.06 K/uL (0.00-0.70) Basophils # (Auto) 0.01 K/uL (0.00-0.20) Absolute Immature Granulocyte (auto 0.03 K/uL (0-1) Nucleated Red Blood Cells 0.0 % (0.0-0.19) White Cell Morphology Comment See comments Sodium Level 136 mmol/L (136-145) Potassium Level 4.2 mmol/L (3.5-5.1) Chloride Level 101 mmol/L (101-111) Carbon Dioxide Level 28 mmol/L (21-32) Blood Urea Nitrogen 14 mg/dL (7-18) Creatinine 0.9 mg/dL (0.5-1.3) Glomerular Filtration Rate Calc 104 mL/min (>90) Random Glucose 100 mg/dL (70-105) Lactic Acid Level 2.3 mmol/L (0.8-2.5) Total Calcium 8.0 mg/dL (8.5-10.1) L Total Creatine Kinase 2124 U/L (21-232) #*H Troponin I High Sensitivity 68.2 ng/L (4-75) B-Type Natriuretic Peptide 317 pg/mL (0-100) H Blood Gas Specimen Type Arterial Arterial Blood pH 7.442 (7.350-7.450) Arterial Blood Partial Pressure CO2 33 mmHg (35-48) L Arterial Blood Partial Pressure O2 55.8 mmHg (83.0-108.0) L Arterial Blood HCO3 22.1 mmol/L (21.0-28.0) Arterial Blood Oxygen Saturation 90.5 % (94.0-98.0) L Arterial Blood Base Excess -1.2 mmol/L (-2.0-3.0) Blood Gas Temperature 37.0 CELSIUS (35.5-37.0) Blood Gas Flow-by 2.00 L/min (0.00-15.00) Blood Gas Vent Mode 2LNC (ROOM AIR) FiO2 28.0 % Blood Gas Specimen Comment RR JOSE ESTRADA Influenza Type A Antigen Positive For Type A Influenza Type B Antigen Negative For Type B SARS-CoV-2, RNA, NAAT NEGATIVE SARS CoV-2 Labs Reviewed?: Yes X-RAY Comment: PATIENT: EDUARDO REESE MR#: [id number] : 1975 SEX: M AGE: 49 LOCATION: [facility] ORDER 15 STATUS: [facility] REPORT#: [id number] SERVICE 12 REASON: cough ORDERING PHYSICIAN: JESUS SILVA PROCEDURE: CXR1VW - CHEST 1VW CHEST 1VW CLINICAL HISTORY: cough COMPARISON: 05/28/2024 TECHNIQUE: Single view of the chest was obtained. FINDINGS: There is a bilateral patchy infiltrates. Cardiac size is enlarged and stable. Below structures unchanged. IMPRESSION: Stable cardiomegaly with bilateral patchy infiltrates DICTATED BY: SHANTAL REYNOSO DO DATE: 08/09/242039 ELECTRONICALLY SIGNED BY: SHANTAL REYNOSO DO DATE: 08/09/242048 ED Course ED Course Orders Procedure Category Date Status Time Iv Insertion CPOE 08/09/24 Transmitted 20:12 Pulse Ox(Continuous) RT 08/09/24 Transmitted 20:12 Vital Signs Per CPOE 08/09/24 Transmitted Routine 20:12 12 Lead Ekg Tracing- EKG 08/09/24 Complete Technical 20:12 Cbc With Differential LAB 08/09/24 Complete 20:12 Blood Cult KALIE 08/09/24 Logged 20:12 Urinalysis Profile LAB 08/09/24 Complete 20:12 Lactic Acid LAB 08/09/24 Complete 20:12 Basic Metabolic Panel LAB 08/09/24 Complete 20:12 Covid Rna Naat LAB 08/09/24 Complete 20:13 Influenza Type A & B, LAB 08/09/24 Complete Rapid 20:13 Blood Cult KALIE 08/09/24 In Process 20:13 Culture Urine KALIE 08/09/24 In Process 20:13 0.9%Nacl 1000ml (Ns PHA 08/09/24 In Process 1000ml) 20:30 Chest 1vw RAD 08/09/24 Resulted 20:13 Azithromycin 500mg+Ns PHA 08/09/24 Complete 250ml (Azithromyci 20:13 Ceftriaxone 1g Vial PHA 08/09/24 Complete (Rocephine 1g Inj) 20:13 12 Lead Ekg Tracing- EKG 08/09/24 Logged Technical 20:13 Arterial Blood Gas RT 08/09/24 Transmitted 20:23 B-Type Natriuretic LAB 08/09/24 Complete Peptide 20:29 Cardiac Panel LAB 08/09/24 Complete 20:12 Arterial Blood Gas LAB 08/09/24 Complete 20:46 Admit Orders ADM 08/09/24 Transmitted 21:49 Basic Metabolic Panel LAB 08/10/24 Verified 04:00 Cbc With Differential LAB 08/10/24 Verified 04:00 Magnesium LAB 08/10/24 Verified 04:00 Phosphorus LAB 08/10/24 Verified 04:00 Creatine Kinase, Total LAB 08/10/24 Verified 04:00 Creatine Kinase, Total LAB 08/10/24 Verified 16:00 Creatine Kinase, Total LAB 08/11/24 Verified 04:00 Respiratory Cult KALIE 08/09/24 Logged W/Gram Stain 21:49 Procalcitonin LAB 08/09/24 Logged 21:49 Lactic Acid LAB 08/10/24 Verified 04:00 Bipap Settings RT 08/09/24 Transmitted 21:49 Activity: Ad Mary CPOE 08/09/24 Transmitted 21:49 Apply Knee High Teds CPOE 08/09/24 Transmitted 21:49 Apply Scds CPOE 08/09/24 Transmitted 21:49 Condition: CPOE 08/09/24 Transmitted 21:49 Npo Except For Meds CPOE 08/09/24 Transmitted 21:49 Nurse To Enter Home CPOE 08/09/24 Transmitted Medication 21:49 Oxygen By Nc/Pulse Ox CPOE 08/09/24 Transmitted 21:49 Telemetry Monitoring CPOE 08/09/24 Transmitted 21:49 Vital Signs(Adult CPOE 08/09/24 Transmitted Hospitalist) 21:49 Acetaminophen 325 Tab PHA 08/09/24 Logged (Tylenol 325mg Tab 22:00 Ipratropium/Albuterol PHA 08/10/24 Logged Neb (Duoneb) 00:00 Enoxaparin Sodium 40 PHA 08/10/24 Logged Mg/0.4 Ml (Lovenox) 09:00 Famotidine 20mg Tab PHA 08/10/24 Logged (Pepcid 20mg Tab) 09:00 Guaifenesin Sug-Zacarias PHA 08/09/24 Logged 100 Mg/5ml (Robituss 22:00 Hydralazine 20mg Inj PHA 08/09/24 Logged (Apresoline 20mg In 22:00 Morphine 4mg Syg PHA 08/09/24 Logged (Morphine 4mg Syg) 22:00 Ondansetron 4mg Inj PHA 08/09/24 Logged (Zofran 4mg Inj) 22:00 Lactated Ringers PHA 08/09/24 Logged 1000ml (Lactated 22:00 Lactated Ringers PHA 08/09/24 Logged 1000ml (Lactated 22:00 Zosyn 3.375gm+Ns 50ml PHA 08/09/24 Logged (Zosyn 3.375gm+Ns 22:00 Oseltamivir Phosphate PHA 08/09/24 Logged (Tamiflu) 22:00 Oseltamivir Phosphate PHA 08/10/24 Logged (Tamiflu) 09:00 Methylprednisolone PHA 08/09/24 Logged Succ 125mg (Solu-Medr 22:00 Methylprednisolone PHA 08/10/24 Logged Succ 40mg (Solu-Medro 06:00 Echo 2-D Complete ECHO 08/09/24 Logged 21:49 Current Medications Medications (Trade) Dose Ordered Sig/Ben Route PRN Reason Start Time Stop Time Status Last Admin Dose Admin Acetaminophen (TYLenol 325MG TAB) 650 mg Q6H PRN PO TEMPERATURE GREATER THAN 101.5 08/09/24 22:00 09/08/24 21:59 UNV Albuterol (DUOneb) 1 UDVIAL [id number] IH 08/10/24 00:00 09/09/24 00:00 UNV Azithromycin 250 ml @ 250 mls/hr Q24H STAT IVPB 08/09/24 20:13 08/09/24 21:12 DC 08/09/24 20:57 Ceftriaxone Sodium (ROCEphine 1G INJ) 1 gm ONCE STAT IVPB 08/09/24 20:13 08/09/24 20:17 DC 08/09/24 20:57 Enoxaparin Sodium (Lovenox) 40 mg DAILY SQ 08/10/24 09:00 09/09/24 08:59 UNV Famotidine (Pepcid 20mg Tab) 20 mg DAILY PO 08/10/24 09:00 09/09/24 08:59 UNV Guaifenesin (RobiTUSSin SUGAR-FREE 100 MG/ 5 ML UDCUP) 400 mg Q4H PRN PO cough 08/09/24 22:00 09/08/24 21:59 UNV Hydralazine HCl (APRESOLine 20MG INJ) 10 mg Q6H PRN IV For:SBP above 160;DBP above 90 08/09/24 22:00 09/08/24 21:59 UNV Lactated Ringer's 1,000 ml @ 75 mls/hr [id number] IV 08/09/24 22:00 09/08/24 21:59 UNV Lactated Ringer's 2,178 ml @ 375 mls/hr ONCE ONCE IV 08/09/24 22:00 08/10/24 03:48 UNV Methylprednisolone Sodium Succinate (Solu-medROL 40MG) 40 mg Q8H IVP 08/10/24 06:00 09/09/24 05:59 UNV Methylprednisolone Sodium Succinate (Solu-medROL 125MG) 125 mg ONCE ONCE IVP 08/09/24 22:00 08/09/24 22:01 UNV Morphine Sulfate (morPHINE 4MG SYG) 2 mg Q4H PRN IVP SEVERE PAIN (7-10) 08/09/24 22:00 08/16/24 21:59 UNV Ondansetron HCl (zoFRAN 4MG INJ) 4 mg Q6H PRN IV NAUSEA/VOMITING 08/09/24 22:00 09/08/24 21:59 UNV Oseltamivir Phosphate (Tamiflu) 75 mg BID PO 08/10/24 09:00 08/15/24 08:59 UNV Oseltamivir Phosphate (Tamiflu) 75 mg ONCE ONCE PO 08/09/24 22:00 08/09/24 22:01 UNV Piperacillin Sod/ Tazobactam Sod (Zosyn 3.375gm+NS 50ml) 3.375 gm Q8H IV 08/09/24 22:00 08/19/24 21:59 UNV Sodium Chloride 2,178 ml @ 726 mls/hr ONCE ONCE IV 08/09/24 20:30 08/09/24 23:29 08/09/24 21:07 Vital Signs Date Time Temp Pulse Resp B/P (MAP) Pulse Ox O2 Delivery O2 Flow Rate FiO2 08/09/24 20:50 100.4 97 24 100/64 94 Nasal Cannula* 2 28 08/09/24 20:04 101.5 112 22 116/65 87 Room Air Medical Decision Making MDM MDM: Differential diagnosis: Pneumonia, sepsis, URI, influenza, COVID, CHF exacerbation, oxygen dependent, AMI Rationale: Tests considered and ordered secondary to shared decision making include: Previous outside records reviewed: Old ER visits. Medications-Per medication reconciliation Need for hospitalization: Patient does meet criteria for hospitalization. Need for emergency major/minor surgery: No Patient's prior external medical records from other ER visits were reviewed by me as indicated. Prior testing and results from previous visits were reviewed. Prior tests were taken into account with medical decision making and resource utilization, independent historian/historians were used to obtain complete medical history. I independently interpreted the test that were performed, results were reviewed by me and considered findings on radiology if ordered. Medical management and examination interpretation discussions were had by me with other qualified healthcare professionals as indicated for the patient's care. 49-year-old male with a history of CHF, COPD, hypertension, who presents ED for evaluation of cough that he has had for the past three days. Patient he reports associated fever and shortness of breath. Per family member patient uses 2 L oxygen at home normally. Patient reports multiple family members at home are sick with similar symptoms. Patient came in today meeting SIRS criteria with fever and tachycardia. Suspicious for pneumonia so was started on azithromycin and Rocephin as well as sepsis protocol. WBC 3.1. ABG normal. BNP 317, lactic acid 2.3 CK 2124. UA does not show signs of UTI. Patient was sitting and 99% on 3 L. patient was positive for influenza as well. Decision for admission for sepsis and pneumonia as well as other diagnosis. Spoke with CAROLYN Reese, who accepts patient for admission under Dr. Gurrola. Patient in stable condition at this time. Critical Care Note Critical Time: 30 minutes Comment(s) Total critical care time was 33 minutes. Excluding time for procedures. Man agement of critically ill patient with concern for acute decompensation. Management included interpretation of laboratory values and imaging, hemodynamics, time for consultation with consultants and admitting physician. DX & DISP Disposition: Inpatient Decision to Admit Date: Aug 09, 2024 Decision to Admit Time: 21:05 Departure Impression: Primary Impression: Pneumonia Additional Impressions: Sepsis, CHF exacerbation, Influenza A, Rhabdomyolysis Condition: Stable Referrals: SELF,REFERRAL (PCP) I have reviewed the case, and I agree with, Diagnosis and Plan JESUS SILVA Aug 09, 2024 20:29
[2024-08-09 20:48] VITALS: RESP 18; O2SAT 96
[2024-08-09 20:48] LABS: ABG BASE EXCESS -1.2 mmol/L (-2.0-3.0); ABG HCO3 22.1 mmol/L (21.0-28.0); ABG OXYGEN SATURATION 90.5 % (94.0-98.0); ABG PCO2 33 mmHg (35-48); ABG PH 7.442 (7.350-7.450); PO2, ARTERIAL BG 55.8 mmHg (83.0-108.0); VENT MODE, BG 2LNC (ROOM AIR)
--- NOTE | 2024-08-09 20:49 | HMCIMG ---
CHEST 1VW CLINICAL HISTORY: cough COMPARISON: 05/28/2024 TECHNIQUE: Single view of the chest was obtained. FINDINGS: There is a bilateral patchy infiltrates. Cardiac size is enlarged and stable. Below structures unchanged. IMPRESSION: Stable cardiomegaly with bilateral patchy infiltrates
[2024-08-09 20:54] LABS: BASOPHILS # (AUTO) 0.01 K/uL (0.00-0.20); BASOPHILS % (AUTO) 0.3 % (0.0-5.0); EOSINOPHILS # (AUTO) 0.06 K/uL (0.00-0.70); EOSINOPHILS % (AUTO) 1.9 % (0.0-8.0); HEMATOCRIT 42.8 % (42-54); IMMATURE GRANULOCYTE ABSOLUTE 0.03 K/uL (0-1); LYMPHOCYTES # (AUTO) 0.9 K/uL (1.0-4.8); LYMPHOCYTES % (AUTO) 27.7 % (21.0-51.0); MEAN CORPUSCULAR HEMOGLOBIN 27.4 pg (27.0-33.0); MEAN CORPUSCULAR VOLUME 85.6 fL (79-99); MONOCYTES # (AUTO) 0.5 K/uL (0.1-1.0); NEUTROPHILS # (AUTO) 1.7 K/uL (1.8-7.7); NEUTROPHILS % (AUTO) 54.1 % (40.0-77.0); PLATELET COUNT (AUTO) 133 K/uL (130-400); RED CELL DISTRIBUTION WIDTH 13.9 % (11.0-15.5); WHITE BLOOD COUNT (AUTO) 3.1 K/uL (4.8-10.8)
[2024-08-09] MEDS: cefTRIAXone 1G VIAL IVPB STA (20:57)
[2024-08-09] MEDS: AZITHROMYCIN 500MG+NS 250ML 250 ML IVPB STA (20:57)
--- NOTE | 2024-08-09 20:58 | EKG ---
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
[2024-08-09 21:00] LABS: APPEARANCE,URINE CLEAR (CLEAR); BILIRUBIN,URINE NEGATIVE (NEGATIVE); COLOR,URINE YELLOW (YELLOW); GLUCOSE, URINE (UA) NEGATIVE (NEGATIVE); KETONES,URINE NEGATIVE (NEGATIVE); LEUKOCYTE ESTERASE ,URINE NEGATIVE Leu/uL (NEGATIVE); NITRATE,URINE NEGATIVE (NEGATIVE); PH,URINE 5.5 (5.0-8.0); PROTEIN,URINE 30 mg/dL (NEGATIVE)
[2024-08-09 21:02] LABS: ADD UA MICROSCOPIC YES
[2024-08-09] MEDS: 0.9%NACL 1000ML 2,178 ML IV ONE (21:07)
[2024-08-09 21:12] LABS: CREATININE 0.9 mg/dL (0.5-1.3); POTASSIUM 4.2 mmol/L (3.5-5.1)
[2024-08-09 21:25] LABS: SARS-CoV-2, RNA, NAAT NEGATIVE SARS CoV-2 (NEGATIVE)
[2024-08-09 21:25] LABS: MUCUS,URINE RARE LPF (None Seen); RBC,URINE 0-1 /HPF (0-1); SQUAMOUS EPITHELIAL CELL,UR RARE /HPF (0-2)
[2024-08-09 21:30] LABS: INFLUENZA TYPE B Negative For Type B (NEGATIVE)
[2024-08-09 21:37] LABS: INFLUENZA TYPE A Positive For Type A (NEGATIVE)
--- NOTE | 2024-08-09 21:58 | HP ---
History of Present Illness Reason for Visit: sob History of Present Illness is a 49-year-old male that was seen and examined today 08/09/2024. Patient is a moderate historian of personal health. Patient states that he came to the emergency department with a chief complaint of shortness of breath. Onset was three days ago. Location is to lungs. Duration is on and off. Character is described as, "I can not catch my breath. " symptoms are aggravated with physical activity. There was no alleviating factors. Patient reports associated cough. Today in the emergency department temperature 101.5, heart rate 1, respirations 22, WBCs 3.1, patient positive for influenza a together all of this met clinical sepsis criteria. Additionally WBCs 3.1, CK 2129, urinalysis unremarkable, BNP is 317, ABG showed PO2 of 55.8, chest x-ray shows bilateral patchy infiltrates. Emergency room physician recommended patient be admitted with a diagnosis of sepsis. 1 Past Medical History Patient History: Cardiovascular disease SISTER, Onset:50's - 60 Diabetes mellitus SISTER, Onset:40's - 50 ADDITIONAL PAST MEDICAL HISTORY: [Pulmonary hypertension, seizures, 2D echo showed LVEF 55-60 on 05/20/2024] SOCIAL HISTORY: [Negative for smoking, alcohol use, drug use. Patient lives with his Xin Pulido. Patient is usually independent of his ADLs. Patient denies difficulty pain is bills. Patient is unemployed. 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 Patient has poor access to health care due to lack of health insurance.] SURGICAL HISTORY: [Right femur ORIF," the implanted device on my left lower chest have a no other device at home that I can use to check it. ", right heart catheterization, left heart catheterization] Review of Systems General: No Fever, No Chills, No Night Sweats, No Fatigue, No Malaise, No Appetite, No Other HEENT: No Head Aches, No Visual Changes, No Eye Pain, No Ear Pain, No Dysphasia, No Sinus Congestion, No Post Nasal Drip, No Sore Throat, No Other Pulmonary: Dyspnea, Cough; No Pleuritic Chest Pain, No Other Cardiovascular: No: Chest Pain, Palpitations, Orthopnea, Paroxysmal Noc. Dyspnea, Edema, Lt Headedness, Other Gastrointestinal: No: Nausea, Vomiting, Abdominal Pain, Diarrhea, Constipation, Melena, Hematochezia, Other Genitourinary: No Dysuria, No Frequency, No Incontinence, No Hematuria, No Retention, No Other Musculoskeletal: No: other, neck pain, shoulder pain, arm pain, back pain, hand pain, leg pain, foot pain Skin: No Urticaria, No Rash, No Other Neurological: No: Weakness, Numbness, Incoordination, Change in speech, Confusion, Seizures, Other Allergies: Coded Allergies: No Known Allergies (Unverified Allergy, Unknown, 10/10/22) Scheduled Famotidine (Famotidine), 20 MG PO BID Levetiracetam (Keppra), 500 MG PO BID Montelukast Sodium (Singulair 10Mg), 10 MG PO DAILY Multivitamins,Therapeutic (Multivitamin Tablet), 1 TAB PO DAILY Sildenafil Citrate (Revatio), 30 MG PO Q8H Exam Vital Signs Vital Signs Date Time Temp Pulse Resp B/P (MAP) Pulse Ox O2 Delivery O2 Flow Rate FiO2 08/09/24 20:50 100.4 97 24 100/64 94 Nasal Cannula* 2 28 General Appearance: Alert, Oriented X3, Cooperative, moderate distress HEENT: Atraumatic, EOMI, Mucous membr. moist/pink Respiratory: Other (Diminished air entry to bilateral lobes, bilateral lower lobe rhonchi) Cardiovascular: Regular rate, Regular rhythm, Normal S1, Normal S2 Abdominal: Normal bowel sounds, Soft, No tenderness Extremities: No edema Skin: No significant lesion Neuro: Normal speech, Strength at 5/5 X4 ext, Sensation intact, Cranial nerves 3-12 NL Psych/Mental Status: Mental status NL, Mood NL, Thoughts/Content NL Assessment/Plan ASSESSMENT: [ Severe sepsis, POA Acute hypoxemic respiratory failure, POA Influenza A positive, POA Rhabdomyolysis, POA Neutropenia, POA Elevated BNP, POA Seizures Pulmonary hypertension] PLAN: [ Admit patient to medical floor as inpatient status. Place patient on telemetry monitoring. Lactated Ringer's 30 mL/kg over 6 hours, stop for any shortness of breath, jugular vein distnetion, or pedal edema Empiric antibiotic therapy with Zosyn Check procalcitonin, follow up with results Check lactic acid, follow up with the results Check blood culture, follow up with the results Reviewed urinalysis, unremarkable [id number] mg by mouth twice daily. Keep patient NPO except for tiny sepsis water with medications. Advance diet once patient is no longer short of breath. DuoNebs every 6 hours. [id number] mg IV times. Continue Solu-Medrol 40 mg IV every8 hours. Monitor patient's CK. IV fluids lactated Ringer's at 75 mL/HR. Check 2D echo in a.m. Resume patient's home medications once they are reconciled For now Keppra 500 mg by mouth twice daily. GI prophylaxis, famotidine DVT prophylaxis, Lovenox ADVANCED CARE PLANNING 1. Which of the following were discussed? Hospice Care - Yes Therapeutic options - Yes Advance Directives - Yes-patient states he does not have any advance directives in place at this time, however his can make decisions for him if he becomes unable. Other discussions - patient wishes to remain a full code at this time 2. Discussed with who? Patient 3. Voluntary nature of this service was explained to the patient? Yes 4. Amount of time spent - ___ 16 minutes ____ 5. Reviewed by Physician? (if this service was performed by NPP) Yes This document was generated in part using voice recognition software, occasional wrong word or sound alike substitutions may have occurred due to the inherent limitations of voice recognition software. Read the chart carefully and recognize using context, where the substitutions have occurred. Although every effort was made to edit the content, psych rn and typing errors may occur ATTESTATION BY PHYSICIAN I have seen and examined the patient. I reviewed the documentation, medical decision making, and treatment plan as noted by the mid-level provider above. I agree with the findings and plan of care. BATOOL CLEARY [facility] Aug 09, 2024 21:58
[2024-08-09] MEDS ORDERED: hydrALAZine 20MG/ML VIAL IV PRN (22:00)
[2024-08-09] MEDS ORDERED: acetaMINOPHEN 325 MG TAB PO PRN (22:00)
[2024-08-09] MEDS ORDERED: guaiFENesin SUGAR-FREE 100 MG/5 ML UDCUP PO PRN (22:00)
[2024-08-09] MEDS ORDERED: ondanSETRON 4MG INJ IV PRN (22:00)
[2024-08-09] MEDS: LACTATED RINGERS IV ONE (22:26)
[2024-08-09] MEDS: OSELTAMIVIR PHOSPHATE 75 MG CAP PO ONE (22:26)
[2024-08-09] MEDS: Solu-medROL 125MG VIAL IVP ONE (22:26)
[2024-08-09] MEDS: LACTATED RINGERS 1000ML 1,000 ML IV SCH (22:26)
[2024-08-09] MEDS ORDERED: morPHINE 2 MG SYG IVP PRN (22:30)
[2024-08-09] MEDS: IpraTROPium/alBUTERol SULFATE 3 ML SOLUTION IH ONE (22:35)
[2024-08-09] MEDS: SODIUM CHLORIDE 3% FOR INHALATION 4 ML/AMP VIAL.NEB IH ONE (23:55)
[2024-08-09 23:56] VITALS: PULSE 91; RESP 16
[2024-08-09] MEDS: IpraTROPium/alBUTERol SULFATE 3 ML SOLUTION IH SCH (23:56)
[2024-08-09 23:58] VITALS: PULSE 91; RESP 17; O2SAT 97
[2024-08-10] VITALS (12 sets, daily range): BP systolic 97–122; BP diastolic 61–71; PULSE 60–82; RESP 17–20; TEMP 97.5–98.6; O2SAT 97–99
--- NOTE | 2024-08-10 00:55 | NUR ---
MED RECONCILIATION DONE AT THIS TIME.
--- NOTE | 2024-08-10 06:10 | NUR ---
REPORT GIVEN TO NURIA ESTRADA. PT GOING TO ROOM 204
[2024-08-10] MEDS: Solu-medROL 40MG VIAL IVP SCH (06:21)
[2024-08-10] MEDS: SODIUM CHLORIDE 3% FOR INHALATION 4 ML/AMP VIAL.NEB IH ONE (06:29)
[2024-08-10 08:11] LABS: HEMATOCRIT 40.6 % (42-54); IMMATURE GRANULOCYTE ABSOLUTE 0.01 K/uL (0-1); LYMPHOCYTES # (AUTO) 0.5 K/uL (1.0-4.8); MEAN CORPUSCULAR HEMOGLOBIN 27.7 pg (27.0-33.0); MEAN CORPUSCULAR VOLUME 86.4 fL (79-99); MONOCYTES # (AUTO) 0.1 K/uL (0.1-1.0); MONOCYTES % (AUTO) 5.3 % (3.0-13.0); NEUTROPHILS # (AUTO) 1.1 K/uL (1.8-7.7); NEUTROPHILS % (AUTO) 63.1 % (40.0-77.0); PLATELET COUNT (AUTO) 104 K/uL (130-400); RED CELL DISTRIBUTION WIDTH 13.7 % (11.0-15.5); WHITE BLOOD COUNT (AUTO) 1.7 K/uL (4.8-10.8)
--- NOTE | 2024-08-10 08:50 | NUR ---
BEDSIDE SWALLOW EVAL COMPLETED. No overt s/s of aspiration observed. Recommend REGULAR solids, thin liquids, and pills whole with liquids as tolerated. Compensatory strategies: 1. sit upright during and 30 minutes after meals BLOW DOWN HELPER reviewed results and recommendations with patient and nurse. BLOW DOWN HELPER educated patient on risks and consequences of aspiration. COUGH RESPONSE NOT SUSPECTED TO BE SECONDARY TO ASPIRATION. All questions answered.NO SKILLED ST WARRANTED AT THIS TIME. Addendum: 08/10/24 at [address] Amended: Links added.
[2024-08-10 08:51] LABS: CREATININE 0.9 mg/dL (0.5-1.3); MAGNESIUM 1.8 mg/dL (1.80-2.40); PHOSPHORUS 4.4 mg/dL (2.5-4.9); POTASSIUM 4.8 mmol/L (3.5-5.1)
[2024-08-10] MEDS: leveTIRACEtam 500 MG TABLET PO SCH (08:54)
[2024-08-10] MEDS: OSELTAMIVIR PHOSPHATE 75 MG CAP PO SCH (08:54)
[2024-08-10] MEDS: FAMOTIDINE 20MG TAB PO SCH (08:54)
[2024-08-10] MEDS: ENOXAPARIN SODIUM 40 MG/0.4 ML SYRINGE SQ SCH (08:57)
--- NOTE | 2024-08-10 13:37 | PN ---
[facility] PROGRESS NOTE Date of Service: Aug 10, 2024 Time of Service: 13:32 SUBJECTIVE: Patient is resting comfortably in bed. No acute events reported overnight. REVIEW OF SYSTEMS CONSTITUTIONAL: Denies fevers, chills, or night sweats. No unintentional weight loss reported. NEUROLOGICAL: Denies headache, amaurosis fugax, motor weakness, sensory deficit, vertigo/spinning sensation, gait abnormalities, or tremors. ENT: No hearing loss, otalgia, otorrhea, rhinitis, rhinorrhea, hoarseness, or sore throat. CARDIOVASCULAR: Denies any exertional angina, dyspnea on exertion, orthopnea, paroxysmal nocturnal dyspnea, palpitations, life-threatening arrhythmias, claudication. PULMONARY: Denies any shortness of breath, cough, phlegm/sputum, hemoptysis, pleuritic chest pain. SLEEP: Denies morning headaches, daytime somnolence or napping. Denies diffi culty falling asleep, staying asleep, waking from sleep. Denies knowledge of snoring. GASTROINTESTINAL: Denies any type of dysphagia to either liquids or solids. Denies nausea, vomiting, pyrosis, early satiety, abdominal pain, diarrhea, constipation, or changes in stool consistency or caliber. Denies coffee-ground emesis, hematemesis, hematochezia, or melanotic stools. GENITOURINARY: Denies frequency, urgency, nocturia, hematuria or incontinence (Storage/Irritative symptoms.) Low urinary stream, straining to void, urinary intermittency or hesitancy, splitting of the voiding stream, terminal dribbling. ENDOCRINOLOGIC: Denies polyuria, polydipsia, polyphagia or heat/cold int olerances. HEMATOLOGIC: Denies thrombophilia/previous clots, or coagulopathy/bleeding disorders. ONCOLOGIC: Denies personal history of malignancy. DERMATOLOGIC: Denies rashes or pruritus. PSYCHIATRIC: Denies any suicidal or homicidal ideation. Denies hallucinations. PHYSICAL EXAM GENERAL APPEARANCE: The patient is awake, alert, and oriented, in no acute cardiopulmonary distress. NEUROLOGICAL: Cranial nerves II-XII grossly intact. Motor is 5/5 in bilateral upper and lower extremities proximal to distal. No sensory deficits. HEENT: Face is symmetric. Pupils are equal and reactive. Extraocular movements are intact. NECK: Supple. No JVD. No thyromegaly. No submental, submandibular, pre- /postauricular, occipital or supraclavicular lymphadenopathy. CHEST: Normal chest expansion. No Telemetry. LUNGS: Absence of any rales, rhonchi or any wheezing. CARDIOVASCULAR: Regular. S1 and S2 normal. No appreciable rubs, murmurs or gallops. ABDOMEN: Soft, nontender, and nondistended. There is no rebound, voluntary guarding, or rigidity. : Deferred. No Carpio. EXTREMITIES: Non-edematous and not cyanotic. No clubbing. Good capillary refill. SKIN: No skin breakdown. Vital Signs (last 8hr) Date Time Temp Pulse Resp B/P (MAP) Pulse Ox O2 Delivery O2 Flow Rate FiO2 08/10/24 12:17 98.6 65 20 110/69 99 Room Air 08/10/24 11:26 76 18 N/Cannula Low lpm 4.0 36 08/10/24 11:22 76 17 08/10/24 09:00 99 Nasal Cannula* 4 36 08/10/24 06:40 98.4 66 20 103/67 99 Nasal Cannula 2.0 08/10/24 05:37 71 22 95/57 99 Nasal Cannula* 4 36 LABS: Laboratory: Test 08/10/24 12:18 08/10/24 07:42 08/09/24 21:05 08/09/24 20:46 Range/Units Lactic Acid Level 2.4 0.8-2.5 mmol/L White Blood Count 1.7 #L 4.8-10.8 K/uL Red Blood Count 4.70 4.50-6.20 MIL/uL Hemoglobin 13.0 L 14.0-18.0 g/dL Hematocrit 40.6 L 42-54 % Mean Corpuscular Volume 86.4 79-99 fL Mean Corpuscular Hemoglobin 27.7 27.0-33.0 pg Mean Corpuscular Hemoglobin Concent 32.0 32.0-36.0 g/dL Red Cell Distribution Width 13.7 11.0-15.5 % Platelet Count 104 L 130-400 K/uL Mean Platelet Volume 10.7 H 7.5-10.5 fL Immature Granulocyte % (Auto) 0.6 0-1 % Neutrophils (%) (Auto) 63.1 40.0-77.0 % Lymphocytes (%) (Auto) 31.0 21.0-51.0 % Monocytes (%) (Auto) 5.3 3.0-13.0 % Eosinophils (%) (Auto) 0.0 0.0-8.0 % Basophils (%) (Auto) 0.0 0.0-5.0 % Neutrophils # (Auto) 1.1 L 1.8-7.7 K/uL Lymphocytes # (Auto) 0.5 L 1.0-4.8 K/uL Monocytes # (Auto) 0.1 0.1-1.0 K/uL Eosinophils # (Auto) 0.00 0.00-0.70 K/uL Basophils # (Auto) 0.00 0.00-0.20 K/uL Absolute Immature Granulocyte (auto 0.01 0-1 K/uL Nucleated Red Blood Cells 0.0 0.0-0.19 % Sodium Level 136 136-145 mmol/L Potassium Level 4.8 3.5-5.1 mmol/L Chloride Level 103 101-111 mmol/L Carbon Dioxide Level 29 21-32 mmol/L Blood Urea Nitrogen 14 7-18 mg/dL Creatinine 0.9 0.5-1.3 mg/dL Glomerular Filtration Rate Calc 104 >90 mL/min Random Glucose 141 H 70-105 mg/dL Total Calcium 7.7 L 8.5-10.1 mg/dL Phosphorus Level 4.4 2.5-4.9 mg/dL Magnesium Level 1.80 1.80-2.40 mg/dL Total Creatine Kinase 2154 *H 21-232 U/L Influenza Type A Antigen Positive For Type A *A NEGATIVE Influenza Type B Antigen Negative For Type B NEGATIVE SARS-CoV-2, RNA, NAAT NEGATIVE SARS CoV-2 NEGATIVE Blood Gas Specimen Type Arterial Arterial Blood pH 7.442 7.350-7.450 Arterial Blood Partial Pressure CO2 33 L 35-48 mmHg Arterial Blood Partial Pressure O2 55.8 L 83.0-108.0 mmHg Arterial Blood HCO3 22.1 21.0-28.0 mmol/L Arterial Blood Oxygen Saturation 90.5 L 94.0-98.0 % Arterial Blood Base Excess -1.2 -2.0-3.0 mmol/L Blood Gas Temperature 37.0 35.5-37.0 CELSIUS Blood Gas Flow-by 2.00 0.00-15.00 L/min Blood Gas Vent Mode 2LNC ROOM AIR FiO2 28.0 % Blood Gas Specimen Comment RR JOSE RN Test 08/09/24 20:41 08/09/24 20:32 Range/Units White Cell Morphology Comment See comments Troponin I High Sensitivity 68.2 4-75 ng/L B-Type Natriuretic Peptide 317 H 0-100 pg/mL Procalcitonin 0.14 0.05-0.5 ng/mL Urine Color YELLOW YELLOW Urine Appearance CLEAR CLEAR Urine pH 5.5 5.0-8.0 Urine Specific [place] 1.031 1.001-1.031 Urine Protein 30 H NEGATIVE mg/dL Urine Glucose (UA) NEGATIVE NEGATIVE mg/dL Urine Ketones NEGATIVE NEGATIVE mg/dL Urine Occult Blood +- (TRACE) H NEGATIVE Urine Nitrate NEGATIVE NEGATIVE Urine Bilirubin NEGATIVE NEGATIVE mg/dL Urine Urobilinogen 2.0 H 0.2-1.0 mg/dL Urine Leukocyte Esterase NEGATIVE NEGATIVE Efren/uL Urine RBC 0-1 0-1 /HPF Urine WBC 2-5 H 0-1 /HPF Urine Squamous Epithelial Cells RARE 0-2 /HPF Urine Bacteria None None Seen /HPF Current Medications Medications (Trade) Dose Ordered Sig/Ben Route PRN Reason Start Time Stop Time Status Last Admin Dose Admin Acetaminophen (TYLenol 325MG TAB) 650 mg Q6H PRN PO TEMPERATURE GREATER THAN 101.5 08/09/24 22:00 09/08/24 21:59 Albuterol (DUOneb) 1 UDVIAL [id number] IH 08/10/24 00:00 09/09/24 00:00 08/10/24 11:22 1 UDVIAL Azithromycin 250 ml @ 250 mls/hr Q24H STAT IVPB 08/09/24 20:13 08/09/24 21:12 DC 08/09/24 20:57 250 MLS/HR Ceftriaxone Sodium (ROCEphine 1G INJ) 1 gm ONCE STAT IVPB 08/09/24 20:13 08/09/24 20:17 DC 08/09/24 20:57 1 GM Enoxaparin Sodium (Lovenox) 40 mg DAILY SQ 08/10/24 09:00 09/09/24 08:59 08/10/24 08:57 40 MG Famotidine (Pepcid 20mg Tab) 20 mg DAILY PO 08/10/24 09:00 09/09/24 08:59 08/10/24 08:54 20 MG Guaifenesin (RobiTUSSin SUGAR-FREE 100 MG/ 5 ML UDCUP) 400 mg Q4H PRN PO cough 08/09/24 22:00 09/08/24 21:59 Hydralazine HCl (APRESOLine 20MG INJ) 10 mg Q6H PRN IV For:SBP above 160;DBP above 90 08/09/24 22:00 09/08/24 21:59 Lactated Ringer's 1,000 ml @ 75 mls/hr [id number] IV 08/09/24 22:00 09/08/24 21:59 08/10/24 12:02 75 MLS/HR Levetiracetam (kepPRA 500 MG TABLET) 500 mg BID PO 08/10/24 09:00 09/09/24 08:59 08/10/24 08:54 500 MG Methylprednisolone Sodium Succinate (Solu-medROL 40MG) 40 mg Q8H IVP 08/10/24 06:00 09/09/24 05:59 08/10/24 06:21 40 MG Morphine Sulfate (morPHINE 2MG SYG) 2 mg Q4H PRN IVP SEVERE PAIN (7-10) 08/09/24 22:30 08/16/24 22:29 Ondansetron HCl (zoFRAN 4MG INJ) 4 mg Q6H PRN IV NAUSEA/VOMITING 08/09/24 22:00 09/08/24 21:59 Oseltamivir Phosphate (Tamiflu) 75 mg BID PO 08/10/24 09:00 08/15/24 08:59 08/10/24 08:54 75 MG Piperacillin Sod/ Tazobactam Sod (Zosyn 3.375gm+NS 50ml) 3.375 gm Q8H IV 08/09/24 01:00 08/19/24 00:59 08/10/24 08:58 3.375 GM DIAGNOSTICS / RADIOLOGY: [ ] ASSESSMENT: Severe sepsis, POA Acute hypoxemic respiratory failure, POA Influenza A positive, POA Rhabdomyolysis, POA Neutropenia, POA Elevated BNP, POA Seizures Pulmonary hypertension PLAN: Continue Tamiflu, ceftriaxone and azithromycin Trend WBCs Follow-up cultures Continue Keppra O2 nasal cannula as needed Continue nebulized treatments We will strongly consider discontinuing IV steroids Monitor blood pressure GI soft diet GI prophylaxis with famotidine Continue IV fluids in the setting of hypotension Trend a.m. BMP Replete electrolytes as necessary DVT prophylaxis with Lovenox Trend a.m. CBC Full code Case was discussed with patient's nurse at bedside Attention time greater than 30 minutes BABS MURRY IV, MD Aug 10, 2024 13:37
[2024-08-11] VITALS (8 sets, daily range): BP systolic 101–120; BP diastolic 65–80; PULSE 54–78; RESP 16–18; TEMP 97.6–98.5; O2SAT 98–100
[2024-08-11 06:44] LABS: HEMATOCRIT 39.9 % (42-54); MEAN CORPUSCULAR HEMOGLOBIN 27.2 pg (27.0-33.0); MEAN CORPUSCULAR HGB CONC 31.3 g/dL (32.0-36.0); MEAN CORPUSCULAR VOLUME 86.9 fL (79-99); RED BLOOD CELL COUNT(AUTO) 4.59 MIL/uL (4.50-6.20); RED CELL DISTRIBUTION WIDTH 13.6 % (11.0-15.5); WHITE BLOOD COUNT (AUTO) 1.9 K/uL (4.8-10.8)
[2024-08-11 07:04] LABS: CREATININE 0.8 mg/dL (0.5-1.3); POTASSIUM 4.8 mmol/L (3.5-5.1)
--- NOTE | 2024-08-11 13:46 | PN ---
[facility] PROGRESS NOTE Date of Service: Aug 11, 2024 Time of Service: 13:43 SUBJECTIVE: Patient is resting comfortably in bed. No acute events reported overnight. REVIEW OF SYSTEMS CONSTITUTIONAL: Denies fevers, chills, or night sweats. No unintentional weight loss reported. NEUROLOGICAL: Denies headache, amaurosis fugax, motor weakness, sensory deficit, vertigo/spinning sensation, gait abnormalities, or tremors. ENT: No hearing loss, otalgia, otorrhea, rhinitis, rhinorrhea, hoarseness, or sore throat. CARDIOVASCULAR: Denies any exertional angina, dyspnea on exertion, orthopnea, paroxysmal nocturnal dyspnea, palpitations, life-threatening arrhythmias, claudication. PULMONARY: Denies any shortness of breath, cough, phlegm/sputum, hemoptysis, pleuritic chest pain. SLEEP: Denies morning headaches, daytime somnolence or napping. Denies diffi culty falling asleep, staying asleep, waking from sleep. Denies knowledge of snoring. GASTROINTESTINAL: Denies any type of dysphagia to either liquids or solids. Denies nausea, vomiting, pyrosis, early satiety, abdominal pain, diarrhea, constipation, or changes in stool consistency or caliber. Denies coffee-ground emesis, hematemesis, hematochezia, or melanotic stools. GENITOURINARY: Denies frequency, urgency, nocturia, hematuria or incontinence (Storage/Irritative symptoms.) Low urinary stream, straining to void, urinary intermittency or hesitancy, splitting of the voiding stream, terminal dribbling. ENDOCRINOLOGIC: Denies polyuria, polydipsia, polyphagia or heat/cold int olerances. HEMATOLOGIC: Denies thrombophilia/previous clots, or coagulopathy/bleeding disorders. ONCOLOGIC: Denies personal history of malignancy. DERMATOLOGIC: Denies rashes or pruritus. PSYCHIATRIC: Denies any suicidal or homicidal ideation. Denies hallucinations. PHYSICAL EXAM GENERAL APPEARANCE: The patient is awake, alert, and oriented, in no acute cardiopulmonary distress. NEUROLOGICAL: Cranial nerves II-XII grossly intact. Motor is 5/5 in bilateral upper and lower extremities proximal to distal. No sensory deficits. HEENT: Face is symmetric. Pupils are equal and reactive. Extraocular movements are intact. NECK: Supple. No JVD. No thyromegaly. No submental, submandibular, pre- /postauricular, occipital or supraclavicular lymphadenopathy. CHEST: Normal chest expansion. No Telemetry. LUNGS: Absence of any rales, rhonchi or any wheezing. CARDIOVASCULAR: Regular. S1 and S2 normal. No appreciable rubs, murmurs or gallops. ABDOMEN: Soft, nontender, and nondistended. There is no rebound, voluntary guarding, or rigidity. : Deferred. No Carpio. EXTREMITIES: Non-edematous and not cyanotic. No clubbing. Good capillary refill. SKIN: No skin breakdown. Vital Signs (last 8hr) Date Time Temp Pulse Resp B/P (MAP) Pulse Ox O2 Delivery O2 Flow Rate FiO2 08/11/24 12:54 97.5 54 16 101/68 Nasal Cannula 2.0 08/11/24 11:27 73 N/Cannula Low lpm 2.0 28 08/11/24 11:25 75 17 08/11/24 08:11 98.4 74 16 113/76 100 Nasal Cannula 2.0 08/11/24 08:00 98 Nasal Cannula* 4 36 08/11/24 07:12 73 18 N/Cannula Low lpm 4.0 36 08/11/24 07:12 73 17 LABS: Laboratory: Test 08/11/24 03:51 08/10/24 12:18 08/10/24 07:42 08/09/24 21:05 Range/Units White Blood Count 1.9 L 4.8-10.8 K/uL Red Blood Count 4.59 4.50-6.20 MIL/uL Hemoglobin 12.5 L 14.0-18.0 g/dL Hematocrit 39.9 L 42-54 % Mean Corpuscular Volume 86.9 79-99 fL Mean Corpuscular Hemoglobin 27.2 27.0-33.0 pg Mean Corpuscular Hemoglobin Concent 31.3 L 32.0-36.0 g/dL Red Cell Distribution Width 13.6 11.0-15.5 % Platelet Count 88 L 130-400 K/uL Mean Platelet Volume 11.1 H 7.5-10.5 fL Nucleated Red Blood Cells 0.0 0.0-0.19 % Sodium Level 134 L 136-145 mmol/L Potassium Level 4.8 3.5-5.1 mmol/L Chloride Level 100 L 101-111 mmol/L Carbon Dioxide Level 28 21-32 mmol/L Blood Urea Nitrogen 14 7-18 mg/dL Creatinine 0.8 0.5-1.3 mg/dL Glomerular Filtration Rate Calc 108 >90 mL/min Random Glucose 167 H 70-105 mg/dL Total Calcium 7.9 L 8.5-10.1 mg/dL Total Creatine Kinase 1142 #*H 21-232 U/L Lactic Acid Level 2.4 0.8-2.5 mmol/L Immature Granulocyte % (Auto) 0.6 0-1 % Neutrophils (%) (Auto) 63.1 40.0-77.0 % Lymphocytes (%) (Auto) 31.0 21.0-51.0 % Monocytes (%) (Auto) 5.3 3.0-13.0 % Eosinophils (%) (Auto) 0.0 0.0-8.0 % Basophils (%) (Auto) 0.0 0.0-5.0 % Neutrophils # (Auto) 1.1 L 1.8-7.7 K/uL Lymphocytes # (Auto) 0.5 L 1.0-4.8 K/uL Monocytes # (Auto) 0.1 0.1-1.0 K/uL Eosinophils # (Auto) 0.00 0.00-0.70 K/uL Basophils # (Auto) 0.00 0.00-0.20 K/uL Absolute Immature Granulocyte (auto 0.01 0-1 K/uL Phosphorus Level 4.4 2.5-4.9 mg/dL Magnesium Level 1.80 1.80-2.40 mg/dL Influenza Type A Antigen Positive For Type A *A NEGATIVE Influenza Type B Antigen Negative For Type B NEGATIVE SARS-CoV-2, RNA, NAAT NEGATIVE SARS CoV-2 NEGATIVE Test 08/09/24 20:46 08/09/24 20:41 08/09/24 20:32 Range/Units Blood Gas Specimen Type Arterial Arterial Blood pH 7.442 7.350-7.450 Arterial Blood Partial Pressure CO2 33 L 35-48 mmHg Arterial Blood Partial Pressure O2 55.8 L 83.0-108.0 mmHg Arterial Blood HCO3 22.1 21.0-28.0 mmol/L Arterial Blood Oxygen Saturation 90.5 L 94.0-98.0 % Arterial Blood Base Excess -1.2 -2.0-3.0 mmol/L Blood Gas Temperature 37.0 35.5-37.0 CELSIUS Blood Gas Flow-by 2.00 0.00-15.00 L/min Blood Gas Vent Mode 2LNC ROOM AIR FiO2 28.0 % Blood Gas Specimen Comment RR JOSE RN White Cell Morphology Comment See comments Troponin I High Sensitivity 68.2 4-75 ng/L B-Type Natriuretic Peptide 317 H 0-100 pg/mL Procalcitonin 0.14 0.05-0.5 ng/mL Urine Color YELLOW YELLOW Urine Appearance CLEAR CLEAR Urine pH 5.5 5.0-8.0 Urine Specific [place] 1.031 1.001-1.031 Urine Protein 30 H NEGATIVE mg/dL Urine Glucose (UA) NEGATIVE NEGATIVE mg/dL Urine Ketones NEGATIVE NEGATIVE mg/dL Urine Occult Blood +- (TRACE) H NEGATIVE Urine Nitrate NEGATIVE NEGATIVE Urine Bilirubin NEGATIVE NEGATIVE mg/dL Urine Urobilinogen 2.0 H 0.2-1.0 mg/dL Urine Leukocyte Esterase NEGATIVE NEGATIVE Efren/uL Urine RBC 0-1 0-1 /HPF Urine WBC 2-5 H 0-1 /HPF Urine Squamous Epithelial Cells RARE 0-2 /HPF Urine Bacteria None None Seen /HPF Current Medications Medications (Trade) Dose Ordered Sig/Ben Route PRN Reason Start Time Stop Time Status Last Admin Dose Admin Acetaminophen (TYLenol 325MG TAB) 650 mg Q6H PRN PO TEMPERATURE GREATER THAN 101.5 08/09/24 22:00 09/08/24 21:59 Albuterol (DUOneb) 1 UDVIAL [id number] IH 08/10/24 00:00 09/09/24 00:00 08/11/24 11:25 1 UDVIAL Azithromycin 250 ml @ 250 mls/hr Q24H STAT IVPB 08/09/24 20:13 08/09/24 21:12 DC 08/09/24 20:57 250 MLS/HR Ceftriaxone Sodium (ROCEphine 1G INJ) 1 gm ONCE STAT IVPB 08/09/24 20:13 08/09/24 20:17 DC 08/09/24 20:57 1 GM Enoxaparin Sodium (Lovenox) 40 mg DAILY SQ 08/10/24 09:00 09/09/24 08:59 08/10/24 08:57 40 MG Famotidine (Pepcid 20mg Tab) 20 mg DAILY PO 08/10/24 09:00 09/09/24 08:59 08/11/24 08:21 20 MG Guaifenesin (RobiTUSSin SUGAR-FREE 100 MG/ 5 ML UDCUP) 400 mg Q4H PRN PO cough 08/09/24 22:00 09/08/24 21:59 Hydralazine HCl (APRESOLine 20MG INJ) 10 mg Q6H PRN IV For:SBP above 160;DBP above 90 08/09/24 22:00 09/08/24 21:59 Lactated Ringer's 1,000 ml @ 75 mls/hr [id number] IV 08/09/24 22:00 09/08/24 21:59 08/11/24 02:02 75 MLS/HR Levetiracetam (kepPRA 500 MG TABLET) 500 mg BID PO 08/10/24 09:00 09/09/24 08:59 08/11/24 08:21 500 MG Methylprednisolone Sodium Succinate (Solu-medROL 40MG) 40 mg Q8H IVP 08/10/24 06:00 09/09/24 05:59 08/11/24 06:34 40 MG Morphine Sulfate (morPHINE 2MG SYG) 2 mg Q4H PRN IVP SEVERE PAIN (7-10) 08/09/24 22:30 08/16/24 22:29 Ondansetron HCl (zoFRAN 4MG INJ) 4 mg Q6H PRN IV NAUSEA/VOMITING 08/09/24 22:00 09/08/24 21:59 Oseltamivir Phosphate (Tamiflu) 75 mg BID PO 08/10/24 09:00 08/15/24 08:59 08/11/24 08:21 75 MG Piperacillin Sod/ Tazobactam Sod (Zosyn 3.375gm+NS 50ml) 3.375 gm Q8H IV 08/09/24 01:00 08/19/24 00:59 08/11/24 08:19 3.375 GM DIAGNOSTICS / RADIOLOGY: [ ] ASSESSMENT: Severe sepsis, POA Acute hypoxemic respiratory failure, POA Influenza A positive, POA Rhabdomyolysis, POA Neutropenia, POA Elevated BNP, POA Seizures Pulmonary hypertension PLAN: Continue Tamiflu, ceftriaxone and azithromycin Trend WBCs Follow-up cultures Continue Keppra O2 nasal cannula as needed Continue nebulized treatments Discontinue steroids today Monitor blood pressure GI soft diet GI prophylaxis with famotidine Continue IV fluids in the setting of rhabdomyolysis Trend a.m. BMP Replete electrolytes as necessary DVT prophylaxis with Lovenox Trend a.m. CBC Full code Case was discussed with patient's nurse at bedside Attention time greater than 30 minutes BABS MURRY IV, MD Aug 11, 2024 13:46
[2024-08-11] MEDS ORDERED: OSEL75 PO (17:04)
--- NOTE | 2024-08-11 17:04 | DS ---
Discharge Summary Hospital Course Summary: patient was admitted due to pneumonia. RV PCR and sputum cultures were obtained. Patient was found to have influenza and placed on Tamiflu, empiric antibiotics and O2 nasal cannula while cultures were followed. Patient improved. Sputum cultures were negative The decision was made to discharge the patient on Tamiflu and Augmentin. Additionally the patient was treated with IV fluids for rhabdomyolysis. CK down trended quickly no signs of renal injury The patient should follow-up with PCP. Medications as per med rec Assessment/Plan: ASSESSMENT: Severe sepsis, POA Acute hypoxemic respiratory failure, POA Influenza A positive, POA Rhabdomyolysis, POA Neutropenia, POA Elevated BNP, POA Seizures Pulmonary hypertension PLAN: Continue Tamiflu, ceftriaxone and azithromycin Trend WBCs Follow-up cultures Continue Keppra O2 nasal cannula as needed Continue nebulized treatments Decrease IV steroids to daily Monitor blood pressure GI soft diet GI prophylaxis with famotidine Continue IV fluids in the setting of rhabdomyolysis Trend a.m. BMP Replete electrolytes as necessary DVT prophylaxis with Lovenox Trend a.m. CBC Full code Case was discussed with patient's nurse at bedside Attention time greater than 30 minutes Home Medications: Active Scripts Oseltamivir Phosphate (Tamiflu) 75 Mg Cap, 75 MG PO BID for 4 Days, #8 CAP Prov:BABS MURRY IV, MD 08/11/24 Sildenafil Citrate (Revatio) 20 Mg Tablet, 30 MG PO Q8H for 30 Days, #90 TAB 2 Refills Prov:YARITZA TANG MD 05/26/24 Montelukast Sodium (Singulair 10Mg) 10 Mg Tab, 10 MG PO DAILY for 30 Days, #30 TAB 2 Refills Prov:YARITZA TANG MD 05/26/24 Levetiracetam (Keppra) 500 Mg Tablet, 500 MG PO BID for 30 Days, #60 TAB 2 Refills Prov:YARITZA TANG MD 05/26/24 Multivitamins,Therapeutic (Multivitamin Tablet) 400 Mcg Tab, 1 TAB PO DAILY, #60 TAB Prov:ROOSEVELT KIM BASS FISHER 11/29/23 Famotidine (Famotidine) 20 Mg Tablet, 20 MG PO BID, #60 TAB Prov:ROOSEVELT KIM BASS FISHER 11/29/23 Time spent arranging discharge: 31-60 minutes BABS MURRY IV, MD Aug 11, 2024 17:04
--- NOTE | 2024-08-11 17:52 | NUR ---
note discharge instructions given to patient and family. both stated understanding. all questions answered.
--- NOTE | 2024-08-11 18:52 | NUR ---
DCP -- Discharged Attempted to IA, patient was discharged. Addendum: 08/11/24 at 1854 by ADEBAYO PATEL RN CM Amended: Links added.
--- NOTE | 2024-08-12 01:09 | HMCSR ---
APPROVED REPORT EXAM: Two-dimensional and M-mode echocardiogram with Doppler and color Doppler. INDICATION ICD: elevated bnp, sob 2D Dimensions RVDd5.7 cmLVEF(%)78.6 (>50%)LVED Vol(simp.)77.0 mL IVSd1.1 (0.7-1.1cm)FS(%)47 %LVES Vol(simp.)25.0 mL LVDd4.1 (3.8-5.6cm)LA (2D)3.9 (1.6-4.0cm)LVEF(%, simp.)68 % PWd1.2 (0.7-1.1cm)Ao Root(2D)3.0 (2.0-3.7cm)LA ESV INDEX (BP)2302.00 mL/m2 IVSs1.7 cmLVOT diam2.0 (1.8-2.4cm) LVDs2.2 (2.5-4.0cm)IVC diam2.2 cm PWs1.8 cm Deformation Strain Apical 4-19.0 % Apical 2-16.0 % Apical 3-20.0 % Global Strain-18.0 % M-Mode Dimensions EPSS0.4 cm LA (MM)3.9 (1.6-4.0cm) Ao Root(MM)2.7 (2.0-3.7cm) Aortic Valve AoV Vmax1.3 m/Jeana Peak GR6.6 mmHgLVOT Vmax1.0 m/s AoV VTI0.2 mAo Mean GR3.2 mmHgLVOT VTI0.20 m CATHERINE (VMAX)2.4 cm2AVA (VTI) 2.4 cm2 Mitral Valve MV E Vmax84.1 cm/sDECEL Rbdz571 ms MV A Vmax64.3 cm/sP 1/2 T70 ms E/A ratio1.3MVA (PHT)3.1 cm2 TDI E/E' Medial6.3 Tricuspid Valve TR Vmax2.6 m/sRVSP28.2 mmHg TR Peak GR28.2 mmHg Left Ventricle The left ventricle is normal size. No regional wall motion abnormalities noted. Mild concentric left ventricular hypertrophy. D-shaped septum Left ventricular systolic function is normal, estimated LVEF is 60 to 65% The left ventricular diastolic function is normal. Right Ventricle The right ventricle is severely dilated. The right ventricle free wall is hypokinetic, but the apex i s grossly normal in function. TAPSE 1.3 mm. Atria The left atrium size is normal. The right atrium is severely dilated. Aortic Valve The aortic valve is normal in structure. No aortic regurgitation is present. There is no aortic valvu lar stenosis. Mitral Valve The mitral valve is normal in structure. Trace mitral regurgitation. There is no mitral valve stenosi s. Tricuspid Valve The tricuspid valve is normal in structure. Moderate tricuspid regurgitation. RVSP is 33 mmHg. Pulmonic Valve Pulmonic valve is not well visualized. Great Vessels The aortic root is normal in size. IVC is dilated and collapses <50% with inspiration. Pericardium Trace pericardial effusion. Conclusion The right atrium is severely dilated. The right ventricle is severely dilated. Mild concentric left ventricular hypertrophy.D-shaped septum No regional wall motion abnormalities noted. Left ventricular systolic function is normal, estimated LVEF is 60 to 65% The left ventricular diastolic function is normal. The right ventricle free wall is hypokinetic, but the apex is grossly normal in function. TAPSE 1.3 mm. The findings are suggestive of Bueno sign, that is seen in pulmonary embolism. Clinical cor relation is advised. Trace mitral regurgitation. Moderate tricuspid regurgitation. PASP is 48 mmHg. Trace pericardial effusion.
[2024-08-12] MEDS ORDERED: Solu-medROL 40MG VIAL IVP SCH (09:00)
== END 2024-08-11 18:20 | disposition home or self-care (01) | DRG 871 ==
LOC: EDH 20:03 → EDHIP 20:04 → 2AH 08-10 06:47
PROVIDERS: ADMIT Internal Medicine; ATTEND Internal Medicine
DX: A41.89 Other specified sepsis (principal); J10.00 Influenza due to other identified influenza virus with unspecified type of pneumonia; J96.01 Acute respiratory failure with hypoxia; J44.0 Chronic obstructive pulmonary disease with (acute) lower respiratory infection; M62.82 Rhabdomyolysis; D70.9 Neutropenia, unspecified; E11.9 Type 2 diabetes mellitus without complications; I11.0 Hypertensive heart disease with heart failure; I25.10 Atherosclerotic heart disease of native coronary artery without angina pectoris; Z20.822 Contact with and (suspected) exposure to COVID-19; I27.20 Pulmonary hypertension, unspecified; I50.9 Heart failure, unspecified; R56.9 Unspecified convulsions; R65.20 Severe sepsis without septic shock; Z51.5 Encounter for palliative care; Z56.0 Unemployment, unspecified; Z59.71 Insufficient health insurance coverage; Z79.899 Other long term (current) drug therapy
CPT/HCPCS: 36415; 36600; 71045; 80048; 81001; 82550; 82803; 83605; 83735; 83880; 84100; 84145; 84484; 85025; 85027; 87040; 87071; 87086; 87205; 87635; 87804; 92610; 93005; 93306; 93356; 94640; 94664; 96365; 96368; 99291; G0378; J0456; J0696; J1650; J2543; J2919; J7120

== ENCOUNTER 2024-11-28 18:08 | Emergency (ER) | payer SELFPAY ==
[~2024-11-28] VITALS: Ht 154.9 cm; Wt 69.9 kg
[~2024-11-28 18:08] MED LIST changes: +OSEL75 PO
--- NOTE | 2024-11-28 19:53 | HMCIMG ---
Exam Type: ANKLE COMP 3VWS LT Clinical Information: pain Comparison: None Findings and impression: Comminuted posterior half calcaneal bone with extension to the subtalar joints. Overlying lateral and medial soft tissue swelling. No other abnormalities.
--- NOTE | 2024-11-28 20:17 | ERN ---
ED Note History of Present Illness Stated Complaint: FELL FROM LADDER Chief Complaint: Ankle Problem Time Seen by MD: 18:15 Time Seen by Midlevel: 18:16 Dictation: 1816 Allergies: Coded Allergies: No Known Allergies (Unverified Allergy, Unknown, 10/10/22) Emergency Care SURVEY DIRECTOR: None Home Meds Active Scripts Oseltamivir Phosphate (Tamiflu) 75 Mg Cap, 75 MG PO BID for 4 Days, #8 CAP Prov:BABS MURRY IV, MD 08/11/24 Sildenafil Citrate (Revatio) 20 Mg Tablet, 30 MG PO Q8H for 30 Days, #90 TAB 2 Refills Prov:YARITZA TANG MD 05/26/24 Montelukast Sodium (Singulair 10Mg) 10 Mg Tab, 10 MG PO DAILY for 30 Days, #30 TAB 2 Refills Prov:YARITZA TANG MD 05/26/24 Levetiracetam (Keppra) 500 Mg Tablet, 500 MG PO BID for 30 Days, #60 TAB 2 Refills Prov:YARITZA TANG MD 05/26/24 Multivitamins,Therapeutic (Multivitamin Tablet) 400 Mcg Tab, 1 TAB PO DAILY, #60 TAB Prov:ROOSEVELT KIM CHECK PROCESSING CLERK 11/29/23 Famotidine (Famotidine) 20 Mg Tablet, 20 MG PO BID, #60 TAB Prov:ROOSEVELT KIM CHECK PROCESSING CLERK 11/29/23 Past Medical History Dictation 49-year-old male presents to the emergency department due to reported having pain to the left ankle due to reported having a fall earlier today. At this time, he rates his discomfort as an 8/10. He denies having sustained any other type of injury. Patient states that it was a twisted them motion. Upon initial evaluation, the patient presumably normal neurovascularly examination. Past Medical History: CAD, COPD, Seizure Additional Past Medical Hx: RESPIRATORY FAILURE, PULMONARY HYPERTENSION POOR HISTORIAN Surgical History: Other Surgical History Other: LOOP RECORDER, RIGHT LEG Social History: Negative, Lives with family Review of System Dictation MS/Extremity: Left ankle pain Initial Vital Sign VS Vital Signs Date Time Temp Pulse Resp B/P (MAP) Pulse Ox O2 Delivery O2 Flow Rate FiO2 11/28/24 18:28 99.3 81 20 131/79 92 Room Air 0 Physical Exam Dictation General: awake, alert, NAD Head/Face: Normocephalic, atraumatic Eyes: PERRL, EOMI ENT: Oral mucosa moist Neck: Trachea midline, supple Cardiovascular: RRR, no edema Respiratory: Symmetrical, non-labored Abdomen: Soft, non-tender, non-distended, no guarding. Skin: Warm, dry, good turgor, no rash MS/Extremity: Painful range of motion, swelling and tenderness of the left ankle. Normal neurovascular examination Neuro: COAx4, GCS 15, steady gait, Psych: Normal behavior, mood, and affect normal Results (Laboratory/Radiology) X-RAY Comment: Three-view x-ray of the left ankle with no cortical anomalies or deformities as interpreted by me. ED Course ED Course Orders Procedure Category Date Status Time Ankle Comp 3vws Lt RAD 11/28/24 Resulted 18:58 Acetaminophen 500mg PHA 11/28/24 Complete Tab (Tylenol 500mg T 20:00 Current Medications Medications (Trade) Dose Ordered Sig/Ben Route PRN Reason Start Time Stop Time Status Last Admin Dose Admin Acetaminophen (TYLenol 500MG TAB) 1,000 mg ONCE ONCE PO 11/28/24 20:00 11/28/24 20:01 DC 11/28/24 20:19 Vital Signs Date Time Temp Pulse Resp B/P (MAP) Pulse Ox O2 Delivery O2 Flow Rate FiO2 11/28/24 18:28 99.3 81 20 131/79 92 Room Air 0 Medical Decision Making MDM MDM: Differential diagnosis: Left ankle sprain, left ankle fracture, left ankle contusion Rationale: Tests considered and ordered secondary to shared decision making include: Previous outside records reviewed: Old ER visits. Risk of complication and/or morbidity or mortality of patient management: None Medications-Per medication reconciliation Need for hospitalization: Patient does not meet criteria for hospitalization. Need for emergency major/minor surgery: No There are no social concerns with this patient. Prescription drug management Prescriptions will include symptomatic care Patient's prior external medical records from other ER visits were reviewed by me as indicated. Prior testing and results from previous visits were reviewed. Prior tests were taken into account with medical decision making and resource utilization, independent historian/historians were used to obtain complete medical history. I independently interpreted the test that were performed, results were reviewed by me and considered findings on radiology if ordered. Medical management and examination interpretation discussions were had by me with other qualified healthcare professionals as indicated for the patient's care. DX & DISP Disposition: Discharge Departure Impression: Primary Impression: Left ankle sprain Condition: Stable Referrals: SELF,REFERRAL (PCP) SUSANA CELIS Nov 28, 2024 20:17
[2024-11-28] MEDS: acetaMINOPHEN 500 MG TABLET PO ONE (20:19)
[2024-11-28 20:35] VITALS: BP 132/76; PULSE 76; RESP 20; TEMP 98.9; O2SAT 94
== END 2024-11-28 20:52 | disposition home or self-care (01) ==
LOC: EDH 18:08
DX: S93.402A Sprain of unspecified ligament of left ankle, initial encounter (principal); I25.10 Atherosclerotic heart disease of native coronary artery without angina pectoris; J44.9 Chronic obstructive pulmonary disease, unspecified; Z79.899 Other long term (current) drug therapy; W11.XXXA Fall on and from ladder, initial encounter; Y93.89 Activity, other specified; Y92.89 Other specified places as the place of occurrence of the external cause; Y99.8 Other external cause status
CPT/HCPCS: 73610; 99283

== ENCOUNTER 2025-03-21 22:08 | Inpatient (IN) | payer SELFPAY ==
[~2025-03-21] VITALS: Ht 154.9 cm; Wt 74.1 kg
--- NOTE | 2025-03-21 22:34 | ERN ---
General Chief Complaint: LOWER EXTREMITY EDEMA Stated Complaint: BILAT EXTR SWELLING, LUMP TO L NECK AREA Time Seen by MD: 22:21 Source: patient, family History of Present Illness Initial Comments 49-year-old male with coronary artery disease pulmonary hypertension comes in with bilateral lower extremities willing. His did most of the talking as he does not speak [place]. She explains that he normally takes water pills but that they ran out and his leg started swelling. The patient has pulmonary hypertension and the states that her is taking his sildenafil. She also states that he was helping work outside all day yesterday and that may have contributed to his leg swelling. Patient is also concerned about a lump on his right neck that is supraclavicular and left ankle heel foot pain. The foot pain has been ongoing for several months now he walks with crutches. He was initially evaluated here in his emergency room for this pain and plain films were negative. Allergies: Coded Allergies: No Known Allergies (Unverified Allergy, Unknown, 10/10/22) Home Meds Active Scripts Oseltamivir Phosphate (Tamiflu) 75 Mg Cap, 75 MG PO BID for 4 Days, #8 CAP Prov:BABS MURRY IV, MD 08/11/24 Sildenafil Citrate (Revatio) 20 Mg Tablet, 30 MG PO Q8H for 30 Days, #90 TAB 2 Refills Prov:YARITZA TANG MD 05/26/24 Montelukast Sodium (Singulair 10Mg) 10 Mg Tab, 10 MG PO DAILY for 30 Days, #30 TAB 2 Refills Prov:YARITZA TANG MD 05/26/24 Levetiracetam (Keppra) 500 Mg Tablet, 500 MG PO BID for 30 Days, #60 TAB 2 Refills Prov:YARITZA TANG MD 05/26/24 Multivitamins,Therapeutic (Multivitamin Tablet) 400 Mcg Tab, 1 TAB PO DAILY, #60 TAB Prov:ROOSEVELT KIM TRANSPLANT NURSE 11/29/23 Famotidine (Famotidine) 20 Mg Tablet, 20 MG PO BID, #60 TAB Prov:ROOSEVELT KIM TRANSPLANT NURSE 11/29/23 Past Medical History Past Medical History: CAD, COPD, Seizure Medical History Other: RESPIRATORY FAILURE, PULMONARY HYPERTENSION POOR HISTO NARCISO Past Surgical History: Other Surgical History Other: LOOP RECORDER, RIGHT LEG Social History Social History: Negative, Lives with family Constitutional: (-) chills, (-) diaphoresis, (-) fever, (-) malaise, (-) weakness, (-) other documentation EENTM: (-) eye pain, (-) blurred vision, (-) tearing, (-) double vision, (-) ear pain, (-) ear discharge, (-) nose pain, (-) nose congestion, (-) throat pain, (-) Throat swelling, (-) mouth pain, (-) tooth pain, (-) mouth swelling, (-) other documentation Respiratory: (-) cough, (-) orthopnea, (-) short of breath, (-) stridor, (-) wheezing, (-) other documentation Cardiovascular: (-) chest pain, (-) edema, (-) palpitations, (-) syncope, (-) dyspnea on exertion, (-) other documentation Gastrointestinal/Abdominal: (-) nausea, (-) vomiting, (-) diarrhea, (-) abdominal pain, (-) abdominal distention, (-) constipation, (-) rectal bleeding, (-) dark stool/melena, (-) other documentation Musculoskeletal: (-) Neck pain, (-) back pain, (-) Flank Pain, (-) joint pain, (-) joint swelling, (-) muscle pain, (-) muscle stiffness, (-) gout, (-) other documentation Skin: (-) laceration, (-) contusion, (-) abrasion, (-) abscess, (-) rash, (-) change in color, (-) change in hair, (-) change in nails, (-) diaphoresis, (-) dryness, (-) other documentation Neuro: (-) altered mental status, (-) headache, (-) syncope, (-) paralysis, (-) numbness, (-) seizure, (-) pre-existing deficit, (-) tremors, (-) weakness, (-) dizziness, (-) slurred speech, (-) vertigo, (-) other documentation Physical Exam General Appearance: (+) no apparent distress Orientation: (+) alert, (+) oriented x 3 Head/Face Trauma: No Eye: bilateral eye normal inspection, bilateral eye PERRL, bilateral eye EOMI Ear, Nose, Throat: (+) hearing grossly normal, (+) normal ENT inspection, (+) moist mucous membraine Neck Comment The lump on the patient's neck is compressible, soft. I have seen this in other patients and it turns out to be lung tissue poking up into that area. Respiratory: (+) chest non-tender, (+) lungs clear, (+) well ventilated Heart: (+) regular, (+) no gallop Vascular: (+) edema Extremities: (+) normal range of motion, (+) non-tender, (+) normal inspection, (+) pedal edema Extremities Comment Patient's skin feels warm as if he maybe having some seat stroke. Results Laboratory and Microbiology Lab and Micro Result Laboratory Tests Test 03/21/25 22:34 White Blood Count 5.0 K/uL (4.8-10.8) Red Blood Count 4.32 MIL/uL (4.50-6.20) L Hemoglobin 11.6 g/dL (14.0-18.0) L Hematocrit 37.2 % (42-54) L Mean Corpuscular Volume 86.1 fL (79-99) Mean Corpuscular Hemoglobin 26.9 pg (27.0-33.0) L Mean Corpuscular Hemoglobin Concent 31.2 g/dL (32.0-36.0) L Red Cell Distribution Width 16.4 % (11.0-15.5) H Platelet Count 104 K/uL (130-400) L Mean Platelet Volume 10.3 fL (7.5-10.5) Immature Granulocyte % (Auto) 0.6 % (0-1) Neutrophils (%) (Auto) 57.7 % (40.0-77.0) Lymphocytes (%) (Auto) 26.6 % (21.0-51.0) Monocytes (%) (Auto) 10.5 % (3.0-13.0) Eosinophils (%) (Auto) 4.2 % (0.0-8.0) Basophils (%) (Auto) 0.4 % (0.0-5.0) Neutrophils # (Auto) 2.9 K/uL (1.8-7.7) Lymphocytes # (Auto) 1.3 K/uL (1.0-4.8) Monocytes # (Auto) 0.5 K/uL (0.1-1.0) Eosinophils # (Auto) 0.21 K/uL (0.00-0.70) Basophils # (Auto) 0.02 K/uL (0.00-0.20) Absolute Immature Granulocyte (auto 0.03 K/uL (0-1) Nucleated Red Blood Cells 0.0 % (0.0-0.19) Sodium Level 138 mmol/L (136-145) Potassium Level 3.6 mmol/L (3.5-5.1) Chloride Level 104 mmol/L (101-111) Carbon Dioxide Level 20 mmol/L (21-32) L Blood Urea Nitrogen 9 mg/dL (7-18) Creatinine 0.8 mg/dL (0.5-1.3) Glomerular Filtration Rate Calc 108 mL/min (>90) Random Glucose 99 mg/dL (70-105) Total Calcium 8.3 mg/dL (8.5-10.1) L Troponin I High Sensitivity 25 ng/L (4-75) B-Type Natriuretic Peptide 415 pg/mL (0-100) H MDM MDM: Differential diagnosis: Patient does have bilateral pedal edema. He could be fluid overloaded, or in renal failure or CHF. Other possibilities include lymphedema valvular disease venous stasis disease heat stroke hypoalbuminemia. The lump in his neck has been benign I will get a chest x-ray. I will also get x-rays of his left foot and ankle. Rationale: Tests considered and ordered secondary to shared decision making include: Previous outside records reviewed: Old ER visits. Risk of complication and/or morbidity or mortality of patient management: None Medications-Per medication reconciliation Need for hospitalization: Patient does meet criteria for hospitalization. Need for emergency major/minor surgery: No There are no social concerns with this patient. Prescription drug management Prescriptions will include symptomatic care Patient's prior external medical records from other ER visits were reviewed by me as indicated. Prior testing and results from previous visits were reviewed. Prior tests were taken into account with medical decision making and resource utilization, independent historian/historians were used to obtain complete medical history. I independently interpreted the test that were performed, results were reviewed by me and considered findings on radiology if ordered. Patient's left foot show a mildly displaced calcaneus fracture with a possible cuboid fracture. I will order a CT scan. Patient's chest x-ray shows severe cardiomegaly. Chemistry panel shows possible mild metabolic acidosis with a an elevated BNP. Ultrasound of the patient's abdomen shows a dilated inferior vena cava. The patient needs to be admitted to get his pulmonary hypertension and ca rdiomegaly under better control. He does have an elevated BNP which maybe due to the pulmonary hypertension but it still higher than his baseline value was two months ago. I have discussed the patient with the hospitalists and they have agreed to take the patient to their service. ED Course Orders Procedure Category Date Status Time 12 Lead Ekg Tracing- EKG 03/21/25 Complete Technical 22:26 B-Type Natriuretic LAB 03/21/25 Complete Peptide 22:26 Cbc With Differential LAB 03/21/25 Complete 22:26 Basic Metabolic Panel LAB 03/21/25 Complete 22:26 Troponin I High LAB 03/21/25 Complete Sensitivity 22:26 Chest 1vw RAD 03/21/25 Resulted 22:26 Urinalysis Profile LAB 03/21/25 Logged 22:26 Ankle 2vws Lt RAD 03/21/25 Resulted 22:26 Foot Comp 3+Vws Lt RAD 03/21/25 Resulted 22:26 Vital Signs Date Time Temp Pulse Resp B/P (MAP) Pulse Ox O2 Delivery O2 Flow Rate FiO2 03/21/25 22:36 98.2 83 28 120/77 95 Nasal Cannula* 2 28 03/21/25 22:11 98.1 84 20 128/62 91 Nasal Cannula 2.0 DX & DISP Disposition: Inpatient Departure Impression: Primary Impression: Acute on chronic diastolic CHF (congestive heart failur e) Additional Impressions: Pulmonary hypertension, Fracture of calcaneus, left, closed Condition: Stable Referrals: SELF,REFERRAL (PCP) LOWELL MOON MD Mar 21, 2025 22:34
--- NOTE | 2025-03-21 22:35 | EKG ---
[facility] Test Date: 2025-03-21 Test Time: 22:30:15 Pat Name: EDUARDO CLEARY Department: ED Room: 224 Gender: M Workforce Services Representative: [id number] : 1975 Requested By: LOWELL MOON Order Number: [id number] Reading MD: Jim Ramirez Measurements Intervals [place] Rate: 77 P: 51 CA: 176 QRS: 126 QRSD: 115 T: -14 QT: 404 QTc: 459 Interpretive Statements Sinus rhythm CONSIDER RIGHT VENTRICULAR HYPERTROPHY Electronically Signed On 03-22-2025 12:01:24 CDT by Jim Ramirez Please click the below link to view image of tracing.
[2025-03-21 22:45] LABS: IMMATURE GRANULOCYTE ABSOLUTE 0.03 K/uL (0-1); NUCLEATED RED BLOOD CELLS 0.0 % (0.0-0.19); PLATELET COUNT (AUTO) 104 K/uL (130-400); RED BLOOD CELL COUNT(AUTO) 4.32 MIL/uL (4.50-6.20); RED CELL DISTRIBUTION WIDTH 16.4 % (11.0-15.5); WHITE BLOOD COUNT (AUTO) 5.0 K/uL (4.8-10.8)
[2025-03-21 23:11] LABS: CREATININE 0.8 mg/dL (0.5-1.3); GLOMERULAR FILTR. RATE CALC 108.0 mL/min (>90); GLUCOSE,RANDOM 99.0 mg/dL (70-105); SODIUM SERUM 138.0 mmol/L (136-145); UREA NITROGEN, BLOOD 9.0 mg/dL (7-18)
--- NOTE | 2025-03-21 23:41 | HMCIMG ---
EXAM: CR left ankle, 2 View. [place] [facility] [place] None provided. FINDINGS: Mildly displaced, comminuted intra-articular fracture of the calcaneus. The tibiotalar, subtalar, and visualized midfoot joints remain anatomically aligned. Marked soft tissue swelling throughout the visualized left lower extremity. IMPRESSION: 1. Mildly displaced, comminuted intra-articular fracture of the calcaneus with marked soft tissue swelling. /[place]
--- NOTE | 2025-03-21 23:45 | HMCIMG ---
EXAM: CR Chest, 1 View. CLINICAL HISTORY: [facility] [place] COMPARISON: Radiograph dated August 09, 2024 FINDINGS: Mild bibasilar airspace disease may reflect atelectasis and/or an infectious/inflammatory process. Small right pleural effusion. No pneumothorax. Stable cardiomegaly. Rhythm monitoring device again noted overlying the left lung base. Pulmonary vessels and interstitial markings appear within normal limits. IMPRESSION: 1. Mild bibasilar airspace disease, possibly atelectasis or infectious/inflammatory process. Small right pleural effusion. 2. No acute cardiopulmonary findings. /[place]
--- NOTE | 2025-03-21 23:50 | HMCIMG ---
EXAM: CR left foot, 3 View. CLINICAL HISTORY: [facility] – [place] COMPARISON: None provided. FINDINGS: Mildly displaced, comminuted intra-articular fracture of the calcaneus. There is concern for nondisplaced fracture of the cuboid. Recommend CT imaging for further evaluation. Joint spaces remain anatomically aligned. Marked soft tissue swelling throughout the left foot, more pronounced at the dorsal midfoot. IMPRESSION: 1. Mildly displaced, comminuted intra-articular fracture of the calcaneus. Possible nondisplaced fracture of the cuboid. 2. CT imaging recommended for further evaluation. /[place]
[2025-03-22] VITALS (8 sets, daily range): BP systolic 115–149; BP diastolic 63–87; PULSE 70–95; RESP 16–22; TEMP 97.4–97.9; O2SAT 98–99
--- NOTE | 2025-03-22 00:50 | HP ---
[facility] HISTORY AND PHYSICAL Date of Service: Mar 22, 2025 Time of Service: 00:50 PCP: Self Referral HISTORY OF PRESENT ILLNESS: This is a 49 year old Uzbek speaking male with past medical history of chronic respiratory failure on home O2 at 2L/NC ,coronary artery disease,pulmonary hypertension and seizure activity who presents to the Ed for complaints of swelling on the right leg new onset which started yesterday and patient has also left leg swelling which was ongoing for the past 3 months after the fall.Patient also states he has a nontender soft tissue located around his right supraclavicular area which he noticed today and did not know how it started but it does not hurt ,he just noticed that his right side of the neck is more pronounced than his left side of the neck. 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 On examination,patient left leg is red and tender to the touch.An Xray of the left ankle showed mildly displaced comminuted intra-articular fracture of the calcaneus with marked soft tissue swelling. Xray of left foot showed mildly displaced comminuted intra-articular fracture of the calcaneus.Possible nondisplaced fracture of the cuboid.Chest Xray result revealed mild bibasilar airspace disease,possibly atelectasis,or infectious/inflammatory process.Small right pleural effusion .No acute cardiopulmonary findings.As per ER he consulted an ortho surgeon credit professional and will order CT of lower extremity without contrast.Will admit patient for further medical management. REVIEW OF SYSTEMS CONSTITUTIONAL: Denies fevers, chills, or night sweats. No unintentional weight loss reported. NEUROLOGICAL: Denies headache, amaurosis fugax, motor weakness, sensory deficit, vertigo/spinning sensation, gait abnormalities, or tremors. ENT: No hearing loss, otalgia, otorrhea, rhinitis, rhinorrhea, hoarseness, or sore throat. CARDIOVASCULAR: Denies any exertional angina, dyspnea on exertion, orthopnea, paroxysmal nocturnal dyspnea, palpitations, life-threatening arrhythmias, claudication. PULMONARY: complaints of shortness of breath Denies cough, phlegm/sputum, hemoptysis, pleuritic chest pain. SLEEP: Denies morning headaches, daytime somnolence or napping. Denies difficulty falling asleep, staying asleep, waking from sleep. Denies knowledge of snoring. GASTROINTESTINAL: Denies any type of dysphagia to either liquids or solids. Denies nausea, vomiting, pyrosis, early satiety, abdominal pain, diarrhea, constipation, or changes in stool consistency or caliber. Denies coffee-ground emesis, hematemesis, hematochezia, or melanotic stools. GENITOURINARY: Denies frequency, urgency, nocturia, hematuria or incontinence (Storage/Irritative symptoms.) Low urinary stream, straining to void, urinary intermittency or hesitancy, splitting of the voiding stream, terminal dribbling. ENDOCRINOLOGIC: Denies polyuria, polydipsia, polyphagia or heat/cold intolerances. HEMATOLOGIC: Denies thrombophilia/previous clots, or coagulopathy/bleeding disorders. ONCOLOGIC: Denies personal history of malignancy. DERMATOLOGIC: Denies rashes or pruritus. PSYCHIATRIC: Denies any suicidal or homicidal ideation. Denies hallucinations. PAST MEDICAL HISTORY: [ Pulmonary hypertension, seizure disorder] PAST SURGICAL HISTORY: [ left monitoring device to left lung ,Right femur ORIF, right heart catheterization and left heart catheterization ] PAST SOCIAL HISTORY: [Patient lives with . Patient denies alcohol tobacco and recreational drug use. Patient states he used to smoke one pack of cigarettes per day quit 20 years ago and he used to drink three beers per day quit five months ago ] FAMILY HISTORY: [ diabetes and cardiovascular disease ] Coded Allergies: No Known Allergies (Unverified Allergy, Unknown, 10/10/22) PHYSICAL EXAM GENERAL APPEARANCE: The patient is awake, alert, and oriented, in no acute cardiopulmonary distress. NEUROLOGICAL: Cranial nerves II-XII grossly intact. Motor is 5/5 in bilateral upper and lower extremities proximal to distal. No sensory deficits. HEENT: Face is symmetric. Pupils are equal and reactive. Extraocular movements are intact. NECK: Right neck mass .Supple. No JVD. No thyromegaly. No submental, submandibular, pre-/postauricular lymphadenopathy CHEST: Normal chest expansion. No Telemetry. LUNGS: Absence of any rales, rhonchi or any wheezing. CARDIOVASCULAR: Regular. S1 and S2 normal. No appreciable rubs, murmurs or gallops. ABDOMEN: Soft, nontender, and nondistended. There is no rebound, voluntary guarding, or rigidity. : Deferred. No Carpio. EXTREMITIES: Edema to bilateral lower extremities and left leg is has erythema and tender tot he touch SKIN: No skin breakdown. Vital Sign (Last 24 Hours) 03/21/25 22:36 Temp 98.2 Pulse 83 Resp 28 B/P (MAP) 120/77 Pulse Ox 95 O2 Delivery Nasal Cannula* O2 Flow Rate 2 FiO2 28 LABS: Laboratory: Test 03/21/25 22:34 Range/Units White Blood Count 5.0 4.8-10.8 K/uL Red Blood Count 4.32 L 4.50-6.20 MIL/uL Hemoglobin 11.6 L 14.0-18.0 g/dL Hematocrit 37.2 L 42-54 % Mean Corpuscular Volume 86.1 79-99 fL Mean Corpuscular Hemoglobin 26.9 L 27.0-33.0 pg Mean Corpuscular Hemoglobin Concent 31.2 L 32.0-36.0 g/dL Red Cell Distribution Width 16.4 H 11.0-15.5 % Platelet Count 104 L 130-400 K/uL Mean Platelet Volume 10.3 7.5-10.5 fL Immature Granulocyte % (Auto) 0.6 0-1 % Neutrophils (%) (Auto) 57.7 40.0-77.0 % Lymphocytes (%) (Auto) 26.6 21.0-51.0 % Monocytes (%) (Auto) 10.5 3.0-13.0 % Eosinophils (%) (Auto) 4.2 0.0-8.0 % Basophils (%) (Auto) 0.4 0.0-5.0 % Neutrophils # (Auto) 2.9 1.8-7.7 K/uL Lymphocytes # (Auto) 1.3 1.0-4.8 K/uL Monocytes # (Auto) 0.5 0.1-1.0 K/uL Eosinophils # (Auto) 0.21 0.00-0.70 K/uL Basophils # (Auto) 0.02 0.00-0.20 K/uL Absolute Immature Granulocyte (auto 0.03 0-1 K/uL Nucleated Red Blood Cells 0.0 0.0-0.19 % Sodium Level 138 136-145 mmol/L Potassium Level 3.6 3.5-5.1 mmol/L Chloride Level 104 101-111 mmol/L Carbon Dioxide Level 20 L 21-32 mmol/L Blood Urea Nitrogen 9 7-18 mg/dL Creatinine 0.8 0.5-1.3 mg/dL Glomerular Filtration Rate Calc 108 >90 mL/min Random Glucose 99 70-105 mg/dL Total Calcium 8.3 L 8.5-10.1 mg/dL Troponin I High Sensitivity 25 4-75 ng/L B-Type Natriuretic Peptide 415 H 0-100 pg/mL DIAGNOSTICS / RADIOLOGY: [ ] ASSESSMENT: Acute CHF exacerbation POA Left foot fracture POA Acute on chronic anemia POA Chronic thrombocytopenia POA Pulmonary hypertension POA COPD POA Acute on chronic respiratory failure on home O2 POA Coronary artery disease POA Noncompliant with diet and medication POA Seizure disorder POA Right supraclavicular mass POA History of Fall injury POA PLAN: We will admit patient in P[facility]U We will start on heart healthy diet Will give Lasix 20 mg IV now We will start on Famotidine 20 mg po bid for GI prophylaxis We will replace electrolytes as needed per protocol We will add prn medication for fever,pain,cough , nausea and vomiting Home meds reconciled Will request case management service Will request Dietary consultation to educate on compliance with diet and medication regimen Fall and seizure precaution Daily weight and strict I & O Fluid restriction 1.5L/day Will obtain Venous doppler to R/O DVT to BLE Will follow up CT resullt Will order soft tissue ultrasound Will seek orthopedic surgeon consultation Will seek cardiology consultation We will request labs in am Further orders to follow depending on above results Case discussed with attending physician and came up with above treatment and plan of care. ADVANCED CARE PLANNING 1. Which of the following were discussed? Hospice Care - No Therapeutic options - Yes Advance Directives - No Other discussions - 2. Discussed with who? Patient and Xin Pulido 3. Voluntary nature of this service was explained to the patient? Yes 4. Amount of time spent - ___24 min____ 5. Reviewed by Physician? (if this service was performed by NPP) Yes Patient seen and examined by me. Agree with note by CARDIAC CATH LAB TECHNOLOGIST SEE ADDITIONAL ORDERS PER CHART DISCUSSED WITH NURSING STAFF JIMMY AYALA MAKEUP INSTRUCTOR Mar 22, 2025 00:50
[2025-03-22] MEDS ORDERED: LEVE-43 PO (01:03)
[2025-03-22] MEDS ORDERED: SILD20TA42 PO (01:03)
[2025-03-22] MEDS ORDERED: FURO40TA5 PO (01:03)
[2025-03-22] MEDS ORDERED: NITROGLYCERIN 0.4 MG SL TAB SL PRN (01:30)
--- NOTE | 2025-03-22 02:19 | NUR ---
REPORT GIVEN TO CARON RN
--- NOTE | 2025-03-22 02:19 | HMCIMG ---
EXAM: CT Ankle, left, without IV contrast. CLINICAL HISTORY: Calcaneus fracture. TECHNIQUE: Axial computed tomography images of the left ankle without intravenous contrast. CONTRAST: None. COMPARISON: Radiograph of the left ankle dated 11/28/2024. FINDINGS: BONES: Mild diffuse osteopenia. Subacute to chronic nonunited, comminuted, mildly displaced calcaneal fracture JOINTS: The joint spaces appear within normal limits. No dislocation. SOFT TISSUES: No radiopaque foreign body is seen. No soft tissue fluid collection. Few subcutaneous soft tissue edema with hemorrhage at the ankle. IMPRESSION: Subacute to chronic nonunited, comminuted, mildly displaced calcaneal fracture. No significant interval healing compared to the previous radiograph dated 11/28/2024. /[place]
[2025-03-22 02:33] LABS: APPEARANCE,URINE CLEAR (CLEAR); GLUCOSE, URINE (UA) NEGATIVE (NEGATIVE); LEUKOCYTE ESTERASE ,URINE NEGATIVE Leu/uL (NEGATIVE); NITRATE,URINE NEGATIVE (NEGATIVE); OCCULT BLOOD,URINE NEGATIVE (NEGATIVE)
[2025-03-22 02:35] LABS: ADD UA MICROSCOPIC NO
[2025-03-22 05:17] LABS: IMMATURE GRANULOCYTE ABSOLUTE 0.03 K/uL (0-1); NUCLEATED RED BLOOD CELLS 0.0 % (0.0-0.19); PLATELET COUNT (AUTO) 98 K/uL (130-400); RED BLOOD CELL COUNT(AUTO) 4.45 MIL/uL (4.50-6.20); RED CELL DISTRIBUTION WIDTH 16.4 % (11.0-15.5); WHITE BLOOD COUNT (AUTO) 4.4 K/uL (4.8-10.8)
[2025-03-22 05:39] LABS: % IRON SATURATION 7.6 % (30-44); IRON, SERUM 27.0 mcg/dL (65-175)
[2025-03-22 05:45] LABS: ASPARTATE AMINOTRANSFERASE 20.0 U/L (10-37); CREATININE 0.7 mg/dL (0.5-1.3); GLOMERULAR FILTR. RATE CALC 112.0 mL/min (>90); GLUCOSE,RANDOM 93.0 mg/dL (70-105); SODIUM SERUM 140.0 mmol/L (136-145); TOTAL PROTEIN, SERUM 7.6 g/dL (6.0-8.3); UREA NITROGEN, BLOOD 9.0 mg/dL (7-18)
[2025-03-22] MEDS ORDERED: PoTASSium chl 10% ELIXIR 20MEQ 20 MEQ/15 ML UDCUP PO PRN (06:00)
[2025-03-22] MEDS: MAGNESIUM 2GM PREMIX 50ML 50 ML IV PRN (06:16)
[2025-03-22] MEDS: PoTASSium chloRIDE 20MEQ ER 20 MEQ ERTAB PO PRN (06:16)
--- NOTE | 2025-03-22 06:33 | HMCIMG ---
EXAM: US for Deep Venous Thrombosis, bilateral Lower Extremity. CLINICAL HISTORY: Leg Pain and Swelling. TECHNIQUE: Real-time ultrasound scan of the veins of the bilateral lower extremity with color Doppler flow, spectral waveform analysis, and compression. COMPARISON: None provided. FINDINGS: DEEP VEINS: The common femoral, superficial femoral, and popliteal veins are echolucent and compressible. There is normal color Doppler flow throughout. The visualized calf veins appear patent. SOFT TISSUES: No popliteal fossa cyst or other abnormalities. Reactive 2.2 cm lymph node in the left inguinal region. Subcutaneous edema in the left leg. IMPRESSION: No deep venous thrombosis is evident on bilateral lower extremity examination. Reactive 2.2 cm lymph node in the left inguinal region. Subcutaneous edema in the left leg. /[place]
[2025-03-22] MEDS ORDERED: SILDENAFIL CITRATE 20 MG TABLET PO SCH (09:00)
[2025-03-22] MEDS: FAMOTIDINE 20MG TAB PO SCH (09:47)
[2025-03-22] MEDS: SILDENAFIL CITRATE 20 MG TABLET PO SCH (13:42)
--- NOTE | 2025-03-22 15:05 | CONS ---
CONSULT NOTE: CARDIOLOGY Reason for consult: CHF HPI/story at presentation: This is a pleasant 50 male with past medical history replacement complains of shortness of breath. Cardiology was consulted because of concern for CHF exace rbation, currently, status post diuresis. Patient has a previous history of recurrent syncope for which a loop recorder was implanted, 07/2023 and had normal ejection fraction on echocardiogram, 07/2024 Past medical history: See below Allergies, Meds See chart Review of systems Review of Systems Constitutional: Negative for chills and fever. HENT: Negative for ear discharge and ear pain. Eyes: Negative for photophobia and discharge. Respiratory: Negative for cough, sputum production and stridor. Cardiovascular: Negative for chest pain and palpitations. Gastrointestinal: Negative for diarrhea and vomiting. Genitourinary: Negative for frequency. Musculoskeletal: Negative for myalgias. Skin: Negative for rash. Neurological: Negative for focal weakness and seizures. Endo/Heme/Allergies: Negative for polydipsia. Psychiatric/Behavioral: Negative for hallucinations. Vitals see chart PHYSICAL EXAMINATION GENERAL: The patient is alert and oriented*3 HEENT: Nonicteric sclerae, non traumatic HEART: Regular rate and rhythm with no murmurs LUNGS: Clear to auscultation bilaterally ABDOMEN: No acute issues, non tender GENITAL, RECTAL: deferred SKIN: No rash NEUROLOGIC: NFND EXTREMITIES: No edema ASSESSMENT SHORTNESS OF BREATH At presentation Possible CHF exacerbation Edema presentation Previous EF of 60 to 65%, echocardiogram, 03/2025 LOOP RECORDER IN SITU Device interrogation requested, 03/2025 In the setting of recurrent syncope, 05/2024 PULMONARY HYPERTENSION History of, on sildenafil, 03/2025 THROMBOCYTOPENIA Chronic CORE MEASURES Pending OTHER MEDICAL PROBLEMS COPD Seizures PLAN 03/22/2025 reviewed diuresis, renal function stable, continue watch electrolytes and creatinine while diuresing. Echocardiogram has been ordered. Further recommendations post echo. Seen and examined 03/22/2025 at around 1500 ATTESTATION I was involved substantially in the care of this patient Number and complexity of problems addressed: 1 acute illness with systemic features Amount and or complexity of data Review of prior external note(s) from each unique source: 2+ Ordering of each unique test : 0 Review of the result(s) of each unique test: 2+ Assessment requiring an independent historian(s): No Independent interpretation of test performed by another MD/QHCP/appropriate source (not separately reported) : No Discussion of management or test interpretation with external MD/QHCP/appropriate source (not separately reported) : No Risk status (cardiac, billing related): Moderate MARYSOL SAM MD Mar 22, 2025 15:05
--- NOTE | 2025-03-22 18:00 | NUR ---
cm note met with pt and states lives with spouse, uses crutches for ambulation, semi independent with adls. assists. has a portable concentrator that was given to him at hospital. no portable. pt was at work and fell. provided pt with list [facility] in the area,and merged with [facility] info for possible provider if needed. states she can call if needed. transports. dc plan [place] states no dc needs. Addendum: 03/22/25 at 1810 by ROBSON TINAJERO CM Amended: Links added.
--- NOTE | 2025-03-22 23:13 | CONS ---
TIME: At approximately 8:30 p.m. REASON FOR CONSULT: Left calcaneus fracture. HISTORY: This is a 49-year-old male, who reports falling about 3 months ago. He had foot pain. He came into the emergency room here. He was seen. He was told he had no injury, sent home and he comes back in due to his hypertension exacerbation. During his workup, he was found to have a calcaneal fracture. CT scan was done and he comes in for evaluation. REVIEW OF SYSTEMS: He denies nausea, vomiting, fevers, chills, or headache. He does complain of shortness of breath. He has no bowel or bladder problems. PAST MEDICAL HISTORY: * Pulmonary hypertension. * Seizure disorder. PAST SURGICAL HISTORY: He had a, * Surgery on his left lung. * Right femur ORIF. * Right heart catheterization. SOCIAL HISTORY: He lives with his . He denies tobacco and alcohol and recreational drugs. He used to smoke a pack a day and he no longer does that. FAMILY HISTORY: Family history for diabetes and cardiovascular disease. ALLERGIES: He has no known drug allergies. PHYSICAL EXAMINATION: On exam, he is awake, he is alert, he is oriented, he is in bed. His left lower extremity has some swelling about the heel. He is mildly tender to palpation. He can flex and extend his toes and ankles without difficulty. His compartments are soft. His calf is nontender. His knee is nontender. X-RAYS: X-rays were reviewed from today as well as from about 3 months ago both showing a calcaneal fracture that goes into the subtalar joint. The CT scan was reviewed and shows a more comminuted calcaneal fracture. No other fractures are seen. IMPRESSION: Chronic nonunion of a calcaneal fracture. PLAN: Calcaneal fractures are outside my scope of practice, so I would not operate on him. I think he should be referred to a foot and ankle specialist. He should be placed into a CAM boot walker or some other supportive device to try and hold his foot steady. He should be nonweightbearing for now. If it does not hurt him, he can start weightbearing if he can tolerate it with partial weightbearing and he should follow up with a foot and ankle specialist. TID: [id number] RECEIPT: [id number]
[2025-03-23] VITALS (8 sets, daily range): BP systolic 103–130; BP diastolic 61–86; PULSE 63–85; RESP 16–20; TEMP 97.7–98; O2SAT 99–100
[2025-03-23 03:42] LABS: NUCLEATED RED BLOOD CELLS 0.0 % (0.0-0.19); PLATELET COUNT (AUTO) 99.0 K/uL (130-400); RED BLOOD CELL COUNT(AUTO) 4.44 MIL/uL (4.50-6.20); RED CELL DISTRIBUTION WIDTH 16.1 % (11.0-15.5); WHITE BLOOD COUNT (AUTO) 4.6 K/uL (4.8-10.8)
[2025-03-23 04:09] LABS: ASPARTATE AMINOTRANSFERASE 19.0 U/L (10-37); CREATININE 0.7 mg/dL (0.5-1.3); GLOMERULAR FILTR. RATE CALC 112.0 mL/min (>90); GLUCOSE,RANDOM 111.0 mg/dL (70-105); SODIUM SERUM 138.0 mmol/L (136-145); TOTAL PROTEIN, SERUM 7.0 g/dL (6.0-8.3); UREA NITROGEN, BLOOD 12.0 mg/dL (7-18)
[2025-03-23] MEDS: PoTASSium chloRIDE 20MEQ ER 20 MEQ ERTAB PO ONE (09:49)
--- NOTE | 2025-03-23 09:50 | PN ---
[facility] PROGRESS NOTE Date of Service: Mar 23, 2025 Time of Service: 09:47 SUBJECTIVE: 03/23 patient is seen and examined at bedside, case discussed with the RN, no acute events overnight. The time my visit the patient is comfortably in bed, alert oriented x3, he remains on supplemental oxygen via nasal cannula at 2 L, saturating 98%. He already uses oxygen at home secondary to pulmonary hypertension. He denies dizziness, no headache, no chest pain, no shortness a breath, no nausea, no vomiting. Cardiology input noted and appreciated, continue with diuresis. Patient evaluated by orthopedic physician secondary to chronic nonunion of a calcaneal fracture. Orthopedic recommendations as follows: Calcaneal fractures are outside my scope of practice, so I would not operate on him. I think he should be referred to a foot and ankle specialist. He should be placed into a CAM boot walker or some other supportive device to try and hold his foot steady. He should be nonweightbearing for now. If it does not hurt him, he can start weightbearing if he can tolerate it with partial weightbearing and he should follow up with a foot and ankle specialist. PER MY DISCUSSION WITH THE NURSE TAKING CARE OF THE PATIENT TODAY, ORTHOPEDIC PHYSICIAN RECOMMENDED THAT THE PATIENT CAN FOLLOW UP AN OUTPATIENT WITH HOSPICE REGISTERED NURSE DR. JORGE BROWER. WE WILL PROVIDE INFORMATION FOR THE PATIENT. PATIENT TO BE DISCHARGED HOME ONCE COUNT BUT OR OTHER SUPPORTIVE DEVICE HAS BEEN ARRANGED, AND WHEN MEDICALLY STABLE. REVIEW OF SYSTEMS CONSTITUTIONAL: Denies fevers, chills, or night sweats. No unintentional weight loss reported. NEUROLOGICAL: Denies headache, amaurosis fugax, motor weakness, sensory deficit, vertigo/spinning sensation, gait abnormalities, or tremors. ENT: No hearing loss, otalgia, otorrhea, rhinitis, rhinorrhea, hoarseness, or sore throat. CARDIOVASCULAR: Denies any exertional angina, dyspnea on exertion, orthopnea, paroxysmal nocturnal dyspnea, palpitations, life-threatening arrhythmias, claudication. PULMONARY: complaints of shortness of breath Denies cough, phlegm/sputum, hemoptysis, pleuritic chest pain. SLEEP: Denies morning headaches, daytime somnolence or napping. Denies difficulty falling asleep, staying asleep, waking from sleep. Denies knowledge of snoring. GASTROINTESTINAL: Denies any type of dysphagia to either liquids or solids. Denies nausea, vomiting, pyrosis, early satiety, abdominal pain, diarrhea, constipation, or changes in stool consistency or caliber. Denies coffee-ground emesis, hematemesis, hematochezia, or melanotic stools. GENITOURINARY: Denies frequency, urgency, nocturia, hematuria or incontinence (Storage/Irritative symptoms.) Low urinary stream, straining to void, urinary intermittency or hesitancy, splitting of the voiding stream, terminal dribbling. ENDOCRINOLOGIC: Denies polyuria, polydipsia, polyphagia or heat/cold intolerances. HEMATOLOGIC: Denies thrombophilia/previous clots, or coagulopathy/bleeding disorders. ONCOLOGIC: Denies personal history of malignancy. DERMATOLOGIC: Denies rashes or pruritus. PSYCHIATRIC: Denies any suicidal or homicidal ideation. Denies hallucinations. PHYSICAL EXAM GENERAL APPEARANCE: The patient is awake, alert, and oriented, in no acute cardiopulmonary distress. NEUROLOGICAL: Cranial nerves II-XII grossly intact. Motor is 5/5 in bilateral upper and lower extremities proximal to distal. No sensory deficits. HEENT: Face is symmetric. Pupils are equal and reactive. Extraocular movements are intact. NECK: Right neck mass .Supple. No JVD. No thyromegaly. No submental, submandibular, pre-/postauricular lymphadenopathy CHEST: Normal chest expansion. No Telemetry. LUNGS: Absence of any rales, rhonchi or any wheezing. CARDIOVASCULAR: Regular. S1 and S2 normal. No appreciable rubs, murmurs or gallops. ABDOMEN: Soft, nontender, and nondistended. There is no rebound, voluntary guarding, or rigidity. : Deferred. No Carpio. EXTREMITIES: Edema to bilateral lower extremities and left leg is has erythema and tender tot he touch SKIN: No skin breakdown. Vital Signs (last 8hr) Date Time Temp Pulse Resp B/P (MAP) Pulse Ox O2 Delivery O2 Flow Rate FiO2 03/23/25 07:00 97.9 63 20 117/78 99 Nasal Cannula 3.0 03/23/25 03:23 98.1 79 16 108/69 98 Room Air LABS: Laboratory: Test 03/23/25 03:29 03/22/25 05:09 03/22/25 02:04 03/21/25 22:34 Range/Units White Blood Count 4.6 L 4.8-10.8 K/uL Red Blood Count 4.44 L 4.50-6.20 MIL/uL Hemoglobin 11.8 L 14.0-18.0 g/dL Hematocrit 37.6 L 42-54 % Mean Corpuscular Volume 84.7 79-99 fL Mean Corpuscular Hemoglobin 26.6 L 27.0-33.0 pg Mean Corpuscular Hemoglobin Concent 31.4 L 32.0-36.0 g/dL Red Cell Distribution Width 16.1 H 11.0-15.5 % Platelet Count 99 L 130-400 K/uL Mean Platelet Volume 10.0 7.5-10.5 fL Nucleated Red Blood Cells 0.0 0.0-0.19 % Sodium Level 138 136-145 mmol/L Potassium Level 3.7 3.5-5.1 mmol/L Chloride Level 102 101-111 mmol/L Carbon Dioxide Level 28 21-32 mmol/L Blood Urea Nitrogen 12 7-18 mg/dL Creatinine 0.7 0.5-1.3 mg/dL Glomerular Filtration Rate Calc 112 >90 mL/min Random Glucose 111 H 70-105 mg/dL Total Calcium 8.1 L 8.5-10.1 mg/dL Magnesium Level 2.10 1.80-2.40 mg/dL Total Bilirubin 1.7 H 0.2-1.0 mg/dL Aspartate Amino Transf (AST/SGOT) 19 10-37 U/L Alanine Aminotransferase (ALT/SGPT) 20 12-78 U/L Alkaline Phosphatase 155 H 50-136 U/L Total Protein 7.0 6.0-8.3 g/dL Albumin 3.4 L 3.5-5.0 g/dL Immature Granulocyte % (Auto) 0.7 0-1 % Neutrophils (%) (Auto) 61.2 40.0-77.0 % Lymphocytes (%) (Auto) 23.5 21.0-51.0 % Monocytes (%) (Auto) 9.7 3.0-13.0 % Eosinophils (%) (Auto) 4.7 0.0-8.0 % Basophils (%) (Auto) 0.2 0.0-5.0 % Neutrophils # (Auto) 2.7 1.8-7.7 K/uL Lymphocytes # (Auto) 1.0 1.0-4.8 K/uL Monocytes # (Auto) 0.4 0.1-1.0 K/uL Eosinophils # (Auto) 0.21 0.00-0.70 K/uL Basophils # (Auto) 0.01 0.00-0.20 K/uL Absolute Immature Granulocyte (auto 0.03 0-1 K/uL Iron Level 27 L 65-175 mcg/dL Total Iron Binding Capacity 354 250-450 mcg/dL Percent Iron Saturation 7.6 L 30-44 % B-Type Natriuretic Peptide 368 H 0-100 pg/mL Urine Color LIGHT-YELLOW YELLOW Urine Appearance CLEAR CLEAR Urine pH 5.5 5.0-8.0 Urine Specific [place] 1.009 1.001-1.031 Urine Protein NEGATIVE NEGATIVE mg/dL Urine Glucose (UA) NEGATIVE NEGATIVE mg/dL Urine Ketones NEGATIVE NEGATIVE mg/dL Urine Occult Blood NEGATIVE NEGATIVE Urine Nitrate NEGATIVE NEGATIVE Urine Bilirubin NEGATIVE NEGATIVE mg/dL Urine Urobilinogen 0.2 0.2-1.0 mg/dL Urine Leukocyte Esterase NEGATIVE NEGATIVE Efren/uL Troponin I High Sensitivity 25 4-75 ng/L Current Medications Medications (Trade) Dose Ordered Sig/Ben Route PRN Reason Start Time Stop Time Status Last Admin Dose Admin Acetaminophen (TYLenol 325MG TAB) 650 mg Q4H PRN PO MILD PAIN (1-3) 03/22/25 01:30 04/21/25 01:29 Acetaminophen (TYLenol 325MG TAB) 650 mg Q6H PRN PO TEMPERATURE GREATER THAN 101.5 03/22/25 01:30 04/21/25 01:29 Famotidine (Pepcid 20mg Tab) 20 mg BID PO 03/22/25 09:00 04/21/25 08:59 03/22/25 22:00 20 MG Furosemide (LASix 40MG TAB) 40 mg QODAY PO 03/22/25 09:00 04/21/25 08:59 03/22/25 09:49 40 MG Levetiracetam (kepPRA 500 MG TABLET) 500 mg BID PO 03/22/25 09:00 04/21/25 08:59 03/22/25 22:00 500 MG Magnesium Sulfate 50 ml @ 0 mls/hr PROTOCOL PRN IV MAGNESIUM PROTOCOL 03/22/25 06:00 04/21/25 05:59 03/22/25 06:16 25 MLS/HR Nitroglycerin (Nitrostat) 0.4 mg PROTOCOL PRN SL CHEST PAIN 03/22/25 01:30 03/22/25 11:48 DC Ondansetron HCl (zoFRAN 4MG INJ) 4 mg Q6H PRN IV NAUSEA/VOMITING 03/22/25 01:30 04/21/25 01:29 Potassium Chloride (K-Dur/Klor-Con 20meq) 20 meq AD PRN PO POTASSIUM PROTOCOL 03/22/25 06:00 04/21/25 05:59 03/23/25 06:19 20 MEQ Potassium Chloride (KCl 10% Elixir 20meq/15ml) 20 meq AD PRN PO POTASSIUM PROTOCOL 03/22/25 06:00 04/21/25 05:59 Sildenafil Citrate (Revatio) 20 mg TID PO 03/22/25 14:00 04/21/25 13:59 03/22/25 22:00 20 MG Sildenafil Citrate (Revatio) 30 mg TID PO 03/22/25 09:00 03/22/25 11:49 DC DIAGNOSTICS / RADIOLOGY: [ ] ASSESSMENT: Acute CHF exacerbation POA Left foot fracture POA Acute on chronic anemia POA Chronic thrombocytopenia POA Pulmonary hypertension POA COPD POA Acute on chronic respiratory failure on home O2 POA Coronary artery disease POA Noncompliant with diet and medication POA Seizure disorder POA Right supraclavicular mass POA History of Fall injury POA PLAN: patient is seen and examined at bedside, case discussed with the RN, no acute events overnight. The time my visit the patient is comfortably in bed, alert oriented x3, he remains on supplemental oxygen via nasal cannula at 2 L, saturating 98%. He already uses oxygen at home secondary to pulmonary hypertension. He denies dizziness, no headache, no chest pain, no shortness a breath, no nausea, no vomiting. Cardiology input noted and appreciated, continue with diuresis. Patient evaluated by orthopedic physician secondary to chronic nonunion of a calcaneal fracture. Orthopedic recommendations as follows: Calcaneal fractures are outside my scope of practice, so I would not operate on him. I think he should be referred to a foot and ankle specialist. He should be placed into a CAM boot walker or some other supportive device to try and hold his foot steady. He should be nonweightbearing for now. If it does not hurt him, he can start weightbearing if he can tolerate it with partial weightbearing and he should follow up with a foot and ankle specialist. PER MY DISCUSSION WITH THE NURSE TAKING CARE OF THE PATIENT TODAY, ORTHOPEDIC PHYSICIAN RECOMMENDED THAT THE PATIENT CAN FOLLOW UP AN OUTPATIENT WITH HOSPICE REGISTERED NURSE DR. JORGE BROWER. WE WILL PROVIDE INFORMATION FOR THE PATIENT. PATIENT TO BE DISCHARGED HOME ONCE COUNT BUT OR OTHER SUPPORTIVE DEVICE HAS BEEN ARRANGED, AND WHEN MEDICALLY STABLE. NEURO: MINIMIZE CENTRAL ACTING MEDICATIONS POSSIBLE. FALL PRECAUTIONS. WELL LIGHTED ROOM THROUGH THE DAY AND MINIMIZE INTERRUPTIONS THROUGH THE NIGHT TO PREVENT ACUTE DELIRIUM. PULMONARY: SUPPLEMENTAL 02 NEEDED BIPAP NECESSARY, FOR RESPIRATORY DISTRESS TITRATE FIO2 TO KEEP SPO2 > OR = 90% DUONEBS AND CPT NEEDED IS HOURLY WHILE AWAKE FOR PULMONARY HYGIENE PRN OUT OF BED TO CHAIR TOLERATED MAINTAIN ASPIRATION PRECAUTIONS AT ALL TIMES CARDIOVASCULAR: FOLLOW HEMODYNAMICS. VITAL SIGNS PER FACILITY PROTOCOL GI & NUTRITION: CONTINUE NUTRITIONAL SUPPORT ASPIRATIONS PRECAUTIONS PROKINETIC AGENTS AND LAXATIVES NEEDED KIDNEYS & ELECTROLYTES: STRICT MONITORING OF INTAKE AND OUTPUT DAILY WEIGHTS AVOID NEPHROTOXIC AGENTS MONITOR ELECTROLYTES AND REPLACE NEEDED GOAL URINE OUTPUT OF 30ML/HR OR 0.5ML/KG/HR MEDICATIONS TO BE DOSED ACCORDING TO RENAL FUNCTION. AVOID CONTRAST IF POSSIBLE ENDOCRINE: MAINTAIN BLOOD GLUCOSE BETWEEN 100-180 AT ALL TIMES. INSULIN SLIDING SCALE FOR BLOOD GLUCOSE MANAGEMENT HYPOGLYCEMIA AND HYPERGLYCEMIA PROTOCOL IN PLACE INFECTIOUS DISEASE: TREND TEMPERATURE, WBC AND PROCALCITONIN LEVEL FOLLOW CULTURES, DEESCALATE ANTIBIOTICS SOON POSSIBLE. PANCULTURE IF NEW ONSET FEVER HEMATOLOGY & COAGULATION: MONITOR H&H. KEEP HGB > 7 TRANSFUSE 1 UNIT OF PRBC FOR HGB < 7 TRANSFUSE 1 PACK OF PLATELETS OF PLATELETS < 20, 000 WATCH FOR ANY SIGNS AND SYMPTOMS OF BLEEDING SKIN: PRESSURE ULCER PREVENTION PER FACILITY PROTOCOL SPECIALTY MATTRESS NEEDED ORTHO/REHAB CONTINUE PT/OT PRN: MEDICATIONS TYLENOL 650 MG PO EVERY 4 HRS FOR FEVER ZOFRAN 4 MG IV EVERY 6 HRS FOR N/V HYDRALAZINE 5 MG IV EVERY 4 HRS SYSTOLIC PRESSURE > 160 BOWEL REGIMENT: LACTULOSE 20 GM PO BID PRN CONSTIPATION SUPPORTIVE MEASURES: CONTINUE GI AND DVT PROPHYLAXIS ALL QUESTIONS ANSWERED TIME SPENT: > 35 MIN YARITZA TANG MD Mar 23, 2025 09:50
--- NOTE | 2025-03-23 20:19 | PN ---
CARDIOLOGY Reason for consult: CHF HPI/story at presentation: This is a pleasant 50 male with past medical history replacement complains of shortness of breath. Cardiology was consulted because of concern for CHF exacerbation, currently, status post diuresis. Patient has a previous history of recurrent syncope for which a loop recorder was implanted, 07/2023 and had normal ejection fraction on echocardiogram, 07/2024 Past medical history: See below Allergies, Meds See chart Review of systems Review of Systems Constitutional: Negative for chills and fever. HENT: Negative for ear discharge and ear pain. Eyes: Negative for photophobia and discharge. Respiratory: Negative for cough, sputum production and stridor. Cardiovascular: Negative for chest pain and palpitations. Gastrointestinal: Negative for diarrhea and vomiting. Genitourinary: Negative for frequency. Musculoskeletal: Negative for myalgias. Skin: Negative for rash. Neurological: Negative for focal weakness and seizures. Endo/Heme/Allergies: Negative for polydipsia. Psychiatric/Behavioral: Negative for hallucinations. Vitals see chart PHYSICAL EXAMINATION GENERAL: The patient is alert and oriented*3 HEENT: Nonicteric sclerae, non traumatic HEART: Regular rate and rhythm with no murmurs LUNGS: Clear to auscultation bilaterally ABDOMEN: No acute issues, non tender GENITAL, RECTAL: deferred SKIN: No rash NEUROLOGIC: NFND EXTREMITIES: No edema ASSESSMENT SHORTNESS OF BREATH At presentation Possible CHF exacerbation Edema presentation Previous EF of 60 to 65%, echocardiogram, 03/2025 LOOP RECORDER IN SITU Device interrogation requested, 03/2025 In the setting of recurrent syncope, 05/2024 PULMONARY HYPERTENSION History of, on sildenafil, 03/2025 THROMBOCYTOPENIA Chronic CORE MEASURES Pending OTHER MEDICAL PROBLEMS COPD Seizures PLAN 03/22/2025 reviewed diuresis, renal function stable, continue watch electrolytes and creatinine while diuresing. Echocardiogram has been ordered. Further recommendations post echo. Seen and examined 03/22/2025 at around 1500 03/23/2025 Echocardiogram with evidence of dilated RV and elevated pulmonary pressures. This could likely be chronic but will get a CT chest to rule out underlying pulm embolism. Currently, does take sildenafil at home. May consider increasing if needed. Does feel like he is breathing better although, does appear to be short of breath. Seen and examined 03/23/2025 around 9 PM. ATTESTATION I was involved substantially in the care of this patient Number and complexity of problems addressed: 1 acute illness with systemic features Amount and or complexity of data Review of prior external note(s) from each unique source: 2+ Ordering of each unique test : 0 Review of the result(s) of each unique test: 2+ Assessment requiring an independent historian(s): No Independent interpretation of test performed by another MD/QHCP/appropriate source (not separately reported) : No Discussion of management or test interpretation with external MD/QHCP/appropriate source (not separately reported) : No Risk status (cardiac, billing related): Moderate Vitals/Labs Vital Signs Date Time Temp Pulse Resp B/P (MAP) Pulse Ox O2 Delivery O2 Flow Rate FiO2 03/23/25 19:56 98.1 74 20 119/66 100 Nasal Cannula 3.0 28 Laboratory Tests 03/23/25 03:29 Medications Current Medications Furosemide 40 mg QODAY PO Last administered on 03/22/25at 09:49; Start 03/22/25 at 09:00; Stop 04/21/25 at 08:59 Levetiracetam 500 mg BID PO Last administered on 03/23/25at 09:49; Start 03/22/25 at 09:00; Stop 04/21/25 at 08:59 Sildenafil Citrate 30 mg TID PO; Start 03/22/25 at 09:00; Stop 03/22/25 at 11:49; Status DC Furosemide 20 mg ONCE ONCE IV Last administered on 03/22/25at 01:53; Start 03/22/25 at 01:30; Stop 03/22/25 at 01:48; Status DC Acetaminophen 650 mg Q6H PRN PO; Start 03/22/25 at 01:30; Stop 04/21/25 at 01:29 Acetaminophen 650 mg Q4H PRN PO; Start 03/22/25 at 01:30; Stop 04/21/25 at 01:29 Ondansetron HCl 4 mg Q6H PRN IV; Start 03/22/25 at 01:30; Stop 04/21/25 at 01:29 Nitroglycerin 0.4 mg PROTOCOL PRN SL; Start 03/22/25 at 01:30; Stop 03/22/25 at 11:48; Status DC Famotidine 20 mg BID PO Last administered on 03/23/25at 09:49; Start 03/22/25 at 09:00; Stop 04/21/25 at 08:59 Potassium Chloride 20 meq AD PRN PO; Start 03/22/25 at 06:00; Stop 04/21/25 at 05:59 Potassium Chloride 20 meq AD PRN PO Last administered on 03/23/25at 06:19; Start 03/22/25 at 06:00; Stop 04/21/25 at 05:59 Magnesium Sulfate 50 ml @ 0 mls/hr PROTOCOL PRN IV Last administered on 03/22/25at 06:16; Start 03/22/25 at 06:00; Stop 04/21/25 at 05:59 Sildenafil Citrate 20 mg TID PO Last administered on 03/23/25at 14:52; Start 03/22/25 at 14:00; Stop 04/21/25 at 13:59 Potassium Chloride 40 meq ONCE ONCE PO Last administered on 03/23/25at 09:49; Start 03/23/25 at 08:00; Stop 03/23/25 at 08:01; Status DC MARYSOL SAM MD Mar 23, 2025 20:19
[2025-03-23] MEDS ORDERED: IOHEXOL 350 MG/ML 100ML INFUS..BTL IV ONE (21:41)
--- NOTE | 2025-03-23 22:54 | HMCIMG ---
EXAM: CTA Chest with and without Intravenous Contrast for PE evaluation CLINICAL HISTORY: Shortness of breath. TECHNIQUE: Axial CTA images of the chest with and without intravenous contrast using a pulmonary embolism protocol. Multiplanar reconstructed images were created and reviewed. CONTRAST: was administered without incident. COMPARISON: CTA dated May 20, 2024. FINDINGS: PULMONARY ARTERIES: No evidence of central or segmental pulmonary embolism is seen. The main pulmonary artery is mildly dilated, measuring up to 3.3 cm. AORTA: There is no evidence for aneurysm or dissection of the thoracic aorta. LUNGS: Consolidations with ground-glass densities in both lower lobes, with linear atelectasis. There are areas of air trapping in the left upper lobe. Linear atelectasis in the posterior segment of the right upper lobe. PLEURAL SPACES: Small right pleural effusion. Trace amount of left pleural effusion. No pneumothorax evident. HEART: Cardiomegaly. Dilated right atrium and ventricle. Mild pericardial effusion. Coronary artery calcification. LYMPH NODES: Multiple subcentimetric mediastinal lymph nodes. BONES: Mild multilevel degenerative changes in the spine. No focal osseous abnormality or acute fracture. UPPER ABDOMEN: Volume redistribution of the liver with a lobulated hepatic contour, concerning chronic liver parenchymal disease. IMPRESSION: Negative PE study. A mildly dilated main pulmonary artery may represent pulmonary arterial hypertension. No interval changes. Cardiomegaly. Recommend echocardiography correlation. Small right pleural effusion. Trace amount of left pleural effusion. Mild pericardial effusion. The right pleural effusion has mildly reduced since the prior CT. Consolidations with ground-glass densities in both lower lobes with atelectatic bands, no interval changes. /[place]
--- NOTE | 2025-03-23 23:34 | HMCSR ---
APPROVED REPORT EXAM: Two-dimensional and M-mode echocardiogram with Doppler and color Doppler. INDICATION ICD: R06.02 Shortness of breath 2D Dimensions RVDd5.5 cmLVEF(%)90.1 (>50%)LVED Vol(simp.)83.0 mL IVSd1.2 (0.7-1.1cm)FS(%)61 %LVES Vol(simp.)31.0 mL LVDd4.1 (3.8-5.6cm)LA (2D)3.8 (1.6-4.0cm)LVEF(%, simp.)63 % PWd1.2 (0.7-1.1cm)Ao Root(2D)2.8 (2.0-3.7cm)LA ESV INDEX (BP)23.00 mL/m2 LVDs1.6 (2.5-4.0cm)LVOT diam2.1 (1.8-2.4cm) IVC diam2.1 cm Deformation Strain Apical 4-18.7 % Apical 2-21.2 % Apical 3-14.7 % Global Strain-18.2 % M-Mode Dimensions LA (MM)3.5 (1.6-4.0cm) Ao Root(MM)2.8 (2.0-3.7cm) Aortic Valve AoV Vmax1.3 m/Jeana Peak GR6.3 mmHgLVOT Vmax1.1 m/s AoV VTI0.2 mAo Mean GR3.4 mmHgLVOT VTI0.19 m CATHERINE (VMAX)3.15 cm2AVA (VTI) 3.1 cm2 Mitral Valve MV E Vmax66.8 cm/sDECEL Bzbz030 ms MV A Vmax45.0 cm/sP 1/2 T41 ms E/A ratio1.5MVA (PHT)5.4 cm2 TDI E/E' Medial5.9E/E' Lateral5.7 Medial E' Peak V11.39 cm/sLateral E' Peak V11.72 cm/s Pulmonary Valve PV Vmax1.1 m/s PV Peak GR4.7 mmHg Tricuspid Valve TR Vmax3.6 m/sRAP (EST) 8 msPkFQGW91.3 mmHg TR Peak GR53.3 mmHg Left Ventricle Left ventricular cavity size is normal. D shaped left ventricle suggesting right ventricular volume/p ressure overload. Mild left ventricular hypertrophy. LVEF is 60-65%. The left ventricular diastolic f unction is normal. Right Ventricle The right ventricle is severely dilated. Bueno's sign present at apex, consider evaluation for PE . Atria The right atrium is severely dilated. Aortic Valve The aortic valve is normal in structure and function. No aortic regurgitation is present. There is no aortic valvular stenosis. Mitral Valve The mitral valve is normal in structure and function. There is no mitral valve regurgitation noted. T here is no mitral valve stenosis. Tricuspid Valve The tricuspid valve leaflets appear normal. There is moderate tricuspid valve regurgitation noted, RV SP 61mmHg. Pulmonic Valve The pulmonary valve is normal in structure. There is no pulmonic valvular regurgitation. Great Vessels The aortic root is normal in size. IVC is normal in size and collapses <50% with inspiration. Pericardium Small pericardial effusion. No echo indications of pericardial tamponade. Conclusion LVEF is 60-65%. The left ventricular diastolic function is normal. Mild left ventricular hypertrophy. Left ventricular cavity size is normal. D shaped left ventricle suggesting right ventricular volume/pressure overload. The right ventricle is severely dilated. The right atrium is severely dilated. Moderate to severe pulmonary hypertension Small pericardial effusion. No echo indications of pericardial tamponade. Study quality was adequate
[2025-03-24 03:26] VITALS: BP 104/71; PULSE 73; RESP 20; TEMP 98
[2025-03-24 03:59] LABS: NUCLEATED RED BLOOD CELLS 0.0 % (0.0-0.19); PLATELET COUNT (AUTO) 86 K/uL (130-400); RED BLOOD CELL COUNT(AUTO) 4.15 MIL/uL (4.50-6.20); RED CELL DISTRIBUTION WIDTH 16.1 % (11.0-15.5); WHITE BLOOD COUNT (AUTO) 4.3 K/uL (4.8-10.8)
[2025-03-24 04:47] LABS: ASPARTATE AMINOTRANSFERASE 19.0 U/L (10-37); CREATININE 0.8 mg/dL (0.5-1.3); GLOMERULAR FILTR. RATE CALC 108.0 mL/min (>90); GLUCOSE,RANDOM 116.0 mg/dL (70-105); SODIUM SERUM 141.0 mmol/L (136-145); TOTAL PROTEIN, SERUM 6.8 g/dL (6.0-8.3); UREA NITROGEN, BLOOD 11.0 mg/dL (7-18)
[2025-03-24 08:05] VITALS: BP 116/74; PULSE 83; RESP 18; TEMP 98
[2025-03-24 09:30] VITALS: O2SAT 96
[2025-03-24 12:13] VITALS: BP 118/57; PULSE 70; RESP 20; TEMP 98.1
[2025-03-24] MEDS ORDERED: SILD20TA PO (13:44)
--- NOTE | 2025-03-24 13:52 | DS ---
Discharge Summary Hospital Course Summary: HOSPITAL COURSE: The patient is a 49-year-old Czech-speaking male with a complex medical history who presented with new right lower extremity swelling and chronic left lower extremity swelling following a fall three months ago. He also reported a new, non-tender right supraclavicular soft tissue prominence. The patient has chronic respiratory failure on home oxygen, pulmonary hypertension, coronary artery disease, and a history of seizure disorder. On admission, the left lower extremity was noted to be red and tender. Imaging revealed a subacute to chronic, nonunited, comminuted, mildly displaced intra- articular fracture of the left calcaneus with marked soft tissue swelling and po ssible nondisplaced fracture of the cuboid. No significant interval healing was noted compared to prior imaging from 11/28/2024. Chest X-ray showed mild bibasilar airspace disease, a small right pleural effusion, and no acute cardiopulmonary findings. Cardiology was consulted and a 2D echocardiogram demonstrated diastolic dysfunction with preserved ejection fraction (60-65%). The patients volume status was optimized, and his home diuretic regimen was resumed after a brief interruption prior to admission. His respiratory status improved with supportive care and continuation of home oxygen. Orthopedic surgery evaluated the patient and recommended conservative management with a CAM boot walker, as the injury was outside the scope of their surgical intervention. The patient was advised to follow up with podiatry for further management. The right supraclavicular soft tissue prominence was non-tender and asymptomatic; no acute intervention was required. The patient remained hemodynamically stable throughout hospitalization. His shortness of breath improved with diuresis and supportive care. He was able to ambulate with assistance and tolerated oral intake. DISCHARGE CONDITION: Stable. Ambulating with CAM boot walker. Breathing improved. Tolerating oral intake. No acute distress. DISCHARGE INSTRUCTIONS: Continue home oxygen as previously prescribed. Resume home medications, including diuretics as directed. Use CAM boot walker for left foot as instructed. Elevate lower extremities as tolerated. Adhere to a low-sodium diet and fluid restriction as recommended. Monitor for increased swelling, redness, pain, or signs of infection in the lowe r extremities. Monitor for worsening shortness of breath, chest pain, or neurological symptoms. FOLLOW-UP APPOINTMENTS: Primary Care Provider: Within 1 week Cardiology: As scheduled or sooner if symptoms worsen Podiatry (Dr. Ngo): As soon as possible Orthopedic Surgery: As needed for reassessment Return to the Emergency Department for any acute changes in condition [employer] Welder(s): Dr. Colin-Cardio Dr. Nick- ortho Assessment/Plan: Admitting diagnoses: Acute CHF exacerbation POA Left foot fracture POA Acute on chronic anemia POA Chronic thrombocytopenia POA Pulmonary hypertension POA COPD POA Acute on chronic respiratory failure on home O2 POA Coronary artery disease POA Noncompliant with diet and medication POA Seizure disorder POA Right supraclavicular mass POA History of Fall injury POA Discharge Diagnosis: Subacute to chronic nonunited, comminuted, mildly displaced left calcaneal fracture Chronic respiratory failure on home O2 Pulmonary hypertension Coronary artery disease Seizure disorder Bilateral lower extremity edema, multifactorial (volume overload, fracture, immobility) Diastolic dysfunction (EF 60-65%) Small right pleural effusion Mild bibasilar airspace disease (atelectasis vs. infectious/inflammatory process) Right supraclavicular soft tissue prominence (asymptomatic, non-tender) Home Medications: Reported Medications Furosemide (Furosemide) 40 Mg Tablet, 1 TAB PO QODAY for 30 Days, #30 TAB 0 Refills 03/22/25 Sildenafil Citrate (Sildenafil) 20 Mg Tablet, 25 TAB PO TID for 30 Days, #30 TAB 0 Refills 03/22/25 Levetiracetam (Keppra) 500 Mg Tablet, 1 TAB PO BID for 30 Days, #60 TAB 0 Refil ls 03/22/25 Discontinued Scripts Oseltamivir Phosphate (Tamiflu) 75 Mg Cap, 75 MG PO BID for 4 Days, #8 CAP Prov:BABS MURRY IV, MD 08/11/24 Sildenafil Citrate (Revatio) 20 Mg Tablet, 30 MG PO Q8H for 30 Days, #90 TAB 2 Refills Prov:YARITZA TANG MD 05/26/24 Montelukast Sodium (Singulair 10Mg) 10 Mg Tab, 10 MG PO DAILY for 30 Days, #30 TAB 2 Refills Prov:YARITZA TANG MD 05/26/24 Levetiracetam (Keppra) 500 Mg Tablet, 500 MG PO BID for 30 Days, #60 TAB 2 Refills Prov:YARITZA TANG MD 05/26/24 Multivitamins,Therapeutic (Multivitamin Tablet) 400 Mcg Tab, 1 TAB PO DAILY, #60 TAB Prov:ROOSEVELT KIM STAFF [employer]IATION THERAPIST 11/29/23 Famotidine (Famotidine) 20 Mg Tablet, 20 MG PO BID, #60 TAB Prov:ROOSEVELT KIM STAFF RADIATION THERAPIST 11/29/23 New Medications: Sildenafil Citrate (Revatio) 20 Mg Tablet 20 MG PO TID, #90 TAB Continued Medications: Furosemide (Furosemide) 40 Mg Tablet 1 TAB PO QODAY for 30 Days, #30 TAB 0 Refills Levetiracetam (Keppra) 500 Mg Tablet 1 TAB PO BID for 30 Days, #60 TAB 0 Refills Sildenafil Citrate (Sildenafil) 20 Mg Tablet 25 TAB PO TID for 30 Days, #30 TAB 0 Refills Time spent arranging discharge: 31-60 minutes ATTESTATION BY PHYSICIAN I have seen and examined the patient. I reviewed the documentation, medical decision making, and treatment plan as noted by the mid-level provider above. I agree with the findings and plan of care. Juliana Austin MD, JANICE [facility] Mar 24, 2025 13:52
[2025-03-24] MEDS ORDERED: FURO40TA5 PO (15:33)
--- NOTE | 2025-03-24 16:40 | NUR ---
DISCHARGE Discharge instructions given to patient and patient's spouse. Patient verbalized knowledge and understanding. Patient and spouse know the need for follow up outpatient with [employer]. Patient's peripheral IV's removed. Personal belongings verified to be back with patient. Patient escorted via wheelchair by BETZAIDA Reynoso. Patient discharged now.
== END 2025-03-24 16:35 | disposition home or self-care (01) | DRG 291 ==
LOC: EDH 22:08 → EDHIP 22:09 → 2DH 03-22 02:40
PROVIDERS: ADMIT Internal Medicine; ATTEND Internal Medicine
DX: I11.0 Hypertensive heart disease with heart failure (principal); I50.33 Acute on chronic diastolic (congestive) heart failure; J96.20 Acute and chronic respiratory failure, unspecified whether with hypoxia or hypercapnia; M84.48XA Pathological fracture, other site, initial encounter for fracture; D64.9 Anemia, unspecified; D69.6 Thrombocytopenia, unspecified; G40.909 Epilepsy, unspecified, not intractable, without status epilepticus; I25.10 Atherosclerotic heart disease of native coronary artery without angina pectoris; I27.20 Pulmonary hypertension, unspecified; J44.9 Chronic obstructive pulmonary disease, unspecified; Z91.119 Patient's noncompliance with dietary regimen due to unspecified reason; Z91.148 Patient's other noncompliance with medication regimen for other reason; Z99.81 Dependence on supplemental oxygen; Z82.49 Family history of ischemic heart disease and other diseases of the circulatory system; Z83.3 Family history of diabetes mellitus; Z87.891 Personal history of nicotine dependence
CPT/HCPCS: 36415; 71045; 71270; 73600; 73630; 73700; 80048; 80053; 81003; 83540; 83550; 83735; 83880; 84484; 85025; 85027; 93005; 93306; 93356; 93970; 99285; G0378; J1938; J3475; Q9967